=== PATIENT | male | born 1990 | race American Indian/Alaskan Native ===

== ENCOUNTER 2017-12-05 03:10 | Inpatient (IN) | payer MEDICAID ==
[2017-12-05] MEDS ORDERED: D5NS 0.2% 1,000 ML IV SCH (05:00)
[2017-12-05] MEDS ORDERED: DILAUDID IV ONE ×2 (06:25→06:47)
[2017-12-05] MEDS ORDERED: BENADRYL IV ONE (06:26)
[2017-12-05] MEDS ORDERED: ZOFRAN IV ONE (06:26)
[2017-12-05 06:31] LABS: Hemoglobin 6.6 gm/dl (11.8-15.2); Mean Corpuscular HGB Conc 37 % (32-34); Mean Corpuscular Hemoglobin 30 pg (28-32); Mean Corpuscular Volume 81 fl (84-94); Red Blood Count 2.21 M/mm3 (3.65-5.03)
[2017-12-05 06:35] LABS: Platelet Count 288 K/mm3 (140-440); Red Cell Distribution Width 29.8 % (13.2-15.2)
[2017-12-05 06:38] LABS: Hematocrit 17.9 % (35.5-45.6)
--- NOTE | 2017-12-05 07:02 | Emergency Department Report ---
ED General Adult HPI - General Chief complaint: Sickle Cell Crisis Stated complaint: SICKLE CELL CRISIS Time Seen by Provider: 12/05/17 06:45 Source: patient Mode of arrival: Ambulatory Limitations: No Limitations - History of Present Illness Initial comments: Mr. Goldman is a 27-year-old male with history of hemoglobin SS disease. He has been ill for the past 7 days. He recently left against medical advice [facility] because his pain was not being controlled. Upon admission at the outside hospital, he was receiving hydromorphone 2 mg IV every 3 hours which was managing his pain. He was informed that the hospital ran out of Dilaudid. He was then titrated to morphine 4 mg IV every 3 hours which did not control his pain. He is followed by handstitching machine armhole feller at the [facility]. He denies fever. He's had mild headache. He has mild nondescript chest pain. He has back and extremity pain. He desires hospitalization. [place] has been dependent on oxygen for several years. -: Gradual, week(s) (1) Location: chest, back, upper extremity, lower extremity Radiation: non-radiation Severity scale (0 -10): 9 Quality: aching Consistency: constant Improves with: medication Worsens with: none Associated Symptoms: chest pain. denies: confusion, fever/chills, nausea/ vomiting - Related Data Home Medications Medication Instructions Recorded Confirmed Last Taken Amitriptyline [Elavil] 25 mg PO QHS 06/16/15 08/24/17 08/23/17 Previous Rx's Medication Instructions Recorded Last Taken Type Folic Acid [Folvite] 1 mg PO QDAY #30 tablet 06/17/15 08/23/17 Rx Hydroxyurea [Droxia] 1,500 mg PO DAILY #30 capsule 06/17/15 08/23/17 Rx Oxycodone HCl/Acetaminophen 1 tab PO Q4-6H PRN #15 tablet 09/16/15 Unknown Rx [Percocet 10/325 mg] Allergies Allergy/AdvReac Type Severity Reaction Status Date / Time No Known Allergies Allergy Verified 06/16/15 12:38 ED Review of Systems ROS: Stated complaint: SICKLE CELL CRISIS Other details as noted in HPI Comment: All other systems reviewed and negative Constitutional: denies: fever, malaise Respiratory: denies: cough Gastrointestinal: denies: abdominal pain ED Past Medical Hx - Past Medical History Previous Medical History?: Yes Hx Congestive Heart Failure: No Hx Diabetes: No Hx Sickle Cell Disease: Yes Hx Asthma: Yes Hx HIV: No Additional medical history: Acute chest syndrome - Surgical History Past Surgical History?: Yes Hx Cholecystectomy: Yes Additional Surgical History: TRACHEOSTOMY. 2 PORTS AND REMOVAL. LIVER BIOPSY X2 - Social History Smoking Status: Never Smoker Substance Use Type: Alcohol - Medications Home Medications: Home Medications Medication Instructions Recorded Confirmed Last Taken Type Amitriptyline [Elavil] 25 mg PO QHS 06/16/15 08/24/17 08/23/17 History Folic Acid [Folvite] 1 mg PO QDAY #30 tablet 06/17/15 08/24/17 08/23/17 Rx Hydroxyurea [Droxia] 1,500 mg PO DAILY #30 capsule 06/17/15 08/24/17 08/23/17 Rx Oxycodone HCl/Acetaminophen 1 tab PO Q4-6H PRN #15 tablet 09/16/15 08/24/17 Unknown Rx [Percocet 10/325 mg] ED Physical Exam - General Limitations: No Limitations General appearance: alert, in no apparent distress - Head Head exam: Present: atraumatic, normocephalic - Eye Eye exam: Present: normal appearance - ENT ENT exam: Present: normal orophraynx, mucous membranes moist - Neck Neck exam: Present: normal inspection. Absent: meningismus - Respiratory Respiratory exam: Present: normal lung sounds bilaterally. Absent: respiratory distress, wheezes, rales, rhonchi - Cardiovascular Cardiovascular Exam: Present: regular rate, normal rhythm. Absent: systolic murmur, diastolic murmur, rubs, gallop - GI/Abdominal GI/Abdominal exam: Present: soft, normal bowel sounds. Absent: distended, tenderness, guarding, rebound - Rectal Rectal exam: Present: deferred - Extremities Exam Extremities exam: Present: normal inspection - Back Exam Back exam: Present: normal inspection - Neurological Exam Neurological exam: Present: alert, oriented X3 - Psychiatric Psychiatric exam: Present: normal affect, normal mood - Skin Skin exam: Present: warm, dry, intact, normal color. Absent: rash ED Course Vital Signs 12/05/17 12/05/17 12/05/17 04:15 05:16 05:20 Temperature 97.8 F 98.5 F Pulse Rate 90 76 Respiratory 20 18 Rate Blood Pressure 107/67 114/72 Blood Pressure 114/72 [Left] O2 Sat by Pulse 96 99 Oximetry 12/05/17 12/05/17 12/05/17 05:30 05:46 06:00 Temperature Pulse Rate 73 69 74 Respiratory 14 19 15 Rate Blood Pressure 109/66 109/66 97/49 Blood Pressure [Left] O2 Sat by Pulse 99 100 100 Oximetry 12/05/17 12/05/17 12/05/17 06:16 06:30 06:38 Temperature Pulse Rate 73 Respiratory 19 18 Rate Blood Pressure 114/72 124/62 Blood Pressure [Left] O2 Sat by Pulse 100 98 Oximetry 12/05/17 12/05/17 12/05/17 06:46 07:00 07:16 Temperature Pulse Rate 83 78 84 Respiratory 24 20 19 Rate Blood Pressure 124/62 116/58 124/62 Blood Pressure [Left] O2 Sat by Pulse 100 100 99 Oximetry 12/05/17 07:32 Temperature 97.6 F Pulse Rate Respiratory Rate Blood Pressure Blood Pressure [Left] O2 Sat by Pulse Oximetry ED Medical Decision Making - Lab Data Result diagrams: 12/05/17 04:47 12/05/17 06:57 Laboratory Results - last 24 hr 12/05/17 04:47 WBC 15.6 H RBC 2.21 L Hgb 6.6 L Hct 17.9 L* MCV 81 L MCH 30 MCHC 37 H RDW 29.8 H Plt Count 288 Baso % (Auto) Sprinkler Installer Lymph # Sprinkler Installer Percent Retic 10.92 H Immature Retic Fraction 0.76 Vital Signs - 24 hr 12/05/17 12/05/17 12/05/17 04:15 05:16 05:20 Temperature 97.8 F 98.5 F Pulse Rate 90 76 Respiratory 20 18 Rate Blood Pressure 107/67 114/72 Blood Pressure 114/72 [Left] O2 Sat by Pulse 96 99 Oximetry 12/05/17 12/05/17 12/05/17 05:30 05:46 06:00 Temperature Pulse Rate 73 69 74 Respiratory 14 19 15 Rate Blood Pressure 109/66 109/66 97/49 Blood Pressure [Left] O2 Sat by Pulse 99 100 100 Oximetry 12/05/17 12/05/17 12/05/17 06:16 06:30 06:38 Temperature Pulse Rate 73 Respiratory 19 18 Rate Blood Pressure 114/72 124/62 Blood Pressure [Left] O2 Sat by Pulse 100 98 Oximetry 12/05/17 06:46 Temperature Pulse Rate 83 Respiratory 24 Rate Blood Pressure 124/62 Blood Pressure [Left] O2 Sat by Pulse 100 Oximetry - Medical Decision Making Mr. Goldman presents with sickle cell disease crisis. He'll be admitted to the hospitalist service. Critical care attestation.: If time is entered above; I have spent that time in minutes in the direct care of this critically ill patient, excluding procedure time. ED Disposition Clinical Impression: Sickle cell anemia with crisis Disposition: -09 OP ADMIT IP TO THIS HOSP Is pt being admited?: Yes Does the pt Need Aspirin: No Condition: Stable Referrals: LIDIA ARTHUR MD [Other] - 3-5 Days Time of Disposition: 08:08
[2017-12-05 07:26] LABS: BUN/Creatinine Ratio 15; Blood Urea Nitrogen 15 mg/dL (9-20); Calcium 8.5 mg/dL (8.4-10.2); Hemolysis Index 30
[2017-12-05 08:01] LABS: Band Neutrophils # (Manual) 0.6 K/mm3; Basophils % (Manual) 0 % (0.0-1.8); Total Cells Counted 100; Toxic Vacuolation Few
[2017-12-05 08:02] LABS: Anisocytosis 3+; Giant Platelets Few; Ovalocytes Few; Sickle Cells 3+; Target Cells 1+
[2017-12-05] MEDS ORDERED: MILK OF MAGNESIA PO PRN (10:34)
[2017-12-05] MEDS ORDERED: ZOFRAN IV PRN (10:34)
[2017-12-05] MEDS ORDERED: DULCOLAX PR PRN (10:34)
[2017-12-05] MEDS ORDERED: DILAUDID IV PRN (10:34)
--- NOTE | 2017-12-05 10:38 | History and Physical Report ---
History of Present Illness Date of examination: 12/05/17 Date of admission: 12/05/17 08:09 Chief complaint: SSC History of present illness: Mr. Goldman is a 27-year-old male with history of hemoglobin SS disease. He has been ill for the past 7 days. He recently left against medical advice [facility] yesterday because his pain was not being controlled. Upon admission at the outside hospital, he was receiving hydromorphone 2 mg IV every 3 hours which was managing his pain. He was informed that the hospital ran out of Dilaudid. He was then titrated to morphine 4 mg IV every 3 hours which did not control his pain. He is followed by tennis professional at the [place] [facility]. He denies fever. He denies h/ a or CP. He has back and extremity pain. No F/C, cough or cold sxs. Past History Past Medical History: other (SSC) Past Surgical History: No surgical history Social history: no significant social history Family history: no significant family history Medications and Allergies Allergies Allergy/AdvReac Type Severity Reaction Status Date / Time No Known Allergies Allergy Verified 06/16/15 12:38 Home Medications Medication Instructions Recorded Confirmed Last Taken Type Amitriptyline [Elavil] 25 mg PO QHS 06/16/15 12/05/17 08/23/17 History Folic Acid [Folvite] 1 mg PO QDAY #30 tablet 06/17/15 12/05/17 08/23/17 Rx Hydroxyurea [Droxia] 1,500 mg PO DAILY #30 capsule 06/17/15 12/05/17 08/23/17 Rx Oxycodone HCl/Acetaminophen 1 tab PO Q4-6H PRN #15 tablet 09/16/15 12/05/17 Unknown Rx [Percocet 10/325 mg] Active Meds: Active Medications Dextrose/Sodium Chloride (D5ns 0.2%) 1,000 mls @ 250 mls/hr IV DIRECT SLICK Last Admin: 12/05/17 08:40 Dose: 250 mls/hr Review of Systems All systems: negative Exam - Constitutional Vitals: Temp Pulse Resp BP Pulse Ox 97.6 F 84 19 124/62 99 12/05/17 07:32 12/05/17 07:16 12/05/17 07:16 12/05/17 07:16 12/05/17 07:16 General appearance: Present: no acute distress, well-nourished - EENT Eyes: Present: PERRL ENT: hearing intact, clear oral mucosa - Neck Neck: Present: supple, normal ROM - Respiratory Respiratory effort: normal Respiratory: bilateral: CTA - Cardiovascular Heart Sounds: Present: S1 & S2. Absent: rub, click - Extremities Extremities: pulses symmetrical, No edema Peripheral Pulses: within normal limits - Abdominal General gastrointestinal: Present: soft, non-tender, non-distended, normal bowel sounds Male genitourinary: Present: normal - Integumentary Integumentary: Present: clear, warm, dry - Musculoskeletal Musculoskeletal: gait normal, strength equal bilaterally - Psychiatric Psychiatric: appropriate mood/affect, intact judgment & insight - Neurologic Neurologic: CNII-XII intact, moves all extremities Results - Labs CBC & Chem 7: 12/05/17 04:47 12/05/17 06:57 Labs: Laboratory Last Values WBC 15.6 K/mm3 (4.5-11.0) H 12/05/17 04:47 RBC 2.21 M/mm3 (3.65-5.03) L 12/05/17 04:47 Hgb 6.6 gm/dl (11.8-15.2) L 12/05/17 04:47 Hct 17.9 % (35.5-45.6) L* 12/05/17 04:47 MCV 81 fl (84-94) L 12/05/17 04:47 MCH 30 pg (28-32) 12/05/17 04:47 MCHC 37 % (32-34) H 12/05/17 04:47 RDW 29.8 % (13.2-15.2) H 12/05/17 04:47 Plt Count 288 K/mm3 (140-440) 12/05/17 04:47 Baso % (Auto) Compounder Helper 12/05/17 04:47 Lymph # Compounder Helper 12/05/17 04:47 Add Manual Diff Complete 12/05/17 04:47 Total Counted 100 12/05/17 04:47 Seg Neuts % (Manual) 57.0 % (40.0-70.0) 12/05/17 04:47 Band Neutrophils % 4.0 % 12/05/17 04:47 Lymphocytes % (Manual) 18.0 % (13.4-35.0) 12/05/17 04:47 Reactive Lymphs % (Man) 0 % 12/05/17 04:47 Monocytes % (Manual) 17.0 % (0.0-7.3) H 12/05/17 04:47 Eosinophils % (Manual) 3.0 % (0.0-4.3) 12/05/17 04:47 Basophils % (Manual) 0 % (0.0-1.8) 12/05/17 04:47 Metamyelocytes % 1.0 % 12/05/17 04:47 Myelocytes % 0 % 12/05/17 04:47 Promyelocytes % 0 % 12/05/17 04:47 Blast Cells % 0 % 12/05/17 04:47 Nucleated RBC % 17.0 % (0.0-0.9) H 12/05/17 04:47 Seg Neutrophils # Man 8.9 K/mm3 (1.8-7.7) H 12/05/17 04:47 Band Neutrophils # 0.6 K/mm3 12/05/17 04:47 Lymphocytes # (Manual) 2.8 K/mm3 (1.2-5.4) 12/05/17 04:47 Abs React Lymphs (Man) 0.0 K/mm3 12/05/17 04:47 Monocytes # (Manual) 2.7 K/mm3 (0.0-0.8) H 12/05/17 04:47 Eosinophils # (Manual) 0.5 K/mm3 (0.0-0.4) H 12/05/17 04:47 Basophils # (Manual) 0.0 K/mm3 (0.0-0.1) 12/05/17 04:47 Metamyelocytes # 0.2 K/mm3 12/05/17 04:47 Myelocytes # 0.0 K/mm3 12/05/17 04:47 Promyelocytes # 0.0 K/mm3 12/05/17 04:47 Blast Cells # 0.0 K/mm3 12/05/17 04:47 WBC Morphology Not Reportable 12/05/17 04:47 Hypersegmented Neuts Not Reportable 12/05/17 04:47 Hyposegmented Neuts Not Reportable 12/05/17 04:47 Hypogranular Neuts Not Reportable 12/05/17 04:47 Smudge Cells Not Reportable 12/05/17 04:47 Toxic Granulation Not Reportable 12/05/17 04:47 Toxic Vacuolation Few 12/05/17 04:47 Dohle Bodies Not Reportable 12/05/17 04:47 Pelger-Huet Anomaly Not Reportable 12/05/17 04:47 [place] Rods Not Reportable 12/05/17 04:47 Platelet Estimate Appears normal 12/05/17 04:47 Clumped Platelets Not Reportable 12/05/17 04:47 Plt Clumps, EDTA Not Reportable 12/05/17 04:47 Large Platelets Not Reportable 12/05/17 04:47 Giant Platelets Few 12/05/17 04:47 Platelet Satelliting Not Reportable 12/05/17 04:47 Plt Morphology Comment Not Reportable 12/05/17 04:47 RBC Morphology Not Reportable 12/05/17 04:47 Dimorphic RBCs Not Reportable 12/05/17 04:47 Polychromasia 1+ 12/05/17 04:47 Hypochromasia Not Reportable 12/05/17 04:47 Poikilocytosis Not Reportable 12/05/17 04:47 Anisocytosis 3+ 12/05/17 04:47 Microcytosis Not Reportable 12/05/17 04:47 Macrocytosis Not Reportable 12/05/17 04:47 Spherocytes Not Reportable 12/05/17 04:47 Pappenheimer Bodies Not Reportable 12/05/17 04:47 Sickle Cells 3+ 12/05/17 04:47 Target Cells 1+ 12/05/17 04:47 Tear Drop Cells Not Reportable 12/05/17 04:47 Ovalocytes Few 12/05/17 04:47 Helmet Cells Not Reportable 12/05/17 04:47 [place] Bodies Not Reportable 12/05/17 04:47 [place] Rings Not Reportable 12/05/17 04:47 Arvind Cells Not Reportable 12/05/17 04:47 Bite Cells Not Reportable 12/05/17 04:47 Crenated Cell Not Reportable 12/05/17 04:47 Elliptocytes Few 12/05/17 04:47 Acanthocytes (Spur) Not Reportable 12/05/17 04:47 Rouleaux Not Reportable 12/05/17 04:47 Hemoglobin C Crystals Not Reportable 12/05/17 04:47 Schistocytes Not Reportable 12/05/17 04:47 Malaria parasites Not Reportable 12/05/17 04:47 Percent Retic 10.92 % (0.78-2.58) H 12/05/17 04:47 Immature Retic Fraction 0.76 12/05/17 04:47 Stanton Bodies Not Reportable 12/05/17 04:47 Hem Pathologist Commnt No 12/05/17 04:47 Sodium 136 mmol/L (137-145) L 12/05/17 06:57 Potassium 5.2 mmol/L (3.6-5.0) H 12/05/17 06:57 Chloride 96.4 mmol/L (98-107) L 12/05/17 06:57 Carbon Dioxide 22 mmol/L (22-30) 12/05/17 06:57 Anion Gap 23 mmol/L 12/05/17 06:57 BUN 15 mg/dL (9-20) 12/05/17 06:57 Creatinine 1.0 mg/dL (0.8-1.5) 12/05/17 06:57 Estimated GFR > 60 ml/min 12/05/17 06:57 BUN/Creatinine Ratio 15 % 12/05/17 06:57 Glucose 94 mg/dL (75-100) 12/05/17 06:57 Calcium 8.5 mg/dL (8.4-10.2) 12/05/17 06:57 Assessment and Plan Assessment and plan: Sickle cell vasocclusive pain crisis. IVF hydration, pain control and supportive care. Heme consultation Anemia. Etiology secondary to # 1. Consider Transfusing one unit PRBC if ok with Heme Leukocytosis. Etiology leukamoid rxn from # 1
[2017-12-05] MEDS: DILAUDID IV PRN ×3 (14:08→22:39)
[2017-12-05] MEDS ORDERED: BENADRYL IV PRN (22:06)
--- NOTE | 2017-12-05 22:33 | Consultation ---
History of Present Illness - Reason for Consult Consult date: 12/05/17 SCD/Sickel pain. Requesting physician: OSWALD DIXON - History of Present Illness Thank you for this consult, patient seen/examined, record reviewed, case d/w patient He presented with sxs of SC pain crisis, and was admitted for sxs control, and management.He goes to [facility] for his routine care.He states his pain at 7-8/10, and not controlled.Please see meds adjustment, and orders / recommended. Past History Past Medical History: anemia, other (SSC) Past Surgical History: No surgical history Social history: no significant social history Family history: no significant family history Medications and Allergies Allergies Allergy/AdvReac Type Severity Reaction Status Date / Time No Known Allergies Allergy Verified 06/16/15 12:38 Home Medications Medication Instructions Recorded Confirmed Last Taken Type Amitriptyline [Elavil] 25 mg PO QHS 06/16/15 12/05/17 08/23/17 History Folic Acid [Folvite] 1 mg PO QDAY #30 tablet 06/17/15 12/05/17 08/23/17 Rx Hydroxyurea [Droxia] 1,500 mg PO DAILY #30 capsule 06/17/15 12/05/17 08/23/17 Rx Oxycodone HCl/Acetaminophen 1 tab PO Q4-6H PRN #15 tablet 09/16/15 12/05/17 Unknown Rx [Percocet 10/325 mg] Active Meds: Active Medications Bisacodyl (Dulcolax) 10 mg [place] QDAY PRN PRN Reason: Constipation unrelieved by MOM Diphenhydramine HCl (Benadryl) 12.5 mg IV Q3H PRN PRN Reason: Itching Folic Acid (Folvite) 1 mg PO QDAY SLICK Hydromorphone HCl (Dilaudid) 2 mg IV Q3H PRN PRN Reason: Pain , Severe (7-10) Dextrose/Sodium Chloride (D5ns 0.2%) 1,000 mls @ 250 mls/hr IV DIRECT SLICK Last Admin: 12/05/17 08:40 Dose: 250 mls/hr Magnesium Hydroxide (Milk Of Magnesia) 30 ml PO Q4H PRN PRN Reason: Constipation Multivitamins (Theragran Tab) 1 each PO QDAY SLICK Ondansetron HCl (Zofran) 4 mg IV Q8H PRN PRN Reason: Nausea And Vomiting Senna (Senokot) 17.2 mg PO QHS SLICK Review of Systems Constitutional: chronic pain Musculoskeletal: low back pain Exam - Constitutional Vitals: Temp Pulse Resp BP Pulse Ox 97.9 F 88 20 110/68 92 12/05/17 16:23 12/05/17 16:23 12/05/17 17:32 12/05/17 16:23 12/05/17 16:23 General appearance: Present: mild distress, well-nourished - EENT Eyes: Present: PERRL ENT: hearing intact, clear oral mucosa - Neck Neck: Present: supple, normal ROM - Respiratory Respiratory effort: normal Respiratory: bilateral: CTA - Cardiovascular Heart Sounds: Present: S1 & S2. Absent: rub, click - Extremities Extremities: pulses symmetrical, No edema Peripheral Pulses: within normal limits - Abdominal General gastrointestinal: Present: soft, non-tender, non-distended, normal bowel sounds Male genitourinary: Present: deferred - Rectal Rectal Exam: deferred - Integumentary Integumentary: Present: clear, warm, dry - Musculoskeletal Musculoskeletal: gait normal, strength equal bilaterally - Psychiatric Psychiatric: appropriate mood/affect, intact judgment & insight - Neurologic Neurologic: CNII-XII intact, moves all extremities Results - Labs CBC & Chem 7: 12/05/17 04:47 12/05/17 06:57 Labs: Abnormal lab results 12/05/17 12/05/17 Range/Units 04:47 06:57 WBC 15.6 H (4.5-11.0) K/mm3 RBC 2.21 L (3.65-5.03) M/mm3 Hgb 6.6 L (11.8-15.2) gm/dl Hct 17.9 L* (35.5-45.6) % MCV 81 L (84-94) fl MCHC 37 H (32-34) % RDW 29.8 H (13.2-15.2) % Monocytes % (Manual) 17.0 H (0.0-7.3) % Nucleated RBC % 17.0 H (0.0-0.9) % Seg Neutrophils # Man 8.9 H (1.8-7.7) K/mm3 Monocytes # (Manual) 2.7 H (0.0-0.8) K/mm3 Eosinophils # (Manual) 0.5 H (0.0-0.4) K/mm3 Percent Retic 10.92 H (0.78-2.58) % Sodium 136 L (137-145) mmol/L Potassium 5.2 H (3.6-5.0) mmol/L Chloride 96.4 L (98-107) mmol/L Assessment and Plan - Patient Problems (1) Sickle cell anemia with crisis Current Visit: Yes Status: Acute Plan to address problem: pain control. (2) Anemia, hemolytic Current Visit: No Status: Acute Qualifiers: Hemolytic anemia type: hereditary hemolytic anemia, other Qualified Code(s) : D58.8 - Other specified hereditary hemolytic anemias Plan to address problem: transfusion replacement. (3) Dehydration Current Visit: Yes Status: Acute Plan to address problem: hydration.
[2017-12-05] MEDS: SENOKOT PO SCH (22:37)
[2017-12-05] MEDS: BENADRYL IV PRN (22:40)
[2017-12-05] MEDS ORDERED: NACL 0.9% 500 ML 500 ML IV ONE (22:44)
[2017-12-05] MEDS: D5NS 0.2% 1,000 ML IV SCH (23:10)
[2017-12-06 00:19] LABS: BUN/Creatinine Ratio 20; Blood Urea Nitrogen 12 mg/dL (9-20); Calcium 8.6 mg/dL (8.4-10.2); Hemolysis Index 47
[2017-12-06] MEDS: BENADRYL IV PRN ×6 (03:22→22:31)
[2017-12-06] MEDS: DILAUDID IV PRN ×6 (03:23→22:30)
[2017-12-06 07:22] LABS: Hemoglobin 6.4 gm/dl (11.8-15.2); Mean Corpuscular HGB Conc 37 % (32-34); Mean Corpuscular Hemoglobin 31 pg (28-32); Mean Corpuscular Volume 84 fl (84-94); Red Blood Count 2.03 M/mm3 (3.65-5.03)
[2017-12-06 07:40] LABS: Hematocrit 17.1 % (35.5-45.6); Red Cell Distribution Width 31.3 % (13.2-15.2)
[2017-12-06 07:43] LABS: Iron 57 ug/dL (49-181); Total Iron Binding Capacity 249 mcg/dL (250-450)
[2017-12-06 09:03] LABS: Anisocytosis 3+; Basophils % (Manual) 0 % (0.0-1.8); Total Cells Counted 100
[2017-12-06 09:04] LABS: Ovalocytes 1+; Poikilocytosis 3+; Schistocytes Few; Sickle Cells 3+; Target Cells 1+
[2017-12-06 09:05] LABS: Large Platelets Few; Platelet Estimate Cons
[2017-12-06 09:15] LABS: Platelet Count 306 K/mm3 (140-440)
[2017-12-06] MEDS ORDERED: NACL 0.9% 500 ML 500 ML IV ONE (10:00)
--- NOTE | 2017-12-06 10:25 | Progress Note ---
Assessment and Plan Assessment and plan: Sickle cell vasocclusive pain crisis. IVF hydration, pain control and supportive care. Heme following Anemia. Etiology secondary to # 1. Transfuse 2 units PRBCs Leukocytosis. Etiology leukamoid rxn from # 1 History Interval history: No new issues overnight Hospitalist Physical - Constitutional Vitals: Temp Pulse Resp BP Pulse Ox 97.9 F 78 18 105/69 98 12/06/17 07:47 12/06/17 07:47 12/06/17 07:47 12/06/17 07:47 12/06/17 07:47 General appearance: Present: no acute distress, well-nourished - EENT Eyes: Present: PERRL, EOM intact ENT: hearing intact, clear oral mucosa, dentition normal - Neck Neck: Present: supple, normal ROM - Respiratory Respiratory effort: normal Respiratory: bilateral: CTA - Cardiovascular Rhythm: regular Heart Sounds: Present: S1 & S2. Absent: gallop, rub - Extremities Extremities: no ischemia, No edema, Full ROM - Abdominal General gastrointestinal: soft, non-tender, non-distended, normal bowel sounds - Integumentary Integumentary: Present: clear, warm, dry - Neurologic Neurologic: CNII-XII intact, moves all extremities Results - Labs CBC & Chem 7: 12/06/17 06:54 12/05/17 23:24 Labs: Laboratory Last Values WBC 9.6 K/mm3 (4.5-11.0) 12/06/17 06:54 RBC 2.03 M/mm3 (3.65-5.03) L 12/06/17 06:54 Hgb 6.4 gm/dl (11.8-15.2) L 12/06/17 06:54 Hct 17.1 % (35.5-45.6) L* 12/06/17 06:54 MCV 84 fl (84-94) 12/06/17 06:54 MCH 31 pg (28-32) 12/06/17 06:54 MCHC 37 % (32-34) H 12/06/17 06:54 RDW 31.3 % (13.2-15.2) H 12/06/17 06:54 Plt Count 306 K/mm3 (140-440) 12/06/17 06:54 [place] % (Auto) Supervisor Mold Shop 12/06/17 06:54 Baso % (Auto) Supervisor [employer] Shop 12/05/17 04:47 Lymph # Supervisor [employer] Shop 12/05/17 04:47 Add Manual Diff Complete 12/06/17 06:54 Total Counted 100 12/06/17 06:54 Seg Neuts % (Manual) 57.0 % (40.0-70.0) 12/06/17 06:54 Band Neutrophils % 0 % 12/06/17 06:54 Lymphocytes % (Manual) 31.0 % (13.4-35.0) 12/06/17 06:54 Reactive Lymphs % (Man) 0 % 12/06/17 06:54 Monocytes % (Manual) 9.0 % (0.0-7.3) H 12/06/17 06:54 Eosinophils % (Manual) 3.0 % (0.0-4.3) 12/06/17 06:54 Basophils % (Manual) 0 % (0.0-1.8) 12/06/17 06:54 Metamyelocytes % 0 % 12/06/17 06:54 Myelocytes % 0 % 12/06/17 06:54 Promyelocytes % 0 % 12/06/17 06:54 Blast Cells % 0 % 12/06/17 06:54 Nucleated RBC % 40.0 % (0.0-0.9) H 12/06/17 06:54 Seg Neutrophils # Man 6.3 K/mm3 (1.8-7.7) 12/06/17 06:54 Band Neutrophils # 0.0 K/mm3 12/06/17 06:54 Lymphocytes # (Manual) 3.4 K/mm3 (1.2-5.4) 12/06/17 06:54 Abs React Lymphs (Man) 0.0 K/mm3 12/06/17 06:54 Monocytes # (Manual) 1.0 K/mm3 (0.0-0.8) H 12/06/17 06:54 Eosinophils # (Manual) 0.3 K/mm3 (0.0-0.4) 12/06/17 06:54 Basophils # (Manual) 0.0 K/mm3 (0.0-0.1) 12/06/17 06:54 Metamyelocytes # 0.0 K/mm3 12/06/17 06:54 Myelocytes # 0.0 K/mm3 12/06/17 06:54 Promyelocytes # 0.0 K/mm3 12/06/17 06:54 Blast Cells # 0.0 K/mm3 12/06/17 06:54 WBC Morphology Not Reportable 12/06/17 06:54 Hypersegmented Neuts Not Reportable 12/06/17 06:54 Hyposegmented Neuts Not Reportable 12/06/17 06:54 Hypogranular Neuts Not Reportable 12/06/17 06:54 Smudge Cells Not Reportable 12/06/17 06:54 Toxic Granulation Not Reportable 12/06/17 06:54 Toxic Vacuolation Not Reportable 12/06/17 06:54 Dohle Bodies Not Reportable 12/06/17 06:54 Pelger-Huet Anomaly Not Reportable 12/06/17 06:54 Carolina Rods Not Reportable 12/06/17 06:54 Platelet Estimate Cons 12/06/17 06:54 Clumped Platelets Not Reportable 12/06/17 06:54 Plt Clumps, EDTA Not Reportable 12/06/17 06:54 Large Platelets Few 12/06/17 06:54 Giant Platelets Not Reportable 12/06/17 06:54 Platelet Satelliting Not Reportable 12/06/17 06:54 Plt Morphology Comment Not Reportable 12/06/17 06:54 RBC Morphology Not Reportable 12/06/17 06:54 Dimorphic RBCs Not Reportable 12/06/17 06:54 Polychromasia 1+ 12/06/17 06:54 Hypochromasia Not Reportable 12/06/17 06:54 Poikilocytosis 3+ 12/06/17 06:54 Anisocytosis 3+ 12/06/17 06:54 Microcytosis Not Reportable 12/06/17 06:54 Macrocytosis Not Reportable 12/06/17 06:54 Spherocytes Not Reportable 12/06/17 06:54 Pappenheimer Bodies Not Reportable 12/06/17 06:54 Sickle Cells 3+ 12/06/17 06:54 Target Cells 1+ 12/06/17 06:54 Tear Drop Cells Not Reportable 12/06/17 06:54 Ovalocytes 1+ 12/06/17 06:54 Helmet Cells Not Reportable 12/06/17 06:54 [place] Bodies Not Reportable 12/06/17 06:54 Leona Rings Not Reportable 12/06/17 06:54 Arvind Cells Not Reportable 12/06/17 06:54 Bite Cells Not Reportable 12/06/17 06:54 Crenated Cell Not Reportable 12/06/17 06:54 Elliptocytes 1+ 12/06/17 06:54 Acanthocytes (Spur) Not Reportable 12/06/17 06:54 Rouleaux Not Reportable 12/06/17 06:54 Hemoglobin C Crystals Not Reportable 12/06/17 06:54 Schistocytes Few 12/06/17 06:54 Malaria parasites Not Reportable 12/06/17 06:54 Percent Retic 14.73 % (0.78-2.58) H 12/06/17 06:54 Immature Retic Fraction 0.76 12/05/17 04:47 Stanton Bodies Not Reportable 12/06/17 06:54 Hem Pathologist Commnt No 12/06/17 06:54 Sodium 138 mmol/L (137-145) 12/05/17 23:24 Potassium 5.7 mmol/L (3.6-5.0) H 12/05/17 23:24 Chloride 100.6 mmol/L (98-107) 12/05/17 23:24 Carbon Dioxide 25 mmol/L (22-30) 12/05/17 23:24 Anion Gap 18 mmol/L 12/05/17 23:24 BUN 12 mg/dL (9-20) 12/05/17 23:24 Creatinine 0.6 mg/dL (0.8-1.5) L 12/05/17 23:24 Estimated GFR > 60 ml/min 12/05/17 23:24 BUN/Creatinine Ratio 20 % 12/05/17 23:24 Glucose 114 mg/dL (75-100) H 12/05/17 23:24 Calcium 8.6 mg/dL (8.4-10.2) 12/05/17 23:24 Iron 57 ug/dL (49-181) 12/06/17 06:54 TIBC 249 mcg/dL (250-450) L 12/06/17 06:54 Ferritin 149.6 ng/mL (13.0-400.0) 12/06/17 06:54 Lactate Dehydrogenase 1257 units/L (91-180) H 12/06/17 06:54 Blood Type A POSITIVE 12/05/17 23:24 Antibody Screen Negative 12/05/17 23:24 Crossmatch See Detail 12/05/17 23:24
[2017-12-06] MEDS: FOLVITE PO SCH (11:17)
[2017-12-06] MEDS: THERAGRAN Tab PO SCH (11:17)
[2017-12-06] MEDS: D5NS 0.2% 1,000 ML IV SCH (17:05)
--- NOTE | 2017-12-06 20:37 | Progress Note ---
Assessment and Plan - Patient Problems (1) Sickle cell anemia with crisis Current Visit: Yes Status: Acute Plan to address problem: pain control. (2) Anemia, hemolytic Current Visit: No Status: Acute Qualifiers: Hemolytic anemia type: hereditary hemolytic anemia, other Qualified Code(s) : D58.8 - Other specified hereditary hemolytic anemias Plan to address problem: transfusion replacement. completed. (3) Dehydration Current Visit: Yes Status: Acute Plan to address problem: hydration. Subjective Date of service: 12/06/17 Interval history: Patient seen/examined, resting in bed, records reviewed, case d/w patient. C/O feels a bit better post blood transfusion.continue to follow you . He will need labs in am. Objective - Constitutional Vitals: Vital Signs - 12hr 12/06/17 12/06/17 12/06/17 10:00 10:28 10:43 Temperature 97.9 F 97.8 F Pulse Rate 77 80 Respiratory 18 18 16 Rate Blood Pressure 108/63 112/65 O2 Sat by Pulse 93 95 Oximetry 12/06/17 12/06/17 12/06/17 11:13 11:43 12:33 Temperature 97.9 F 98.0 F 97.9 F Pulse Rate 82 69 68 Respiratory 16 16 18 Rate Blood Pressure 115/76 117/70 112/63 O2 Sat by Pulse 96 96 94 Oximetry 12/06/17 12/06/17 12/06/17 12:56 13:11 13:41 Temperature 97.8 F 97.7 F 97.9 F Pulse Rate 85 86 85 Respiratory 16 16 18 Rate Blood Pressure 116/68 115/67 108/66 O2 Sat by Pulse 97 95 93 Oximetry 12/06/17 12/06/17 15:03 16:28 Temperature 98.0 F 98.0 F Pulse Rate 84 71 Respiratory 16 18 Rate Blood Pressure 104/63 99/55 O2 Sat by Pulse 95 95 Oximetry General appearance: Present: mild distress, well-nourished - EENT Eyes: PERRL, EOM intact ENT: hearing intact, clear oral mucosa Ears: bilateral: normal - Neck Neck: supple, normal ROM - Respiratory Respiratory effort: normal Respiratory: bilateral: CTA - Breasts Breasts: deferred - Cardiovascular Rhythm: regular Heart Sounds: Present: S1 & S2. Absent: gallop, rub Extremities: pulses intact, No edema, normal color, Full ROM - Gastrointestinal General gastrointestinal: Present: soft, non-tender, non-distended, normal bowel sounds Rectal Exam: deferred - Genitourinary Male genitourinary: deferred - Integumentary Integumentary: clear, warm, dry - Musculoskeletal Musculoskeletal: 1, strength equal bilaterally - Neurologic Neurologic: moves all extremities - Psychiatric Psychiatric: memory intact, appropriate mood/affect, intact judgment & insight - Labs CBC & Chem 7: 12/06/17 06:54 12/05/17 23:24 Labs: Abnormal lab results 12/05/17 12/05/17 12/06/17 Range/Units 23:24 23:24 06:54 RBC 2.03 L (3.65-5.03) M/mm3 Hgb 6.4 L (11.8-15.2) gm/dl Hct 17.1 L* (35.5-45.6) % MCHC 37 H (32-34) % RDW 31.3 H (13.2-15.2) % Monocytes % (Manual) 9.0 H (0.0-7.3) % Nucleated RBC % 40.0 H (0.0-0.9) % Monocytes # (Manual) 1.0 H (0.0-0.8) K/mm3 Percent Retic 14.73 H (0.78-2.58) % Potassium 5.7 H (3.6-5.0) mmol/L Creatinine 0.6 L (0.8-1.5) mg/dL Glucose 114 H (75-100) mg/dL TIBC (250-450) mcg/dL Lactate Dehydrogenase (91-180) units/L Crossmatch See Detail 12/06/17 Range/Units 06:54 RBC (3.65-5.03) M/mm3 Hgb (11.8-15.2) gm/dl Hct (35.5-45.6) % MCHC (32-34) % RDW (13.2-15.2) % Monocytes % (Manual) (0.0-7.3) % Nucleated RBC % (0.0-0.9) % Monocytes # (Manual) (0.0-0.8) K/mm3 Percent Retic (0.78-2.58) % Potassium (3.6-5.0) mmol/L Creatinine (0.8-1.5) mg/dL Glucose (75-100) mg/dL TIBC 249 L (250-450) mcg/dL Lactate Dehydrogenase 1257 H (91-180) units/L Crossmatch
[2017-12-06] MEDS: SENOKOT PO SCH (22:35)
[2017-12-07] MEDS: D5NS 0.2% 1,000 ML IV SCH ×2 (00:12→06:33)
[2017-12-07] MEDS: BENADRYL IV PRN ×3 (02:06→11:10)
[2017-12-07] MEDS: DILAUDID IV PRN ×3 (02:06→11:09)
[2017-12-07 05:27] LABS: Hemoglobin 8.1 gm/dl (11.8-15.2); Mean Corpuscular HGB Conc 37 % (32-34); Mean Corpuscular Hemoglobin 32 pg (28-32); Mean Corpuscular Volume 86 fl (84-94); Red Blood Count 2.55 M/mm3 (3.65-5.03)
[2017-12-07 05:28] LABS: Platelet Count 256 K/mm3 (140-440); Red Cell Distribution Width 36.2 % (13.2-15.2)
[2017-12-07 07:41] LABS: Anisocytosis 3+; Band Neutrophils # (Manual) 0.3 K/mm3; Basophils % (Manual) 0 % (0.0-1.8); Eosinophils % (Manual) 0 % (0.0-4.3); Ovalocytes 1+; Poikilocytosis 3+; Schistocytes Few; Sickle Cells 3+; Target Cells 1+; Total Cells Counted 100
--- NOTE | 2017-12-07 07:56 | Discharge Summary ---
Providers - Providers Date of Admission: 12/05/17 08:09 Date of discharge: 12/07/17 Attending physician: OSWALD DIXON 12/05/17 10:34 Consult to Physician [CONS] Routine Consulting Provider: ZACHERY RUIZ Reason For Exam: SSC Place consult to:: DR. Bella Notified:: DR. Bella Phone number called:: [phone] Was contact made?: Yes If yes, spoke with:: DR. Bella Time called:: 11:04 Comment:: KAMALA NOTIFIED Hospitalization Reason for admission: SSC Condition: Stable Hospital course: Mr. Goldman is a 27-year-old male with history of hemoglobin SS disease. He was ill for the past 7 days [facility]. He recently left against medical advice [facility] the day [facility] because his pain was not being controlled. Upon admission at the outside hospital, he was receiving hydromorphone 2 mg IV every 3 hours which was managing his pain. He was informed that the hospital ran out of Dilaudid. He was then titrated to morphine 4 mg IV every 3 hours which did not control his pain. He is followed by md allergy immunology at the [facility]. He denied fever. He denied h/ a or CP. He has back and extremity pain. No F/C, cough or cold sxs. Pt. received IVF hydration and dialaudid for pain control after admission at our facility with good results. He also received 2 units of PRBCs with H and H stabilized. Pt. was seen by Heme. D/c time 32 min Disposition: DC-01 TO HOME OR SELFCARE Time spent for discharge: 32 Core Measure Documentation - Palliative Care Palliative Care/ Comfort Measures: Not Applicable - Core Measures Any of the following diagnoses?: none Exam - Constitutional Vitals: Temp Pulse Resp BP Pulse Ox 97.9 F 90 18 106/56 95 12/06/17 19:35 12/06/17 22:00 12/06/17 22:00 12/06/17 19:35 12/06/17 19:35 General appearance: Present: no acute distress, well-nourished - EENT Eyes: Present: PERRL ENT: hearing intact, clear oral mucosa - Neck Neck: Present: supple, normal ROM - Respiratory Respiratory effort: normal Respiratory: bilateral: CTA - Cardiovascular Heart Sounds: Present: S1 & S2. Absent: rub, click - Extremities Extremities: pulses symmetrical, No edema Peripheral Pulses: within normal limits - Abdominal General gastrointestinal: Present: soft, non-tender, non-distended, normal bowel sounds Male genitourinary: Present: normal - Integumentary Integumentary: Present: clear, warm, dry - Musculoskeletal Musculoskeletal: gait normal, strength equal bilaterally - Psychiatric Psychiatric: appropriate mood/affect, intact judgment & insight - Neurologic Neurologic: CNII-XII intact, moves all extremities Plan Activity: no restrictions Weight Bearing Status: Full Weight Bearing Diet: regular Follow up with: LIDIA ARTHUR MD [Other] - 3-5 Days Prescriptions: Amitriptyline [Elavil] 25 mg PO QHS #30 tablet Folic Acid [Folvite] 1 mg PO QDAY #30 tablet Hydroxyurea [Droxia] 1,500 mg PO DAILY #30 capsule Multivitamin Tab [Multiple Vitamin TAB (Theragran)] 1 each PO QDAY #30 tablet Oxycodone HCl/Acetaminophen [Percocet 10/325 mg] 1 tab PO Q4-6H PRN #15 tablet PRN Reason: Pain Sennosides Tab [Senokot] 17.2 mg PO QHS #30 tablet
[2017-12-07 08:19] VITALS: BP 100/46
[2017-12-07] MEDS: FOLVITE PO SCH (09:49)
[2017-12-07] MEDS: THERAGRAN Tab PO SCH (09:49)
== END 2017-12-07 15:29 | disposition home or self-care (01) | DRG 812 ==
LOC: ED 03:10 → 3A 08:09
PROVIDERS: ADMIT Internal Medicine; ATTEND Hospitalist
PROC: 30233N1 Transfusion of Nonautologous Red Blood Cells into Peripheral Vein, Percutaneous Approach (ICD-10-PCS; principal; 2017-12-06)
DX: D57.00 Hb-SS disease with crisis, unspecified (principal); D64.9 Anemia, unspecified; J45.909 Unspecified asthma, uncomplicated; D72.829 Elevated white blood cell count, unspecified; E86.0 Dehydration; Z79.899 Other long term (current) drug therapy; Z90.49 Acquired absence of other specified parts of digestive tract; Z93.0 Tracheostomy status
CPT/HCPCS: 36415; 80048; 82728; 83550; 83615; 85007; 85025; 85045; 85660; 86850; 86900; 86901; 86920; 87040; 87086; 96374; 96375; 96376; J1170; J1200; J2405; J7040; P9016

== ENCOUNTER 2018-02-03 10:30 | Emergency (ER) | payer MEDICAID | END 2018-02-03 11:23 | disposition left against medical advice (07) | LOC: ED 10:30 | DX: D57.00 Hb-SS disease with crisis, unspecified (principal); Z53.21 Procedure and treatment not carried out due to patient leaving prior to being seen by health care provider ==

== ENCOUNTER 2018-10-26 05:47 | Inpatient (IN) | payer MEDICAID ==
[2018-10-26] MEDS ORDERED: ASPIRIN PO ONE (06:07)
[2018-10-26] MEDS ORDERED: ZOFRAN IV ONE (06:54)
[2018-10-26] MEDS ORDERED: DILAUDID IV ONE (06:54)
[2018-10-26] MEDS ORDERED: BENADRYL IV ONE (06:54)
--- NOTE | 2018-10-26 07:04 | Emergency Department Report ---
HPI - General Chief Complaint: Sickle Cell Crisis Time Seen by Provider: 10/26/18 06:47 - HPI HPI: Room 5 The patient is a 19-year-old male presenting with a chief complaint sickle cell pain crisis. The patient states she awakened this morning at 04:30 pain to thighs, shoulders and back and chest. Patient states he felt short of breath when he awakened. Patient admits to cough productive of greenish sputum for the past month. Patient denies history of fever or rhinorrhea. Patient is not aware of any sick contacts. Patient gives his pain a score of 9/10 Location: [See above] Duration: [See above] Quality: Sickle cell pain crisis Severity:9/10 Modifying factors: [see above] Context: [see above] Mode of transportation: [not driving] ED Past Medical Hx - Past Medical History Hx Sickle Cell Disease: Yes Additional medical history: Acute chest syndrome - Surgical History Hx Cholecystectomy: Yes Additional Surgical History: TRACHEOSTOMY. 2 PORTS AND REMOVAL. LIVER BIOPSY X2 - Family History Family history: no significant - Social History Smoking Status: Never Smoker Substance Use Type: None (denies illicit drug use), Alcohol (occasional) - Medications Home Medications: Home Medications Medication Instructions Recorded Confirmed Last Taken Type Amitriptyline [Elavil] 25 mg PO QHS #30 tablet 12/07/17 09/17/18 Unknown Rx Hydroxyurea [Droxia] 1,500 mg PO DAILY #30 capsule 12/07/17 09/17/18 Unknown Rx Oxycodone HCl/Acetaminophen 1 tab PO Q4-6H PRN #15 tablet 12/07/17 09/17/18 Unknown Rx [Percocet 10/325 mg] Folic Acid [Folvite] 1 mg PO DAILY 04/03/18 09/17/18 Unknown History Morphine ER [Ms Contin ER] 30 mg PO BID 04/03/18 09/17/18 Unknown History ED Review of Systems ROS: Stated complaint: SICKLE CELL Other details as noted in HPI Constitutional: denies: fever Eyes: denies: eye pain ENT: denies: throat pain Respiratory: cough, shortness of breath Cardiovascular: chest pain Endocrine: no symptoms reported Gastrointestinal: denies: abdominal pain Genitourinary: denies: dysuria Musculoskeletal: arthralgia, myalgia Neurological: denies: headache Physical Exam - Physical Exam Vital Signs: Vital Signs 10/26/18 05:57 Temperature 97.7 F Pulse Rate 105 H Respiratory 22 Rate Blood Pressure 118/62 O2 Sat by Pulse 97 Oximetry Physical Exam: GENERAL: The patient is well-developed well-nourished male lying on stretcher appearing to be in mild discomfort. [] HEENT: Normocephalic. Atraumatic. Extraocular motions are intact. Patient has moist mucous membranes. NECK: Supple. Trachea midline CHEST/LUNGS: Clear to auscultation. There is no respiratory distress noted. HEART/CARDIOVASCULAR: Regular. There is no tachycardia. There is no gallop rub or murmur. ABDOMEN: Abdomen is soft, nontender. Patient has normal bowel sounds. There is no abdominal distention. SKIN: There is no rash. There is no edema. There is no diaphoresis. NEURO: The patient is awake, alert, and oriented. The patient is cooperative. The patient has normal speech MUSCULOSKELETAL: There is no evidence of acute injury. ED Course Vital Signs 10/26/18 05:57 Temperature 97.7 F Pulse Rate 105 H Respiratory 22 Rate Blood Pressure 118/62 O2 Sat by Pulse 97 Oximetry - Consultations Consultation #1: 10/26/18 10:31 [address] discussed [address] admitting Dr[address] Encinas-he requests that bridging orders be placed to admit the patient to telemetry D5 quarter normal saline at 2 50 mL an hour, heparin 5000 units subcutaneous every 8 hours, Dilaudid 2 mg IV every 3 hours as needed, Benadryl 12.5 mg every 3 hours as needed and Rocephin 1 g every 24 hours. Orders entered per Dr Encinas's request ED Medical Decision Making - Lab Data Result diagrams: 10/26/18 06:33 10/26/18 06:33 Laboratory Tests 10/26/18 10/26/18 06:33 06:33 WBC 17.1 H RBC 1.95 L Hgb 6.8 L Hct 18.0 L* MCV 92 MCH 35 H MCHC 38 H* RDW 26.6 H Plt Count 220 Lymph # Pinion Staker Add Manual Diff Complete Total Counted 100 Seg Neuts % (Manual) 65.0 Band Neutrophils % 2.0 Lymphocytes % (Manual) 20.0 Reactive Lymphs % (Man) 4.0 Monocytes % (Manual) 9.0 H Eosinophils % (Manual) 0 Basophils % (Manual) 0 Metamyelocytes % 0 Myelocytes % 0 Promyelocytes % 0 Blast Cells % 0 Nucleated RBC % Not Reportable Seg Neutrophils # Man 11.1 H Band Neutrophils # 0.3 Lymphocytes # (Manual) 3.4 Abs React Lymphs (Man) 0.7 Monocytes # (Manual) 1.5 H Eosinophils # (Manual) 0.0 Basophils # (Manual) 0.0 Metamyelocytes # 0.0 Myelocytes # 0.0 Promyelocytes # 0.0 Blast Cells # 0.0 WBC Morphology Not Reportable Hypersegmented Neuts Not Reportable Hyposegmented Neuts Not Reportable Hypogranular Neuts Not Reportable Smudge Cells Not Reportable Toxic Granulation Not Reportable Toxic Vacuolation Not Reportable Dohle Bodies Not Reportable Pelger-Huet Anomaly Not Reportable [place] Rods Not Reportable Platelet Estimate Consistent w auto Clumped Platelets Not Reportable Plt Clumps, EDTA Not Reportable Large Platelets Few Giant Platelets Few Platelet Satelliting Not Reportable Plt Morphology Comment Not Reportable RBC Morphology Not Reportable Dimorphic RBCs Not Reportable Polychromasia Not Reportable Hypochromasia 2+ Poikilocytosis 3+ Anisocytosis 2+ Microcytosis 1+ Macrocytosis 1+ Spherocytes Not Reportable Pappenheimer Bodies Not Reportable Sickle Cells 3+ Target Cells 1+ Tear Drop Cells Not Reportable Ovalocytes 1+ Helmet Cells Not Reportable Phipps-Silvana Bodies Not Reportable [place] Rings Not Reportable Arvind Cells Not Reportable Bite Cells Not Reportable Crenated Cell Not Reportable Elliptocytes 1+ Acanthocytes (Spur) Not Reportable Rouleaux Not Reportable Hemoglobin C Crystals Not Reportable Schistocytes Not Reportable Malaria parasites Not Reportable Percent Retic 16.31 H Stanton Bodies Not Reportable Hem Pathologist Commnt No Sodium 134 L Potassium 4.5 Chloride 98.8 Carbon Dioxide 22 Anion Gap 18 BUN 15 Creatinine 0.5 L Estimated GFR > 60 BUN/Creatinine Ratio 30 Glucose 149 H Calcium 8.5 Troponin T < 0.010 - EKG Data -: EKG Interpreted by Wy EKG shows normal: sinus rhythm Rate: normal - EKG Data When compared to previous EKG there are: previous EKG unavailable Interpretation: normal EKG, other (no ischemic changes seen) - Radiology Data Radiology results: report reviewed (chest x-ray, VQ scan), image reviewed (chest x-ray, VQ scan) interpreted by me: Chest [id number] new right lower lobe opacity [address] [address] XRay Report Signed Patient: KATELYNN GAVIN JR MR#: [id number] : 1990 Acct:[id number] Age/Sex: 27 / M ADM Date: 10/26/18 Loc: ED Attending Dr: Ordering Physician: SARBJIT CARLSON MD Date of Service: 10/26/18 Procedure(s): XR chest 1V ap Accession Number(s): [id number] cc: SARBJIT CARLSON MD Fluoro Time In Minutes: FINAL REPORT EXAM: XR CHEST 1V AP HISTORY: chest pain TECHNIQUE: AP portable view(s) of the chest obtained. PRIORS: 10/03/2018 FINDINGS: No mediastinal shift. Cardiac silhouette is not enlarged. SVC stent. No pneumothorax or effusion. Ill-defined right basilar opacities and interstitial prominence. IMPRESSION: Ill-defined right basilar opacity may be due to infection, edema or atelectasis. Transcribed By: MB Dictated By: TAMERA ARVIZU MD Electronically Authenticated By: TAMERA ARVIZU MD Signed Date/Time: 10/26/18726 DD/ 8 TD/TT: 10/26/[address] [address] Nuclear Medicine Report Signed Patient: KATELYNN GAVIN JR MR#: [id number] : 1990 Acct:[id number] Age/Sex: 27 / M ADM Date: 10/26/18 Loc: ED Attending Dr: Ordering Physician: SARBJIT CARLSON MD Date of Service: 10/26/18 Procedure(s): NM lung scan perf/vent Accession Number(s): [id number] cc: SARBJIT CARLSON MD FINAL REPORT EXAM: NM LUNG SCAN PERF/VENT HISTORY: chest pain, shortness of breath TECHNIQUE: Ventilation perfusion lung scan was performed. Ventilation dosage: 12 mCi Xenon 133 aerosol. Perfusion dosage: 5 mCi technetium 99 M MAA IV. Multiple perfusion views obtained. P osterior ventilation images only. PRIORS: 08/25/2017. Correlation with chest radiograph of 10/26/2018 FINDINGS: Ventilation images demonstrate some patchy retention of radiotracer bilaterally, left more than right. This suggests COPD. Perfusion images demonstrate overall heterogeneous perfusion. There is a right anterior segmental defect. This perfusion defect was likely present on the prior study but is more conspicuous on today's exam. There is also an unchanged subsegmental defect in posterior left upper lobe. Because these defects are not seen on the posterior perfusion image, they are not easily compared to the ventilation for match or mismatch. Findings are compatible with intermediate probability of pulmonary embolus. IMPRESSION: Intermediate probability of pulmonary embolus. Details above. Probable COPD. Transcribed By: JOSEP Dictated By: LASHANDA RAHMAN MD Electronically Authenticated By: LASHANDA RAHMAN MD Signed Date/Time: 10/26/18 1015 DD/ 1017 TD/TT: 10/26/18 1017 - Differential Diagnosis pneumonia, acute chest syndrome, PE, Critical care attestation.: If time is entered above; I have spent that time in minutes in the direct care of this critically ill patient, excluding procedure time. ED Disposition Clinical Impression: Acute chest syndrome due to sickle cell crisis, Sickle cell anemia, Hypoxia Disposition: OP ADMIT IP TO THIS HOSP Is pt being admited?: Yes Does the pt Need Aspirin: Yes Condition: Serious Referrals: PRIMARY CARE, [Primary Care Provider] - 3-5 Days Time of Disposition: 10:21 (Dr Encinas paged)
[2018-10-26 07:20] LABS: BUN/Creatinine Ratio 30; Blood Urea Nitrogen 15 mg/dL (9-20); Calcium 8.5 mg/dL (8.4-10.2); Hemolysis Index 66
--- NOTE | 2018-10-26 07:27 | XRay Report ---
FINAL REPORT EXAM: XR CHEST 1V AP HISTORY: chest pain TECHNIQUE: AP portable view(s) of the chest obtained. PRIORS: 10/03/2018 FINDINGS: No mediastinal shift. Cardiac silhouette is not enlarged. SVC stent. No pneumothorax or effusion. Ill -defined right basilar opacities and interstitial prominence. IMPRESSION: Ill-defined right basilar opacity may be due to infection, edema or atelectasis.
[2018-10-26 07:39] LABS: Hemoglobin 6.8 gm/dl (11.8-15.2); Mean Corpuscular Volume 92 fl (84-94); Red Blood Count 1.95 M/mm3 (3.65-5.03)
[2018-10-26 07:42] LABS: Platelet Count 220 K/mm3 (140-440); Red Cell Distribution Width 26.6 % (13.2-15.2)
[2018-10-26 07:44] LABS: Mean Corpuscular HGB Conc 38 % (32-34)
[2018-10-26 08:32] LABS: Band Neutrophils # (Manual) 0.3 K/mm3; Basophils % (Manual) 0 % (0.0-1.8); Eosinophils % (Manual) 0 % (0.0-4.3); Total Cells Counted 100
[2018-10-26 08:33] LABS: Anisocytosis 2+; Giant Platelets Few; Hypochromasia 2+; Large Platelets Few; Macrocytosis 1+; Ovalocytes 1+; Platelet Estimate Consistent w Auto; Poikilocytosis 3+; Sickle Cells 3+; Target Cells 1+
[2018-10-26] MEDS ORDERED: LEVAQUIN PO ONE (09:09)
[2018-10-26] MEDS ORDERED: DILAUDID IM ONE (10:01)
[2018-10-26] MEDS ORDERED: NACL 0.9% 500 ML 500 ML IV ONE (10:13)
--- NOTE | 2018-10-26 10:15 | Nuclear Medicine Report ---
FINAL REPORT EXAM: NM LUNG SCAN PERF/VENT HISTORY: chest pain, shortness of breath TECHNIQUE: Ventilation perfusion lung scan was performed. Ventilation dosage: 12 mCi Xenon 133 aeros ol. Perfusion dosage: 5 mCi technetium 99 M MAA IV. Multiple perfusion views obtained. Posterior vent ilation images only. PRIORS: 08/25/2017. Correlation with chest radiograph of 10/26/2018 FINDINGS: Ventilation images demonstrate some patchy retention of radiotracer bilaterally, left more than right . This suggests COPD. Perfusion images demonstrate overall heterogeneous perfusion. There is a right anterior segmental defect. This perfusion defect was likely present on the prior study but is more co nspicuous on today's exam. There is also an unchanged subsegmental defect in posterior left upper lob e. Because these defects are not seen on the posterior perfusion image, they are not easily compared to the ventilation for match or mismatch. Findings are compatible with intermediate probability of pu lmonary embolus. IMPRESSION: Intermediate probability of pulmonary embolus. Details above. Probable COPD.
[2018-10-26] MEDS ORDERED: BENADRYL IV PRN (10:27)
[2018-10-26] MEDS ORDERED: DILAUDID IV PRN ×2 (10:27→15:00)
[2018-10-26] MEDS ORDERED: XYLOCAINE 1% MPF 5 mL INFILTRATI ONE (10:27)
[2018-10-26] MEDS ORDERED: ROCEPHIN 1,000 MG in NACL 0.9% 50 ML IV SCH (11:00)
[2018-10-26] MEDS: HEPARIN SUB-Q SCH ×2 (11:00→19:13)
[2018-10-26] MEDS ORDERED: D5NS 0.2% 1,000 ML IV SCH (11:00)
[2018-10-26] MEDS ORDERED: NACL 0.9% 500 ML 500 ML IV NR (15:00)
[2018-10-26] MEDS: D5NS 0.2% 1,000 ML IV SCH ×2 (15:04→19:45)
--- NOTE | 2018-10-26 15:31 | History and Physical Report ---
History of Present Illness Date of examination: 10/26/18 Date of admission: 10/26/18 11:25 Chief complaint: SCD/pain crisis. History of present illness: Patient presented to the ED, with CC of diffuse joint pain, was not able to control his pain at home, W/up in the Ed revealed elevated WBC, low HGB, and elevated REtic count, CXR possible infiltrate VS edema. V/Q with intermediate prob.patient admitted for sxs management.I have ginven some orders to the ED doc as a bridging orders.will await cultures, while ABx continues. If no improvement in his crisis, will treat as ACS. Past History Past Medical History: anemia Social history: single, lives with family Family history: no significant family history Medications and Allergies Allergies Allergy/AdvReac Type Severity Reaction Status Date / Time No Known Allergies Allergy Verified 06/16/15 12:38 Home Medications Medication Instructions Recorded Confirmed Last Taken Type Amitriptyline [Elavil] 25 mg PO QHS #30 tablet 12/07/17 09/17/18 Unknown Rx Hydroxyurea [Droxia] 1,500 mg PO DAILY #30 capsule 12/07/17 09/17/18 Unknown Rx Oxycodone HCl/Acetaminophen 1 tab PO Q4-6H PRN #15 tablet 12/07/17 09/17/18 Unknown Rx [Percocet 10/325 mg] Folic Acid [Folvite] 1 mg PO DAILY 04/03/18 09/17/18 Unknown History Morphine ER [Ms Contin ER] 30 mg PO BID 04/03/18 09/17/18 Unknown History Active Meds: Active Medications Diphenhydramine HCl (Benadryl) 12.5 mg IV Q3H PRN PRN Reason: Itching Last Admin: 10/26/18 15:20 Dose: 12.5 mg Documented by: Heparin Sodium (Porcine) (Heparin) 5,000 unit SUB-Q Q8H SLICK Last Admin: 10/26/18 11:00 Dose: 5,000 unit Documented by: Hydromorphone HCl (Dilaudid) 2 mg IV Q3H PRN PRN Reason: Pain , Severe (7-10) Last Admin: 10/26/18 15:21 Dose: 2 mg Documented by: Dextrose/Sodium Chloride (D5ns 0.2%) 1,000 mls @ 250 mls/hr IV DIRECT SLICK Last Admin: 10/26/18 15:04 Dose: 250 mls/hr Documented by: Dextrose/Sodium Chloride (D5ns 0.2%) 1,000 mls @ 250 mls/hr IV DIRECT SLICK Ceftriaxone Sodium (Rocephin/Ns 1 Gm/50 Ml) 1 gm in 50 mls @ 100 mls/hr IV Q24HR SLICK Sodium Chloride (Nacl 0.9% 500 Ml) 500 mls @ 0 mls/hr IV ONCE NR Stop: 10/26/18 23:59 Review of Systems Constitutional: fatigue, chronic pain Respiratory: cough Musculoskeletal: low back pain Exam - Constitutional Vitals: Temp Pulse Resp BP Pulse Ox 97.7 F 89 22 104/52 96 10/26/18 05:57 10/26/18 12:09 10/26/18 05:57 10/26/18 12:00 10/26/18 12:00 General appearance: Present: mild distress, well-nourished - EENT Eyes: Present: PERRL ENT: hearing intact, clear oral mucosa - Neck Neck: Present: supple, normal ROM - Respiratory Respiratory effort: normal Respiratory: bilateral: CTA - Cardiovascular Heart Sounds: Present: S1 & S2. Absent: rub, click - Extremities Extremities: pulses symmetrical, No edema Peripheral Pulses: within normal limits - Abdominal General gastrointestinal: Present: soft, non-tender, non-distended, normal bowel sounds Male genitourinary: Present: deferred - Rectal Rectal Exam: deferred - Integumentary Integumentary: Present: clear, warm, dry - Musculoskeletal Musculoskeletal: gait normal, strength equal bilaterally - Psychiatric Psychiatric: appropriate mood/affect, intact judgment & insight - Neurologic Neurologic: CNII-XII intact, moves all extremities Results - Labs CBC & Chem 7: 10/26/18 06:33 10/26/18 06:33 Labs: Abnormal lab results 10/26/18 10/26/18 10/26/18 Range/Units 06:33 06:33 10:18 WBC 17.1 H (4.5-11.0) K/mm3 RBC 1.95 L (3.65-5.03) M/mm3 Hgb 6.8 L (11.8-15.2) gm/dl Hct 18.0 L* (35.5-45.6) % MCH 35 H (28-32) pg MCHC 38 H* (32-34) % RDW 26.6 H (13.2-15.2) % Monocytes % (Manual) 9.0 H (0.0-7.3) % Seg Neutrophils # Man 11.1 H (1.8-7.7) K/mm3 Monocytes # (Manual) 1.5 H (0.0-0.8) K/mm3 Percent Retic 16.31 H (0.78-2.58) % Sodium 134 L (137-145) mmol/L Creatinine 0.5 L (0.8-1.5) mg/dL Glucose 149 H (75-100) mg/dL Crossmatch See Detail Assessment and Plan - Patient Problems (1) Hypoxia Current Visit: Yes Status: Acute Plan to address problem: oxygen support. (2) Sickle cell anemia Current Visit: Yes Status: Acute Plan to address problem: replacement transfusion. (3) Dehydration Current Visit: No Status: Acute Plan to address problem: hydration. (4) Atelectasis of both lungs Current Visit: No Status: Acute Plan to address problem: IV ABX, (5) DVT prophylaxis Current Visit: No Status: Acute Plan to address problem: SQ heparin. (6) Sickle cell pain crisis Current Visit: Yes Status: Acute Plan to address problem: pain control
[2018-10-26] MEDS ORDERED: NACL 0.9% 500 ML 500 ML IV SCH (15:44)
[2018-10-26] MEDS ORDERED: DILAUDID IV SCH ×2 (17:00)
[2018-10-26] MEDS: BENADRYL IV PRN (20:14)
[2018-10-26] MEDS: DILAUDID IV SCH ×2 (20:14→23:04)
[2018-10-27] MEDS: D5NS 0.2% 1,000 ML IV SCH ×3 (00:20→17:41)
[2018-10-27] MEDS: DILAUDID IV SCH ×9 (02:12→21:04)
[2018-10-27] MEDS: BENADRYL IV PRN ×3 (02:15→17:06)
[2018-10-27] MEDS: HEPARIN SUB-Q SCH ×3 (05:23→21:05)
[2018-10-27 06:32] LABS: Iron 78 ug/dL (49-181); Total Iron Binding Capacity 203 mcg/dL (250-450)
[2018-10-27] MEDS: ROCEPHIN/NS 1 GM/50 ML 1 GM/50 ML BAG IV SCH (11:59)
[2018-10-27] MEDS ORDERED: NACL 0.9% 500 ML 500 ML IV ONE (12:30)
--- NOTE | 2018-10-27 20:14 | Progress Note ---
Assessment and Plan - Patient Problems (1) Hypoxia Current Visit: Yes Status: Acute Plan to address problem: oxygen support. (2) Sickle cell anemia Current Visit: Yes Status: Acute Plan to address problem: replacement transfusion. (3) Dehydration Current Visit: No Status: Acute Plan to address problem: hydration. (4) Atelectasis of both lungs Current Visit: No Status: Acute Plan to address problem: IV ABX, (5) DVT prophylaxis Current Visit: No Status: Acute Plan to address problem: SQ heparin. (6) Sickle cell pain crisis Current Visit: Yes Status: Acute Plan to address problem: pain control Subjective Date of service: 10/27/18 Interval history: Patient seen/examined, resting in bed, no new labs yet. he has received one unit of PRBC so far, awaiting one more unit. Objective - Constitutional Vitals: Vital Signs - 12hr 10/27/18 10/27/18 10/27/18 12:30 14:00 14:15 Temperature 98.3 F 98.0 F 98.4 F Pulse Rate 72 76 72 Respiratory 18 20 20 Rate Blood Pressure 110/65 110/66 108/54 O2 Sat by Pulse 100 100 100 Oximetry 10/27/18 10/27/18 10/27/18 14:45 15:15 15:45 Temperature 98.2 F 98 F 98 F Pulse Rate 72 86 80 Respiratory 18 20 20 Rate Blood Pressure 117/51 111/75 111/68 O2 Sat by Pulse 100 100 100 Oximetry 10/27/18 16:29 Temperature 97.8 F Pulse Rate Respiratory 18 Rate Blood Pressure 106/68 O2 Sat by Pulse Oximetry General appearance: Present: mild distress, well-nourished - EENT Eyes: PERRL, EOM intact ENT: hearing intact, clear oral mucosa Ears: bilateral: normal - Neck Neck: supple, normal ROM - Respiratory Respiratory effort: normal Respiratory: bilateral: CTA - Breasts Breasts: deferred - Cardiovascular Rhythm: regular Heart Sounds: Present: S1 & S2. Absent: gallop, rub Extremities: pulses intact, No edema, normal color, Full ROM - Gastrointestinal General gastrointestinal: Present: soft, non-tender, non-distended, normal bowel sounds Rectal Exam: deferred - Genitourinary Male genitourinary: deferred - Integumentary Integumentary: clear, warm, dry - Musculoskeletal Musculoskeletal: 1, strength equal bilaterally - Neurologic Neurologic: moves all extremities - Psychiatric Psychiatric: memory intact, appropriate mood/affect, intact judgment & insight - Labs CBC & Chem 7: 10/26/18 06:33 10/26/18 06:33 Labs: Abnormal lab results 10/26/18 10/27/18 10/27/18 Range/Units 10:18 05:34 05:34 Hemoglobin A1c (4-6) % TIBC 203 L (250-450) mcg/dL Ferritin 498.6 H (13.0-400.0) ng/mL Crossmatch See Detail 10/27/18 Range/Units 05:34 Hemoglobin A1c < 4.0 L (4-6) % TIBC (250-450) mcg/dL Ferritin (13.0-400.0) ng/mL Crossmatch Medications & Allergies - Medications Allergies/Adverse Reactions: Allergies No Known Allergies Allergy (Verified 06/16/15 12:38) Home Medications: Home Medications Medication Instructions Recorded Confirmed Last Taken Type Amitriptyline [Elavil] 25 mg PO QHS #30 tablet 12/07/17 09/17/18 Unknown Rx Hydroxyurea [Droxia] 1,500 mg PO DAILY #30 capsule 12/07/17 09/17/18 Unknown Rx Oxycodone HCl/Acetaminophen 1 tab PO Q4-6H PRN #15 tablet 12/07/17 09/17/18 Unknown Rx [Percocet 10/325 mg] Folic Acid [Folvite] 1 mg PO DAILY 04/03/18 09/17/18 Unknown History Morphine ER [Ms Contin ER] 30 mg PO BID 04/03/18 09/17/18 Unknown History Active Medications: Generic Name Dose Route Start Last Admin Trade Name Freq PRN Reason Stop Dose Admin Diphenhydramine HCl 25 mg 10/26/18 16:11 10/27/18 17:06 Benadryl IV 25 mg Q6H PRN Administration Itching Heparin Sodium (Porcine) 5,000 unit 10/27/18 06:00 10/27/18 12:59 Heparin SUB-Q 5,000 unit Q8HR SLICK Administration Hydromorphone HCl 2 mg 10/27/18 10:00 10/27/18 17:06 Dilaudid IV 2 mg Q3H SLICK Administration Dextrose/Sodium Chloride 1,000 mls @ 250 mls/hr 10/26/18 07:00 10/27/18 17:41 D5ns 0.2% IV 250 mls/hr DIRECT SLICK Administration Ceftriaxone Sodium 1 gm in 50 mls @ 100 mls/hr 10/27/18 11:00 10/27/18 11:59 Rocephin/Ns 1 Gm/50 Ml IV 100 mls/hr Q24HR SLICK Administration Sodium Chloride 500 mls @ 50 mls/hr 10/27/18 12:30 10/27/18 12:59 Nacl 0.9% 500 Ml IV 10/27/18 22:29 50 mls/hr ONCE ONE Administration
[2018-10-28] MEDS: BENADRYL IV PRN ×4 (01:16→20:35)
[2018-10-28] MEDS: DILAUDID IV SCH ×8 (01:17→23:52)
[2018-10-28] MEDS: D5NS 0.2% 1,000 ML IV SCH ×5 (01:18→23:05)
[2018-10-28 05:58] LABS: Hemoglobin 8.6 gm/dl (11.8-15.2); Mean Corpuscular HGB Conc 36 % (32-34); Mean Corpuscular Volume 94 fl (84-94); Red Blood Count 2.54 M/mm3 (3.65-5.03)
[2018-10-28 06:14] LABS: Platelet Count 274 K/mm3 (140-440); Red Cell Distribution Width 24.8 % (13.2-15.2)
[2018-10-28 06:21] LABS: BUN/Creatinine Ratio 23; Blood Urea Nitrogen 7 mg/dL (9-20); Calcium 8.4 mg/dL (8.4-10.2); Hemolysis Index 77
[2018-10-28] MEDS: HEPARIN SUB-Q SCH ×3 (07:00→21:47)
[2018-10-28 08:57] LABS: Band Neutrophils # (Manual) 1.9 K/mm3; Basophils % (Manual) 0 % (0.0-1.8); Total Cells Counted 100
[2018-10-28 09:00] LABS: Anisocytosis 3+; Hypochromasia 2+; Macrocytosis 1+; Ovalocytes 1+; Poikilocytosis 3+; Sickle Cells 3+; Target Cells 1+
[2018-10-28 09:01] LABS: Platelet Estimate Consistent w Auto
[2018-10-28] MEDS: ROCEPHIN/NS 1 GM/50 ML 1 GM/50 ML BAG IV SCH (10:07)
--- NOTE | 2018-10-28 20:48 | Progress Note ---
Assessment and Plan - Patient Problems (1) Hypoxia Current Visit: Yes Status: Acute Plan to address problem: oxygen support. (2) Sickle cell anemia Current Visit: Yes Status: Acute Plan to address problem: replacement transfusion. (3) Dehydration Current Visit: No Status: Acute Plan to address problem: hydration. (4) Atelectasis of both lungs Current Visit: No Status: Acute Plan to address problem: IV ABX, (5) DVT prophylaxis Current Visit: No Status: Acute Plan to address problem: SQ heparin. (6) Sickle cell pain crisis Current Visit: Yes Status: Acute Plan to address problem: pain control Subjective Date of service: 10/28/18 Interval history: Patient seen/examined, resting in bed, no new labs yet. he has received one unit of PRBC so far, awaiting one more unit. patient seen/examined, resting in bed, chart reviewed, case d/w patient. Will recheck CXY, and if infiltrates resolved, will probably d/c in the next 24- 48hrs. Objective - Constitutional Vitals: Vital Signs - 12hr 10/28/18 10/28/18 12:06 16:45 Temperature 98.7 F 98.4 F Pulse Rate 90 97 H Respiratory 18 16 Rate Blood Pressure 117/70 127/77 O2 Sat by Pulse 83 L 97 Oximetry General appearance: Present: mild distress, well-nourished - EENT Eyes: PERRL, EOM intact ENT: hearing intact, clear oral mucosa Ears: bilateral: normal - Neck Neck: supple, normal ROM - Respiratory Respiratory effort: normal Respiratory: bilateral: CTA - Breasts Breasts: deferred - Cardiovascular Rhythm: regular Heart Sounds: Present: S1 & S2. Absent: gallop, rub Extremities: pulses intact, No edema, normal color, Full ROM - Gastrointestinal General gastrointestinal: Present: soft, non-tender, non-distended, normal bowel sounds Rectal Exam: deferred - Genitourinary Male genitourinary: deferred - Integumentary Integumentary: clear, warm, dry - Musculoskeletal Musculoskeletal: 1, strength equal bilaterally - Neurologic Neurologic: moves all extremities - Psychiatric Psychiatric: memory intact, appropriate mood/affect, intact judgment & insight - Labs CBC & Chem 7: 10/28/18 05:14 10/28/18 05:14 Labs: Abnormal lab results 10/26/18 10/28/18 10/28/18 Range/Units 10:18 05:14 05:14 WBC 12.7 H (4.5-11.0) K/mm3 RBC 2.54 L (3.65-5.03) M/mm3 Hgb 8.6 L (11.8-15.2) gm/dl Hct 24.0 L D (35.5-45.6) % MCH 34 H (28-32) pg MCHC 36 H (32-34) % RDW 24.8 H (13.2-15.2) % Nucleated RBC % 7.0 H (0.0-0.9) % Potassium 5.6 H D (3.6-5.0) mmol/L BUN 7 L (9-20) mg/dL Creatinine 0.3 L (0.8-1.5) mg/dL Glucose 111 H (75-100) mg/dL Crossmatch See Detail Medications & Allergies - Medications Allergies/Adverse Reactions: Allergies No Known Allergies Allergy (Verified 06/16/15 12:38) Home Medications: Home Medications Medication Instructions Recorded Confirmed Last Taken Type Amitriptyline [Elavil] 25 mg PO QHS #30 tablet 12/07/17 09/17/18 Unknown Rx Hydroxyurea [Droxia] 1,500 mg PO DAILY #30 capsule 12/07/17 09/17/18 Unknown Rx Oxycodone HCl/Acetaminophen 1 tab PO Q4-6H PRN #15 tablet 12/07/17 09/17/18 Unknown Rx [Percocet 10/325 mg] Folic Acid [Folvite] 1 mg PO DAILY 04/03/18 09/17/18 Unknown History Morphine ER [Ms Contin ER] 30 mg PO BID 04/03/18 09/17/18 Unknown History Active Medications: Generic Name Dose Route Start Last Admin Trade Name Freq PRN Reason Stop Dose Admin Diphenhydramine HCl 25 mg 10/26/18 16:11 10/28/18 20:35 Benadryl IV 25 mg Q6H PRN Administration Itching Heparin Sodium (Porcine) 5,000 unit 10/27/18 06:00 10/28/18 14:23 Heparin SUB-Q 5,000 unit Q8HR SLICK Administration Hydromorphone HCl 2 mg 10/27/18 10:00 01/15/19 20:36 Dilaudid IV 2 mg Q3H SLICK Administration Dextrose/Sodium Chloride 1,000 mls @ 250 mls/hr 10/26/18 07:00 10/28/18 17:17 D5ns 0.2% IV 250 mls/hr DIRECT SLICK Administration Ceftriaxone Sodium 1 gm in 50 mls @ 100 mls/hr 10/27/18 11:00 10/28/18 10:07 Rocephin/Ns 1 Gm/50 Ml IV 100 mls/hr Q24HR SLICK Administration
[2018-10-29] MEDS: DILAUDID IV SCH ×8 (02:37→22:13)
[2018-10-29] MEDS: BENADRYL IV PRN ×4 (02:38→17:46)
[2018-10-29] MEDS: D5NS 0.2% 1,000 ML IV SCH ×2 (04:46→17:51)
[2018-10-29] MEDS: HEPARIN SUB-Q SCH ×3 (05:25→22:12)
--- NOTE | 2018-10-29 09:11 | XRay Report ---
CHEST 2 VIEWS INDICATION: Cough, infiltrate. COMPARISON: 10/26/2018 and multiple more remote chest imaging. FINDINGS: Frontal and lateral chest radiographs demonstrate stable cardiomediastinal silhouette/slight cardiomegaly and right distal paratracheal SVC stent. No pleural effusions or CHF. Slightly prominent perihilar and bibasilar densities, possibly chronic/scarring as also described on June [address] report. Intact bones. CONCLUSION: No significant acute chest process with few chronic changes noted, as described. Thank you for the opportunity to participate in this patient's care.
[2018-10-29] MEDS: ROCEPHIN/NS 1 GM/50 ML 1 GM/50 ML BAG IV SCH (10:34)
--- NOTE | 2018-10-29 12:32 | Query- Dyspnea ---
Kristie Wei____Rivasyegbtao Date: 10/29/18 Joshua/CDS: cl Phone#:____[phone] Exercise your independent professional judgment when responding to query. Questions asked do not imply a particular answer is desired or expected. We greatly appreciate your clarification on this issue. Clinical Documentation States: Patient presented to the ED, with CC of diffuse joint pain, was not able to control his pain at home Assessment and Plan - Patient Problems (1) Hypoxia (2) Sickle cell anemia (3) Dehydration . (4) Atelectasis of both lungs (6) Sickle cell pain crisis Clinical Findings Show: 10/26/18 RR 22 O2 Sat 74% O2 Flow 2L Please clarify if the patient had any of the following conditions based on the above clinical findings: [ ] Respiratory Failure [ ] Acute [ ] Acute on Chronic [ ] Chronic [ ] Respiratory failure due to trauma [ ] Acute Respiratory Distress Syndrome [ ] Other: [ ] Unable to determine [ ] Comment/Explanation: Present on Admission: [ ] Yes (Y) [ ] Clinically undeterminable (W) [ ] No (N) Please also document response in your Progress Notes and/or Discharge Summary and indicate if the condition was present on admission. BECKY
[2018-10-29] MEDS ORDERED: D5NS 0.2% 1,000 ML IV SCH (19:00)
--- NOTE | 2018-10-30 00:06 | Progress Note ---
Assessment and Plan - Patient Problems (1) Hypoxia Current Visit: Yes Status: Acute Plan to address problem: oxygen support. (2) Sickle cell anemia Current Visit: Yes Status: Acute Plan to address problem: replacement transfusion. (3) Dehydration Current Visit: No Status: Acute Plan to address problem: hydration. (4) Atelectasis of both lungs Current Visit: No Status: Acute Plan to address problem: IV ABX, (5) DVT prophylaxis Current Visit: No Status: Acute Plan to address problem: SQ heparin. (6) Sickle cell pain crisis Current Visit: Yes Status: Acute Plan to address problem: pain control Subjective Date of service: 10/29/18 Interval history: Patient seen/examined, resting in bed, no new labs yet. he has received one unit of PRBC so far, awaiting one more unit. patient seen/examined, resting in bed, chart reviewed, case d/w patient. Will recheck CXY, and if infiltrates resolved, will probably d/c in the next 24- 48hrs. Patient seen, resting in bed, cxr/labs reviewed, patient still with residual pain, plan remains the same . Objective - Constitutional Vitals: Vital Signs - 12hr 10/29/18 17:57 Temperature 98.4 F Pulse Rate 101 H Respiratory 16 Rate Blood Pressure 119/65 O2 Sat by Pulse 95 Oximetry General appearance: Present: mild distress, well-nourished - EENT Eyes: PERRL, EOM intact ENT: hearing intact, clear oral mucosa Ears: bilateral: normal - Neck Neck: supple, normal ROM - Respiratory Respiratory effort: normal Respiratory: bilateral: CTA - Breasts Breasts: deferred - Cardiovascular Rhythm: regular Heart Sounds: Present: S1 & S2. Absent: gallop, rub Extremities: pulses intact, No edema, normal color, Full ROM - Gastrointestinal General gastrointestinal: Present: soft, non-tender, non-distended, normal bowel sounds Rectal Exam: deferred - Genitourinary Male genitourinary: deferred - Integumentary Integumentary: clear, warm, dry - Musculoskeletal Musculoskeletal: 1, strength equal bilaterally - Neurologic Neurologic: moves all extremities - Psychiatric Psychiatric: memory intact, appropriate mood/affect, intact judgment & insight - Labs CBC & Chem 7: 10/28/18 05:14 10/28/18 05:14 Medications & Allergies - Medications Allergies/Adverse Reactions: Allergies No Known Allergies Allergy (Verified 06/16/15 12:38) Home Medications: Home Medications Medication Instructions Recorded Confirmed Last Taken Type Amitriptyline [Elavil] 25 mg PO QHS #30 tablet 12/07/17 09/17/18 Unknown Rx Hydroxyurea [Droxia] 1,500 mg PO DAILY #30 capsule 12/07/17 09/17/18 Unknown Rx Oxycodone HCl/Acetaminophen 1 tab PO Q4-6H PRN #15 tablet 12/07/17 09/17/18 Unknown Rx [Percocet 10/325 mg] Folic Acid [Folvite] 1 mg PO DAILY 04/03/18 09/17/18 Unknown History Morphine ER [Ms Contin ER] 30 mg PO BID 04/03/18 09/17/18 Unknown History Active Medications: Generic Name Dose Route Start Last Admin Trade Name Freq PRN Reason Stop Dose Admin Diphenhydramine HCl 25 mg 10/26/18 16:11 10/29/18 17:46 Benadryl IV 25 mg Q6H PRN Administration Itching Heparin Sodium (Porcine) 5,000 unit 10/27/18 06:00 10/29/18 22:12 Heparin SUB-Q 5,000 unit Q8HR SLICK Administration Hydromorphone HCl 2 mg 10/27/18 10:00 10/29/18 22:13 Dilaudid IV 2 mg Q3H SLICK Administration Dextrose/Sodium Chloride 1,000 mls @ 250 mls/hr 10/26/18 07:00 10/29/18 17:51 D5ns 0.2% IV 250 mls/hr DIRECT SLICK Administration Ceftriaxone Sodium 1 gm in 50 mls @ 100 mls/hr 10/27/18 11:00 10/29/18 10:34 Rocephin/Ns 1 Gm/50 Ml IV 100 mls/hr Q24HR SLICK Administration Dextrose/Sodium Chloride 1,000 mls @ 125 mls/hr 10/29/18 19:00 D5ns 0.2% IV DIRECT SLICK
[2018-10-30] MEDS: BENADRYL IV PRN ×3 (01:20→17:27)
[2018-10-30] MEDS: DILAUDID IV SCH ×7 (01:21→17:26)
[2018-10-30] MEDS: HEPARIN SUB-Q SCH ×2 (06:25→17:27)
[2018-10-30] MEDS: ROCEPHIN/NS 1 GM/50 ML 1 GM/50 ML BAG IV SCH (10:53)
[2018-10-30 11:57] VITALS: BP 110/64
--- NOTE | 2018-10-30 14:29 | Discharge Summary ---
Providers - Providers Date of Admission: 10/26/18 11:25 Date of discharge: 10/30/18 Attending physician: ZACHERY RUIZ Primary care physician: ZACHERY RUIZ Hospitalization Reason for admission: SICKEL CELL PAIN CRISIS/anemia Condition: Stable Hospital course: Patient presented, and admitted for sickle cell pain crisis, and treated with hydration, pain control, and blood transfusion for symptomatic anemia. Patient also admitted for acute/chronic resp failure, present on admission, and complicated by pulm infiltrate, treated with IV abx.He did well with all his treatment, tolerated them very well, without any problems. He was seen, today, NAD, exam benign ,repeat CXY, stable,and hence will d/c home today.He uses oxygen at home.Patients ride will not be ready until after 5pm. Disposition: DC- TO HOME OR SELFCARE - Discharge Diagnoses (1) Hypoxia Status: Chronic (2) Sickle cell anemia Status: Chronic (3) Dehydration Status: Resolved (4) Atelectasis of both lungs Status: Resolved (5) DVT prophylaxis Status: Resolved (6) Sickle cell pain crisis Status: Chronic Core Measure Documentation - Palliative Care Palliative Care/ Comfort Measures: Not Applicable - Core Measures Any of the following diagnoses?: none Exam - Constitutional Vitals: Temp Pulse Resp BP Pulse Ox 98.4 F 87 18 110/64 97 10/30/18 11:55 10/30/18 11:55 10/30/18 11:55 10/30/18 11:55 10/30/18 11:55 General appearance: Present: no acute distress, well-nourished - EENT Eyes: Present: PERRL ENT: hearing intact, clear oral mucosa - Neck Neck: Present: supple, normal ROM - Respiratory Respiratory effort: normal Respiratory: bilateral: CTA - Cardiovascular Heart Sounds: Present: S1 & S2. Absent: rub, click - Extremities Extremities: pulses symmetrical, No edema Peripheral Pulses: within normal limits - Abdominal General gastrointestinal: Present: soft, non-tender, non-distended, normal bowel sounds Male genitourinary: Present: deferred - Rectal Rectal Exam: deferred - Integumentary Integumentary: Present: clear, warm, dry - Musculoskeletal Musculoskeletal: gait normal, strength equal bilaterally - Psychiatric Psychiatric: appropriate mood/affect, intact judgment & insight - Neurologic Neurologic: CNII-XII intact, moves all extremities Plan Activity: no restrictions Diet: regular Follow up with: PRIMARY CARE, [Referring] - 3-5 Days
== END 2018-10-30 18:15 | disposition home or self-care (01) | DRG 811 ==
LOC: ED 05:47 → 3A 11:25
PROVIDERS: ADMIT Internal Medicine Hematology & Oncology; ATTEND Internal Medicine Hematology & Oncology
PROC: 30233N1 Transfusion of Nonautologous Red Blood Cells into Peripheral Vein, Percutaneous Approach (ICD-10-PCS; principal; 2018-10-27)
DX: D57.00 Hb-SS disease with crisis, unspecified (principal); J96.20 Acute and chronic respiratory failure, unspecified whether with hypoxia or hypercapnia; E86.0 Dehydration; J98.11 Atelectasis; Z79.899 Other long term (current) drug therapy; Z72.89 Other problems related to lifestyle
CPT/HCPCS: 36415; 71045; 71046; 78582; 80048; 82728; 83036; 83550; 84484; 85007; 85025; 85045; 85660; 86850; 86900; 86901; 86920; 87040; 87086; 87116; 93005; 93010; 96361; 96372; 96374; 96375; G0378; A9540; A9558; J0696; J1170; J1200; J1644; J2405; J7040; P9016

== ENCOUNTER 2018-11-19 15:00 | Inpatient (IN) | payer MEDICAID ==
[2018-11-19] MEDS ORDERED: SODIUM CHLORIDE FLUSH SYRINGE 10 ML IV PRN (15:31)
[2018-11-19] MEDS ORDERED: ZOFRAN IV PRN ×2 (16:05→18:07)
--- NOTE | 2018-11-19 17:30 | XRay Report ---
FINAL REPORT PROCEDURE: Chest. TECHNIQUE: PA and lateral chest radiographs were obtained. CPT 44071 HISTORY: Cough. COMPARISON: Chest 10/26/2018. FINDINGS: The heart and mediastinum appear normal. There is a vascular stent in the superior vena cava. The ana m gs are grossly clear. There may be some scarring in the right lower lobe. There are no pleural effusi ons. The soft tissues and regional skeleton are unremarkable. IMPRESSION: No definite signs of acute disease.
--- NOTE | 2018-11-19 18:12 | History and Physical Report ---
History of Present Illness Date of examination: 11/19/18 Date of admission: 11/19/18 16:35 Chief complaint: SCD/Sickle pain. Past History Past Medical History: anemia Social history: , lives with family Family history: no significant family history Medications and Allergies Allergies Allergy/AdvReac Type Severity Reaction Status Date / Time No Known Allergies Allergy Verified 06/16/15 12:38 Home Medications Medication Instructions Recorded Confirmed Last Taken Type Amitriptyline [Elavil] 25 mg PO QHS #30 tablet 12/07/17 09/17/18 Unknown Rx Hydroxyurea [Droxia] 1,500 mg PO DAILY #30 capsule 12/07/17 09/17/18 Unknown Rx Oxycodone HCl/Acetaminophen 1 tab PO Q4-6H PRN #15 tablet 12/07/17 09/17/18 Un known Rx [Percocet 10/325 mg] Folic Acid [Folvite] 1 mg PO DAILY 04/03/18 09/17/18 Unknown History Morphine ER [Ms Contin ER] 30 mg PO BID 04/03/18 09/17/18 Unknown History Active Meds: Active Medications Diphenhydramine HCl (Benadryl) 25 mg IV Q6H PRN PRN Reason: Itching Heparin Sodium (Porcine) (Heparin) 5,000 unit SUB-Q Q12HR SLICK Hydromorphone HCl (Dilaudid) 3 mg IV Q3H SLICK Stop: 11/20/18 16:59 Hydromorphone HCl (Dilaudid) 2 mg IV Q3H PRN PRN Reason: Pain, Moderate (4-6) Dextrose/Sodium Chloride (D5ns 0.2%) 1,000 mls @ 175 mls/hr IV DIRECT SLICK Ceftriaxone Sodium (Rocephin/Ns 1 Gm/50 Ml) 1 gm in 50 mls @ 100 mls/hr IV Q24HR SLICK; Protocol Ondansetron HCl (Zofran) 4 mg IV Q12H PRN PRN Reason: Nausea And Vomiting Sodium Chloride (Sodium Chloride Flush Syringe 10 Ml) 10 ml IV BID SLICK Sodium Chloride (Sodium Chloride Flush Syringe 10 Ml) 10 ml IV PRN PRN PRN Reason: LINE FLUSH Review of Systems Constitutional: chronic pain Cardiovascular: shortness of breath Respiratory: cough with sputum Musculoskeletal: low back pain Exam - Constitutional General appearance: Present: mild distress, well-nourished - EENT Eyes: Present: PERRL ENT: hearing intact, clear oral mucosa - Neck Neck: Present: supple, normal ROM - Respiratory Respiratory effort: normal Respiratory: bilateral: CTA - Cardiovascular Heart Sounds: Present: S1 & S2. Absent: rub, click - Extremities Extremities: pulses symmetrical, No edema Peripheral Pulses: within normal limits - Abdominal General gastrointestinal: Present: soft, non-tender, non-distended, normal bowel sounds Male genitourinary: Present: deferred - Rectal Rectal Exam: deferred - Integumentary Integumentary: Present: clear, warm, dry - Musculoskeletal Musculoskeletal: gait normal, strength equal bilaterally - Psychiatric Psychiatric: appropriate mood/affect, intact judgment & insight - Neurologic Neurologic: CNII-XII intact, moves all extremities Assessment and Plan - Patient Problems (1) Sickle cell anemia with pain Current Visit: Yes Status: Acute Plan to address problem: Pain control, monitor labs. (2) Dehydration Current Visit: Yes Status: Acute Plan to address problem: hydration. (3) Cough Current Visit: Yes Status: Acute Plan to address problem: CXR done.
[2018-11-19 19:18] LABS: Hemoglobin 6.8 gm/dl (11.8-15.2); Mean Corpuscular HGB Conc 37 % (32-34); Mean Corpuscular Volume 95 fl (84-94); Red Blood Count 1.94 M/mm3 (3.65-5.03)
[2018-11-19 19:25] LABS: Hematocrit 18.5 % (35.5-45.6)
[2018-11-19 19:26] LABS: Platelet Count 287 K/mm3 (140-440)
[2018-11-19 19:40] LABS: Albumin 3.9 g/dL (3.9-5); BUN/Creatinine Ratio 85; Blood Urea Nitrogen 17 mg/dL (9-20); Calcium 8.5 mg/dL (8.4-10.2); Hemolysis Index 120
[2018-11-19 20:00] LABS: Basophils % (Manual) 0 % (0.0-1.8); Eosinophils % (Manual) 0 % (0.0-4.3); Total Cells Counted 100
[2018-11-19 20:01] LABS: Large Platelets 2+; Platelet Estimate Consistent w Auto
[2018-11-19 20:02] LABS: Anisocytosis 3+; Macrocytosis 1+; Poikilocytosis 3+
[2018-11-19 20:03] LABS: Spherocytes 2+
[2018-11-19 20:04] LABS: Sickle Cells 3+; Target Cells 1+
[2018-11-19 20:11] LABS: Alanine Aminotransferase 31 units/L (7-56)
[2018-11-19] MEDS ORDERED: NACL 0.9% 500 ML 500 ML IV ONE (21:24)
[2018-11-19] MEDS: SODIUM CHLORIDE FLUSH SYRINGE 10 ML IV SCH (22:40)
[2018-11-19] MEDS: DILAUDID IV SCH (23:42)
[2018-11-19] MEDS: BENADRYL IV PRN (23:49)
[2018-11-19] MEDS: D5NS 0.2% 1,000 ML IV SCH (23:52)
[2018-11-20] MEDS: DILAUDID IV SCH ×7 (00:03→14:08)
[2018-11-20] MEDS: HEPARIN SUB-Q SCH ×3 (00:08→21:42)
[2018-11-20] MEDS: BENADRYL IV PRN ×3 (05:12→18:30)
[2018-11-20] MEDS: D5NS 0.2% 1,000 ML IV SCH ×2 (05:43→18:29)
[2018-11-20] MEDS: SODIUM CHLORIDE FLUSH SYRINGE 10 ML IV SCH ×3 (08:13→21:43)
[2018-11-20] MEDS ORDERED: LEVAQUIN 500MG/100ML 500 MG/100 ML BAG IV SCH (10:00)
[2018-11-20] MEDS: FOLVITE PO SCH (11:17)
[2018-11-20] MEDS: HYDREA PO SCH (13:15)
[2018-11-20] MEDS: DILAUDID IV PRN ×2 (18:29→21:41)
[2018-11-20] MEDS: ROCEPHIN/NS 1 GM/50 ML 1 GM/50 ML BAG IV SCH (18:29)
[2018-11-20] MEDS ORDERED: PERCOCET 5/325 PO PRN (20:16)
--- NOTE | 2018-11-20 20:16 | Progress Note ---
Assessment and Plan - Patient Problems (1) Sickle cell anemia with pain Current Visit: Yes Status: Acute Plan to address problem: Pain control, monitor labs. (2) Dehydration Current Visit: Yes Status: Acute Plan to address problem: hydration. (3) Cough Current Visit: Yes Status: Acute Plan to address problem: CXR done. Subjective Date of service: 11/20/18 Principal diagnosis: SCD/Pain crisis/anemia. Interval history: Patient seen/examined, resting in bed. completed transfusion of blood . will do labs in am. Objective - Constitutional Vitals: Vital Signs - 12hr 11/20/18 11/20/18 11/20/18 09:05 11:58 13:37 Temperature 97.5 F L 97.2 F L Pulse Rate 86 84 Respiratory 20 18 Rate Blood Pressure 122/75 119/72 O2 Sat by Pulse 89 91 94 Oximetry 11/20/18 11/20/18 11/20/18 13:46 14:01 14:31 Temperature 97.2 F L 97.2 F L 97.5 F L Pulse Rate 83 90 90 Respiratory 18 18 18 Rate Blood Pressure 127/79 119/75 117/79 O2 Sat by Pulse 96 96 94 Oximetry 11/20/18 11/20/18 11/20/18 15:01 15:31 15:55 Temperature 97.5 F L 97.6 F 97.5 F L Pulse Rate 85 72 80 Respiratory 18 18 16 Rate Blood Pressure 121/70 111/66 115/69 O2 Sat by Pulse 94 95 96 Oximetry 11/20/18 11/20/18 11/20/18 16:10 16:25 16:38 Temperature 97.5 F L 97.5 F L 97.5 F L Pulse Rate 77 77 82 Respiratory 16 16 16 Rate Blood Pressure 116/67 113/70 107/68 O2 Sat by Pulse 95 94 95 Oximetry 11/20/18 11/20/18 11/20/18 16:55 16:56 17:25 Temperature 97.5 F L 97.6 F 97.6 F Pulse Rate 82 80 80 Respiratory 18 22 16 Rate Blood Pressure 112/71 111/63 116/63 O2 Sat by Pulse 96 95 95 Oximetry 11/20/18 17:50 Temperature 97.4 F L Pulse Rate 84 Respiratory 18 Rate Blood Pressure 113/70 O2 Sat by Pulse 97 Oximetry General appearance: Present: mild distress, well-nourished - EENT Eyes: PERRL, EOM intact ENT: hearing intact, clear oral mucosa Ears: bilateral: normal - Neck Neck: supple, normal ROM - Respiratory Respiratory effort: normal Respiratory: bilateral: diminished - Breasts Breasts: deferred - Cardiovascular Rhythm: regular Heart Sounds: Present: S1 & S2. Absent: gallop, rub Extremities: pulses intact, No edema, normal color, Full ROM - Gastrointestinal General gastrointestinal: Present: soft, non-tender, non-distended, normal bowel sounds Rectal Exam: deferred - Genitourinary Male genitourinary: deferred - Integumentary Integumentary: clear, warm, dry - Musculoskeletal Musculoskeletal: 1, strength equal bilaterally - Neurologic Neurologic: moves all extremities - Psychiatric Psychiatric: memory intact, appropriate mood/affect, intact judgment & insight - Labs CBC & Chem 7: 11/19/18 18:33 11/19/18 18:33 Labs: Abnormal lab results 11/20/18 Range/Units 01:45 Crossmatch See Detail Medications & Allergies - Medications Allergies/Adverse Reactions: Allergies No Known Allergies Allergy (Verified 06/16/15 12:38) Home Medications: Home Medications Medication Instructions Recorded Confirmed Last Taken Type Amitriptyline [Elavil] 25 mg PO QHS #30 tablet 12/07/17 11/20/18 Unknown Rx Hydroxyurea [Droxia] 1,500 mg PO DAILY #30 capsule 12/07/17 11/20/18 Unknown Rx Oxycodone HCl/Acetaminophen 1 tab PO Q4-6H PRN #15 tablet 12/07/17 11/20/18 Unknown Rx [Percocet 10/325 mg] Folic Acid [Folvite] 1 mg PO DAILY 04/03/18 11/20/18 Unknown History Morphine ER [Ms Contin ER] 30 mg PO BID 04/03/18 11/20/18 Unknown History Active Medications: Generic Name Dose Route Start Last Admin Trade Name Freq PRN Reason Stop Dose Admin Amitriptyline HCl 25 mg 11/20/18 22:00 Elavil PO QHS SLICK Diphenhydramine HCl 25 mg 11/19/18 16:04 11/20/18 18:30 Benadryl IV 25 mg Q6H PRN Administration Itching Folic Acid 1 mg 11/20/18 11:00 11/20/18 11:17 Folvite PO 1 mg QDAY SLICK Administration Heparin Sodium (Porcine) 5,000 unit 11/19/18 22:00 11/20/18 11:17 Heparin SUB-Q 5,000 unit Q12HR SLICK Administration Hydromorphone HCl 2 mg 11/20/18 17:00 11/20/18 18:29 Dilaudid IV 2 mg Q3H PRN Administration Pain, Moderate (4-6) Hydroxyurea 1,500 mg 11/20/18 11:00 11/20/18 13:15 Hydrea PO 1,500 mg QDAY SLICK Administration Dextrose/Sodium Chloride 1,000 mls @ 175 mls/hr 11/19/18 17:00 11/20/18 18:29 D5ns 0.2% IV 175 mls/hr DIRECT SLICK Administration Ceftriaxone Sodium 1 gm in 50 mls @ 100 mls/hr 11/20/18 18:05 11/20/18 18:29 Rocephin/Ns 1 Gm/50 Ml IV 100 mls/hr Q24HR SLICK Administration Protocol Ondansetron HCl 4 mg 11/19/18 18:07 Zofran IV Q12H PRN Nausea And Vomiting Sodium Chloride 10 ml 11/19/18 16:00 11/20/18 11:19 Sodium Chloride Flush Syringe 10 Ml IV 10 ml BID SLICK Administration Sodium Chloride 10 ml 11/19/18 15:31 Sodium Chloride Flush Syringe 10 Ml IV PRN PRN LINE FLUSH
[2018-11-20] MEDS: ELAVIL PO SCH (21:42)
[2018-11-21] MEDS: BENADRYL IV PRN ×4 (01:06→22:07)
[2018-11-21] MEDS: DILAUDID IV PRN ×7 (01:06→21:58)
[2018-11-21] MEDS: D5NS 0.2% 1,000 ML IV SCH ×4 (01:07→20:19)
[2018-11-21 06:37] LABS: BUN/Creatinine Ratio 45; Blood Urea Nitrogen 9 mg/dL (9-20); Calcium 8.3 mg/dL (8.4-10.2); Hemolysis Index 118
[2018-11-21 06:49] LABS: Hematocrit 23.7 % (35.5-45.6); Hemoglobin 8.4 gm/dl (11.8-15.2); Mean Corpuscular HGB Conc 36 % (32-34); Mean Corpuscular Volume 96 fl (84-94); Red Blood Count 2.47 M/mm3 (3.65-5.03)
[2018-11-21 08:30] LABS: Basophils % (Manual) 0 % (0.0-1.8); Total Cells Counted 100
[2018-11-21 08:31] LABS: Anisocytosis 3+; Large Platelets Few; Macrocytosis 1+; Ovalocytes Few; Platelet Estimate Consistent w Auto; Poikilocytosis 3+; Schistocytes Rare; Sickle Cells 3+; Smudge Cells Few; Spherocytes 2+; Target Cells 1+; Tear Drop Cells Rare
[2018-11-21 08:32] LABS: Mean Platelet Volume 8.6 fl (6-12); Platelet Count 305 K/mm3 (140-440)
[2018-11-21] MEDS: HEPARIN SUB-Q SCH ×2 (09:51→21:57)
[2018-11-21] MEDS: FOLVITE PO SCH (09:51)
[2018-11-21] MEDS: HYDREA PO SCH (09:51)
[2018-11-21] MEDS: ROCEPHIN/NS 1 GM/50 ML 1 GM/50 ML BAG IV SCH (09:51)
[2018-11-21] MEDS: SODIUM CHLORIDE FLUSH SYRINGE 10 ML IV SCH ×2 (09:52→21:57)
--- NOTE | 2018-11-21 20:51 | Progress Note ---
Assessment and Plan - Patient Problems (1) Sickle cell anemia with pain Current Visit: Yes Status: Acute Plan to address problem: Pain control, monitor labs. (2) Dehydration Current Visit: Yes Status: Acute Plan to address problem: hydration. (3) Cough Current Visit: Yes Status: Acute Plan to address problem: CXR done. Subjective Date of service: 11/21/18 Principal diagnosis: SCD/Pain crisis/anemia. Interval history: Patient seen/examined, resting in bed. completed transfusion of blood . will do labs in am. Patient seen/examined, resting in bed, records reviewed, case d/w patient. retic count still elevated. Will continue to treat. Objective - Constitutional Vitals: Vital Signs - 12hr 11/21/18 11/21/18 12:23 16:38 Temperature 97.8 F 97.8 F Pulse Rate 87 86 Respiratory 16 18 Rate Blood Pressure 111/70 117/71 O2 Sat by Pulse 92 93 Oximetry General appearance: Present: mild distress, well-nourished - EENT Eyes: PERRL, EOM intact ENT: hearing intact, clear oral mucosa Ears: bilateral: normal - Neck Neck: supple, normal ROM - Respiratory Respiratory effort: normal Respiratory: bilateral: CTA - Breasts Breasts: deferred - Cardiovascular Rhythm: regular Heart Sounds: Present: S1 & S2. Absent: gallop, rub Extremities: pulses intact, No edema, normal color, Full ROM - Gastrointestinal General gastrointestinal: Present: soft, non-tender, non-distended, normal bowel sounds Rectal Exam: deferred - Genitourinary Male genitourinary: deferred - Integumentary Integumentary: clear, warm, dry - Musculoskeletal Musculoskeletal: 1, strength equal bilaterally - Neurologic Neurologic: moves all extremities - Psychiatric Psychiatric: memory intact, appropriate mood/affect, intact judgment & insight - Labs CBC & Chem 7: 11/21/18 06:28 11/21/18 05:56 Labs: Abnormal lab results 11/21/18 11/21/18 Range/Units 05:56 06:28 WBC 11.8 H (4.5-11.0) K/mm3 RBC 2.47 L (3.65-5.03) M/mm3 Hgb 8.4 L (11.8-15.2) gm/dl Hct 23.7 L (35.5-45.6) % MCV 96 H (84-94) fl MCH 34 H (28-32) pg MCHC 36 H (32-34) % RDW 29.0 H (13.2-15.2) % Monocytes % (Manual) 12.0 H (0.0-7.3) % Nucleated RBC % 46.0 H (0.0-0.9) % Seg Neutrophils # Man 0.0 L (1.8-7.7) K/mm3 Lymphocytes # (Manual) 0.0 L (1.2-5.4) K/mm3 Percent Retic 21.40 H (0.78-2.58) % Sodium 135 L (137-145) mmol/L Potassium 5.1 H (3.6-5.0) mmol/L Carbon Dioxide 20 L (22-30) mmol/L Creatinine 0.2 L (0.8-1.5) mg/dL Glucose 121 H (75-100) mg/dL Calcium 8.3 L (8.4-10.2) mg/dL Medications & Allergies - Medications Allergies/Adverse Reactions: Allergies No Known Allergies Allergy (Verified 06/16/15 12:38) Home Medications: Home Medications Medication Instructions Recorded Confirmed Last Taken Type Amitriptyline [Elavil] 25 mg PO QHS #30 tablet 12/07/17 11/20/18 Unknown Rx Hydroxyurea [Droxia] 1,500 mg PO DAILY #30 capsule 12/07/17 11/20/18 Unknown Rx Oxycodone HCl/Acetaminophen 1 tab PO Q4-6H PRN #15 tablet 12/07/17 11/20/18 Unknown Rx [Percocet 10/325 mg] Folic Acid [Folvite] 1 mg PO DAILY 04/03/18 11/20/18 Unknown History Morphine ER [Ms Contin ER] 30 mg PO BID 04/03/18 11/20/18 Unknown History Active Medications: Generic Name Dose Route Start Last Admin Trade Name Freq PRN Reason Stop Dose Admin Amitriptyline HCl 25 mg 11/20/18 22:00 11/20/18 21:42 Elavil PO 25 mg QHS SLICK Administration Diphenhydramine HCl 25 mg 11/19/18 16:04 11/21/18 15:00 Benadryl IV 25 mg Q6H PRN Administration Itching Folic Acid 1 mg 11/20/18 11:00 11/21/18 09:51 Folvite PO 1 mg QDAY SLICK Administration Heparin Sodium (Porcine) 5,000 unit 11/19/18 22:00 11/21/18 09:51 Heparin SUB-Q 5,000 unit Q12HR SLICK Administration Hydromorphone HCl 2 mg 11/20/18 17:00 11/21/18 18:41 Dilaudid IV 2 mg Q3H PRN Administration Pain, Moderate (4-6) Hydroxyurea 1,500 mg 11/20/18 11:00 11/21/18 09:51 Hydrea PO 1,500 mg QDAY SLICK Administration Dextrose/Sodium Chloride 1,000 mls @ 175 mls/hr 11/19/18 17:00 11/21/18 20:19 D5ns 0.2% IV 175 mls/hr DIRECT SLICK Administration Ceftriaxone Sodium 1 gm in 50 mls @ 100 mls/hr 11/20/18 18:05 11/21/18 09:51 Rocephin/Ns 1 Gm/50 Ml IV 100 mls/hr Q24HR SLICK Administration Protocol Ondansetron HCl 4 mg 11/19/18 18:07 Zofran IV Q12H PRN Nausea And Vomiting Oxycodone/Acetaminophen 2 tab 11/20/18 20:16 Percocet 5/325 PO Q6H PRN Pain, Moderate (4-6) Sodium Chloride 10 ml 11/19/18 16:00 11/21/18 09:52 Sodium Chloride Flush Syringe 10 Ml IV 10 ml BID SLICK Administration Sodium Chloride 10 ml 11/19/18 15:31 Sodium Chloride Flush Syringe 10 Ml IV PRN PRN LINE FLUSH
[2018-11-21] MEDS: ELAVIL PO SCH (21:56)
[2018-11-22] MEDS: D5NS 0.2% 1,000 ML IV SCH ×4 (01:48→21:07)
[2018-11-22] MEDS: DILAUDID IV PRN ×6 (01:48→20:56)
[2018-11-22] MEDS: BENADRYL IV PRN ×3 (04:48→20:37)
[2018-11-22] MEDS: HEPARIN SUB-Q SCH ×2 (09:44→21:01)
[2018-11-22] MEDS: HYDREA PO SCH (09:44)
[2018-11-22] MEDS: FOLVITE PO SCH (09:44)
[2018-11-22] MEDS: SODIUM CHLORIDE FLUSH SYRINGE 10 ML IV SCH ×2 (09:45→21:02)
[2018-11-22] MEDS: ROCEPHIN/NS 1 GM/50 ML 1 GM/50 ML BAG IV SCH (10:11)
[2018-11-22] MEDS: ELAVIL PO SCH (21:01)
--- NOTE | 2018-11-22 21:17 | Progress Note ---
Assessment and Plan - Patient Problems (1) Sickle cell anemia with pain Current Visit: Yes Status: Acute Plan to address problem: Pain control, monitor labs. (2) Dehydration Current Visit: Yes Status: Acute Plan to address problem: hydration. (3) Cough Current Visit: Yes Status: Acute Plan to address problem: CXR done. and negative. (4) Dyspnea on effort Current Visit: Yes Status: Acute Plan to address problem: will do a heart echo. Subjective Date of service: 11/22/18 (judi) Principal diagnosis: SCD/Pain crisis/anemia. Interval history: Patient seen/examined, resting in bed. completed transfusion of blood . will do labs in am. Patient seen/examined, resting in bed, records reviewed, case d/w patient. retic count still elevated. Will continue to treat. patient seen/examined, resting in bed, pain 04/22. Retic count still elevated. will recheck level in am.still with dyspnea. will do a heart echo since CXR negative. Objective - Constitutional Vitals: Vital Signs - 12hr 11/22/18 11/22/18 11/22/18 10:00 12:36 17:03 Temperature 98.1 F 98.0 F Pulse Rate 98 H 96 H Respiratory 20 16 24 Rate Blood Pressure 127/77 135/84 O2 Sat by Pulse 96 96 97 Oximetry 11/22/18 11/22/18 11/22/18 17:04 18:24 20:52 Temperature Pulse Rate 89 Respiratory 98 H 18 Rate Blood Pressure O2 Sat by Pulse 2 L 98 Oximetry 11/22/18 20:56 Temperature Pulse Rate Respiratory 18 Rate Blood Pressure O2 Sat by Pulse Oximetry General appearance: Present: mild distress, well-nourished - EENT Eyes: PERRL, EOM intact ENT: hearing intact, clear oral mucosa Ears: bilateral: normal - Neck Neck: supple, normal ROM - Respiratory Respiratory: bilateral: other (SOB on exertion.) - Breasts Breasts: deferred - Cardiovascular Rhythm: regular Heart Sounds: Present: S1 & S2. Absent: gallop, rub Extremities: pulses intact, No edema, normal color, Full ROM - Gastrointestinal General gastrointestinal: Present: soft, non-tender, non-distended, normal bowel sounds Rectal Exam: deferred - Genitourinary Male genitourinary: deferred - Integumentary Integumentary: clear, warm, dry - Musculoskeletal Musculoskeletal: 1, strength equal bilaterally - Neurologic Neurologic: moves all extremities - Psychiatric Psychiatric: memory intact, appropriate mood/affect, intact judgment & insight - Labs CBC & Chem 7: 11/21/18 06:28 11/21/18 05:56 Medications & Allergies - Medications Allergies/Adverse Reactions: Allergies No Known Allergies Allergy (Verified 06/16/15 12:38) Home Medications: Home Medications Medication Instructions Recorded Confirmed Last Taken Type Amitriptyline [Elavil] 25 mg PO QHS #30 tablet 12/07/17 11/20/18 Unknown Rx Hydroxyurea [Droxia] 1,500 mg PO DAILY #30 capsule 12/07/17 11/20/18 Unknown Rx Oxycodone HCl/Acetaminophen 1 tab PO Q4-6H PRN #15 tablet 12/07/17 11/20/18 Unknown Rx [Percocet 10/325 mg] Folic Acid [Folvite] 1 mg PO DAILY 04/03/18 11/20/18 Unknown History Morphine ER [Ms Contin ER] 30 mg PO BID 04/03/18 11/20/18 Unknown History Active Medications: Generic Name Dose Route Start Last Admin Trade Name Freq PRN Reason Stop Dose Admin Amitriptyline HCl 25 mg 11/20/18 22:00 11/22/18 21:01 Elavil PO 25 mg QHS SLICK Administration Diphenhydramine HCl 25 mg 11/19/18 16:04 11/22/18 20:37 Benadryl IV 25 mg Q6H PRN Administration Itching Folic Acid 1 mg 11/20/18 11:00 11/22/18 09:44 Folvite PO 1 mg QDAY SLICK Administration Heparin Sodium (Porcine) 5,000 unit 11/19/18 22:00 11/22/18 21:01 Heparin SUB-Q 5,000 unit Q12HR SLICK Administration Hydromorphone HCl 2 mg 11/20/18 17:00 11/22/18 20:56 Dilaudid IV 2 mg Q3H PRN Administration Pain, Moderate (4-6) Hydroxyurea 1,500 mg 11/20/18 11:00 11/22/18 09:44 Hydrea PO 1,500 mg QDAY SLICK Administration Dextrose/Sodium Chloride 1,000 mls @ 175 mls/hr 11/19/18 17:00 11/22/18 21:07 D5ns 0.2% IV 175 mls/hr DIRECT SLICK Administration Ceftriaxone Sodium 1 gm in 50 mls @ 100 mls/hr 11/20/18 18:05 11/22/18 10:11 Rocephin/Ns 1 Gm/50 Ml IV 100 mls/hr Q24HR SLICK Administration Protocol Ondansetron HCl 4 mg 11/19/18 18:07 Zofran IV Q12H PRN Nausea And Vomiting Oxycodone/Acetaminophen 2 tab 11/20/18 20:16 Percocet 5/325 PO Q6H PRN Pain, Moderate (4-6) Sodium Chloride 10 ml 11/19/18 16:00 11/22/18 21:02 Sodium Chloride Flush Syringe 10 Ml IV 10 ml BID SLICK Administration Sodium Chloride 10 ml 11/19/18 15:31 Sodium Chloride Flush Syringe 10 Ml IV PRN PRN LINE FLUSH
[2018-11-23] MEDS: DILAUDID IV PRN ×6 (00:02→21:19)
[2018-11-23] MEDS: BENADRYL IV PRN ×4 (02:57→21:20)
[2018-11-23] MEDS: D5NS 0.2% 1,000 ML IV SCH ×3 (02:57→17:16)
[2018-11-23] MEDS: FOLVITE PO SCH (09:12)
[2018-11-23] MEDS: HYDREA PO SCH (09:12)
[2018-11-23] MEDS: HEPARIN SUB-Q SCH ×2 (09:12→21:21)
[2018-11-23] MEDS: ROCEPHIN/NS 1 GM/50 ML 1 GM/50 ML BAG IV SCH (09:13)
[2018-11-23] MEDS: SODIUM CHLORIDE FLUSH SYRINGE 10 ML IV SCH (10:48)
--- NOTE | 2018-11-23 15:20 | Progress Note ---
Assessment and Plan - Patient Problems (1) Sickle cell anemia with pain Current Visit: Yes Status: Acute Plan to address problem: Pain control, monitor labs. (2) Dehydration Current Visit: Yes Status: Acute Plan to address problem: hydration. (3) Cough Current Visit: Yes Status: Acute Plan to address problem: CXR done. and negative. (4) Dyspnea on effort Current Visit: Yes Status: Acute Plan to address problem: will do a heart echo. done, and awaiting results. Subjective Date of service: 11/23/18 Principal diagnosis: SCD/Pain crisis/anemia. Interval history: Patient seen/examined, resting in bed. completed transfusion of blood . will do labs in am. Patient seen/examined, resting in bed, records reviewed, case d/w patient. retic count still elevated. Will continue to treat. patient seen/examined, resting in bed, pain 04/22. Retic count still elevated. will recheck level in am.still with dyspnea. will do a heart echo since CXR negative. patient seen/examined, resting in bed, retic count coming down ok. he is s/p 2d echo, results pending.will plan discharge in the next 24hrs. Objective - Constitutional Vitals: Vital Signs - 12hr 11/23/18 11/23/18 11/23/18 03:27 04:51 10:00 Temperature 97.5 F L Pulse Rate 82 Respiratory 18 16 20 Rate Blood Pressure 123/62 O2 Sat by Pulse 99 93 Oximetry 11/23/18 14:03 Temperature 98.5 F Pulse Rate 91 H Respiratory 20 Rate Blood Pressure 105/46 O2 Sat by Pulse 92 Oximetry General appearance: Present: mild distress, well-nourished - EENT Eyes: PERRL, EOM intact ENT: hearing intact, clear oral mucosa Ears: bilateral: normal - Neck Neck: supple, normal ROM - Respiratory Respiratory effort: normal Respiratory: bilateral: other (coarse) - Breasts Breasts: deferred - Cardiovascular Rhythm: regular Heart Sounds: Present: S1 & S2. Absent: gallop, rub Extremities: pulses intact, No edema, normal color, Full ROM - Gastrointestinal General gastrointestinal: Present: soft, non-tender, non-distended, normal bowel sounds Rectal Exam: deferred - Genitourinary Male genitourinary: deferred - Integumentary Integumentary: clear, warm, dry - Musculoskeletal Musculoskeletal: 1, strength equal bilaterally - Neurologic Neurologic: moves all extremities - Psychiatric Psychiatric: memory intact, appropriate mood/affect, intact judgment & insight - Labs CBC & Chem 7: 11/21/18 06:28 11/21/18 05:56 Labs: Abnormal lab results 11/23/18 Range/Units 05:17 Percent Retic 8.56 H (0.78-2.58) % Medications & Allergies - Medications Allergies/Adverse Reactions: Allergies No Known Allergies Allergy (Verified 06/16/15 12:38) Home Medications: Home Medications Medication Instructions Recorded Confirmed Last Taken Type Amitriptyline [Elavil] 25 mg PO QHS #30 tablet 12/07/17 11/20/18 Unknown Rx Hydroxyurea [Droxia] 1,500 mg PO DAILY #30 capsule 12/07/17 11/20/18 Unknown Rx Oxycodone HCl/Acetaminophen 1 tab PO Q4-6H PRN #15 tablet 12/07/17 11/20/18 Unknown Rx [Percocet 10/325 mg] Folic Acid [Folvite] 1 mg PO DAILY 04/03/18 11/20/18 Unknown History Morphine ER [Ms Contin ER] 30 mg PO BID 04/03/18 11/20/18 Unknown History Active Medications: Generic Name Dose Route Start Last Admin Trade Name Freq PRN Reason Stop Dose Admin Amitriptyline HCl 25 mg 11/20/18 22:00 11/22/18 21:01 Elavil PO 25 mg QHS SLICK Administration Diphenhydramine HCl 25 mg 11/19/18 16:04 11/23/18 10:33 Benadryl IV 25 mg Q6H PRN Administration Itching Folic Acid 1 mg 11/20/18 11:00 11/23/18 09:12 Folvite PO 1 mg QDAY SLICK Administration Heparin Sodium (Porcine) 5,000 unit 11/19/18 22:00 11/23/18 09:12 Heparin SUB-Q 5,000 unit Q12HR SLICK Administration Hydromorphone HCl 2 mg 11/20/18 17:00 11/23/18 13:50 Dilaudid IV 2 mg Q3H PRN Administration Pain, Moderate (4-6) Hydroxyurea 1,500 mg 11/20/18 11:00 11/23/18 09:12 Hydrea PO 1,500 mg QDAY SLICK Administration Dextrose/Sodium Chloride 1,000 mls @ 175 mls/hr 11/19/18 17:00 11/23/18 10:33 D5ns 0.2% IV 175 mls/hr DIRECT SLICK Administration Ceftriaxone Sodium 1 gm in 50 mls @ 100 mls/hr 11/20/18 18:05 11/23/18 09:13 Rocephin/Ns 1 Gm/50 Ml IV 100 mls/hr Q24HR SLICK Administration Protocol Ondansetron HCl 4 mg 11/19/18 18:07 Zofran IV Q12H PRN Nausea And Vomiting Oxycodone/Acetaminophen 2 tab 11/20/18 20:16 Percocet 5/325 PO Q6H PRN Pain, Moderate (4-6) Sodium Chloride 10 ml 11/19/18 16:00 11/23/18 10:48 Sodium Chloride Flush Syringe 10 Ml IV 10 ml BID SLICK Administration Sodium Chloride 10 ml 11/19/18 15:31 Sodium Chloride Flush Syringe 10 Ml IV PRN PRN LINE FLUSH
[2018-11-23] MEDS: ELAVIL PO SCH (21:21)
[2018-11-24] MEDS: DILAUDID IV PRN ×6 (00:28→18:28)
[2018-11-24] MEDS: SODIUM CHLORIDE FLUSH SYRINGE 10 ML IV SCH ×2 (00:34→10:48)
[2018-11-24] MEDS: BENADRYL IV PRN ×3 (03:45→20:04)
[2018-11-24] MEDS: D5NS 0.2% 1,000 ML IV SCH (04:51)
[2018-11-24] MEDS: HYDREA PO SCH (09:20)
[2018-11-24] MEDS: FOLVITE PO SCH (09:20)
[2018-11-24] MEDS: HEPARIN SUB-Q SCH (09:20)
[2018-11-24] MEDS: ROCEPHIN/NS 1 GM/50 ML 1 GM/50 ML BAG IV SCH (09:21)
[2018-11-24] MEDS: NACL 38.5 MEQ in D5W 1,000 ML IV SCH ×2 (10:54→17:38)
[2018-11-24 18:17] VITALS: BP 113/69
--- NOTE | 2018-11-24 19:33 | Discharge Summary ---
Providers - Providers Date of Admission: 11/19/18 16:35 Date of discharge: 11/24/18 Attending physician: ZACHERY RUIZ Primary care physician: ZACHERY RUIZ Hospitalization Reason for admission: sickle pain crisis. Condition: Stable Pertinent studies: 2d echo resulted as fairly nl. Hospital course: patient seen/examined, no new issues at this time. all labs/scans reviewed, and discussed with him.He had presented to the office with pain crisis, and admitted directly into the hospital, and treated accordingly with pain control, hydration, oxygen, and IV ABX. he was on home oxygen, and will resume once he gets home today.He also had blood transfusion. CXR reveals scarring due perhaps to previou PNAs. Disposition: DC- TO HOME OR SELFCARE - Discharge Diagnoses (1) Sickle cell anemia with pain Status: Chronic (2) Dehydration Status: Chronic (3) Cough Status: Resolved (4) Dyspnea on effort Status: Chronic Core Measure Documentation - Palliative Care Palliative Care/ Comfort Measures: Not Applicable - Core Measures Any of the following diagnoses?: none Exam - Constitutional Vitals: Temp Pulse Resp BP Pulse Ox 98.0 F 90 14 113/69 98 11/24/18 17:31 11/24/18 17:31 11/24/18 17:31 11/24/18 17:31 11/24/18 17:31 General appearance: Present: no acute distress, well-nourished - EENT Eyes: Present: PERRL ENT: hearing intact, clear oral mucosa - Neck Neck: Present: supple, normal ROM - Respiratory Respiratory effort: normal Respiratory: bilateral: CTA - Cardiovascular Heart Sounds: Present: S1 & S2. Absent: rub, click - Extremities Extremities: pulses symmetrical, No edema Peripheral Pulses: within normal limits - Abdominal General gastrointestinal: Present: soft, non-tender, non-distended, normal bowel sounds Male genitourinary: Present: deferred - Rectal Rectal Exam: deferred - Integumentary Integumentary: Present: clear, warm, dry - Musculoskeletal Musculoskeletal: gait normal, strength equal bilaterally - Psychiatric Psychiatric: appropriate mood/affect, intact judgment & insight - Neurologic Neurologic: CNII-XII intact, moves all extremities Plan Activity: no restrictions Diet: regular Follow up with: ZACHERY RUIZ DO [Primary Care Provider] - 7 Days
== END 2018-11-24 20:51 | disposition home or self-care (01) | DRG 811 ==
LOC: UNDOADMIN 15:00 → 3A 15:00
PROVIDERS: ADMIT Internal Medicine Hematology & Oncology; ATTEND Internal Medicine Hematology & Oncology
PROC: 30233N1 Transfusion of Nonautologous Red Blood Cells into Peripheral Vein, Percutaneous Approach (ICD-10-PCS; principal; 2018-11-20)
DX: D57.00 Hb-SS disease with crisis, unspecified (principal); J96.20 Acute and chronic respiratory failure, unspecified whether with hypoxia or hypercapnia; E86.0 Dehydration; R05 Cough
CPT/HCPCS: 36415; 71046; 80048; 80053; 83615; 85007; 85025; 85045; 85660; 86850; 86900; 86901; 86920; 87040; 87086; 87116; 93306; 94760; G0378; J0696; J1170; J1200; J1644; J7040; J7070; J7131; P9016

== ENCOUNTER 2019-03-19 03:54 | Inpatient (IN) | payer MEDICARE ==
[2019-03-19 04:22] LABS: Hemoglobin 6.9 gm/dl (11.8-15.2); Mean Corpuscular Volume 94 fl (84-94); Red Blood Count 1.89 M/mm3 (3.65-5.03)
[2019-03-19 04:35] LABS: Hematocrit 17.8 % (35.5-45.6); Mean Corpuscular HGB Conc 39 % (32-34)
[2019-03-19 04:40] LABS: Basophils # (Auto) 0.2 K/mm3 (0.0-0.1); Eosinophils # (Auto) 0.2 K/mm3 (0.0-0.4); Eosinophils % (Auto) 1.5 % (0.0-4.3); Monocytes # (Auto) 2.3 K/mm3 (0.0-0.8)
[2019-03-19 04:45] LABS: Albumin 4.2 g/dL (3.9-5); BUN/Creatinine Ratio 26; Blood Urea Nitrogen 13 mg/dL (9-20); Calcium 8.9 mg/dL (8.4-10.2); Hemolysis Index 79
[2019-03-19] MEDS ORDERED: DILAUDID IV ONE ×2 (04:52→08:44)
[2019-03-19 04:58] LABS: Alanine Aminotransferase 16 units/L (7-56)
[2019-03-19] MEDS ORDERED: D5/0.45NS 1,000 ML IV SCH (05:00)
--- NOTE | 2019-03-19 05:13 | XRay Report ---
PROCEDURE: XR CHEST 1V AP TECHNIQUE: Chest radiograph single view. HISTORY: hbss crisis COMPARISONS: 02/16/2019 . FINDINGS: Heart: The heart is mildly enlarged.. Mediastinum/Vessels: The lungs are not congested. There is a stable stent at the level of the SVC. Lungs/Pleural space: There are no infiltrates or effusions.. Bony thorax: No acute osseous abnormality. Life support devices: None. IMPRESSION: No acute cardiopulmonary abnormality. This document is electronically signed by Trevon Cummings MD., March 19 2019 05:11:46 AM ET
[2019-03-19 05:14] LABS: Total Cells Counted 100
[2019-03-19 05:15] LABS: Anisocytosis 3+; Poikilocytosis 3+; Sickle Cells 2+
[2019-03-19 05:17] LABS: Ovalocytes 1+; Target Cells Few
[2019-03-19 05:18] LABS: Giant Platelets Rare; Large Platelets 1+
[2019-03-19 05:19] LABS: Platelet Count 186 K/mm3 (140-440); Platelet Estimate Consistent w Auto
[2019-03-19] MEDS ORDERED: BENADRYL PO ONE (05:44)
--- NOTE | 2019-03-19 05:51 | Event Note ---
Date: 03/19/19 Medical screening note: 28-year-old gentleman presenting with typical sickle cell crisis, manifested by lower back pain, extremity pain, malaise, fatigue and scleral icterus. Primary care doctor/oncology: Dr Stephani Encinas Patient is sick and ill appearing. He is amenable to packed red blood cell transfusion. We will give pain medication, IV fluids, requests x-ray chest, urinalysis. Vital Signs 03/19/19 03/19/19 03/19/19 03:58 04:52 05:00 Temperature 98.0 F 98.3 F Pulse Rate 104 H 91 H 99 H Respiratory 20 21 18 Rate Blood Pressure 116/59 119/60 Blood Pressure 119/58 [Right] O2 Sat by Pulse 79 L 93 92 Oximetry 03/19/19 05:31 Temperature Pulse Rate Respiratory 34 H Rate Blood Pressure 119/58 Blood Pressure [Right] O2 Sat by Pulse 96 Oximetry Lab Results 03/19/19 03/19/19 Range/Units 04:01 04:01 WBC 12.2 H (4.5-11.0) K/mm3 RBC 1.89 L (3.65-5.03) M/mm3 Hgb 6.9 L (11.8-15.2) gm/dl Hct 17.8 L* (35.5-45.6) % MCV 94 (84-94) fl MCH 37 H (28-32) pg MCHC 39 H* (32-34) % RDW 27.0 H (13.2-15.2) % Plt Count 186 (140-440) K/mm3 [place] % (Auto) Collections Technician Eos % (Auto) 1.5 (0.0-4.3) % [place] # 2.3 H (0.0-0.8) K/mm3 Eos # 0.2 (0.0-0.4) K/mm3 Baso # 0.2 H (0.0-0.1) K/mm3 Add Manual Diff Complete Total Counted 100 Seg Neutrophils % 41.8 (40.0-70.0) % Seg Neuts % (Manual) 43.0 (40.0-70.0) % Band Neutrophils % 0 % Lymphocytes % (Manual) 37.0 H (13.4-35.0) % Reactive Lymphs % (Man) 0 % Monocytes % (Manual) 16.0 H (0.0-7.3) % Eosinophils % (Manual) 2.0 (0.0-4.3) % Basophils % (Manual) 2.0 H (0.0-1.8) % Metamyelocytes % 0 % Myelocytes % 0 % Promyelocytes % 0 % Blast Cells % 0 % Nucleated RBC % 16.0 H (0.0-0.9) % Seg Neutrophils # 5.0 (1.8-7.7) K/mm3 Seg Neutrophils # Man 5.2 (1.8-7.7) K/mm3 Band Neutrophils # 0.0 K/mm3 Lymphocytes # (Manual) 4.5 (1.2-5.4) K/mm3 Abs React Lymphs (Man) 0.0 K/mm3 Monocytes # (Manual) 2.0 H (0.0-0.8) K/mm3 Eosinophils # (Manual) 0.2 (0.0-0.4) K/mm3 Basophils # (Manual) 0.2 H (0.0-0.1) K/mm3 Metamyelocytes # 0.0 K/mm3 Myelocytes # 0.0 K/mm3 Promyelocytes # 0.0 K/mm3 Blast Cells # 0.0 K/mm3 WBC Morphology Not Reportable Hypersegmented Neuts Not Reportable Hyposegmented Neuts Not Reportable Hypogranular Neuts Not Reportable Smudge Cells Not Reportable Toxic Granulation Not Reportable Toxic Vacuolation Not Reportable Dohle Bodies Not Reportable Pelger-Huet Anomaly Not Reportable [place] Rods Not Reportable Platelet Estimate Consistent w auto Clumped Platelets Not Reportable Plt Clumps, EDTA Not Reportable Large Platelets 1+ Giant Platelets Rare Platelet Satelliting Not Reportable Plt Morphology Comment Not Reportable RBC Morphology Not Reportable Dimorphic RBCs Not Reportable Polychromasia 1+ Hypochromasia Not Reportable Poikilocytosis 3+ Anisocytosis 3+ Microcytosis Not Reportable Macrocytosis Not Reportable Spherocytes Not Reportable Pappenheimer Bodies Not Reportable Sickle Cells 2+ Target Cells Few Tear Drop Cells Not Reportable Ovalocytes 1+ Helmet Cells Not Reportable [place] Bodies Not Reportable Pierz Rings Not Reportable Arvind Cells Not Reportable Bite Cells Not Reportable Crenated Cell Not Reportable Elliptocytes 2+ Acanthocytes (Spur) Not Reportable Rouleaux Not Reportable Hemoglobin C Crystals Not Reportable Schistocytes Not Reportable Malaria parasites Not Reportable Percent Retic 19.73 H (0.78-2.58) % Stanton Bodies Not Reportable Hem Pathologist Commnt No Sodium 136 L (137-145) mmol/L Potassium 5.1 H (3.6-5.0) mmol/L Chloride 102.4 (98-107) mmol/L Carbon Dioxide 22 (22-30) mmol/L Anion Gap 17 mmol/L BUN 13 (9-20) mg/dL Creatinine 0.5 L (0.8-1.5) mg/dL Estimated GFR > 60 ml/min BUN/Creatinine Ratio 26 % Glucose 112 H (75-100) mg/dL Calcium 8.9 (8.4-10.2) mg/dL Total Bilirubin 10.10 H (0.1-1.2) mg/dL AST 76 H (5-40) units/L ALT 16 (7-56) units/L Alkaline Phosphatase 180 H (35-129) units/L Total Protein 6.8 (6.3-8.2) g/dL Albumin 4.2 (3.9-5) g/dL Albumin/Globulin Ratio 1.6 %
--- NOTE | 2019-03-19 06:28 | Emergency Department Report ---
ED General Adult HPI - General Chief complaint: Sickle Cell Crisis Stated complaint: SICKLE CELL CRISIS Time Seen by Provider: 03/19/19 06:01 Source: patient Mode of arrival: Ambulatory Limitations: No Limitations - History of Present Illness Initial comments: 28-year-old male with sickle cell disease and frequent crisis. He was here in February and was transfused. He reports the onset of typical sickle cell pain affecting his arms and legs last night. He denies fever or chills. He denies any other systemic-type symptoms. He is a regular patient of Dr. Encinas. -: hour(s) Location: upper extremity, lower extremity Radiation: non-radiation Severity scale (0 -10): 9 Quality: aching Consistency: constant Improves with: none Worsens with: none Associated Symptoms: denies other symptoms - Related Data Home Medications Medication Instructions Recorded Confirmed Last Taken Folic Acid [Folvite] 1 mg PO DAILY 04/03/18 11/20/18 Unknown Morphine ER [Ms Contin ER] 30 mg PO BID 04/03/18 11/20/18 Unknown Previous Rx's Medication Instructions Recorded Last Taken Type Amitriptyline [Elavil] 25 mg PO QHS #30 tablet 12/07/17 Unknown Rx Hydroxyurea [Droxia] 1,500 mg PO DAILY #30 capsule 12/07/17 Unknown Rx Oxycodone HCl/Acetaminophen 1 tab PO Q4-6H PRN #6 tablet 02/15/19 Unknown Rx [Percocet 10/325 mg] Allergies Allergy/AdvReac Type Severity Reaction Status Date / Time No Known Allergies Allergy Verified 06/16/15 12:38 ED Review of Systems ROS: Stated complaint: SICKLE CELL CRISIS Other details as noted in HPI Constitutional: denies: chills, fever Eyes: denies: eye pain, eye discharge, vision change ENT: denies: ear pain, throat pain Respiratory: denies: cough, shortness of breath, wheezing Cardiovascular: denies: chest pain, palpitations Endocrine: no symptoms reported Gastrointestinal: denies: abdominal pain, nausea, diarrhea Genitourinary: denies: urgency, dysuria Musculoskeletal: as per HPI, other. denies: back pain, joint swelling Skin: denies: rash, lesions Neurological: denies: headache, weakness, paresthesias Psychiatric: denies: anxiety, depression Hematological/Lymphatic: denies: easy bleeding, easy bruising ED Past Medical Hx - Past Medical History Previous Medical History?: Yes Hx Sickle Cell Disease: Yes Hx Asthma: Yes Additional medical history: Acute chest syndrome - Surgical History Past Surgical History?: Yes Hx Cholecystectomy: Yes Additional Surgical History: TRACHEOSTOMY. 2 PORTS AND REMOVAL. LIVER BIOPSY X2 - Social History Smoking Status: Never Smoker Substance Use Type: Alcohol - Medications Home Medications: Home Medications Medication Instructions Recorded Confirmed Last Taken Type Amitriptyline [Elavil] 25 mg PO QHS #30 tablet 12/07/17 11/20/18 Unknown Rx Hydroxyurea [Droxia] 1,500 mg PO DAILY #30 capsule 12/07/17 11/20/18 Unknown Rx Folic Acid [Folvite] 1 mg PO DAILY 04/03/18 11/20/18 Unknown History Morphine ER [Ms Contin ER] 30 mg PO BID 04/03/18 11/20/18 Unknown History Oxycodone HCl/Acetaminophen 1 tab PO Q4-6H PRN #6 tablet 02/15/19 Unknown Rx [Percocet 10/325 mg] ED Physical Exam - General Limitations: No Limitations General appearance: alert, in no apparent distress - Head Head exam: Present: atraumatic, normocephalic - Eye Eye exam: Present: normal appearance. Absent: scleral icterus - ENT ENT exam: Present: mucous membranes moist - Neck Neck exam: Present: normal inspection. Absent: tenderness, meningismus - Respiratory Respiratory exam: Present: normal lung sounds bilaterally. Absent: respiratory distress - Cardiovascular Cardiovascular Exam: Present: regular rate, normal rhythm. Absent: systolic murmur, diastolic murmur, rubs, gallop - GI/Abdominal GI/Abdominal exam: Present: soft, normal bowel sounds. Absent: distended, tenderness, guarding, rebound, rigid - Rectal Rectal exam: Present: deferred - Extremities Exam Extremities exam: Present: normal inspection, full ROM, normal capillary refill. Absent: tenderness, pedal edema, joint swelling, calf tenderness - Back Exam Back exam: Present: normal inspection. Absent: CVA tenderness (R), CVA tenderness (L), muscle spasm, paraspinal tenderness - Neurological Exam Neurological exam: Present: alert, oriented X3, CN II-XII intact. Absent: motor sensory deficit - Psychiatric Psychiatric exam: Present: normal affect, normal mood - Skin Skin exam: Present: warm, dry, intact, normal color. Absent: rash ED Course Vital Signs 03/19/19 03/19/19 03/19/19 03:58 04:52 05:00 Temperature 98.0 F 98.3 F Pulse Rate 104 H 91 H 99 H Respiratory 20 21 18 Rate Blood Pressure 116/59 119/60 Blood Pressure 119/58 [Right] O2 Sat by Pulse 79 L 93 92 Oximetry 03/19/19 03/19/19 03/19/19 05:31 06:00 06:31 Temperature Pulse Rate Respiratory 34 H 22 18 Rate Blood Pressure 119/58 115/61 115/61 Blood Pressure [Right] O2 Sat by Pulse 96 95 96 Oximetry 03/19/19 03/19/19 03/19/19 07:24 07:30 08:56 Temperature Pulse Rate 72 74 Respiratory 18 18 17 Rate Blood Pressure Blood Pressure 105/62 110/58 [Right] O2 Sat by Pulse 100 100 Oximetry 03/19/19 09:30 Temperature Pulse Rate 72 Respiratory 18 Rate Blood Pressure Blood Pressure 111/60 [Right] O2 Sat by Pulse 100 Oximetry - Reevaluation(s) Reevaluation #1: Given fluids and analgesia. Discussed with primary care physician and admitted. Transfusion was ordered. Dr. Encinas aware. 03/19/19 10:23 03/19/19 10:23 ED Medical Decision Making - Lab Data Result diagrams: 03/19/19 04:01 03/19/19 07:00 Laboratory Results - last 24 hr 03/19/19 03/19/19 03/19/19 04:01 04:01 05:06 WBC 12.2 H RBC 1.89 L Hgb 6.9 L Hct 17.8 L* MCV 94 MCH 37 H MCHC 39 H* RDW 27.0 H Plt Count 186 [place] % (Auto) Pattern Lease Inspector Eos % (Auto) 1.5 [place] # 2.3 H Eos # 0.2 Baso # 0.2 H Add Manual Diff Complete Total Counted 100 Seg Neutrophils % 41.8 Seg Neuts % (Manual) 43.0 Band Neutrophils % 0 Lymphocytes % (Manual) 37.0 H Reactive Lymphs % (Man) 0 Monocytes % (Manual) 16.0 H Eosinophils % (Manual) 2.0 Basophils % (Manual) 2.0 H Metamyelocytes % 0 Myelocytes % 0 Promyelocytes % 0 Blast Cells % 0 Nucleated RBC % 16.0 H Seg Neutrophils # 5.0 Seg Neutrophils # Man 5.2 Band Neutrophils # 0.0 Lymphocytes # (Manual) 4.5 Abs React Lymphs (Man) 0.0 Monocytes # (Manual) 2.0 H Eosinophils # (Manual) 0.2 Basophils # (Manual) 0.2 H Metamyelocytes # 0.0 Myelocytes # 0.0 Promyelocytes # 0.0 Blast Cells # 0.0 WBC Morphology Not Reportable Hypersegmented Neuts Not Reportable Hyposegmented Neuts Not Reportable Hypogranular Neuts Not Reportable Smudge Cells Not Reportable Toxic Granulation Not Reportable Toxic Vacuolation Not Reportable Dohle Bodies Not Reportable Pelger-Huet Anomaly Not Reportable [place] Rods Not Reportable Platelet Estimate Consistent w auto Clumped Platelets Not Reportable Plt Clumps, EDTA Not Reportable Large Platelets 1+ Giant Platelets Rare Platelet Satelliting Not Reportable Plt Morphology Comment Not Reportable RBC Morphology Not Reportable Dimorphic RBCs Not Reportable Polychromasia 1+ Hypochromasia Not Reportable Poikilocytosis 3+ Anisocytosis 3+ Microcytosis Not Reportable Macrocytosis Not Reportable Spherocytes Not Reportable Pappenheimer Bodies Not Reportable Sickle Cells 2+ Target Cells Few Tear Drop Cells Not Reportable Ovalocytes 1+ Helmet Cells Not Reportable [place] Bodies Not Reportable [place] Rings Not Reportable Arvind Cells Not Reportable Bite Cells Not Reportable Crenated Cell Not Reportable Elliptocytes 2+ Acanthocytes (Spur) Not Reportable Rouleaux Not Reportable Hemoglobin C Crystals Not Reportable Schistocytes Not Reportable Malaria parasites Not Reportable Percent Retic 19.73 H Stanton Bodies Not Reportable Hem Pathologist Commnt No PT INR APTT Sodium 136 L Potassium 5.1 H Chloride 102.4 Carbon Dioxide 22 Anion Gap 17 BUN 13 Creatinine 0.5 L Estimated GFR > 60 BUN/Creatinine Ratio 26 Glucose 112 H Calcium 8.9 Magnesium Total Bilirubin 10.10 H Direct Bilirubin Indirect Bilirubin AST 76 H ALT 16 Alkaline Phosphatase 180 H NT-Pro-B Natriuret Pep Total Protein 6.8 Albumin 4.2 Albumin/Globulin Ratio 1.6 Blood Type A POSITIVE Antibody Screen TNR JAMEL Antibody Screen Negative Crossmatch See Detail 03/19/19 03/19/19 07:00 07:00 WBC RBC Hgb Hct MCV MCH MCHC RDW Plt Count [place] % (Auto) Eos % (Auto) [place] # Eos # Baso # Add Manual Diff Total Counted Seg Neutrophils % Seg Neuts % (Manual) Band Neutrophils % Lymphocytes % (Manual) Reactive Lymphs % (Man) Monocytes % (Manual) Eosinophils % (Manual) Basophils % (Manual) Metamyelocytes % Myelocytes % Promyelocytes % Blast Cells % Nucleated RBC % Seg Neutrophils # Seg Neutrophils # Man Band Neutrophils # Lymphocytes # (Manual) Abs React Lymphs (Man) Monocytes # (Manual) Eosinophils # (Manual) Basophils # (Manual) Metamyelocytes # Myelocytes # Promyelocytes # Blast Cells # WBC Morphology Hypersegmented Neuts Hyposegmented Neuts Hypogranular Neuts Smudge Cells Toxic Granulation Toxic Vacuolation Dohle Bodies Pelger-Huet Anomaly [place] Rods Platelet Estimate Clumped Platelets Plt Clumps, EDTA Large Platelets Giant Platelets Platelet Satelliting Plt Morphology Comment RBC Morphology Dimorphic RBCs Polychromasia Hypochromasia Poikilocytosis Anisocytosis Microcytosis Macrocytosis Spherocytes Pappenheimer Bodies Sickle Cells Target Cells Tear Drop Cells Ovalocytes Helmet Cells [place] Bodies [place] Rings [place] Cells Bite Cells Crenated Cell Elliptocytes Acanthocytes (Spur) Rouleaux Hemoglobin C Crystals Schistocytes Malaria parasites Percent Retic Stanton Bodies Hem Pathologist Commnt PT 15.4 H INR 1.15 H APTT 30.8 Sodium 134 L Potassium 4.6 Chloride 101.1 Carbon Dioxide 20 L Anion Gap 18 BUN 14 Creatinine 0.4 L Estimated GFR > 60 BUN/Creatinine Ratio 35 Glucose 212 H Calcium 8.0 L Magnesium 2.10 Total Bilirubin 9.00 H Direct Bilirubin 2.2 H Indirect Bilirubin 6.8 AST 65 H ALT 19 Alkaline Phosphatase 158 H NT-Pro-B Natriuret Pep 382.8 Total Protein 6.2 L Albumin 3.7 L Albumin/Globulin Ratio 1.5 Blood Type Antibody Screen JAMEL Antibody Screen Crossmatch Critical care attestation.: If time is entered above; I have spent that time in minutes in the direct care of this critically ill patient, excluding procedure time. ED Disposition Clinical Impression: Hemolytic crisis, Sickle cell crisis, Symptomatic anemia Disposition: OP ADMIT IP TO THIS HOSP Is pt being admited?: Yes Does the pt Need Aspirin: Yes Condition: Stable Time of Disposition: :24
[2019-03-19] MEDS ORDERED: NACL 0.9% 500 ML 500 ML IV ONE (06:29)
[2019-03-19 07:18] LABS: INR 1.15 (0.87-1.13)
[2019-03-19 07:19] LABS: Partial Thromboplastin Time 30.8 Sec. (24.2-36.6)
[2019-03-19 07:26] LABS: Alanine Aminotransferase 19 units/L (7-56); Albumin 3.7 g/dL (3.9-5); BUN/Creatinine Ratio 35; Bilirubin,Direct 2.2 mg/dL (0-0.2); Blood Urea Nitrogen 14 mg/dL (9-20); Hemolysis Index 15
[2019-03-19 09:28] LABS: Bilirubin,Urine NEG (Negative); Blood,Urine NEG (Negative); Mucus,Urine FEW /HPF; Protein,Urine <15 mg/dL mg/dL (Negative)
[2019-03-19 09:30] LABS: Color,Urine Yellow (Yellow)
[2019-03-19] MEDS ORDERED: ASPIRIN PO ONE (10:25)
[2019-03-19] MEDS: BENADRYL IV PRN ×2 (13:41→20:22)
[2019-03-19] MEDS: DILAUDID IV PRN ×3 (13:42→20:22)
[2019-03-19] MEDS: HEPARIN SUB-Q SCH ×2 (13:43→21:10)
[2019-03-19] MEDS: D5NS 0.2% 1,000 ML IV SCH ×2 (13:45→20:07)
[2019-03-19] MEDS ORDERED: NACL 0.9% 500 ML 500 ML IV NR (19:06)
--- NOTE | 2019-03-19 20:11 | History and Physical Report ---
History of Present Illness Date of examination: 03/19/19 Date of admission: 03/19/19 08:48 Chief complaint: Diffuse joint pain History of present illness: Patient presented to the ED with CC as above. work up in the ED showed elevated retic count, and WBC, with hgb of 6.9, and symptomatic. His BG was high at 210, and he is not known to be diabetic.He was admitted for sxs management, and control.He will be hydrated, transfused, and pain control.Will work up with A1C. Past History Past Medical History: anemia Social history: no significant social history, single, lives with family, smoking Family history: no significant family history Medications and Allergies Allergies Allergy/AdvReac Type Severity Reaction Status Date / Time No Known Allergies Allergy Verified 06/16/15 12:38 Home Medications Medication Instructions Recorded Confirmed Last Taken Type Amitriptyline [Elavil] 25 mg PO QHS #30 tablet 12/07/17 11/20/18 Unknown Rx Hydroxyurea [Droxia] 1,500 mg PO DAILY #30 capsule 12/07/17 11/20/18 Unknown Rx Folic Acid [Folvite] 1 mg PO DAILY 04/03/18 11/20/18 Unknown History Morphine ER [Ms Contin ER] 30 mg PO BID 04/03/18 11/20/18 Unknown History Oxycodone HCl/Acetaminophen 1 tab PO Q4-6H PRN #6 tablet 02/15/19 Unknown Rx [Percocet 10/325 mg] Active Meds: Active Medications Diphenhydramine HCl (Benadryl) 25 mg IV Q6H PRN PRN Reason: Itching Last Admin: 03/19/19 13:41 Dose: 25 mg Documented by: Heparin Sodium (Porcine) (Heparin) 5,000 unit SUB-Q Q12HR SLICK Last Admin: 03/19/19 13:43 Dose: 5,000 unit Documented by: Hydromorphone HCl (Dilaudid) 2 mg IV Q3H PRN PRN Reason: Pain , Severe (7-10) Last Admin: 03/19/19 17:20 Dose: 2 mg Documented by: Dextrose/Sodium Chloride (D5ns 0.2%) 1,000 mls @ 175 mls/hr IV DIRECT SLICK Last Admin: 03/19/19 13:45 Dose: 175 mls/hr Documented by: Sodium Chloride (Nacl 0.9% 500 Ml) 500 mls @ 0 mls/hr IV ONCE NR Stop: 03/20/19 06:00 Review of Systems Constitutional: fatigue, weakness, chronic pain Musculoskeletal: low back pain Exam - Constitutional Vitals: Temp Pulse Resp BP Pulse Ox 97.9 F 73 19 108/65 98 03/19/19 17:18 03/19/19 17:18 03/19/19 17:18 03/19/19 17:18 03/19/19 17:18 General appearance: Present: mild distress, well-nourished - EENT Eyes: Present: PERRL ENT: hearing intact, clear oral mucosa - Neck Neck: Present: supple, normal ROM - Respiratory Respiratory effort: normal Respiratory: bilateral: CTA - Cardiovascular Heart Sounds: Present: S1 & S2. Absent: rub, click - Extremities Extremities: pulses symmetrical, No edema Peripheral Pulses: within normal limits - Abdominal General gastrointestinal: Present: soft, non-tender, non-distended, normal bowel sounds Male genitourinary: Present: deferred - Rectal Rectal Exam: deferred - Integumentary Integumentary: Present: clear, warm, dry - Musculoskeletal Musculoskeletal: gait normal, strength equal bilaterally - Psychiatric Psychiatric: appropriate mood/affect, intact judgment & insight - Neurologic Neurologic: CNII-XII intact, moves all extremities Results - Labs CBC & Chem 7: 03/19/19 04:01 03/19/19 07:00 Labs: Abnormal lab results 03/19/19 03/19/19 03/19/19 Range/Units 04:01 04:01 05:06 WBC 12.2 H (4.5-11.0) K/mm3 RBC 1.89 L (3.65-5.03) M/mm3 Hgb 6.9 L (11.8-15.2) gm/dl Hct 17.8 L* (35.5-45.6) % MCH 37 H (28-32) pg MCHC 39 H* (32-34) % RDW 27.0 H (13.2-15.2) % [place] # 2.3 H (0.0-0.8) K/mm3 Baso # 0.2 H (0.0-0.1) K/mm3 Lymphocytes % (Manual) 37.0 H (13.4-35.0) % Monocytes % (Manual) 16.0 H (0.0-7.3) % Basophils % (Manual) 2.0 H (0.0-1.8) % Nucleated RBC % 16.0 H (0.0-0.9) % Monocytes # (Manual) 2.0 H (0.0-0.8) K/mm3 Basophils # (Manual) 0.2 H (0.0-0.1) K/mm3 Percent Retic 19.73 H (0.78-2.58) % PT (12.2-14.9) Sec. INR (0.87-1.13) Sodium 136 L (137-145) mmol/L Potassium 5.1 H (3.6-5.0) mmol/L Carbon Dioxide (22-30) mmol/L Creatinine 0.5 L (0.8-1.5) mg/dL Glucose 112 H (75-100) mg/dL Calcium (8.4-10.2) mg/dL Total Bilirubin 10.10 H (0.1-1.2) mg/dL Direct Bilirubin (0-0.2) mg/dL AST 76 H (5-40) units/L Alkaline Phosphatase 180 H (35-129) units/L Total Protein (6.3-8.2) g/dL Albumin (3.9-5) g/dL Crossmatch See Detail 03/19/19 03/19/19 Range/Units 07:00 07:00 WBC (4.5-11.0) K/mm3 RBC (3.65-5.03) M/mm3 Hgb (11.8-15.2) gm/dl Hct (35.5-45.6) % MCH (28-32) pg MCHC (32-34) % RDW (13.2-15.2) % [place] # (0.0-0.8) K/mm3 Baso # (0.0-0.1) K/mm3 Lymphocytes % (Manual) (13.4-35.0) % Monocytes % (Manual) (0.0-7.3) % Basophils % (Manual) (0.0-1.8) % Nucleated RBC % (0.0-0.9) % Monocytes # (Manual) (0.0-0.8) K/mm3 Basophils # (Manual) (0.0-0.1) K/mm3 Percent Retic (0.78-2.58) % PT 15.4 H (12.2-14.9) Sec. INR 1.15 H (0.87-1.13) Sodium 134 L (137-145) mmol/L Potassium (3.6-5.0) mmol/L Carbon Dioxide 20 L (22-30) mmol/L Creatinine 0.4 L (0.8-1.5) mg/dL Glucose 212 H (75-100) mg/dL Calcium 8.0 L (8.4-10.2) mg/dL Total Bilirubin 9.00 H (0.1-1.2) mg/dL Direct Bilirubin 2.2 H (0-0.2) mg/dL AST 65 H (5-40) units/L Alkaline Phosphatase 158 H (35-129) units/L Total Protein 6.2 L (6.3-8.2) g/dL Albumin 3.7 L (3.9-5) g/dL Crossmatch Assessment and Plan - Patient Problems (1) Sickle cell anemia with pain Current Visit: Yes Status: Chronic Plan to address problem: Pain control. (2) Symptomatic anemia Current Visit: Yes Status: Acute Plan to address problem: Transfusion replacement. (3) Hyperbilirubinemia Current Visit: No Status: Acute Plan to address problem: This is part of SCD/ crisis. (4) Dehydration Current Visit: Yes Status: Acute Plan to address problem: hydration.
[2019-03-19] MEDS ORDERED: HYDREA PO SCH (22:00)
[2019-03-19] MEDS ORDERED: MORPHINE 30 MG PO SCH (22:00)
[2019-03-19] MEDS ORDERED: AMITRIPTYLINE 25 MG PO SCH (22:00)
[2019-03-20] MEDS: DILAUDID IV PRN ×7 (00:12→23:32)
[2019-03-20 08:07] LABS: Hematocrit 23.3 % (35.5-45.6); Hemoglobin 8.4 gm/dl (11.8-15.2)
[2019-03-20] MEDS: BENADRYL IV PRN ×3 (08:53→23:31)
[2019-03-20] MEDS ORDERED: HYDROXYUREA PO SCH (10:00)
[2019-03-20] MEDS: MS CONTIN ER PO SCH ×3 (11:25→21:53)
[2019-03-20] MEDS: FOLVITE PO SCH (11:27)
[2019-03-20] MEDS: HYDREA PO SCH (11:28)
[2019-03-20] MEDS: HEPARIN SUB-Q SCH ×2 (11:30→21:53)
[2019-03-20] MEDS: D5NS 0.2% 1,000 ML IV SCH (20:14)
--- NOTE | 2019-03-20 21:48 | Progress Note ---
Assessment and Plan - Patient Problems (1) Sickle cell anemia with pain Current Visit: Yes Status: Chronic Plan to address problem: Pain control. (2) Symptomatic anemia Current Visit: Yes Status: Acute Plan to address problem: Transfusion replacement. completed. (3) Hyperbilirubinemia Current Visit: No Status: Acute Plan to address problem: This is part of SCD/ crisis. (4) Dehydration Current Visit: Yes Status: Acute Plan to address problem: hydration. Subjective Date of service: 03/20/19 Principal diagnosis: Sickle pain crisis. Interval history: Patient seen/examined, resting in bed, labs reviewed, showing improved hgb ,post blood transfusion.will ask for port placement, if feasible. Objective - Constitutional Vitals: Vital Signs - 12hr 03/20/19 03/20/19 03/20/19 11:17 17:17 17:22 Temperature 97.9 F 98.2 F 98.2 F Pulse Rate 76 78 Respiratory 20 19 20 Rate Blood Pressure 106/62 121/63 125/88 O2 Sat by Pulse 98 100 Oximetry 03/20/19 21:27 Temperature Pulse Rate Respiratory Rate Blood Pressure O2 Sat by Pulse 97 Oximetry General appearance: Present: mild distress, well-nourished - EENT Eyes: PERRL, EOM intact ENT: hearing intact, clear oral mucosa Ears: bilateral: normal - Neck Neck: supple, normal ROM - Respiratory Respiratory effort: normal Respiratory: bilateral: CTA - Breasts Breasts: deferred - Cardiovascular Rhythm: regular Heart Sounds: Present: S1 & S2. Absent: gallop, rub Extremities: pulses intact, No edema, normal color, Full ROM - Gastrointestinal General gastrointestinal: Present: soft, non-tender, non-distended, normal bowel sounds Rectal Exam: deferred - Genitourinary Male genitourinary: deferred - Integumentary Integumentary: clear, warm, dry - Musculoskeletal Musculoskeletal: 1, strength equal bilaterally - Neurologic Neurologic: moves all extremities - Psychiatric Psychiatric: memory intact, appropriate mood/affect, intact judgment & insight - Labs CBC & Chem 7: 03/20/19 07:40 03/19/19 07:00 Labs: Abnormal lab results 03/19/19 03/20/19 Range/Units 05:06 07:40 Hgb 8.4 L (11.8-15.2) gm/dl Hct 23.3 L (35.5-45.6) % Crossmatch See Detail Medications & Allergies - Medications Allergies/Adverse Reactions: Allergies No Known Allergies Allergy (Verified 06/16/15 12:38) Home Medications: Home Medications Medication Instructions Recorded Confirmed Last Taken Type Amitriptyline [Elavil] 25 mg PO QHS #30 tablet 12/07/17 11/20/18 Unknown Rx Hydroxyurea [Droxia] 1,500 mg PO DAILY #30 capsule 12/07/17 11/20/18 Unknown Rx Folic Acid [Folvite] 1 mg PO DAILY 04/03/18 11/20/18 Unknown History Morphine ER [Ms Contin ER] 30 mg PO BID 04/03/18 11/20/18 Unknown History Oxycodone HCl/Acetaminophen 1 tab PO Q4-6H PRN #6 tablet 02/15/19 Unknown Rx [Percocet 10/325 mg] Active Medications: Generic Name Dose Route Start Last Admin Trade Name Freq PRN Reason Stop Dose Admin Amitriptyline HCl 25 mg 03/19/19 22:00 03/20/19 00:00 Elavil PO 25 mg QHS SLICK Administration Diphenhydramine HCl 25 mg 03/19/19 12:47 03/20/19 16:02 Benadryl IV 25 mg Q6H PRN Administration Itching Folic Acid 1 mg 03/20/19 10:00 03/20/19 11:27 Folvite PO 1 mg QDAY SLICK Administration Heparin Sodium (Porcine) 5,000 unit 03/19/19 13:00 03/20/19 11:30 Heparin SUB-Q 5,000 unit Q12HR SLICK Administration Hydromorphone HCl 2 mg 03/19/19 12:46 03/20/19 20:14 Dilaudid IV 2 mg Q3H PRN Administration Pain , Severe (7-10) Hydroxyurea 1,500 mg 03/20/19 10:00 03/20/19 11:28 Hydrea PO 1,500 mg DAILY SLICK Administration Dextrose/Sodium Chloride 1,000 mls @ 175 mls/hr 03/19/19 13:00 03/20/19 20:14 D5ns 0.2% IV 175 mls/hr DIRECT SLICK Administration Morphine Sulfate 30 mg 03/19/19 22:00 03/20/19 11:25 Ms Contin Er PO 30 mg BID SLICK Administration
[2019-03-20] MEDS: ELAVIL PO SCH ×2 (21:53)
[2019-03-21] MEDS: D5NS 0.2% 1,000 ML IV SCH ×3 (03:00→16:23)
[2019-03-21] MEDS: BENADRYL IV PRN ×3 (05:46→20:29)
[2019-03-21] MEDS: DILAUDID IV PRN ×5 (05:46→20:29)
[2019-03-21] MEDS: FOLVITE PO SCH (09:36)
[2019-03-21] MEDS: HEPARIN SUB-Q SCH ×2 (09:37→21:23)
[2019-03-21] MEDS: HYDREA PO SCH (10:00)
--- NOTE | 2019-03-21 11:02 | Event Note ---
Date: 03/21/19 I'll discuss vascular access options with the patient tomorrow. May place port during this admission or possibly as outpatient.
[2019-03-21] MEDS: MS CONTIN ER PO SCH ×2 (14:24→21:22)
--- NOTE | 2019-03-21 19:21 | Progress Note ---
Assessment and Plan - Patient Problems (1) Sickle cell anemia with pain Current Visit: Yes Status: Chronic Plan to address problem: Pain control. (2) Symptomatic anemia Current Visit: Yes Status: Acute Plan to address problem: Transfusion replacement. completed. (3) Hyperbilirubinemia Current Visit: No Status: Acute Plan to address problem: This is part of SCD/ crisis. (4) Dehydration Current Visit: Yes Status: Acute Plan to address problem: hydration. Subjective Date of service: 03/21/19 Principal diagnosis: Sickle pain crisis. Interval history: Patient seen/examined, resting in bed, labs reviewed, showing improved hgb ,post blood transfusion.will ask for port placement, if feasible. Patient seen/examined, resting in bed, labs reviewed. i appreciate Vac input. He will like port placed this admission. Objective - Constitutional Vitals: Vital Signs - 12hr 03/21/19 03/21/19 12:06 17:34 Temperature 98.0 F 97.9 F Pulse Rate 89 76 Respiratory 20 20 Rate Blood Pressure 111/69 108/60 O2 Sat by Pulse 95 94 Oximetry General appearance: Present: mild distress, well-nourished - EENT Eyes: PERRL, EOM intact ENT: hearing intact, clear oral mucosa Ears: bilateral: normal - Neck Neck: supple, normal ROM - Respiratory Respiratory effort: normal Respiratory: bilateral: CTA - Breasts Breasts: deferred - Cardiovascular Rhythm: regular Heart Sounds: Present: S1 & S2. Absent: gallop, rub Extremities: pulses intact, No edema, normal color, Full ROM - Gastrointestinal General gastrointestinal: Present: soft, non-tender, non-distended, normal bowel sounds Rectal Exam: deferred - Genitourinary Male genitourinary: deferred - Integumentary Integumentary: clear, warm, dry - Musculoskeletal Musculoskeletal: 1, strength equal bilaterally - Neurologic Neurologic: moves all extremities - Psychiatric Psychiatric: memory intact, appropriate mood/affect, intact judgment & insight - Labs CBC & Chem 7: 03/20/19 07:40 03/19/19 07:00 Medications & Allergies - Medications Allergies/Adverse Reactions: Allergies No Known Allergies Allergy (Verified 06/16/15 12:38) Home Medications: Home Medications Medication Instructions Recorded Confirmed Last Taken Type Amitriptyline [Elavil] 25 mg PO QHS #30 tablet 12/07/17 11/20/18 Unknown Rx Hydroxyurea [Droxia] 1,500 mg PO DAILY #30 capsule 12/07/17 11/20/18 Unknown Rx Folic Acid [Folvite] 1 mg PO DAILY 04/03/18 11/20/18 Unknown History Morphine ER [Ms Contin ER] 30 mg PO BID 04/03/18 11/20/18 Unknown History Oxycodone HCl/Acetaminophen 1 tab PO Q4-6H PRN #6 tablet 02/15/19 Unknown Rx [Percocet 10/325 mg] Active Medications: Generic Name Dose Route Start Last Admin Trade Name Freq PRN Reason Stop Dose Admin Amitriptyline HCl 25 mg 03/19/19 22:00 03/20/19 21:53 Elavil PO 25 mg QHS SLICK Administration Diphenhydramine HCl 25 mg 03/19/19 12:47 03/21/19 12:32 Benadryl IV 25 mg Q6H PRN Administration Itching Folic Acid 1 mg 03/20/19 10:00 03/21/19 09:36 Folvite PO 1 mg QDAY SLICK Administration Heparin Sodium (Porcine) 5,000 unit 03/19/19 13:00 03/21/19 09:37 Heparin SUB-Q 5,000 unit Q12HR SLICK Administration Hydromorphone HCl 2 mg 03/19/19 12:46 03/21/19 16:22 Dilaudid IV 2 mg Q3H PRN Administration Pain , Severe (7-10) Hydroxyurea 1,500 mg 03/20/19 10:00 03/20/19 11:28 Hydrea PO 1,500 mg DAILY SLICK Administration Dextrose/Sodium Chloride 1,000 mls @ 175 mls/hr 03/19/19 13:00 03/21/19 16:23 D5ns 0.2% IV 175 mls/hr DIRECT SLICK Administration Morphine Sulfate 30 mg 03/19/19 22:00 03/21/19 14:24 Ms Contin Er PO 30 mg BID SLICK Administration
[2019-03-21] MEDS: ELAVIL PO SCH (21:23)
[2019-03-22] MEDS: D5NS 0.2% 1,000 ML IV SCH ×3 (00:35→19:53)
[2019-03-22] MEDS: DILAUDID IV PRN ×8 (00:35→23:55)
[2019-03-22] MEDS: BENADRYL IV PRN ×4 (03:47→23:56)
[2019-03-22] MEDS: HYDREA PO SCH (10:32)
[2019-03-22] MEDS: MS CONTIN ER PO SCH ×2 (10:33→21:31)
[2019-03-22] MEDS: FOLVITE PO SCH (10:33)
[2019-03-22] MEDS: HEPARIN SUB-Q SCH ×2 (10:34→21:33)
--- NOTE | 2019-03-22 15:19 | Progress Note ---
Assessment and Plan - Patient Problems (1) Sickle cell anemia with pain Current Visit: Yes Status: Chronic Plan to address problem: Pain control. (2) Symptomatic anemia Current Visit: Yes Status: Acute Plan to address problem: Transfusion replacement. completed. (3) Hyperbilirubinemia Current Visit: No Status: Acute Plan to address problem: supportive care (4) Dehydration Current Visit: Yes Status: Acute Plan to address problem: hydration. Subjective Date of service: 03/22/19 Principal diagnosis: Sickle pain crisis. Interval history: Patient seen/examined, resting in bed, labs reviewed, showing improved hgb ,post blood transfusion.will ask for port placement, if feasible. Patient seen/examined, resting in bed, labs reviewed. i appreciate Vac input. He will like port placed this admission. Patient seen/resting in bed, Vascular will see today. Objective - Constitutional Vitals: Vital Signs - 12hr 03/22/19 03/22/19 03/22/19 03:47 04:22 06:51 Temperature 98.5 F Pulse Rate 98 H Respiratory 18 20 18 Rate Blood Pressure 124/62 O2 Sat by Pulse 89 Oximetry 03/22/19 11:21 Temperature 99.4 F Pulse Rate 100 H Respiratory 24 Rate Blood Pressure 114/64 O2 Sat by Pulse 94 Oximetry General appearance: Present: mild distress, well-nourished - EENT Eyes: PERRL, EOM intact ENT: hearing intact, clear oral mucosa Ears: bilateral: normal - Neck Neck: supple, normal ROM - Respiratory Respiratory effort: normal Respiratory: bilateral: CTA - Breasts Breasts: deferred - Cardiovascular Rhythm: regular Heart Sounds: Present: S1 & S2. Absent: gallop, rub Extremities: pulses intact, No edema, normal color, Full ROM - Gastrointestinal General gastrointestinal: Present: soft, non-tender, non-distended, normal bowel sounds Rectal Exam: deferred - Genitourinary Male genitourinary: deferred, normal - Integumentary Integumentary: clear, warm, dry - Musculoskeletal Musculoskeletal: 1, strength equal bilaterally - Neurologic Neurologic: moves all extremities - Psychiatric Psychiatric: memory intact, appropriate mood/affect, intact judgment & insight - Labs CBC & Chem 7: 03/20/19 07:40 03/19/19 07:00 Labs: Abnormal lab results 03/19/19 Range/Units 05:06 Crossmatch See Detail Medications & Allergies - Medications Allergies/Adverse Reactions: Allergies No Known Allergies Allergy (Verified 06/16/15 12:38) Home Medications: Home Medications Medication Instructions Recorded Confirmed Last Taken Type Amitriptyline [Elavil] 25 mg PO QHS #30 tablet 12/07/17 03/22/19 Unknown Rx Hydroxyurea [Droxia] 1,500 mg PO DAILY #30 capsule 12/07/17 03/22/19 Unknown Rx Folic Acid [Folvite] 1 mg PO DAILY 04/03/18 03/22/19 Unknown History Morphine ER [Ms Contin ER] 30 mg PO BID 04/03/18 03/22/19 Unknown History Oxycodone HCl/Acetaminophen 1 tab PO Q4-6H PRN #6 tablet 02/15/19 03/22/19 Unknown Rx [Percocet 10/325 mg] Active Medications: Generic Name Dose Route Start Last Admin Trade Name Freq PRN Reason Stop Dose Admin Amitriptyline HCl 25 mg 03/19/19 22:00 03/21/19 21:23 Elavil PO 25 mg QHS SLICK Administration Diphenhydramine HCl 25 mg 03/19/19 12:47 03/22/19 10:33 Benadryl IV 25 mg Q6H PRN Administration Itching Folic Acid 1 mg 03/20/19 10:00 03/22/19 10:33 Folvite PO 1 mg QDAY SLICK Administration Heparin Sodium (Porcine) 5,000 unit 03/19/19 13:00 03/22/19 10:34 Heparin SUB-Q 5,000 unit Q12HR SLICK Administration Hydromorphone HCl 2 mg 03/19/19 12:46 03/22/19 14:13 Dilaudid IV 2 mg Q3H PRN Administration Pain , Severe (7-10) Hydroxyurea 1,500 mg 03/20/19 10:00 03/22/19 10:32 Hydrea PO 1,500 mg DAILY SLICK Administration Dextrose/Sodium Chloride 1,000 mls @ 175 mls/hr 03/19/19 13:00 03/22/19 14:14 D5ns 0.2% IV 175 mls/hr DIRECT SLICK Administration Morphine Sulfate 30 mg 03/19/19 22:00 03/22/19 10:33 Ms Contin Er PO 30 mg BID SLICK Administration
--- NOTE | 2019-03-22 16:16 | Consultation ---
History of Present Illness - Reason for Consult Consult date: 03/22/19 Need port. 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 Reports that he has a stent placed in his SVC in 2010. Request for port placement. I discussed with the patient that he will require a CT of the chest with contrast. He may not be eligible for an upper extremity/chest port given his prior SVC syndrome. His options would be for a femoral port or no port. If he has a candidate for upper extremity/chest port, he would need to be on low dose anticoagulation. Past History Past Medical History: anemia Social history: no significant social history, single, lives with family, smoking Family history: no significant family history Medications and Allergies Allergies Allergy/AdvReac Type Severity Reaction Status Date / Time No Known Allergies Allergy Verified 06/16/15 12:38 Home Medications Medication Instructions Recorded Confirmed Last Taken Type Amitriptyline [Elavil] 25 mg PO QHS #30 tablet 12/07/17 03/22/19 Unknown Rx Hydroxyurea [Droxia] 1,500 mg PO DAILY #30 capsule 12/07/17 03/22/19 Unknown Rx Folic Acid [Folvite] 1 mg PO DAILY 04/03/18 03/22/19 Unknown History Morphine ER [Ms Contin ER] 30 mg PO BID 04/03/18 03/22/19 Unknown History Oxycodone HCl/Acetaminophen 1 tab PO Q4-6H PRN #6 tablet 02/15/19 03/22/19 Unknown Rx [Percocet 10/325 mg] Active Meds: Active Medications Amitriptyline HCl (Elavil) 25 mg PO QHS [facility] Last Admin: 03/21/19 21:23 Dose: 25 mg Documented by: Diphenhydramine HCl (Benadryl) 25 mg IV Q6H PRN PRN Reason: Itching Last Admin: 03/22/19 10:33 Dose: 25 mg Documented by: Folic Acid (Folvite) 1 mg PO QDAY [facility] Last Admin: 03/22/19 10:33 Dose: 1 mg Documented by: Heparin Sodium (Porcine) (Heparin) 5,000 unit SUB-Q Q12HR [facility] Last Admin: 03/22/19 10:34 Dose: 5,000 unit Documented by: Hydromorphone HCl (Dilaudid) 2 mg IV Q3H PRN PRN Reason: Pain , Severe (7-10) Last Admin: 03/22/19 14:13 Dose: 2 mg Documented by: Hydroxyurea (Hydrea) 1,500 mg PO DAILY [facility] Last Admin: 03/22/19 10:32 Dose: 1,500 mg Documented by: Dextrose/Sodium Chloride (D5ns 0.2%) 1,000 mls @ 175 mls/hr IV DIRECT [facility] Last Admin: 03/22/19 14:14 Dose: 175 mls/hr Documented by: Morphine Sulfate (Ms Contin Er) 30 mg PO BID [facility] Last Admin: 03/22/19 10:33 Dose: 30 mg Documented by: Review of Systems All systems: negative (see HPI) Exam - Constitutional Vitals: Temp Pulse Resp BP Pulse Ox 99.4 F 100 H 24 114/64 94 03/22/19 11:21 03/22/19 11:21 03/22/19 11:21 03/22/19 11:21 03/22/19 11:21 General appearance: Present: no acute distress - EENT Eyes: Present: EOM intact - Respiratory Respiratory effort: normal - Extremities Extremities: normal temperature, normal color, abnormal (mild facial swelling) - Abdominal General gastrointestinal: Present: soft - Psychiatric Psychiatric: appropriate mood/affect, cooperative Results - Labs CBC & Chem 7: 03/20/19 07:40 03/19/19 07:00 Labs: Abnormal lab results 03/19/19 Range/Units 05:06 Crossmatch See Detail Assessment and Plan 28-year-old patient with sickle cell disease with 2 prior port infections, SVC stent, and prior SVC syndrome. CT of the chest with contrast for further evaluation. Nothing by mouth after midnight for possible port placement. He may not be eligible for an upper extremity/chest port given his prior SVC syndrome. His options would be for a femoral port or no port. If he has a candidate for upper extremity/chest port, he would need to be on low dose anticoagulation with Eliquis 2.5 mg PO BID as long as the port is in place.
--- NOTE | 2019-03-22 18:46 | Cat Scan Report ---
PROCEDURE: CT ANGIO CHEST TECHNIQUE: Computerized tomographic angiography of the chest was performed after the IV injection of iodinated nonionic contrast including image processing. The image data was postprocessed using 2-di mensional multiplanar reformatted (MPR) and 3-dimensional (MIP and/or volume rendered) techniques. Au tomated exposure control, adjustment of mA and/or kV according to patient size, or iterative reconstr uction dose optimization techniques were utilized. CT DOSE LENGTH PRODUCT: 612 mGycm HISTORY: history of SVC thrombus. PRE-OP FOR PORT TOMORROW. WANTS TO EVAL FOR BLOOD CLOT. BEST STUDY POSSIBLE. PT NEVER WOULD BOLUS WELL. COMPARISONS: None . FINDINGS: Superior vena cava stent is noted. There are collateral vessels in the mediastinum, left axilla/subclavicular region and chest wall whic h are attributed to venous occlusion. No aortic aneurysm or dissection. There is suboptimal contrast opacification of the pulmonary arteries limiting evaluation beyond the f irst order branches. No evidence of central pulmonary embolism. Multicompartmental shotty mediastinal and bilateral hilar lymph nodes. Bilateral basilar atelectasis. The heart is enlarged. There is interstitial prominence at the lung bases which can be related to atelectasis. Vascular efrain estion not excluded. IMPRESSION: No evidence of central pulmonary embolism. Mild hilar and mediastinal lymphadenopathy. Cardiomegaly with possible mild vascular congestion. This document is electronically signed by Jayden Cheung MD., March 22 2019 06:45:18 PM ET
[2019-03-22] MEDS: ELAVIL PO SCH (21:32)
[2019-03-23] MEDS: D5NS 0.2% 1,000 ML IV SCH (02:11)
[2019-03-23] MEDS: DILAUDID IV PRN ×4 (05:15→20:50)
[2019-03-23] MEDS: BENADRYL IV PRN ×3 (05:16→20:51)
[2019-03-23] MEDS: MS CONTIN ER PO SCH ×2 (10:00→23:50)
[2019-03-23] MEDS: HEPARIN SUB-Q SCH ×2 (10:00→21:33)
[2019-03-23] MEDS ORDERED: DIPRIVAN 10 MG/ML 1,000 MG/100 ML BOTTLE IV ONE (10:58)
[2019-03-23] MEDS ORDERED: SUBLIMAZE ONE (11:00)
[2019-03-23] MEDS ORDERED: VERSED IV ONE (11:00)
[2019-03-23] MEDS ORDERED: KETALAR ONE (11:00)
[2019-03-23] MEDS ORDERED: HEPARIN/NS 5000 UNIT/500ML(CATH LAB) 1,000 ML IR ONE (11:26)
[2019-03-23] MEDS ORDERED: NACL 0.9% 1000 ML 1,000 ML ONE (11:49)
[2019-03-23] MEDS ORDERED: ANCEF/STERILE WATER 2 GM/20 ML 2 GM/20 ML SYRINGE IV ONE (11:57)
--- NOTE | 2019-03-23 12:12 | Anesthesia Day of Surgery ---
Anesthesia Day of Surgery - Day of Surgery Patient Examined: Yes Patient H&P Reviewed: Yes Patient is NPO: Yes
--- NOTE | 2019-03-23 12:12 | Anesthesia Consultation ---
Anesthesia Consult and Med Hx Date of service: 03/23/19 - Airway Anesthetic Teeth Evaluation: Good ROM Head & Neck: Adequate Mental/Hyoid Distance: Adequate Mallampati Class: Class II Intubation Access Assessment: Probably Good - Pulmonary Exam CTA: Yes - Cardiac Exam Cardiac Exam: RRR (mild tachycardia) - Pre-Operative Health Status ASA Pre-Surgery Classification: ASA3 Proposed Anesthetic Plan: MAC - Pulmonary Hx Smoking: No Hx Asthma: Yes (denies hx exacerbations) SOB: Yes (chronic since childhood; mild pHTN on TTE 11/2018.) COPD: No Home Oxygen Therapy: Yes (2L nocturnal and prn) Hx Pneumonia: Yes (hx multiple episodes acute chest syndrome; none this year) Hx Sleep Apnea: Yes - Cardiovascular System Hx Hypertension: No Hx Heart Attack/AMI: No Hx Angina: No Hx Percutaneous Transluminal Coronary Angioplasty (PTCA): No Hx Cardia Arrhythmia: No - Central Nervous System Hx Seizures: No CVA: No Hx Psychiatric Problems: No - Gastrointestinal Hx Gastroesophageal Reflux Disease: No - Endocrine Hx Renal Disease: No Hx Insulin Dependent Diabetes: No Hx Non-Insulin Dependent Diabetes: No Hx Thyroid Disease: No - Hematic Hx Anemia: Yes Hx Sickle Cell Disease: Yes - Other Systems Hx Obesity: No - Additional Comments Anesthesia Medical History Comments: Hx chronic pain home narctics MS Contin 30mg BID (continued as inpatient) and percocet 10-325 3-4x/day. Sleeps on 2-3 pillows at night for comfort but denies SOB, PND. S/p 2 units pRBCs this admission.
[2019-03-23] MEDS: XYLOCAINE 2% INFILTRATI ONE ×2 (12:25→12:58)
[2019-03-23] MEDS ORDERED: HEPARIN 10,000 UNITS/10 ML ONE (12:38)
[2019-03-23] MEDS ORDERED: XYLOCAINE 2% INFILTRATI ONE (12:59)
[2019-03-23] MEDS ORDERED: XYLOCAINE 1%/ EPI 1:100,000 INFILTRATI ONE ×2 (13:00→13:19)
--- NOTE | 2019-03-23 14:06 | Operative Report ---
Operative Report Operative Report: EXAM: 1. Ultrasound-guided access the right common femoral vein. 2. Selection of the SVC with venography. 3. Selection of the right axillary vein with venography. 4. Angioplasty of the SVC stent with a 8 mm x 2 cm cutting balloon and a 12 mm x 6 cm angioplasty balloon 5. Ultrasound-guided access of the right internal jugular vein 6. Selection of the IVC with venography 7. Fluoroscopic-guided placement of a right internal jugular tunneled 8 Fr BARD port placement. DATE: 03/23/19 HOLTER TECHNICIAN: NAVDEEP WOODALL MD INDICATION: 28-year-old male with sickle cell disease and 2 prior port placements complicated by SVC syndrome requiring SVC stent. Patient now presents with need for port and with SVC stent in place. Long discussion was had with plan for initiation of anticoagulation with port in place given history of prior SVC occlusion. I also discussed that he will require SVC intervention prior to any port placement. Patient understands. MEDICATIONS: Please see nursing report for full details. DEVICES: 8 mm x 2 cm cutting angioplasty balloon 12 mm x 6 cm angioplasty below 8 [place] Bard [id number] CONTRAST: Please see helper animal laboratory report for Full Details PROCEDURE: The risks, benefits, and alternatives were discussed the patient; written informed consent was obtained. The patient's groin and neck on the right side were prepped and draped in a sterile fashion. The right groin was evaluated with ultrasound in the right common femoral vein was patent. Under direct ultrasound guidance, the right common femoral vein was accessed with a 21-gauge micropuncture needle. 0.018 inch wire was passed into the IVC. Needle was exchanged for transitional dilator. Wires exchange for 0.035 inch wire. Transitional dilator was exchanged for a 5 [place] sheath. Angled catheter was then advanced through the IVC, right atrium, and through the SVC with the use of a Walls wire. Right innominate vein was selected and digital subtraction angiography was performed demonstrating poor flow through the SVC stent which jailed the left innominate vein. The patient was slightly heparinized and the sheath was exchanged for a 6 Fr 45 cm [place] destination. With the use of the J-wire and the angle catheter, the original wire was left as a ben wire and I passed the J-wire through the stent confirming that the wire did not pass through any of the struts. Angled catheter was advanced over the wire and then the wire and catheter were used to select the right subclavian vein and right axillary vein. Sheath was then exchanged for 6 Fr 65 cm [place] destination, and then a 7 [place] 65 cm [place] destination. Digital subtraction angiography was performed of the right axillary vein demonstrating patency of the right axillary vein. Right subclavian vein was patent. The right internal jugular vein was patent. The right innominate vein was patent. There is sluggish flow through the SVC. Wire was exchanged for V 18 and a 8 mm x 2 cm cutting angioplasty balloon was used to perform angioplasty of the SVC stent. Afterwards, 12 mm x 6 cm angioplasty balloon was used to perform angioplasty of the SVC stent. Digital subtraction angiography was performed demonstrating minimal residual narrowing of the SVC with prompt flow through the SVC stent. At this point, all wires, catheters, and she is retracted to the right common iliac vein. Attention was then turned to the chest. The patient's right internal jugular vein was assessed with ultrasound and determined to be patent The puncture site was anesthetized. Under sonographic guidance, the right internal jugular vein was punctured with a 21-gauge micropuncture needle and a 0.018 inch wire was advanced into the right innominate vein. The micropuncture needle was exchanged for a transitional dilator and then a 5 [place] sheath. Manipulation was performed in order to pass a Glidewire advantage and an angled catheter through the SVC stent. Position was confirmed by passing a pigtail over the wire and turning it demonstrating that it was through the stent. 0.035 inch wire was advanced into the inferior vena cava. Catheter was used to select the IVC. The wire was then passed further into the IVC. Catheter was removed. A suitable port pocket site was identified on the patient's chest inferior and lateral to the venotomy. The site was anesthetized with local anesthetic at the pocket and the track was anesthetized. Incision was made with a 15 blade extending approximately 2 cm. The port was created with the use of a hemostat and hemostasis was achieved with manual compression and with the use of a Bovie device. The port pocket was irrigated. The port was tested and the port was attached to the tubing. The port was the retested and attached to the tunneling device. The port was placed in the pocket and then tunneled to the venotomy. The port tubing was cut to predetermined length. Over the 0.035 inch wire, serial dilatation was performed with ultimate placement of a peel-away sheath. The catheter was advanced through the peel- away sheath after the wire was removed and positioned centrally under fluoroscopic guidance. The catheter tip is in the right atrium. The peel-away sheath was removed. Excellent flow was obtained through the port. The pocket was closed in 2 layers with multiple deep interrupted 3-0 Vicryl sutures with a running subcuticular 4-0 Vicryl suture. The venotomy was closed with a single deep interrupted 3-0 Vicryl suture. Dermabond was applied to both sites and Steri-Strips were then applied. The port was the catheter was charged with heparin 200 units/mL space. The patient was transferred from the angiography suite back to the floor in stab le condition. FINDINGS: Please see procedure note above. IMPRESSION: 1. Successful second order selection of the right axillary vein and angioplasty of the SVC with venography of the SVC. 2. Successful ultrasound and fluoroscopically guided placement of a right internal jugular tunneled 8 [place] Bard signal lumen power port. 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
[2019-03-23] MEDS ORDERED: DILAUDID IV ONE (14:34)
[2019-03-23] MEDS ORDERED: DILAUDID ONE (14:35)
[2019-03-23] MEDS ORDERED: BENADRYL ONE (14:40)
--- NOTE | 2019-03-23 15:12 | Post Anesthesia Evaluation ---
- Post Anesthesia Evaluation Patient Participated: Yes Airway Patent: Yes Stable Respiratory Function: Yes (O2 via nasal cannula) Nausea/Vomiting: No Temp > 96.8F: Yes Pain Manageable: Yes Adequeate Hydration: Yes Anesthesia Complications: No
--- NOTE | 2019-03-23 16:05 | Event Note ---
Date: 03/23/19 Discussed the situation with Dr. Encinas. SVC intervention was performed and port was placed. Patient will require anticoagulation for as long as the port is in place given his history of SVC occlusion. Placed orders to start initiation of Eliquis in 2 days to minimize risk of bleeding to the chest. Card provided to patient. Samples provided to patient. Prescription placed on the chart.
[2019-03-23] MEDS: FOLVITE PO SCH (17:28)
[2019-03-23] MEDS: HYDREA PO SCH (17:30)
[2019-03-23] MEDS: ELAVIL PO SCH (21:33)
--- NOTE | 2019-03-23 22:20 | Progress Note ---
Assessment and Plan - Patient Problems (1) Sickle cell anemia with pain Current Visit: Yes Status: Chronic Plan to address problem: Pain control. (2) Symptomatic anemia Current Visit: Yes Status: Acute Plan to address problem: Transfusion replacement. completed. (3) Hyperbilirubinemia Current Visit: No Status: Acute Plan to address problem: supportive care (4) Dehydration Current Visit: Yes Status: Acute Plan to address problem: hydration. Subjective Date of service: 03/23/19 Principal diagnosis: Sickle pain crisis. Interval history: Patient seen/examined, resting in bed, labs reviewed, showing improved hgb ,post blood transfusion.will ask for port placement, if feasible. Patient seen/examined, resting in bed, labs reviewed. i appreciate Vac input. He will like port placed this admission. Patient seen/resting in bed, Vascular will see today. Patient seen/examined, resting in bed, notes reviewed, case d/w DR WOODALL, and with the patient. Patient is s/p port placement.He will be started on Eliquis tomorrow, low dose for apparent SVC syndrome. He will be d/c home subsequently. Objective - Constitutional Vitals: Vital Signs - 12hr 03/23/19 03/23/19 03/23/19 14:15 14:30 14:45 Temperature 98.1 F Pulse Rate 99 H 109 H 102 H Respiratory 20 24 20 Rate Blood Pressure 131/80 113/62 109/62 O2 Sat by Pulse 95 89 91 Oximetry 03/23/19 03/23/19 15:39 20:50 Temperature 98.5 F Pulse Rate 100 H Respiratory 16 17 Rate Blood Pressure 110/58 O2 Sat by Pulse 95 Oximetry General appearance: Present: mild distress, well-nourished - EENT Eyes: PERRL, EOM intact ENT: hearing intact, clear oral mucosa Ears: bilateral: normal - Neck Neck: supple, normal ROM - Respiratory Respiratory effort: normal Respiratory: bilateral: CTA - Breasts Breasts: deferred - Cardiovascular Rhythm: regular Heart Sounds: Present: S1 & S2. Absent: gallop, rub Extremities: pulses intact, No edema, normal color, Full ROM - Gastrointestinal General gastrointestinal: Present: soft, non-tender, non-distended, normal bowel sounds Rectal Exam: deferred - Genitourinary Male genitourinary: deferred - Integumentary Integumentary: clear, warm, dry - Musculoskeletal Musculoskeletal: 1, strength equal bilaterally - Neurologic Neurologic: moves all extremities - Psychiatric Psychiatric: memory intact, appropriate mood/affect, intact judgment & insight - Labs CBC & Chem 7: 03/20/19 07:40 03/19/19 07:00 Medications & Allergies - Medications Allergies/Adverse Reactions: Allergies No Known Allergies Allergy (Verified 06/16/15 12:38) Home Medications: Home Medications Medication Instructions Recorded Confirmed Last Taken Type Amitriptyline [Elavil] 25 mg PO QHS #30 tablet 12/07/17 03/22/19 Unknown Rx Hydroxyurea [Droxia] 1,500 mg PO DAILY #30 capsule 12/07/17 03/22/19 Unknown Rx Folic Acid [Folvite] 1 mg PO DAILY 04/03/18 03/22/19 Unknown History Morphine ER [Ms Contin ER] 30 mg PO BID 04/03/18 03/22/19 Unknown History Oxycodone HCl/Acetaminophen 1 tab PO Q4-6H PRN #6 tablet 02/15/19 03/22/19 Unk nown Rx [Percocet 10/325 mg] Apixaban [Eliquis] 2.5 mg PO BID #60 tablet 03/23/19 Unknown Rx Active Medications: Generic Name Dose Route Start Last Admin Trade Name Freq PRN Reason Stop Dose Admin Amitriptyline HCl 25 mg 03/19/19 22:00 03/23/19 21:33 Elavil PO 25 mg QHS SLICK Administration Apixaban 2.5 mg 03/25/19 22:00 Eliquis PO Q12HR SLICK Protocol Diphenhydramine HCl 25 mg 03/19/19 12:47 03/23/19 20:51 Benadryl IV 25 mg Q6H PRN Administration Itching Folic Acid 1 mg 03/20/19 10:00 03/23/19 17:28 Folvite PO 1 mg QDAY SLICK Administration Heparin Sodium (Porcine) 5,000 unit 03/19/19 13:00 03/23/19 21:33 Heparin SUB-Q 5,000 unit Q12HR SLICK Administration Hydromorphone HCl 2 mg 03/19/19 12:46 03/23/19 20:50 Dilaudid IV 2 mg Q3H PRN Administration Pain , Severe (7-10) Hydroxyurea 1,500 mg 03/20/19 10:00 03/23/19 17:30 Hydrea PO 1,500 mg DAILY SLICK Administration Dextrose/Sodium Chloride 1,000 mls @ 175 mls/hr 03/19/19 13:00 03/23/19 02:11 D5ns 0.2% IV 175 mls/hr DIRECT SLICK Administration Morphine Sulfate 30 mg 03/19/19 22:00 03/23/19 10:00 Ms Contin Er PO Not Given BID SLICK
[2019-03-24] MEDS: D5NS 0.2% 1,000 ML IV SCH ×2 (00:02→09:45)
[2019-03-24] MEDS: DILAUDID IV PRN ×6 (00:02→18:09)
[2019-03-24] MEDS: BENADRYL IV PRN ×3 (04:26→18:08)
[2019-03-24] MEDS: FOLVITE PO SCH (09:46)
[2019-03-24] MEDS: HEPARIN SUB-Q SCH ×2 (09:46→22:00)
[2019-03-24] MEDS: HYDREA PO SCH (09:47)
[2019-03-24] MEDS: MS CONTIN ER PO SCH ×2 (09:49→22:00)
[2019-03-24] MEDS: ELIQUIS PO SCH (22:00)
[2019-03-24] MEDS: ELAVIL PO SCH (22:00)
[2019-03-25] MEDS: BENADRYL IV PRN ×3 (01:12→16:28)
[2019-03-25] MEDS: DILAUDID IV PRN ×6 (01:13→20:15)
[2019-03-25] MEDS: D5NS 0.2% 1,000 ML IV SCH ×3 (03:29→16:29)
[2019-03-25] MEDS: ELIQUIS PO SCH (09:22)
[2019-03-25] MEDS: FOLVITE PO SCH (09:22)
[2019-03-25] MEDS: MS CONTIN ER PO SCH ×2 (09:22→21:27)
[2019-03-25] MEDS: HEPARIN SUB-Q SCH (09:24)
[2019-03-25] MEDS: HYDREA PO SCH (09:24)
[2019-03-25] MEDS ORDERED: ELIQUIS PO SCH (10:00)
--- NOTE | 2019-03-25 11:07 | Progress Note ---
Assessment and Plan 28-year-old patient with sickle cell disease with 2 prior port infections, SVC stent, and prior SVC syndrome. Status post SVC stent angioplasty and subsequent right internal jugular vein port placement. 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 No left sided ports will be successful. Patient will need to keep the port dry for 7 days. Can be accessed in 2 weeks. Will need to be on Eliquis 2.5 mg PO BID for as long as he has a port in place given SVC stent and port tubing through the stent. Followup in 1 month. Subjective Date of service: 03/25/19 Principal diagnosis: Sickle pain crisis. Interval history: Doing well. Incisional pain much less. Took off tegaderm dressings. Keep dry for 7 days. Can use port after 2 weeks given prior infections. Right groin dressing with minimal heme. Objective - Constitutional Vitals: Vital Signs - 12hr 03/25/19 03/25/19 00:14 05:20 Temperature 98.6 F 98.4 F Pulse Rate 88 92 H Respiratory 16 16 Rate Blood Pressure 127/73 116/79 O2 Sat by Pulse 93 94 Oximetry General appearance: Present: no acute distress - EENT Eyes: EOM intact ENT: hearing intact - Neck Neck: other (swelling of face is less) - Respiratory Respiratory effort: normal Extremities: normal temperature, normal color - Psychiatric Psychiatric: appropriate mood/affect, cooperative - Labs CBC & Chem 7: 03/20/19 07:40 03/19/19 07:00 Medications & Allergies - Medications Allergies/Adverse Reactions: Allergies No Known Allergies Allergy (Verified 06/16/15 12:38) Home Medications: Home Medications Medication Instructions Recorded Confirmed Last Taken Type Amitriptyline [Elavil] 25 mg PO QHS #30 tablet 12/07/17 03/22/19 Unknown Rx Hydroxyurea [Droxia] 1,500 mg PO DAILY #30 capsule 12/07/17 03/22/19 Unknown Rx Folic Acid [Folvite] 1 mg PO DAILY 04/03/18 03/22/19 Unknown History Morphine ER [Ms Contin ER] 30 mg PO BID 04/03/18 03/22/19 Unknown History Oxycodone HCl/Acetaminophen 1 tab PO Q4-6H PRN #6 tablet 02/15/19 03/22/19 Unknown Rx [Percocet 10/325 mg] Apixaban [Eliquis] 2.5 mg PO BID #60 tablet 03/23/19 Unknown Rx Active Medications: Generic Name Dose Route Start Last Admin Trade Name Freq PRN Reason Stop Dose Admin Amitriptyline HCl 25 mg 03/19/19 22:00 03/24/19 22:00 Elavil PO 25 mg QHS SLICK Administration Apixaban 2.5 mg 03/24/19 22:00 03/25/19 09:22 Eliquis PO 2.5 mg Q12HR SLICK Administration Protocol Diphenhydramine HCl 25 mg 03/19/19 12:47 03/25/19 09:25 Benadryl IV 25 mg Q6H PRN Administration Itching Folic Acid 1 mg 03/20/19 10:00 03/25/19 09:22 Folvite PO 1 mg QDAY SLICK Administration Hydromorphone HCl 2 mg 03/19/19 12:46 03/25/19 09:24 Dilaudid IV 2 mg Q3H PRN Administration Pain , Severe (7-10) Hydroxyurea 1,500 mg 03/20/19 10:00 03/25/19 09:24 Hydrea PO 1,500 mg DAILY SLICK Administration Dextrose/Sodium Chloride 1,000 mls @ 175 mls/hr 03/19/19 13:00 03/25/19 09:25 D5ns 0.2% IV 175 mls/hr DIRECT SLICK Administration Morphine Sulfate 30 mg 03/19/19 22:00 03/25/19 09:22 Ms Contin Er PO 30 mg BID SLICK Administration
--- NOTE | 2019-03-25 19:32 | Discharge Summary ---
Providers - Providers Date of Admission: 03/19/19 08:48 Date of discharge: 03/25/19 Attending physician: ZACHERY RUIZ 03/20/19 22:04 Consult to Physician [CONS] Routine Comment: Consulting Provider: NAVDEEP WOODALL Physician Instructions: Reason For Exam: Left arm infusaport placement. Primary care physician: ZACHERY RUIZ Hospitalization Reason for admission: SCD/Pain crisis./Anemia. Condition: Stable Hospital course: Patient presented to the Ed with CC of diffuse joint pain. W/up in the ED , led to his admission, for sxs management/control. He was hydrated, transfused with 2Units PRBC, and tolerated it well. He was hydrated , and treated with pain control. He was seen in consultation by the vascular team for port placement,and tolerated the procedure well. Patient He was also treated with Eliquis low dose for the port.,and will remain on it.Patient is seen today, examined, reciords reviewed, case d/w him, he denies any problems , at this time, and will therefore, be d/c home. Disposition: DC-01 TO HOME OR SELFCARE - Discharge Diagnoses (1) Sickle cell anemia with pain Status: Chronic (2) Symptomatic anemia Status: Chronic (3) Hyperbilirubinemia Status: Chronic (4) Dehydration Status: Resolved Core Measure Documentation - Palliative Care Palliative Care/ Comfort Measures: Not Applicable - Core Measures Any of the following diagnoses?: history only Exam - Constitutional Vitals: Temp Pulse Resp BP Pulse Ox 98.6 F 89 19 105/61 95 03/25/19 16:57 03/25/19 16:57 03/25/19 16:57 03/25/19 16:57 03/25/19 16:57 General appearance: Present: no acute distress, well-nourished - EENT Eyes: Present: PERRL ENT: hearing intact, clear oral mucosa - Neck Neck: Present: supple, normal ROM - Respiratory Respiratory effort: normal Respiratory: bilateral: CTA - Cardiovascular Heart Sounds: Present: S1 & S2. Absent: rub, click - Extremities Extremities: pulses symmetrical, No edema Peripheral Pulses: within normal limits - Abdominal General gastrointestinal: Present: soft, non-tender, non-distended, normal bowel sounds Male genitourinary: Present: deferred - Rectal Rectal Exam: deferred - Integumentary Integumentary: Present: clear, warm, dry - Musculoskeletal Musculoskeletal: gait normal, strength equal bilaterally - Psychiatric Psychiatric: appropriate mood/affect, intact judgment & insight - Neurologic Neurologic: CNII-XII intact, moves all extremities Plan Activity: no restrictions Diet: regular Follow up with: ZACHERY RUIZ DO [Primary Care Provider] - 3-5 Days Prescriptions: Apixaban [Eliquis] 2.5 mg PO BID #60 tablet
[2019-03-25 21:26] VITALS: BP 101/55
== END 2019-03-25 21:28 | disposition home or self-care (01) | DRG 252 ==
LOC: ED 03:54 → 3A 08:48
PROVIDERS: ADMIT Internal Medicine Hematology & Oncology; ATTEND Internal Medicine Hematology & Oncology
PROC: 30233N1 Transfusion of Nonautologous Red Blood Cells into Peripheral Vein, Percutaneous Approach (ICD-10-PCS; 2019-03-19)
PROC: 027V3ZZ Dilation of Superior Vena Cava, Percutaneous Approach (ICD-10-PCS; principal; 2019-03-23)
PROC: B54BZZA Ultrasonography of Right Lower Extremity Veins, Guidance (ICD-10-PCS; 2019-03-23)
PROC: B5181ZZ Fluoroscopy of Superior Vena Cava using Low Osmolar Contrast (ICD-10-PCS; 2019-03-23)
PROC: B51V1ZZ Fluoroscopy of Other Veins using Low Osmolar Contrast (ICD-10-PCS; 2019-03-23)
PROC: B543ZZA Ultrasonography of Right Jugular Veins, Guidance (ICD-10-PCS; 2019-03-23)
PROC: B5191ZZ Fluoroscopy of Inferior Vena Cava using Low Osmolar Contrast (ICD-10-PCS; 2019-03-23)
PROC: 0JH63XZ Insertion of Tunneled Vascular Access Device into Chest Subcutaneous Tissue and Fascia, Percutaneous Approach (ICD-10-PCS; 2019-03-23)
PROC: 02H633Z Insertion of Infusion Device into Right Atrium, Percutaneous Approach (ICD-10-PCS; 2019-03-23)
PROC: B2141ZZ Fluoroscopy of Right Heart using Low Osmolar Contrast (ICD-10-PCS; 2019-03-23)
DX: I87.1 Compression of vein (principal); D57.00 Hb-SS disease with crisis, unspecified; D64.9 Anemia, unspecified; E86.0 Dehydration; J45.909 Unspecified asthma, uncomplicated; Z87.01 Personal history of pneumonia (recurrent); G47.30 Sleep apnea, unspecified; E80.6 Other disorders of bilirubin metabolism; Z79.899 Other long term (current) drug therapy; Z90.49 Acquired absence of other specified parts of digestive tract
CPT/HCPCS: 36415; 36430; 36561; 37238; 71045; 71275; 75827; 76937; 80048; 80053; 80076; 81001; 83036; 83735; 83880; 85007; 85014; 85018; 85025; 85045; 85610; 85660; 85730; 86850; 86900; 86901; 86920; G0378; C1725; C1769; C1788; C1887; J0690; J1170; J1200; J1644; J2250; J2704; J3010; J7030; J7040; P9016; Q9967

== ENCOUNTER 2019-05-25 14:22 | Inpatient (IN) | payer MEDICARE ==
[2019-05-25] MEDS ORDERED: TYLENOL PO ONE (14:45)
[2019-05-25] MEDS ORDERED: TYLENOL ONE (14:47)
[2019-05-25] MEDS ORDERED: VANCOMYCIN 1,750 MG in NACL 0.9% 500 ML 500 ML IV ONE (14:55)
[2019-05-25] MEDS ORDERED: NACL 0.9% 1000 ML IV ONE (14:55)
[2019-05-25] MEDS ORDERED: DILAUDID IV STA (14:55)
[2019-05-25] MEDS ORDERED: TYLENOL PO STA (14:55)
[2019-05-25] MEDS ORDERED: VANCOMYCIN PHARMACY TO DOSE IV SCH (15:00)
[2019-05-25] MEDS ORDERED: MAXIPIME/NS 2 GM/100 ML 2 GM/100 ML BAG IV SCH (15:00)
--- NOTE | 2019-05-25 15:04 | Emergency Department Report ---
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 Stephani Encinas Past medical history: Supposed to be a chronic long-term anticoagulation, right- sided internal jugular tunneled 8 [employer] single lumen PowerPort, history of SVC syndrome, history of multiple venous occlusions, history of sickle cell This is a 28-year-old gentleman. The patient presents to the ER with complaints of central chest wall pain. He also complains of cough, shortness of breath, weakness, fatigue, chills. He reports a history of sickle cell disease, and acute chest syndrome. He thinks that he is having acute chest syndrome. He endorses complies with his systemic anticoagulation, eliquis He reports that he was admitted to [facility] last week, for 2 days, for similar symptoms, and he reports having had a CAT scan of the chest which was negative. He denies severe headache, neck pain, abdominal pain, urinary symptoms. Pain is typically improves with fluid, rest, and hydromorphone. -: Gradual Location: chest, back, left, right, upper extremity, lower extremity Radiation: non-radiation Severity scale (0 -10): 8 Quality: other (aching, throbbing, sharp and pulsating) Consistency: other Improves with: other - Related Data Home Medications Medication Instructions Recorded Confirmed Last Taken Folic Acid [Folvite] 1 mg PO DAILY 04/03/18 05/25/19 Unknown Morphine ER [Ms Contin ER] 30 mg PO BID 04/03/18 05/25/19 Unknown Zolpidem [Ambien] 5 mg PO QHS PRN 05/25/19 05/25/19 Unknown Previous Rx's Medication Instructions Recorded Last Taken Type Hydroxyurea [Droxia] 1,500 mg PO DAILY #30 capsule 12/07/17 Unknown Rx Oxycodone HCl/Acetaminophen 1 tab PO Q4-6H PRN #6 tablet 02/15/19 Unknown Rx [Percocet 10/325 mg] Apixaban [Eliquis] 2.5 mg PO BID #60 tablet 03/23/19 Unknown Rx Allergies Allergy/AdvReac Type Severity Reaction Status Date / Time No Known Allergies Allergy Verified 05/25/19 14:45 ED Review of Systems ROS: Stated complaint: FEVER/COUGH Other details as noted in HPI Constitutional: fever, malaise, weakness Eyes: denies: vision change ENT: denies: epistaxis Respiratory: cough Cardiovascular: chest pain Gastrointestinal: denies: nausea, vomiting Genitourinary: denies: dysuria Musculoskeletal: back pain, arthralgia, myalgia Skin: denies: lesions Neurological: weakness Psychiatric: anxiety ED Past Medical Hx - Past Medical History Previous Medical History?: Yes Hx Hypertension: No Hx Heart Attack/AMI: No Hx Congestive Heart Failure: No Hx Diabetes: No Hx Renal Disease: No Hx Sickle Cell Disease: Yes Hx Seizures: No Hx Asthma: Yes (denies hx exacerbations) Hx COPD: No Hx HIV: No Additional medical history: Acute chest syndrome, - Surgical History Hx Cholecystectomy: Yes Additional Surgical History: TRACHEOSTOMY. 2 PORTS AND REMOVAL. LIVER BIOPSY X2 - Social History Smoking Status: Never Smoker Substance Use Type: None - Medications Home Medications: Home Medications Medication Instructions Recorded Confirmed Last Taken Type Hydroxyurea [Droxia] 1,500 mg PO DAILY #30 capsule 12/07/17 05/25/19 Unknown Rx Folic Acid [Folvite] 1 mg PO DAILY 04/03/18 05/25/19 Unknown History Morphine ER [Ms Contin ER] 30 mg PO BID 04/03/18 05/25/19 Unknown History Oxycodone HCl/Acetaminophen 1 tab PO Q4-6H PRN #6 tablet 02/15/19 05/25/19 Unknown Rx [Percocet 10/325 mg] Apixaban [Eliquis] 2.5 mg PO BID #60 tablet 03/23/19 05/25/19 Unknown Rx Zolpidem [Ambien] 5 mg PO QHS PRN 05/25/19 05/25/19 Unknown History ED Physical Exam - General Limitations: No Limitations General appearance: alert, in no apparent distress - Head Head exam: Present: atraumatic, normocephalic - Eye Eye exam: Present: normal appearance, EOMI, scleral icterus - ENT ENT exam: Present: mucous membranes dry, normal external ear exam - Neck Neck exam: Present: normal inspection, full ROM. Absent: tenderness, meningismus - Respiratory Respiratory exam: Present: normal lung sounds bilaterally, chest wall tenderness. Absent: respiratory distress, wheezes, rales, rhonchi, stridor - Cardiovascular Cardiovascular Exam: Present: normal rhythm, tachycardia, normal heart sounds. Absent: systolic murmur, diastolic murmur, rubs, gallop - GI/Abdominal GI/Abdominal exam: Present: soft. Absent: distended, tenderness, guarding, rebound, rigid, pulsatile mass - Rectal Rectal exam: Present: deferred - Extremities Exam Extremities exam: Present: normal inspection, other (2+ pulses noted in the bilateral upper, lower extremities. The muscular compartments are soft. There is no significant long bony tenderness.). Absent: calf tenderness - Back Exam Back exam: Present: normal inspection, full ROM, paraspinal tenderness - Neurological Exam Neurological exam: Present: alert, other (Extraocular movements intact. Tongue midline. No facial droop. Facial sensation intact to light touch in the V1, V2, V3 distribution bilaterally. 5 and 5 strength in 4 extremities.. Sensation is intact to light touch in 4 extremities.). Absent: motor sensory deficit - Psychiatric Psychiatric exam: Present: normal affect, normal mood - Skin Skin exam: Present: warm, dry, intact, normal color. Absent: rash ED Course Vital Signs 05/25/19 05/25/19 05/25/19 14:42 14:46 16:40 Temperature 103.2 F H Pulse Rate 122 H 100 H Respiratory 22 17 Rate Blood Pressure 128/67 Blood Pressure 105/63 [Right] O2 Sat by Pulse 99 99 100 Oximetry 05/25/19 05/25/19 05/25/19 17:02 17:04 17:15 Temperature 99.8 F H Pulse Rate 99 H 100 H 96 H Respiratory 17 23 22 Rate Blood Pressure 99/56 Blood Pressure 101/50 [Right] O2 Sat by Pulse 98 100 98 Oximetry 05/25/19 05/25/19 05/25/19 17:30 17:45 18:00 Temperature Pulse Rate 97 H 95 H 95 H Respiratory 17 17 20 Rate Blood Pressure 100/55 107/58 104/58 Blood Pressure [Right] O2 Sat by Pulse 98 100 100 Oximetry 05/25/19 05/25/19 05/25/19 18:15 18:30 18:46 Temperature Pulse Rate 94 H 85 95 H Respiratory 25 H 18 12 Rate Blood Pressure 98/50 109/63 109/63 Blood Pressure [Right] O2 Sat by Pulse 100 100 Oximetry 05/25/19 05/25/19 05/25/19 19:00 19:22 19:30 Temperature Pulse Rate 92 H 93 H 97 H Respiratory 20 19 14 Rate Blood Pressure 109/63 109/63 118/71 Blood Pressure [Right] O2 Sat by Pulse 94 Oximetry 05/25/19 05/25/19 05/25/19 19:45 20:00 20:15 Temperature Pulse Rate 91 H 91 H 92 H Respiratory 20 28 H 29 H Rate Blood Pressure 111/67 103/58 111/66 Blood Pressure [Right] O2 Sat by Pulse 99 Oximetry 05/25/19 20:30 Temperature Pulse Rate 92 H Respiratory 23 Rate Blood Pressure 110/56 Blood Pressure [Right] O2 Sat by Pulse 99 Oximetry - Reevaluation(s) Reevaluation #1: 05/25/19 16:36 Differential diagnosis, including not limited to: Bacteremia, viremia, line sepsis, acute chest syndrome, pulmonary embolism, septic thrombosis Assessment and plan: 28-year-old gentleman, complex past history, document the history of multiple line infections, presenting with history and physical suggestive of undifferentiated sepsis. As per review of old medical records, typically gets chest pain with sickle cell crisis. He is tachycardic but not hypoxic. We have requested his old medical records from prior hospital. He will be treated according to the sepsis pathway with fluids, antibiotics, and b lood cultures. X-ray of the chest is unremarkable. Patient has a PowerPort in his right chest as per review of old documentation, and is also supposed to be on chronic systemic anticoagulation. 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 Discussed plan admission with the patient, who verbalizes understanding, and who is currently amenable to this plan of care. Reevaluation #2: 05/25/19 17:34 Laboratory studies reviewed and appreciated. Back red blood cells ordered. We have placed a page out to the patient's private physician to arrange admission. Dr Encinas states his phone is about to , and he will calls back. Reevaluation #3: 05/25/19 18:10 Vital signs are improving. CT scan of the chest is pending. Discussed with patient's private physician, Dr. Stephani Encinas who has accepted the patient to his service Troponin is negative 2. packed blood cell transfusion has been ordered. ED Medical Decision Making - Lab Data Result diagrams: 05/26/19 22:25 05/28/19 12:50 Vital Signs 05/25/19 05/25/19 14:42 14:46 Temperature 103.2 F H Pulse Rate 122 H Respiratory 22 Rate Blood Pressure 128/67 O2 Sat by Pulse 99 99 Oximetry - EKG Data -: EKG Interpreted by Nm Rate: tachycardia - EKG Data 05/25/19 16:37 This is a sinus tachycardia, 112 beats for minute, normal axis, QTC 437 ms, AZ interval within normal limits, the EKG is abnormal, the EKG is not consistent with ST elevation myocardial infarction, EKG is unchanged from prior EKG from February 2019. - Radiology Data Radiology results: report reviewed, image reviewed Print Report Referring Physician: TAMERA SANDERS Patient Name: KATELYNN GAVIN Date of : 1990 Sex: Male Report Date: 2019-05-25 Report Status: Finalized Findings [facility] [address] [place] [address] XRay Report Signed Patient: KATELYNN GAVIN JR MR#: [id number] : 1990 Acct:[id number] Age/Sex: 28 / M ADM Date: 05/25/19 Loc: ED Attending Dr: Ordering Physician: TAMERA SANDERS MD Date of Service: 05/25/19 Procedure(s): XR chest 1V ap Accession Number(s): [id number] cc: TAMERA SANDERS MD Fluoro Time In Minutes: CHEST 1 VIEW INDICATION: Chest Pain. COMPARISON: 03/19/2019 FINDINGS: Support devices: A right Gwmful-r-Deds appears to be coiled in the right internal jugular vein with its distal tip projecting in the right subclavian vein. Please correlate with the image. Heart: Borderline to mild cardiomegaly is stable. Lungs/Pleura: No acute air space or interstitial disease. Additional findings: None. IMPRESSION: Stable borderline to mild c ardiomegaly. Lungs clear. Right Bjksul-t-Aftj as described. Signer Name: Sohail Bhat Jr, MD Signed: 05/25/2019 4:00 PM Workstation Name: [id number] Transcribed By: TTR Dictated By: SOHAIL BHAT JR, MD Electronically Authenticated By: SOHAIL BHAT JR, MD Signed Date/Time: 05/25/19 1600 DD/ 1559 Critical Care Time: Yes Critical care time in (mins) excluding proc time.: 35 Critical care attestation.: If time is entered above; I have spent that time in minutes in the direct care of this critically ill patient, excluding procedure time. ED Disposition Clinical Impression: Sickle cell pain crisis, SIRS (systemic inflammatory response syndrome) Disposition: DC OP ADMIT IP TO THIS HOSP Is pt being admited?: Yes Condition: Good
--- NOTE | 2019-05-25 16:05 | XRay Report ---
CHEST 1 VIEW INDICATION: Chest Pain. COMPARISON: 03/19/2019 FINDINGS: Support devices: A right Wvanls-l-Jman appears to be coiled in the right internal jugular vein with i ts distal tip projecting in the right subclavian vein. Please correlate with the image. Heart: Borderline to mild cardiomegaly is stable. Lungs/Pleura: No acute air space or interstitial disease. Additional findings: None. IMPRESSION: Stable borderline to mild cardiomegaly. Lungs clear. Right Rzjwry-w-Gqej as described. Signer Name: Sohail Bhat Jr, MD Signed: 05/25/2019 4:00 PM Workstation Name: [id number]
[2019-05-25 16:59] LABS: INR 1.24 (0.87-1.13)
[2019-05-25 17:00] LABS: Partial Thromboplastin Time 33.4 Sec. (24.2-36.6)
[2019-05-25 17:01] LABS: Hemoglobin 6.2 gm/dl (11.8-15.2); Mean Corpuscular HGB Conc 37 % (32-34); Mean Corpuscular Volume 97 fl (84-94); Red Blood Count 1.75 M/mm3 (3.65-5.03)
[2019-05-25 17:11] LABS: Platelet Count 246 K/mm3 (140-440); Red Cell Distribution Width 29.1 % (13.2-15.2)
[2019-05-25 17:15] LABS: Bilirubin,Urine NEG (Negative); Blood,Urine MOD (Negative); Color,Urine Amber (Yellow); Mucus,Urine FEW /HPF
[2019-05-25] MEDS ORDERED: NACL 0.9% 500 ML 500 ML IV ONE ×2 (17:28→22:40)
[2019-05-25 17:45] LABS: Anisocytosis 3+; Total Cells Counted 100
[2019-05-25 17:46] LABS: Dimorphic RBC Yes; Sickle Cells 3+; Target Cells 1+
[2019-05-25 17:47] LABS: Ovalocytes 1+; Poikilocytosis 3+
[2019-05-25] MEDS ORDERED: DILAUDID IV ONE ×2 (17:53→17:54)
[2019-05-25] MEDS ORDERED: DILAUDID ONE ×2 (17:54→23:05)
[2019-05-25 18:09] LABS: Alanine Aminotransferase 20 units/L (7-56); Albumin 4.2 g/dL (3.9-5); BUN/Creatinine Ratio 22; Blood Urea Nitrogen 11 mg/dL (9-20); Calcium 8.6 mg/dL (8.4-10.2); Hemolysis Index 55
[2019-05-25] MEDS ORDERED: MAG-OX PO STA (18:31)
--- NOTE | 2019-05-25 19:58 | Cat Scan Report ---
CT angio chest INDICATION / CLINICAL INFORMATION: cp fever svc syndrome sepsis. TECHNIQUE: Axial CT images were obtained after injection of Omnipaque 350, 100 cc IV contrast using CTA protocol . 3 plane MIP / 3D reconstructions were produced. All CT scans at this location are performed using C T dose reduction for ALARA by means of automated exposure control. COMPARISON: Chest x-ray earlier the same day. FINDINGS: Negative for aneurysm, dissection or pulmonary embolus. An SVC stent is patent. Negative for signific ant collateral formation. Evaluation of the lungs demonstrates groundglass opacity with mild interstitial disease/scarring at t he bases right greater than left. Mild mosaic perfusion is noted. Negative for localized infiltrate o r pleural fluid. Evaluation the mediastinum and axillary regions demonstrate numerous small nodes and unopacified veno us collaterals. 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 Increased bony sclerosis is seen diffuse ly typical of chronic sickle cell disease. IMPRESSION: 1. Negative for pulmonary embolus. An SVC stent is widely patent. 2. Interstitial thickening/scarring at the bases with superimposed mosaic perfusion likely due to air trapping. 3. Probable reactive adenopathy and extensive unopacified venous collaterals. 4. 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 Signer Name: Jelani Enriquez MD Signed: 05/25/2019 7:54 PM Workstation Name: [id number]
[2019-05-25] MEDS ORDERED: AMBIEN PO PRN (22:42)
[2019-05-25] MEDS ORDERED: XYLOCAINE 1% MPF 5 mL INFILTRATI ONE (23:00)
--- NOTE | 2019-05-25 23:03 | History and Physical Report ---
History of Present Illness Date of examination: 05/25/19 Date of admission: 05/25/19 18:11 Chief complaint: Diffuse joint pain. History of present illness: Patient presented to the Er with diffuse joint pain, and fever 102.5 at home, rechecked in the Er , down to 99.1, after tylenol, and loaded with Vanco. and Rocephin.He will continue sepsis w/up, and treated accordingly.He will get blood transfusion, and hydrated.. Past History Social history: single, lives with family Family history: no significant family history Medications and Allergies Allergies Allergy/AdvReac Type Severity Reaction Status Date / Time No Known Allergies Allergy Verified 05/25/19 14:45 Home Medications Medication Instructions Recorded Confirmed Last Taken Type Hydroxyurea [Droxia] 1,500 mg PO DAILY #30 capsule 12/07/17 05/25/19 Unknown Rx Folic Acid [Folvite] 1 mg PO DAILY 04/03/18 05/25/19 Unknown History Morphine ER [Ms Contin ER] 30 mg PO BID 04/03/18 05/25/19 Unknown History Oxycodone HCl/Acetaminophen 1 tab PO Q4-6H PRN #6 tablet 02/15/19 05/25/19 Unknown Rx [Percocet 10/325 mg] Apixaban [Eliquis] 2.5 mg PO BID #60 tablet 03/23/19 05/25/19 Unknown Rx Zolpidem [Ambien] 5 mg PO QHS PRN 05/25/19 05/25/19 Unknown History Active Meds: Active Medications Apixaban (Eliquis) 2.5 mg PO BID SLICK; Protocol Ceftriaxone Sodium (Rocephin) 1 gm IM Q24HR SLICK; Protocol Diphenhydramine HCl (Benadryl) 25 mg IV Q6H PRN PRN Reason: Itching Folic Acid (Folvite) 1 mg PO DAILY SLICK Hydromorphone HCl (Dilaudid) 2 mg IV Q3H PRN PRN Reason: Pain , Severe (7-10) Dextrose/Sodium Chloride (D5ns 0.2%) 1,000 mls @ 250 mls/hr IV DIRECT SLICK Lidocaine (Xylocaine 1% Mpf 5 Ml) 2 ml INFILTRATI ONCE ONE Stop: 05/25/19 23:01 Morphine Sulfate (Ms Contin Er) 30 mg PO BID [facility] Zolpidem Tartrate (Ambien) 5 mg PO QHS PRN PRN Reason: Sleep Review of Systems Constitutional: fatigue, weakness, chronic pain Respiratory: shortness of breath Musculoskeletal: low back pain Integumentary: jaundice Exam - Constitutional Vitals: Temp Pulse Resp BP Pulse Ox 99.8 F H 92 H 23 110/56 99 05/25/19 17:04 05/25/19 20:30 05/25/19 20:30 05/25/19 20:30 05/25/19 20:30 General appearance: Present: severe distress, well-nourished - EENT Eyes: Present: PERRL ENT: hearing intact, clear oral mucosa - Neck Neck: Present: supple, normal ROM - Respiratory Respiratory effort: normal Respiratory: bilateral: diminished - Cardiovascular Heart Sounds: Present: S1 & S2. Absent: rub, click - Extremities Extremities: pulses symmetrical, No edema Peripheral Pulses: within normal limits - Abdominal General gastrointestinal: Present: soft, non-tender, non-distended, normal bowel sounds Male genitourinary: Present: deferred - Rectal Rectal Exam: deferred - Integumentary Integumentary: Present: clear, warm, dry - Musculoskeletal Musculoskeletal: gait normal, strength equal bilaterally - Psychiatric Psychiatric: appropriate mood/affect, intact judgment & insight - Neurologic Neurologic: CNII-XII intact, moves all extremities Results - Labs CBC & Chem 7: 05/25/19 15:54 05/25/19 15:54 Labs: Abnormal lab results 05/25/19 05/25/19 05/25/19 Range/Units 15:54 15:54 16:00 WBC 14.1 H (4.5-11.0) K/mm3 RBC 1.75 L (3.65-5.03) M/mm3 Hgb 6.2 L (11.8-15.2) gm/dl Hct 17.0 L* (35.5-45.6) % MCV 97 H (84-94) fl MCH 35 H (28-32) pg MCHC 37 H (32-34) % RDW 29.1 H (13.2-15.2) % Monocytes % (Manual) 9.0 H (0.0-7.3) % Seg Neutrophils # Man 9.9 H (1.8-7.7) K/mm3 Monocytes # (Manual) 1.3 H (0.0-0.8) K/mm3 Percent Retic 16.61 H (0.78-2.58) % PT 15.3 H (12.2-14.9) Sec. INR 1.24 H (0.87-1.13) Sodium 130 L (137-145) mmol/L Chloride 96.8 L (98-107) mmol/L Creatinine 0.5 L (0.8-1.5) mg/dL Magnesium 1.60 L (1.7-2.3) mg/dL Total Bilirubin 11.00 H (0.1-1.2) mg/dL AST 109 H (5-40) units/L Alkaline Phosphatase 184 H (35-129) units/L Lactate Dehydrogenase 1989 H (91-180) units/L Crossmatch 05/25/19 Range/Units 16:00 WBC (4.5-11.0) K/mm3 RBC (3.65-5.03) M/mm3 Hgb (11.8-15.2) gm/dl Hct (35.5-45.6) % MCV (84-94) fl MCH (28-32) pg MCHC (32-34) % RDW (13.2-15.2) % Monocytes % (Manual) (0.0-7.3) % Seg Neutrophils # Man (1.8-7.7) K/mm3 Monocytes # (Manual) (0.0-0.8) K/mm3 Percent Retic (0.78-2.58) % PT (12.2-14.9) Sec. INR (0.87-1.13) Sodium (137-145) mmol/L Chloride (98-107) mmol/L Creatinine (0.8-1.5) mg/dL Magnesium (1.7-2.3) mg/dL Total Bilirubin (0.1-1.2) mg/dL AST (5-40) units/L Alkaline Phosphatase (35-129) units/L Lactate Dehydrogenase (91-180) units/L Crossmatch See Detail Assessment and Plan - Patient Problems (1) Sickle cell pain crisis Current Visit: Yes Status: Chronic Plan to address problem: Pain control. (2) Anemia, hemolytic Current Visit: No Status: Acute Qualifiers: Hemolytic anemia type: hereditary hemolytic anemia, other Qualified Code(s): D58.8 - Other specified hereditary hemolytic anemias Plan to address problem: Transfusion. (3) Sepsis Current Visit: Yes Status: Acute Plan to address problem: IV ABX, cultures.
[2019-05-25] MEDS ORDERED: BENADRYL ONE (23:06)
[2019-05-25] MEDS: BENADRYL IV PRN (23:13)
[2019-05-25] MEDS: DILAUDID IV PRN (23:16)
[2019-05-26] MEDS ORDERED: TYLENOL ONE (01:20)
[2019-05-26] MEDS ORDERED: NACL 0.9% 500 ML 500 ML ONE (01:22)
[2019-05-26] MEDS: TYLENOL PO PRN ×2 (01:24→10:46)
[2019-05-26] MEDS ORDERED: ZOFRAN IV PRN (02:10)
[2019-05-26] MEDS ORDERED: ZOFRAN ONE (02:16)
[2019-05-26] MEDS ORDERED: DILAUDID ONE ×3 (02:17→09:28)
[2019-05-26] MEDS ORDERED: ZOFRAN IV ONE (02:20)
[2019-05-26] MEDS: DILAUDID IV PRN ×6 (02:31→20:18)
[2019-05-26] MEDS: D5NS 0.2% 1,000 ML IV SCH ×2 (02:42→08:20)
[2019-05-26] MEDS ORDERED: BENADRYL ONE (05:35)
[2019-05-26] MEDS: BENADRYL IV PRN ×2 (06:03→16:27)
[2019-05-26 06:52] LABS: Hemoglobin 5.9 gm/dl (11.8-15.2)
[2019-05-26 06:53] LABS: Hematocrit 15.5 % (35.5-45.6)
[2019-05-26 07:02] LABS: Iron 79 ug/dL (49-181); Total Iron Binding Capacity 209 mcg/dL (250-450)
[2019-05-26] MEDS ORDERED: BENADRYL IV ONE (07:36)
[2019-05-26] MEDS ORDERED: XYLOCAINE 1% MPF 5 mL INFILTRATI ONE (10:00)
[2019-05-26] MEDS ORDERED: ROCEPHIN IM SCH (10:00)
[2019-05-26] MEDS: MS CONTIN ER PO SCH ×2 (10:01→22:37)
[2019-05-26] MEDS: FOLVITE PO SCH (10:01)
--- NOTE | 2019-05-26 10:01 | Progress Note ---
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 (2) Anemia, hemolytic Current Visit: No Status: Acute Qualifiers: Hemolytic anemia type: hereditary hemolytic anemia, other Qualified Code(s): D58.8 - Other specified hereditary hemolytic anemias Plan to address problem: Transfusion. (3) Sepsis Current Visit: Yes Status: Acute Plan to address problem: IV ABX, cultures. Subjective Date of service: 05/26/19 Interval history: Patient see/examined, resting in bed, labs still low for H/h, transfusion pending temp down.I will proceed with transfusion with low grade temp, with tylenol, and benadryl.. Patient uses oxygen at home. Objective - Constitutional Vitals: Vital Signs - 12hr 05/25/19 05/25/19 05/25/19 22:00 22:30 23:16 Temperature Pulse Rate Respiratory 24 20 Rate Respiratory 20 Rate [Chest] Respiratory 20 Rate [ generalized body pain] Blood Pressure [Right] O2 Sat by Pulse Oximetry 05/25/19 05/26/19 05/26/19 23:46 01:24 02:24 Temperature Pulse Rate Respiratory 19 22 19 Rate Respiratory Rate [Chest] Respiratory Rate [ generalized body pain] Blood Pressure [Right] O2 Sat by Pulse Oximetry 05/26/19 05/26/19 05/26/19 02:31 03:01 06:04 Temperature Pulse Rate Respiratory 22 19 20 Rate Respiratory Rate [Chest] Respiratory Rate [ generalized body pain] Blood Pressure [Right] O2 Sat by Pulse Oximetry 05/26/19 05/26/19 05/26/19 06:34 07:28 07:43 Temperature Pulse Rate Respiratory 18 20 Rate Respiratory Rate [Chest] Respiratory Rate [ generalized body pain] Blood Pressure 115/63 [Right] O2 Sat by Pulse 79 L 96 Oximetry 05/26/19 05/26/19 05/26/19 08:30 08:47 09:50 Temperature 100.5 F H Pulse Rate 100 H Respiratory 18 Rate Respiratory Rate [Chest] Respiratory Rate [ generalized body pain] Blood Pressure 108/54 [Right] O2 Sat by Pulse 81 L 92 93 Oximetry General appearance: Present: mild distress, well-nourished - EENT Eyes: PERRL, EOM intact ENT: hearing intact, clear oral mucosa Ears: bilateral: normal - Neck Neck: supple, normal ROM - Respiratory Respiratory: bilateral: diminished - Breasts Breasts: deferred - Cardiovascular Rhythm: regular Heart Sounds: Present: S1 & S2. Absent: gallop, rub Extremities: pulses intact, No edema, normal color, Full ROM - Gastrointestinal General gastrointestinal: Present: soft, non-tender, non-distended, normal bowel sounds Rectal Exam: deferred - Genitourinary Male genitourinary: deferred - Integumentary Integumentary: clear, warm, dry - Musculoskeletal Musculoskeletal: 1, strength equal bilaterally - Neurologic Neurologic: moves all extremities - Psychiatric Psychiatric: memory intact, appropriate mood/affect, intact judgment & insight - Labs CBC & Chem 7: 05/26/19 06:14 05/25/19 15:54 Labs: Abnormal lab results 05/25/19 05/25/19 05/25/19 Range/Units 15:54 15:54 16:00 WBC 14.1 H (4.5-11.0) K/mm3 RBC 1.75 L (3.65-5.03) M/mm3 Hgb 6.2 L (11.8-15.2) gm/dl Hct 17.0 L* (35.5-45.6) % MCV 97 H (84-94) fl MCH 35 H (28-32) pg MCHC 37 H (32-34) % RDW 29.1 H (13.2-15.2) % Monocytes % (Manual) 9.0 H (0.0-7.3) % Seg Neutrophils # Man 9.9 H (1.8-7.7) K/mm3 Monocytes # (Manual) 1.3 H (0.0-0.8) K/mm3 Percent Retic 16.61 H (0.78-2.58) % PT 15.3 H (12.2-14.9) Sec. INR 1.24 H (0.87-1.13) Sodium 130 L (137-145) mmol/L Chloride 96.8 L (98-107) mmol/L Creatinine 0.5 L (0.8-1.5) mg/dL Lactic Acid (0.7-2.0) mmol/L Magnesium 1.60 L (1.7-2.3) mg/dL TIBC (250-450) mcg/dL Ferritin (13.0-400.0) ng/mL Total Bilirubin 11.00 H (0.1-1.2) mg/dL AST 109 H (5-40) units/L Alkaline Phosphatase 184 H (35-129) units/L Lactate Dehydrogenase 1989 H (91-180) units/L Crossmatch 05/25/19 05/26/19 05/26/19 Range/Units 16:00 06:14 06:14 WBC (4.5-11.0) K/mm3 RBC (3.65-5.03) M/mm3 Hgb 5.9 L* (11.8-15.2) gm/dl Hct 15.5 L* (35.5-45.6) % MCV (84-94) fl MCH (28-32) pg MCHC (32-34) % RDW (13.2-15.2) % Monocytes % (Manual) (0.0-7.3) % Seg Neutrophils # Man (1.8-7.7) K/mm3 Monocytes # (Manual) (0.0-0.8) K/mm3 Percent Retic (0.78-2.58) % PT (12.2-14.9) Sec. INR (0.87-1.13) Sodium (137-145) mmol/L Chloride (98-107) mmol/L Creatinine (0.8-1.5) mg/dL Lactic Acid 0.50 L (0.7-2.0) mmol/L Magnesium (1.7-2.3) mg/dL TIBC (250-450) mcg/dL Ferritin (13.0-400.0) ng/mL Total Bilirubin (0.1-1.2) mg/dL AST (5-40) units/L Alkaline Phosphatase (35-129) units/L Lactate Dehydrogenase (91-180) units/L Crossmatch See Detail 05/26/19 05/26/19 Range/Units 06:14 06:14 WBC (4.5-11.0) K/mm3 RBC (3.65-5.03) M/mm3 Hgb (11.8-15.2) gm/dl Hct (35.5-45.6) % MCV (84-94) fl MCH (28-32) pg MCHC (32-34) % RDW (13.2-15.2) % Monocytes % (Manual) (0.0-7.3) % Seg Neutrophils # Man (1.8-7.7) K/mm3 Monocytes # (Manual) (0.0-0.8) K/mm3 Percent Retic (0.78-2.58) % PT (12.2-14.9) Sec. INR (0.87-1.13) Sodium (137-145) mmol/L Chloride (98-107) mmol/L Creatinine (0.8-1.5) mg/dL Lactic Acid (0.7-2.0) mmol/L Magnesium (1.7-2.3) mg/dL TIBC 209 L (250-450) mcg/dL Ferritin 600.7 H (13.0-400.0) ng/mL Total Bilirubin (0.1-1.2) mg/dL AST (5-40) units/L Alkaline Phosphatase (35-129) units/L Lactate Dehydrogenase (91-180) units/L Crossmatch
[2019-05-26] MEDS: ROCEPHIN/NS 1 GM/50 ML 1 GM/50 ML BAG IV SCH (10:05)
[2019-05-26] MEDS: ELIQUIS PO SCH ×2 (10:30→22:37)
--- NOTE | 2019-05-26 14:11 | Consultation ---
History of Present Illness Consult date: 05/26/19 Reason for consult: dyspnea, cough, chest pain History of present illness: PULMONARY AND CRITICAL CARE CONSULTATION Dr. Encinas, thank you for asking us to participate in the care of this patient Patient is a 28-year-old who presented to the ER with complaints of central chest wall pain. Patient complains of cough, shortness of breath, weakness, fatigue, chills. Reports a history of sickle cell disease, and acute chest syndrome. Patient thinks this is acute chest syndrome. Patient endorses compliance with systemic anticoagulation, eliquis Past medical history: Supposed to be a chronic long-term anticoagulation, right- sided internal jugular tunneled 8 [employer] single lumen PowerPort, history of SVC syndrome, history of multiple venous occlusions, history of sickle cell Patient admitted to [facility] last week, for 2 days, for similar symptoms, and reports having had a CAT scan of the chest which was negative. Denies severe headache, neck pain, abdominal pain, urinary symptoms. Pain is typically improves with fluid, rest, and hydromorphone. Patient has a history of smoking for 1 year, stopped 10 years ago. Denies alcohol or drug abuse. Patient denies allergies to medications. Patient is unmarried. Patient has 2 children with sickle cell trait. Patient resting on venturi mask FiO2 35%. O2 saturation 99%. Patient just received a blood transfusion. Past History Past Medical History: other (sickle cell anemia) Social history: single, lives with family (2 children with sickle cell trait ) Family history: no significant family history, other (sickle cell trait (2 children) ) Medications and Allergies Allergies Allergy/AdvReac Type Severity Reaction Status Date / Time No Known Allergies Allergy Verified 05/25/19 14:45 Home Medications Medication Instructions Recorded Confirmed Last Taken Type Hydroxyurea [Droxia] 1,500 mg PO DAILY #30 capsule 12/07/17 05/25/19 Unknown Rx Folic Acid [Folvite] 1 mg PO DAILY 04/03/18 05/25/19 Unknown History Morphine ER [Ms Contin ER] 30 mg PO BID 04/03/18 05/25/19 Unknown History Oxycodone HCl/Acetaminophen 1 tab PO Q4-6H PRN #6 tablet 02/15/19 05/25/19 Unknown Rx [Percocet 10/325 mg] Apixaban [Eliquis] 2.5 mg PO BID #60 tablet 03/23/19 05/25/19 Unknown Rx Zolpidem [Ambien] 5 mg PO QHS PRN 05/25/19 05/25/19 Unknown History Active Meds: Active Medications Acetaminophen (Tylenol) 650 mg PO Q6HR PRN PRN Reason: ELEVATED TEMPERATURE >99.5 Last Admin: 05/26/19 10:46 Dose: 650 mg Documented by: Apixaban (Eliquis) 2.5 mg PO BID [facility]; Protocol Last Admin: 05/26/19 10:30 Dose: 2.5 mg Documented by: Diphenhydramine HCl (Benadryl) 25 mg IV Q6H PRN PRN Reason: Itching Last Admin: 05/26/19 06:03 Dose: 25 mg Documented by: Folic Acid (Folvite) 1 mg PO DAILY [facility] Last Admin: 05/26/19 10:01 Dose: 1 mg Documented by: Hydromorphone HCl (Dilaudid) 2 mg IV Q3H PRN PRN Reason: Pain , Severe (7-10) Last Admin: 05/26/19 13:12 Dose: 2 mg Documented by: Dextrose/Sodium Chloride (D5ns 0.2%) 1,000 mls @ 250 mls/hr IV DIRECT [facility] Last Admin: 05/26/19 08:20 Dose: 250 mls/hr Documented by: Ceftriaxone Sodium (Rocephin/Ns 1 Gm/50 Ml) 1 gm in 50 mls @ 100 mls/hr IV DAILY [facility]; Protocol Last Admin: 05/26/19 10:05 Dose: 100 mls/hr Documented by: Vancomycin HCl 1,250 mg/ (Sodium Chloride) 275 mls @ 166.667 mls/hr IV Q8H [facility] Morphine Sulfate (Ms Contin Er) 30 mg PO BID [facility] Last Admin: 05/26/19 10:01 Dose: 30 mg Documented by: Ondansetron HCl (Zofran) 4 mg IV Q6H PRN PRN Reason: Nausea And Vomiting Zolpidem Tartrate (Ambien) 5 mg PO QHS PRN PRN Reason: Sleep Review of Systems All systems: negative Physical Examination Vital signs: Vital Signs Temp Pulse Resp BP Pulse Ox 103.2 F H 122 H 22 128/67 99 05/25/19 14:42 05/25/19 14:42 05/25/19 14:42 05/25/19 14:42 05/25/19 14:42 General appearance: no acute distress, alert Eyes: non-icteric ENT: oropharynx moist Neck: supple Effort: normal Ascultation: Bilateral: rales Cardiovascular: regular rate and rhythm Gastrointestinal: normoactive bowel sounds, soft Integumentary: normal Extremities: no cyanosis, no edema Musculoskeletal: no deformities normal mental status, non-focal exam, pupils equal and round, CN II-XII normal mood appropriate Results - Laboratory Findings CBC and BMP: 05/26/19 06:14 05/25/19 15:54 PT/INR, D-dimer PT 15.3 Sec. (12.2-14.9) H 05/25/19 16:00 INR 1.24 (0.87-1.13) H 05/25/19 16:00 Abnormal lab findings: Abnormal Labs 05/25/19 05/25/19 05/25/19 15:54 15:54 16:00 WBC 14.1 H RBC 1.75 L Hgb 6.2 L Hct 17.0 L* MCV 97 H MCH 35 H MCHC 37 H RDW 29.1 H Monocytes % (Manual) 9.0 H Seg Neutrophils # Man 9.9 H Monocytes # (Manual) 1.3 H Percent Retic 16.61 H PT 15.3 H INR 1.24 H Sodium 130 L Chloride 96.8 L Creatinine 0.5 L Lactic Acid Magnesium 1.60 L TIBC Ferritin Total Bilirubin 11.00 H AST 109 H Alkaline Phosphatase 184 H Lactate Dehydrogenase 1989 H Crossmatch 05/25/19 05/26/19 05/26/19 16:00 06:14 06:14 WBC RBC Hgb 5.9 L* Hct 15.5 L* MCV MCH MCHC RDW Monocytes % (Manual) Seg Neutrophils # Man Monocytes # (Manual) Percent Retic PT INR Sodium Chloride Creatinine Lactic Acid 0.50 L Magnesium TIBC Ferritin Total Bilirubin AST Alkaline Phosphatase Lactate Dehydrogenase Crossmatch See Detail 05/26/19 05/26/19 06:14 06:14 WBC RBC Hgb Hct MCV MCH MCHC RDW Monocytes % (Manual) Seg Neutrophils # Man Monocytes # (Manual) Percent Retic PT INR Sodium Chloride Creatinine Lactic Acid Magnesium TIBC 209 L Ferritin 600.7 H Total Bilirubin AST Alkaline Phosphatase Lactate Dehydrogenase Crossmatch - Diagnostic Findings CT scan - chest: report reviewed, image reviewed Additional studies: CT Chest 05/25/19: FINDINGS: Negative for aneurysm, dissection or pulmonary embolus. An SVC stent is patent. Negative for significant collateral formation. Evaluation of the lungs demonstrates groundglass opacity with mild interstitial disease/scarring at the bases right greater than left. Mild mosaic perfusion is noted. Negative for localized infiltrate or pleural fluid. Evaluation the mediastinum and axillary regions demonstrate numerous small nodes and unopacified venous collaterals. 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 Increased bony sclerosis is seen diffusely typical of chronic sickle cell disease. IMPRESSION: 1. Negative for pulmonary embolus. An SVC stent is widely patent. 2. Interstitial thickening/scarring at the bases with superimposed mosaic perfusion likely due to air trapping. 3. Probable reactive adenopathy and extensive unopacified venous collaterals. 4. 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 Assessment and Plan Patient is a 28-year-old who presented to the ER with complaints of central chest wall pain. Patient complains of cough, shortness of breath, weakness, fatigue, chills. Reports a history of sickle cell disease, and acute chest syndrome. Patient thinks this is acute chest syndrome. Patient endorses compliance with systemic anticoagulation, eliquis Past medical history: Supposed to be a chronic long-term anticoagulation, right- sided internal jugular tunneled 8 [employer] single lumen PowerPort, history of SVC syndrome, history of multiple venous occlusions, history of sickle cell Patient admitted to [facility] last week, for 2 days, for similar symptoms, and reports having had a CAT scan of the chest which was negative. Denies severe headache, neck pain, abdominal pain, urinary symptoms. Pain is typically improves with fluid, rest, and hydromorphone. Patient has a history of smoking for 1 year, stopped 10 years ago. Denies alcohol or drug abuse. Patient denies allergies to medications. Patient is unmarried. Patient has 2 children with sickle cell trait. Patient resting on venturi mask FiO2 35%. O2 saturation 99%. Patient just received a blood transfusion. - Patient Problems (1) Acute chest syndrome due to sickle cell crisis Current Visit: No Status: Acute Plan to address problem: Management as per primary care and hematology. (2) SIRS (systemic inflammatory response syndrome) Current Visit: Yes Status: Acute Plan to address problem: Patient is on Ceftriaxone and Vancomycin.
[2019-05-26] MEDS: VANCOMYCIN 1,250 MG in NACL 0.9% 250ML 250 ML IV SCH ×2 (14:21→20:19)
[2019-05-26 15:31] LABS: ABG Base Excess -3.1 mmol/L (-2.0-3.0); ABG HCO3 21.8 mmol/L (20.0-26.0); ABG Methemoglobin 1.4 % (0.0-1.5); ABG Oxygen Saturation 98.3 % (95.0-99.0); ABG PCO2 37.9 mm Hg; ABG PH 7.378 pH Units (7.350-7.450); ABG PO2 120.3 mm Hg (80.0-90.0)
[2019-05-26 23:00] LABS: Hematocrit 22.1 % (35.5-45.6)
[2019-05-27] MEDS: BENADRYL IV PRN ×4 (00:06→22:06)
[2019-05-27] MEDS: DILAUDID IV PRN ×7 (00:06→22:04)
[2019-05-27] MEDS ORDERED: NACL 0.9% 500 ML 500 ML IV SCH (02:08)
[2019-05-27] MEDS: VANCOMYCIN 1,250 MG in NACL 0.9% 250ML 250 ML IV SCH ×3 (06:54→22:07)
[2019-05-27] MEDS: D5NS 0.2% 1,000 ML IV SCH ×3 (09:08→19:08)
[2019-05-27] MEDS: FOLVITE PO SCH (11:20)
[2019-05-27] MEDS: ELIQUIS PO SCH ×2 (11:20→22:08)
[2019-05-27] MEDS: ROCEPHIN/NS 1 GM/50 ML 1 GM/50 ML BAG IV SCH (11:22)
[2019-05-27] MEDS: MS CONTIN ER PO SCH ×2 (13:12→22:08)
--- NOTE | 2019-05-27 14:36 | Progress Note ---
Assessment and Plan Patient awake. Resting on 3 litres o2. O2 saturation 97%. Patient still complaining generalized body pains. No acute respiratory distress. HGB came up to 8. Patient afebrile. - Patient Problems (1) Acute chest syndrome due to sickle cell crisis Current Visit: No Status: Acute Plan to address problem: Management as per primary care and hematology. (2) SIRS (systemic inflammatory response syndrome) Current Visit: Yes Status: Acute Plan to address problem: Patient is on Ceftriaxone and Vancomycin. Subjective Date of service: 05/27/19 Interval history: Patient awake. Resting on 3 litres o2. O2 saturation 97%. Patient still complaining generalized body pains. No acute respiratory distress. HGB came up to 8. Patient afebrile. Objective Vital Signs - 12hr 05/27/19 05/27/19 05/27/19 03:15 03:30 03:38 Temperature 98.4 F 98.1 F Pulse Rate 84 79 Respiratory 18 19 19 Rate Blood Pressure 113/65 111/68 O2 Sat by Pulse 99 99 Oximetry 05/27/19 05/27/19 05/27/19 04:00 04:01 04:05 Temperature 98.4 F 98.4 F Pulse Rate 89 89 Respiratory 20 20 Rate Blood Pressure 111/52 111/52 O2 Sat by Pulse 94 88 92 Oximetry 05/27/19 05/27/19 05/27/19 04:08 04:30 05:00 Temperature 97.7 F 97.2 F L Pulse Rate 80 74 Respiratory 17 20 20 Rate Blood Pressure 111/57 116/65 O2 Sat by Pulse 91 99 Oximetry 05/27/19 05/27/19 05/27/19 05:04 05:30 05:32 Temperature 97.2 F L 98.0 F 98.0 F Pulse Rate 74 69 69 Respiratory 20 20 20 Rate Blood Pressure 116/65 113/68 113/68 O2 Sat by Pulse 99 98 98 Oximetry 05/27/19 05/27/19 05/27/19 06:00 06:50 07:20 Temperature 97.6 F Pulse Rate 73 Respiratory 20 20 19 Rate Blood Pressure 96/50 O2 Sat by Pulse 97 Oximetry 05/27/19 05/27/19 08:53 11:41 Temperature 98.1 F Pulse Rate 73 Respiratory 20 Rate Blood Pressure 115/71 O2 Sat by Pulse 99 97 Oximetry Constitutional: no acute distress, alert Eyes: non-icteric ENT: oropharynx moist Neck: supple Effort: normal Ascultation: Bilateral: rales Cardiovascular: regular rate and rhythm Gastrointestinal: normoactive bowel sounds, soft Integumentary: normal Extremities: no cyanosis, no edema Neurologic: normal mental status, non-focal exam, pupils equal and round, CN II- XII normal Psychiatric: mood appropriate CBC and BMP: 05/26/19 22:25 05/25/19 15:54 ABG, PT/INR, D-dimer: ABG ABG pH 7.378 pH Units (7.350-7.450) 05/26/19 15:10 ABG pCO2 37.9 mm Hg 05/26/19 15:10 ABG pO2 120.3 mm Hg (80.0-90.0) H 05/26/19 15:10 ABG O2 Saturation 98.3 % (95.0-99.0) 05/26/19 15:10 PT/INR, D-dimer PT 15.3 Sec. (12.2-14.9) H 05/25/19 16:00 INR 1.24 (0.87-1.13) H 05/25/19 16:00 Abnormal lab findings: Abnormal Labs 05/25/19 05/25/19 05/25/19 15:54 15:54 16:00 WBC 14.1 H RBC 1.75 L Hgb 6.2 L Hct 17.0 L* MCV 97 H MCH 35 H MCHC 37 H RDW 29.1 H Monocytes % (Manual) 9.0 H Seg Neutrophils # Man 9.9 H Monocytes # (Manual) 1.3 H Percent Retic 16.61 H PT 15.3 H INR 1.24 H ABG pO2 ABG Base Excess ABG Hemoglobin Oxyhemoglobin Sodium 130 L Chloride 96.8 L Creatinine 0.5 L Lactic Acid Magnesium 1.60 L TIBC Ferritin Total Bilirubin 11.00 H AST 109 H Alkaline Phosphatase 184 H Lactate Dehydrogenase 1989 H Crossmatch 05/25/19 05/26/19 05/26/19 16:00 06:14 06:14 WBC RBC Hgb 5.9 L* Hct 15.5 L* MCV MCH MCHC RDW Monocytes % (Manual) Seg Neutrophils # Man Monocytes # (Manual) Percent Retic PT INR ABG pO2 ABG Base Excess ABG Hemoglobin Oxyhemoglobin Sodium Chloride Creatinine Lactic Acid 0.50 L Magnesium TIBC Ferritin Total Bilirubin AST Alkaline Phosphatase Lactate Dehydrogenase Crossmatch See Detail 05/26/19 05/26/19 05/26/19 06:14 06:14 15:10 WBC RBC Hgb Hct MCV MCH MCHC RDW Monocytes % (Manual) Seg Neutrophils # Man Monocytes # (Manual) Percent Retic PT INR ABG pO2 120.3 H ABG Base Excess -3.1 L ABG Hemoglobin 6.9 L Oxyhemoglobin 92.3 L Sodium Chloride Creatinine Lactic Acid Magnesium TIBC 209 L Ferritin 600.7 H Total Bilirubin AST Alkaline Phosphatase Lactate Dehydrogenase Crossmatch 05/26/19 22:25 WBC RBC Hgb 8.0 L Hct 22.1 L D MCV MCH MCHC RDW Monocytes % (Manual) Seg Neutrophils # Man Monocytes # (Manual) Percent Retic PT INR ABG pO2 ABG Base Excess ABG Hemoglobin Oxyhemoglobin Sodium Chloride Creatinine Lactic Acid Magnesium TIBC Ferritin Total Bilirubin AST Alkaline Phosphatase Lactate Dehydrogenase Crossmatch
--- NOTE | 2019-05-27 19:32 | Progress Note ---
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 (2) Anemia, hemolytic Current Visit: No Status: Acute Qualifiers: Hemolytic anemia type: hereditary hemolytic anemia, other Qualified Code(s): D58.8 - Other specified hereditary hemolytic anemias Plan to address problem: Transfusion. (3) Sepsis Current Visit: Yes Status: Acute Plan to address problem: IV ABX, cultures. Subjective Date of service: 05/27/19 Interval history: Patient see/examined, resting in bed, labs still low for H/h, transfusion pending temp down.I will proceed with transfusion with low grade temp, with tylenol, and benadryl.. Patient uses oxygen at home. Patient seen/examined, resting in bed, recovering slowly.Responded to blood transfusion. Objective - Constitutional Vitals: Vital Signs - 12hr 05/27/19 05/27/19 05/27/19 08:53 11:41 17:38 Temperature 98.1 F 97.9 F Pulse Rate 73 74 Respiratory 20 18 Rate Blood Pressure 115/71 107/71 O2 Sat by Pulse 99 97 95 Oximetry General appearance: Present: mild distress, well-nourished - EENT Eyes: PERRL, EOM intact ENT: hearing intact, clear oral mucosa Ears: bilateral: normal - Neck Neck: supple, normal ROM - Respiratory Respiratory effort: normal Respiratory: bilateral: CTA - Breasts Breasts: deferred - Cardiovascular Rhythm: regular Heart Sounds: Present: S1 & S2. Absent: gallop, rub Extremities: pulses intact, No edema, normal color, Full ROM - Gastrointestinal General gastrointestinal: Present: soft, non-tender, non-distended, normal bowel sounds Rectal Exam: deferred - Genitourinary Male genitourinary: deferred - Integumentary Integumentary: clear, warm, dry - Musculoskeletal Musculoskeletal: 1, strength equal bilaterally - Neurologic Neurologic: moves all extremities - Psychiatric Psychiatric: memory intact, appropriate mood/affect, intact judgment & insight - Labs CBC & Chem 7: 05/26/19 22:25 05/25/19 15:54 Labs: Abnormal lab results 05/25/19 05/26/19 Range/Units 16:00 22:25 Hgb 8.0 L (11.8-15.2) gm/dl Hct 22.1 L D (35.5-45.6) % Crossmatch See Detail
[2019-05-28] MEDS: D5NS 0.2% 1,000 ML IV SCH ×4 (01:07→22:24)
[2019-05-28] MEDS: DILAUDID IV PRN ×6 (01:07→21:24)
[2019-05-28] MEDS: BENADRYL IV PRN ×3 (04:20→21:28)
[2019-05-28] MEDS: VANCOMYCIN 1,250 MG in NACL 0.9% 250ML 250 ML IV SCH ×4 (04:20→23:07)
[2019-05-28] MEDS: MS CONTIN ER PO SCH ×2 (09:00→21:27)
[2019-05-28] MEDS: FOLVITE PO SCH (09:02)
[2019-05-28] MEDS: ELIQUIS PO SCH ×2 (09:02→21:07)
--- NOTE | 2019-05-28 09:35 | Progress Note ---
Assessment and Plan (1) Acute chest syndrome due to sickle cell crisis Current Visit: No Status: Acute Plan to address problem: Management as per primary care and hematology. (2) SIRS (systemic inflammatory response syndrome) Current Visit: Yes Status: Acute Plan to address problem: Patient is on Ceftriaxone and Vancomycin. Subjective Date of service: 05/28/19 Interval history: Patient is seen today for: Seen and examined at bedside; 24hour events reviewed; nursing and respiratory care staff consulted; no adverse overnight events reported to me; Objective Vital Signs - 12hr 05/28/19 05/28/19 05/28/19 00:29 05:14 07:35 Temperature 98.0 F 98.0 F Pulse Rate 75 69 Respiratory 16 18 Rate Blood Pressure 112/68 119/75 O2 Sat by Pulse 94 98 100 Oximetry 05/28/19 05/28/19 08:57 09:00 Temperature Pulse Rate Respiratory 20 20 Rate Blood Pressure O2 Sat by Pulse Oximetry Constitutional: no acute distress, alert Eyes: non-icteric ENT: oropharynx moist Neck: supple Effort: normal Ascultation: Bilateral: clear, rales Cardiovascular: regular rate and rhythm Gastrointestinal: normoactive bowel sounds, soft Integumentary: normal Extremities: no cyanosis, no edema Neurologic: normal mental status, non-focal exam, pupils equal and round, CN II- XII normal Psychiatric: mood appropriate CBC and BMP: 05/26/19 22:25 05/25/19 15:54 ABG, PT/INR, D-dimer: ABG ABG pH 7.378 pH Units (7.350-7.450) 05/26/19 15:10 ABG pCO2 37.9 mm Hg 05/26/19 15:10 ABG pO2 120.3 mm Hg (80.0-90.0) H 05/26/19 15:10 ABG O2 Saturation 98.3 % (95.0-99.0) 05/26/19 15:10 PT/INR, D-dimer PT 15.3 Sec. (12.2-14.9) H 05/25/19 16:00 INR 1.24 (0.87-1.13) H 05/25/19 16:00 Abnormal lab findings: Abnormal Labs 05/25/19 05/25/19 05/25/19 15:54 15:54 16:00 WBC 14.1 H RBC 1.75 L Hgb 6.2 L Hct 17.0 L* MCV 97 H MCH 35 H MCHC 37 H RDW 29.1 H Monocytes % (Manual) 9.0 H Seg Neutrophils # Man 9.9 H Monocytes # (Manual) 1.3 H Percent Retic 16.61 H PT 15.3 H INR 1.24 H ABG pO2 ABG Base Excess ABG Hemoglobin Oxyhemoglobin Sodium 130 L Chloride 96.8 L Creatinine 0.5 L Lactic Acid Magnesium 1.60 L TIBC Ferritin Total Bilirubin 11.00 H AST 109 H Alkaline Phosphatase 184 H Lactate Dehydrogenase 1989 H Crossmatch 05/25/19 05/26/19 05/26/19 16:00 06:14 06:14 WBC RBC Hgb 5.9 L* Hct 15.5 L* MCV MCH MCHC RDW Monocytes % (Manual) Seg Neutrophils # Man Monocytes # (Manual) Percent Retic PT INR ABG pO2 ABG Base Excess ABG Hemoglobin Oxyhemoglobin Sodium Chloride Creatinine Lactic Acid 0.50 L Magnesium TIBC Ferritin Total Bilirubin AST Alkaline Phosphatase Lactate Dehydrogenase Crossmatch See Detail 05/26/19 05/26/19 05/26/19 06:14 06:14 15:10 WBC RBC Hgb Hct MCV MCH MCHC RDW Monocytes % (Manual) Seg Neutrophils # Man Monocytes # (Manual) Percent Retic PT INR ABG pO2 120.3 H ABG Base Excess -3.1 L ABG Hemoglobin 6.9 L Oxyhemoglobin 92.3 L Sodium Chloride Creatinine Lactic Acid Magnesium TIBC 209 L Ferritin 600.7 H Total Bilirubin AST Alkaline Phosphatase Lactate Dehydrogenase Crossmatch 05/26/19 22:25 WBC RBC Hgb 8.0 L Hct 22.1 L D MCV MCH MCHC RDW Monocytes % (Manual) Seg Neutrophils # Man Monocytes # (Manual) Percent Retic PT INR ABG pO2 ABG Base Excess ABG Hemoglobin Oxyhemoglobin Sodium Chloride Creatinine Lactic Acid Magnesium TIBC Ferritin Total Bilirubin AST Alkaline Phosphatase Lactate Dehydrogenase Crossmatch
[2019-05-28] MEDS: ROCEPHIN/NS 1 GM/50 ML 1 GM/50 ML BAG IV SCH (10:52)
[2019-05-28 13:31] LABS: BUN/Creatinine Ratio 18; Blood Urea Nitrogen 7 mg/dL (9-20); Calcium 8.6 mg/dL (8.4-10.2); Hemolysis Index 45
--- NOTE | 2019-05-28 17:24 | Progress Note ---
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 (2) Anemia, hemolytic Current Visit: No Status: Acute Qualifiers: Hemolytic anemia type: hereditary hemolytic anemia, other Qualified Code(s): D58.8 - Other specified hereditary hemolytic anemias Plan to address problem: Transfusion. (3) Sepsis Current Visit: Yes Status: Acute Plan to address problem: IV ABX, cultures. (4) Sepsis Current Visit: Yes Status: Acute Plan to address problem: rulled out with negative cultures. (5) SIRS (systemic inflammatory response syndrome) Current Visit: Yes Status: Acute Plan to address problem: YES, but without organ damage. (6) Hyponatremia Current Visit: Yes Status: Acute Plan to address problem: hydration. Subjective Date of service: 05/28/19 Interval history: Patient see/examined, resting in bed, labs still low for H/h, transfusion pending temp down.I will proceed with transfusion with low grade temp, with tylenol, and benadryl.. Patient uses oxygen at home. Patient seen/examined, resting in bed, recovering slowly.Responded to blood transfusion. Patient seen, resting in bed, labs reviewed, still monitoring, and planning d/c for tomorrow Objective - Constitutional Vitals: Vital Signs - 12hr 05/28/19 05/28/19 05/28/19 07:35 08:57 09:00 Temperature Pulse Rate Respiratory 20 20 Rate Blood Pressure O2 Sat by Pulse 100 Oximetry 05/28/19 05/28/19 11:32 12:28 Temperature 97.8 F Pulse Rate 82 Respiratory 19 20 Rate Blood Pressure 118/73 O2 Sat by Pulse 96 Oximetry General appearance: Present: mild distress, well-nourished - EENT Eyes: PERRL, EOM intact ENT: hearing intact, clear oral mucosa Ears: bilateral: normal - Neck Neck: supple, normal ROM - Respiratory Respiratory: bilateral: CTA, diminished - Breasts Breasts: deferred - Cardiovascular Rhythm: regular Heart Sounds: Present: S1 & S2. Absent: gallop, rub Extremities: pulses intact, No edema, normal color, Full ROM - Gastrointestinal General gastrointestinal: Present: soft, non-tender, non-distended, normal bowel sounds Rectal Exam: deferred - Genitourinary Male genitourinary: deferred - Integumentary Integumentary: clear, warm, dry - Musculoskeletal Musculoskeletal: 1, strength equal bilaterally - Neurologic Neurologic: moves all extremities - Psychiatric Psychiatric: memory intact, appropriate mood/affect, intact judgment & insight - Labs CBC & Chem 7: 05/26/19 22:25 05/28/19 12:50 Labs: Abnormal lab results 05/28/19 Range/Units 12:50 BUN 7 L (9-20) mg/dL Creatinine 0.4 L (0.8-1.5) mg/dL Glucose 111 H (75-100) mg/dL Medications & Allergies - Medications Allergies/Adverse Reactions: Allergies No Known Allergies Allergy (Verified 05/25/19 14:45) Home Medications: Home Medications Medication Instructions Recorded Confirmed Last Taken Type Hydroxyurea [Droxia] 1,500 mg PO DAILY #30 capsule 12/07/17 05/25/19 Unknown Rx Folic Acid [Folvite] 1 mg PO DAILY 04/03/18 05/25/19 Unknown History Morphine ER [Ms Contin ER] 30 mg PO BID 04/03/18 05/25/19 Unknown History Oxycodone HCl/Acetaminophen 1 tab PO Q4-6H PRN #6 tablet 02/15/19 05/25/19 Unkno wn Rx [Percocet 10/325 mg] Apixaban [Eliquis] 2.5 mg PO BID #60 tablet 03/23/19 05/25/19 Unknown Rx Zolpidem [Ambien] 5 mg PO QHS PRN 05/25/19 05/25/19 Unknown History Active Medications: Generic Name Dose Route Start Last Admin Trade Name Kathleen PRN Reason Stop Dose Admin Acetaminophen 650 mg 05/26/19 00:25 05/26/19 10:46 Tylenol PO 650 mg Q6HR PRN Administration ELEVATED TEMPERATURE >99.5 Apixaban 2.5 mg 05/26/19 10:00 05/28/19 09:02 Eliquis PO 2.5 mg BID SLICK Administration Protocol Diphenhydramine HCl 25 mg 05/25/19 22:47 05/28/19 12:28 Benadryl IV 25 mg Q6H PRN Administration Itching Folic Acid 1 mg 05/26/19 10:00 05/28/19 09:02 Folvite PO 1 mg DAILY SLICK Administration Hydromorphone HCl 2 mg 05/25/19 22:47 05/28/19 12:28 Dilaudid IV 2 mg Q3H PRN Administration Pain , Severe (7-10) Dextrose/Sodium Chloride 1,000 mls @ 250 mls/hr 05/25/19 23:00 05/28/19 12:30 D5ns 0.2% IV 250 mls/hr DIRECT SLICK Administration Ceftriaxone Sodium 1 gm in 50 mls @ 100 mls/hr 05/26/19 11:00 05/28/19 10:52 Rocephin/Ns 1 Gm/50 Ml IV 100 mls/hr DAILY SLICK Administration Protocol Sodium Chloride 500 mls @ 50 mls/hr 05/27/19 02:08 05/27/19 02:32 Nacl 0.9% 500 Ml IV 50 mls/hr DIRECT SLICK Administration Vancomycin HCl 1,250 mg/ 275 mls @ 166.667 mls/hr 05/28/19 16:00 05/28/19 15:07 Sodium Chloride IV 166.667 mls/hr Q8H SLICK Administration Morphine Sulfate 30 mg 05/26/19 10:00 05/28/19 09:00 Ms Contin Er PO 30 mg BID SLICK Administration Ondansetron HCl 4 mg 05/26/19 02:10 Zofran IV Q6H PRN Nausea And Vomiting Zolpidem Tartrate 5 mg 05/25/19 22:42 Ambien PO QHS PRN Sleep
[2019-05-29] MEDS: DILAUDID IV PRN ×6 (01:01→19:04)
[2019-05-29] MEDS: VANCOMYCIN 1,250 MG in NACL 0.9% 250ML 250 ML IV SCH ×2 (02:07→08:29)
[2019-05-29] MEDS: BENADRYL IV PRN ×3 (05:17→19:04)
[2019-05-29] MEDS: MS CONTIN ER PO SCH (10:20)
[2019-05-29] MEDS: ELIQUIS PO SCH (11:30)
[2019-05-29] MEDS: FOLVITE PO SCH (11:38)
[2019-05-29] MEDS: ROCEPHIN/NS 1 GM/50 ML 1 GM/50 ML BAG IV SCH (11:38)
[2019-05-29] MEDS: D5NS 0.2% 1,000 ML IV SCH ×2 (12:09→17:36)
--- NOTE | 2019-05-29 13:43 | Progress Note ---
Assessment and Plan (1) Acute chest syndrome due to sickle cell crisis Current Visit: No Status: Acute Plan to address problem: Management as per primary care and hematology. (2) SIRS (systemic inflammatory response syndrome) Current Visit: Yes Status: Acute Plan to address problem: Patient is on Ceftriaxone and Vancomycin. Subjective Date of service: 05/29/19 Interval history: Patient is seen today for: Seen and examined at bedside; 24hour events reviewed; nursing and respiratory care staff consulted; no adverse overnight events reported to me; Objective Vital Signs - 12hr 05/29/19 05:28 Temperature 98.0 F Pulse Rate 90 Respiratory 16 Rate Blood Pressure 101/59 O2 Sat by Pulse 91 Oximetry Constitutional: no acute distress, alert Eyes: non-icteric ENT: oropharynx moist Neck: supple Effort: normal Ascultation: Bilateral: clear, rales Cardiovascular: regular rate and rhythm Gastrointestinal: normoactive bowel sounds, soft Integumentary: normal Extremities: no cyanosis, no edema Neurologic: normal mental status, non-focal exam, pupils equal and round, CN II- XII normal Psychiatric: mood appropriate CBC and BMP: 05/26/19 22:25 05/28/19 12:50 ABG, PT/INR, D-dimer: ABG ABG pH 7.378 pH Units (7.350-7.450) 05/26/19 15:10 ABG pCO2 37.9 mm Hg 05/26/19 15:10 ABG pO2 120.3 mm Hg (80.0-90.0) H 05/26/19 15:10 ABG O2 Saturation 98.3 % (95.0-99.0) 05/26/19 15:10 PT/INR, D-dimer PT 15.3 Sec. (12.2-14.9) H 05/25/19 16:00 INR 1.24 (0.87-1.13) H 05/25/19 16:00 Abnormal lab findings: Abnormal Labs 05/25/19 05/25/19 05/25/19 15:54 15:54 16:00 WBC 14.1 H RBC 1.75 L Hgb 6.2 L Hct 17.0 L* MCV 97 H MCH 35 H MCHC 37 H RDW 29.1 H Monocytes % (Manual) 9.0 H Seg Neutrophils # Man 9.9 H Monocytes # (Manual) 1.3 H Percent Retic 16.61 H PT 15.3 H INR 1.24 H ABG pO2 ABG Base Excess ABG Hemoglobin Oxyhemoglobin Sodium 130 L Chloride 96.8 L BUN Creatinine 0.5 L Glucose Lactic Acid Magnesium 1.60 L TIBC Ferritin Total Bilirubin 11.00 H AST 109 H Alkaline Phosphatase 184 H Lactate Dehydrogenase 1989 H Crossmatch 05/25/19 05/26/19 05/26/19 16:00 06:14 06:14 WBC RBC Hgb 5.9 L* Hct 15.5 L* MCV MCH MCHC RDW Monocytes % (Manual) Seg Neutrophils # Man Monocytes # (Manual) Percent Retic PT INR ABG pO2 ABG Base Excess ABG Hemoglobin Oxyhemoglobin Sodium Chloride BUN Creatinine Glucose Lactic Acid 0.50 L Magnesium TIBC Ferritin Total Bilirubin AST Alkaline Phosphatase Lactate Dehydrogenase Crossmatch See Detail 05/26/19 05/26/19 05/26/19 06:14 06:14 15:10 WBC RBC Hgb Hct MCV MCH MCHC RDW Monocytes % (Manual) Seg Neutrophils # Man Monocytes # (Manual) Percent Retic PT INR ABG pO2 120.3 H ABG Base Excess -3.1 L ABG Hemoglobin 6.9 L Oxyhemoglobin 92.3 L Sodium Chloride BUN Creatinine Glucose Lactic Acid Magnesium TIBC 209 L Ferritin 600.7 H Total Bilirubin AST Alkaline Phosphatase Lactate Dehydrogenase Crossmatch 05/26/19 05/28/19 22:25 12:50 WBC RBC Hgb 8.0 L Hct 22.1 L D MCV MCH MCHC RDW Monocytes % (Manual) Seg Neutrophils # Man Monocytes # (Manual) Percent Retic PT INR ABG pO2 ABG Base Excess ABG Hemoglobin Oxyhemoglobin Sodium Chloride BUN 7 L Creatinine 0.4 L Glucose 111 H Lactic Acid Magnesium TIBC Ferritin Total Bilirubin AST Alkaline Phosphatase Lactate Dehydrogenase Crossmatch
[2019-05-29 18:54] VITALS: BP 137/74
--- NOTE | 2019-05-29 19:59 | Discharge Summary ---
Providers - Providers Date of Admission: 05/25/19 18:11 Date of discharge: 05/29/19 Attending physician: ZACHERY RUIZ 05/25/19 14:55 Consult to Physician [CONS] Urgent Comment: Consulting Provider: ZACHERY RUIZ Physician Instructions: Reason For Exam: hbss crisis sepsis 05/26/19 10:08 Consult to Physician [CONS] Routine Comment: Consulting Provider: EDITA FRANKLIN Physician Instructions: patient uses oxygen at home. Reason For Exam: hypoxia Primary care physician: ZACHERY RUIZ Hospitalization Reason for admission: Pain crisis. Condition: Good Hospital course: Patient presented to the ER with CC of diffuse joint pain, admitted for sxs management, and control. he had blood transfusion, and IV ABX, sepsis was rulled out with negative cultures, It was detwrmined ,that he had SIRS, with organ damage. He tolerated tx well. CT angio, neg for PE, Seen by Pulm consult for acu te/chronic hypoxia. Patient seen/examined, labs reviewed, No new issues at this time,patient will be d/c home now. Disposition: DC-01 TO HOME OR SELFCARE - Discharge Diagnoses (1) Sickle cell pain crisis Status: Resolved (2) Anemia, hemolytic Status: Chronic Qualifiers: Hemolytic anemia type: hereditary hemolytic anemia, other Qualified Code(s): D58.8 - Other specified hereditary hemolytic anemias (3) Sepsis Status: Ruled-out (4) Sepsis Status: Ruled-out (5) SIRS (systemic inflammatory response syndrome) Status: Resolved (6) Hyponatremia Status: Resolved Core Measure Documentation - Palliative Care Palliative Care/ Comfort Measures: Not Applicable - Core Measures Any of the following diagnoses?: history only Exam - Constitutional Vitals: Temp Pulse Resp BP Pulse Ox 98.7 F 93 H 20 137/74 93 05/29/19 16:46 05/29/19 16:46 05/29/19 16:46 05/29/19 16:46 05/29/19 16:46 General appearance: Present: no acute distress, well-nourished - EENT Eyes: Present: PERRL ENT: hearing intact, clear oral mucosa - Neck Neck: Present: supple, normal ROM - Respiratory Respiratory effort: normal Respiratory: bilateral: CTA - Cardiovascular Heart Sounds: Present: S1 & S2. Absent: rub, click - Extremities Extremities: pulses symmetrical, No edema Peripheral Pulses: within normal limits - Abdominal General gastrointestinal: Present: soft, non-tender, non-distended, normal bowel sounds Male genitourinary: Present: deferred - Rectal Rectal Exam: deferred - Integumentary Integumentary: Present: clear, warm, dry - Musculoskeletal Musculoskeletal: gait normal, strength equal bilaterally - Psychiatric Psychiatric: appropriate mood/affect, intact judgment & insight - Neurologic Neurologic: CNII-XII intact, moves all extremities Plan Activity: no restrictions Diet: regular Follow up with: PRIMARY CARE, [Referring] - 3-5 Days
[2019-05-29] MEDS ORDERED: FLUSH HEPARIN IV ONE (21:04)
== END 2019-05-29 21:15 | disposition home or self-care (01) | DRG 812 ==
LOC: ED 14:22 → 3A 18:11
PROVIDERS: ADMIT Internal Medicine Hematology & Oncology; ATTEND Internal Medicine Hematology & Oncology
PROC: 30233N1 Transfusion of Nonautologous Red Blood Cells into Peripheral Vein, Percutaneous Approach (ICD-10-PCS; principal; 2019-05-26)
DX: D57.01 Hb-SS disease with acute chest syndrome (principal); E87.1 Hypo-osmolality and hyponatremia; E87.2 Acidosis; R65.10 Systemic inflammatory response syndrome (SIRS) of non-infectious origin without acute organ dysfunction; Z79.01 Long term (current) use of anticoagulants; Z79.899 Other long term (current) drug therapy; Z90.49 Acquired absence of other specified parts of digestive tract
CPT/HCPCS: 36415; 36430; 71045; 71275; 80048; 80053; 80202; 81001; 82140; 82550; 82728; 82803; 83550; 83615; 83735; 84484; 85007; 85014; 85018; 85025; 85045; 85610; 85660; 85730; 86850; 86900; 86901; 86920; 87040; 87086; 87116; 93005; 93010; 94760; 96365; 96375; G0378; J0692; J0696; J1170; J1200; J1642; J2405; J3370; J7030; J7040; J7050; P9016; Q9967

== ENCOUNTER 2019-06-07 07:16 | Emergency (ER) | payer MEDICARE ==
[2019-06-07] MEDS ORDERED: TORADOL IV ONE (08:33)
[2019-06-07] MEDS ORDERED: NACL 0.9% 1000 ML 1,000 ML IV ONE (08:33)
[2019-06-07] MEDS ORDERED: BENADRYL IV ONE (08:34)
[2019-06-07] MEDS ORDERED: DILAUDID IV ONE ×2 (08:34→11:11)
--- NOTE | 2019-06-07 08:40 | Emergency Department Report ---
ED Extremity Problem HPI - General Chief complaint: Extremity Injury, Upper Stated complaint: SSC/LFT SHOULDER/LFT ARM PAIN Time Seen by Provider: 06/07/19 08:25 Source: patient Mode of arrival: Ambulatory Limitations: No Limitations - History of Present Illness Initial comments: 28-year-old male who presents to ED with complaint of left arm pain. Patient has history of sickle cell anemia, HbSS type. Patient states he went out with friends last night for a birthday celebration, and he began having left arm aching pain. Patient states pain is typical of his sickle cell crisis. Normally will have the pain in the arms, legs, back. Patient currently denies any chest pain, shortness of breath, cough, fever. Leather Drier: Huang RUFF Complaint: extremity pain -: Last night Location: left, upper extremity History of Same: Yes Quality: aching Consistency: constant Improves with: nothing Worsens with: nothing Associated Symptoms: denies: chest pain, shortness of breath, fever - Related Data Home Medications Medication Instructions Recorded Confirmed Last Taken Folic Acid [Folvite] 1 mg PO DAILY 04/03/18 05/25/19 Unknown Morphine ER [Ms Contin ER] 30 mg PO BID 04/03/18 05/25/19 Unknown Zolpidem [Ambien] 5 mg PO QHS PRN 05/25/19 05/25/19 Unknown Previous Rx's Medication Instructions Recorded Last Taken Type Hydroxyurea [Droxia] 1,500 mg PO DAILY #30 capsule 12/07/17 Unknown Rx Oxycodone HCl/Acetaminophen 1 tab PO Q4-6H PRN #6 tablet 02/15/19 Unknown Rx [Percocet 10/325 mg] Apixaban [Eliquis] 2.5 mg PO BID #60 tablet 03/23/19 Unknown Rx Allergies Allergy/AdvReac Type Severity Reaction Status Date / Time No Known Allergies Allergy Verified 05/25/19 14:45 ED Review of Systems ROS: Stated complaint: SSC/LFT SHOULDER/LFT ARM PAIN Other details as noted in HPI Comment: All other systems reviewed and negative Constitutional: denies: chills, fever Respiratory: denies: shortness of breath Cardiovascular: denies: chest pain Musculoskeletal: as per HPI ED Past Medical Hx - Past Medical History Hx Hypertension: No Hx Heart Attack/AMI: No Hx Congestive Heart Failure: No Hx Diabetes: No Hx Renal Disease: No Hx Sickle Cell Disease: Yes Hx Seizures: No Hx Asthma: Yes (denies hx exacerbations) Hx COPD: No Hx HIV: No Additional medical history: Acute chest syndrome, - Surgical History Hx Cholecystectomy: Yes Additional Surgical History: TRACHEOSTOMY. 2 PORTS AND REMOVAL. LIVER BIOPSY X2 - Social History Smoking Status: Never Smoker Substance Use Type: None - Medications Home Medications: Home Medications Medication Instructions Recorded Confirmed Last Taken Type Hydroxyurea [Droxia] 1,500 mg PO DAILY #30 capsule 12/07/17 05/25/19 Unknown Rx Folic Acid [Folvite] 1 mg PO DAILY 04/03/18 05/25/19 Unknown History Morphine ER [Ms Contin ER] 30 mg PO BID 04/03/18 05/25/19 Unknown History Oxycodone HCl/Acetaminophen 1 tab PO Q4-6H PRN #6 tablet 02/15/19 05/25/19 Unknown Rx [Percocet 10/325 mg] Apixaban [Eliquis] 2.5 mg PO BID #60 tablet 03/23/19 05/25/19 Unknown Rx Zolpidem [Ambien] 5 mg PO QHS PRN 05/25/19 05/25/19 Unknown History ED Physical Exam - General Limitations: No Limitations General appearance: alert, in no apparent distress - Head Head exam: Present: atraumatic, normocephalic - Eye Eye exam: Present: normal appearance, PERRL, EOMI - ENT ENT exam: Present: mucous membranes moist - Neck Neck exam: Present: normal inspection - Respiratory Respiratory exam: Present: normal lung sounds bilaterally. Absent: respiratory distress - Cardiovascular Cardiovascular Exam: Present: regular rate, normal rhythm - GI/Abdominal GI/Abdominal exam: Present: soft. Absent: distended, tenderness - Extremities Exam Extremities exam: Present: normal inspection - Neurological Exam Neurological exam: Present: alert, oriented X3 - Psychiatric Psychiatric exam: Present: normal affect, normal mood - Skin Skin exam: Present: warm, dry, intact, normal color ED Course Vital Signs 06/07/19 06/07/19 06/07/19 07:22 09:15 11:01 Temperature 98.5 F 98.3 F Pulse Rate 93 H 92 H 100 H Respiratory 16 16 Rate Blood Pressure 124/71 115/74 115/55 [Left] O2 Sat by Pulse 90 93 98 Oximetry ED Medical Decision Making - Lab Data Result diagrams: 06/07/19 Unknown 06/07/19 Unknown - EKG Data -: EKG Interpreted by Me EKG shows normal: sinus rhythm, axis, intervals, QRS complexes, ST-T waves Rate: normal - EKG Data Interpretation: no acute changes - Medical Decision Making 28 yo M w/ hx HbSS presents w/ left arm pain since last night. States location is consistent w/ previous pain crises. EKG was performed and found to be normal. Pt denies any chest pain or shortness of breath. Did not take any of his home meds b/c he has not gone home yet since being out last night. Pt given 2 doses of dilaudid, also given toradol, benadryl and IV fluids. Pt reports improvement of pain at this time. Hb is stable at 8.1 compared to last Hb of 8.0. Retic count 12%, with 3+ sickle cells present. Vitals are stable. Pt feels comfortable for discharge home. Advised outpt f/u w/ Dr Ruiz. Return precautions given. - Differential Diagnosis sickle cell pain crisis, anemia requiring transfusion Critical care attestation.: If time is entered above; I have spent that time in minutes in the direct care of this critically ill patient, excluding procedure time. ED Disposition Clinical Impression: Sickle cell pain crisis Disposition: DC-01 TO HOME OR SELFCARE Is pt being admited?: No Condition: Stable Instructions: Sickle Cell Crisis (ED) Referrals: ZACHERY RUIZ DO [Staff Physician] - 3-5 Days Time of Disposition: 11:49
[2019-06-07 09:23] LABS: Hematocrit 22.3 % (35.5-45.6); Hemoglobin 8.1 gm/dl (11.8-15.2); Mean Corpuscular HGB Conc 36 % (32-34); Mean Corpuscular Volume 93 fl (84-94)
[2019-06-07 09:27] LABS: Platelet Count 385 K/mm3 (140-440); Red Cell Distribution Width 23.3 % (13.2-15.2)
[2019-06-07 09:31] LABS: Basophils # (Auto) 0.3 K/mm3 (0.0-0.1); Eosinophils # (Auto) 0.2 K/mm3 (0.0-0.4); Eosinophils % (Auto) 1.3 % (0.0-4.3); Monocytes # (Auto) 3.7 K/mm3 (0.0-0.8)
[2019-06-07 09:42] LABS: BUN/Creatinine Ratio 25; Blood Urea Nitrogen 15 mg/dL (9-20)
[2019-06-07 09:43] LABS: Alanine Aminotransferase 22 units/L (7-56); Albumin 4.4 g/dL (3.9-5); Hemolysis Index 46
[2019-06-07 10:52] LABS: Basophils % (Manual) 0 % (0.0-1.8); Sickle Cells 3+; Target Cells 3+; Total Cells Counted 100
[2019-06-07 10:53] LABS: Giant Platelets Few; Platelet Estimate Consistent w Auto
[2019-06-07 11:02] VITALS: BP 115/55
[2019-06-07] MEDS ORDERED: FLUSH HEPARIN IV ONE (12:18)
== END 2019-06-07 12:35 | disposition home or self-care (01) ==
LOC: ED 07:16
DX: D57.00 Hb-SS disease with crisis, unspecified (principal); J45.909 Unspecified asthma, uncomplicated; Z90.49 Acquired absence of other specified parts of digestive tract; Z79.899 Other long term (current) drug therapy
CPT/HCPCS: 36415; 80053; 85007; 85025; 85045; 93005; 93010; 96374; 96375; 96376; 99284; J1170; J1200; J1642; J1885; J7030

== ENCOUNTER 2019-06-24 11:30 | Inpatient (IN) | payer MEDICARE ==
--- NOTE | 2019-06-24 11:42 | Emergency Department Report ---
Blank Doc - Documentation Documentation: 28-year-old male that presents with lower back pain, right foot pain, jaundice, with history of sickle cell. This initial assessment/diagnostic orders/clinical plan/treatment(s) is/are subject to change based on patient's health status, clinical progression and re- assessment by fellow clinical providers in the ED. Further treatment and workup at subsequent clinical providers discretion. Patient/guardians urged not to elope from the ED as their condition may be serious if not clinically assessed and managed. Initial orders include: 1- Patient sent to MAIN for further evaluation and treatment 2- labs 3- O2 oxygen-2 L
[2019-06-24] MEDS ORDERED: DILAUDID IV ONE ×3 (12:16→18:04)
[2019-06-24] MEDS ORDERED: NACL 0.9% 1000 ML 1,000 ML IV ONE ×3 (12:16→18:06)
--- NOTE | 2019-06-24 12:20 | Emergency Department Report ---
ED General Adult HPI - General Chief complaint: Sickle Cell Crisis Stated complaint: SICKLE CELL CRISIS Time Seen by Provider: 06/24/19 11:40 Source: patient Mode of arrival: Ambulatory Limitations: No Limitations - History of Present Illness Initial comments: PCP Dr. Encinas Patient is a 20-year-old male that since emergency room with complaints of sickle cell pain. Patient states she's having back pain and right foot pain. Patient states that his right for pain feels like the last time he had a bone infarct. Patient states he's been taking all of his sickle cell medications. Patient states his pain is 10 out of 10. Patient states his pain is worse with movement and better with rest. Patient states he has a long history of sickle cell. Patient states his eyes are more yellow than usual. -: Sudden - Related Data Home Medications Medication Instructions Recorded Confirmed Last Taken Folic Acid [Folvite] 1 mg PO DAILY 04/03/18 05/25/19 Unknown Morphine ER [Ms Contin ER] 30 mg PO BID 04/03/18 05/25/19 Unknown Zolpidem [Ambien] 5 mg PO QHS PRN 05/25/19 05/25/19 Unknown Previous Rx's Medication Instructions Recorded Last Taken Type Hydroxyurea [Droxia] 1,500 mg PO DAILY #30 capsule 12/07/17 Unknown Rx Oxycodone HCl/Acetaminophen 1 tab PO Q4-6H PRN #6 tablet 02/15/19 Unknown Rx [Percocet 10/325 mg] Apixaban [Eliquis] 2.5 mg PO BID #60 tablet 03/23/19 Unknown Rx Allergies Allergy/AdvReac Type Severity Reaction Status Date / Time No Known Allergies Allergy Verified 05/25/19 14:45 ED Review of Systems ROS: Stated complaint: SICKLE CELL CRISIS Other details as noted in HPI Constitutional: denies: chills, fever Eyes: denies: eye pain, eye discharge, vision change ENT: denies: ear pain, throat pain Respiratory: denies: cough, shortness of breath, wheezing Cardiovascular: denies: chest pain, palpitations Endocrine: no symptoms reported Gastrointestinal: denies: abdominal pain, nausea, diarrhea Genitourinary: denies: urgency, dysuria Musculoskeletal: back pain. denies: joint swelling, arthralgia Skin: denies: rash, lesions Neurological: denies: headache, weakness, paresthesias Psychiatric: denies: anxiety, depression Hematological/Lymphatic: denies: easy bleeding, easy bruising ED Past Medical Hx - Past Medical History Previous Medical History?: Yes Hx Hypertension: No Hx Heart Attack/AMI: No Hx Congestive Heart Failure: No Hx Diabetes: No Hx Renal Disease: No Hx Sickle Cell Disease: Yes Hx Seizures: No Hx Asthma: Yes (denies hx exacerbations) Hx COPD: No Hx HIV: No Additional medical history: Acute chest syndrome, - Surgical History Past Surgical History?: Yes Hx Cholecystectomy: Yes Additional Surgical History: TRACHEOSTOMY. 2 PORTS AND REMOVAL. LIVER BIOPSY X2 - Family History Family history: no significant - Social History Smoking Status: Never Smoker Substance Use Type: None - Medications Home Medications: Home Medications Medication Instructions Recorded Confirmed Last Taken Type Hydroxyurea [Droxia] 1,500 mg PO DAILY #30 capsule 12/07/17 05/25/19 Unknown Rx Folic Acid [Folvite] 1 mg PO DAILY 04/03/18 05/25/19 Unknown History Morphine ER [Ms Contin ER] 30 mg PO BID 04/03/18 05/25/19 Unknown History Oxycodone HCl/Acetaminophen 1 tab PO Q4-6H PRN #6 tablet 02/15/19 05/25/19 Unknown Rx [Percocet 10/325 mg] Apixaban [Eliquis] 2.5 mg PO BID #60 tablet 03/23/19 05/25/19 Unknown Rx Zolpidem [Ambien] 5 mg PO QHS PRN 05/25/19 05/25/19 Unknown History ED Physical Exam - General Limitations: No Limitations General appearance: alert, in no apparent distress - Head Head exam: Present: atraumatic, normocephalic - Eye Eye exam: Present: normal appearance - ENT ENT exam: Present: mucous membranes moist - Neck Neck exam: Present: normal inspection - Respiratory Respiratory exam: Present: normal lung sounds bilaterally. Absent: respiratory distress - Cardiovascular Cardiovascular Exam: Present: regular rate, normal rhythm. Absent: systolic murmur, diastolic murmur, rubs, gallop - GI/Abdominal GI/Abdominal exam: Present: soft, normal bowel sounds - Rectal Rectal exam: Present: deferred - Extremities Exam Extremities exam: Present: normal inspection - Back Exam Back exam: Present: normal inspection - Neurological Exam Neurological exam: Present: alert, oriented X3 - Psychiatric Psychiatric exam: Present: normal affect, normal mood - Skin Skin exam: Present: warm, dry, intact, normal color. Absent: rash ED Course Vital Signs 06/24/19 06/24/19 06/24/19 11:40 12:19 12:31 Temperature 98.2 F Pulse Rate 113 H Respiratory 16 Rate Blood Pressure Blood Pressure 132/68 [Left] O2 Sat by Pulse 88 93 94 Oximetry 06/24/19 06/24/19 06/24/19 12:45 13:01 13:15 Temperature Pulse Rate Respiratory Rate Blood Pressure Blood Pressure [Left] O2 Sat by Pulse 96 95 95 Oximetry 06/24/19 06/24/19 06/24/19 13:20 13:31 13:45 Temperature Pulse Rate Respiratory 16 Rate Blood Pressure Blood Pressure [Left] O2 Sat by Pulse 94 94 Oximetry 06/24/19 06/24/19 06/24/19 14:01 14:10 14:15 Temperature Pulse Rate 76 Respiratory Rate Blood Pressure Blood Pressure 114/55 [Left] O2 Sat by Pulse 94 97 Oximetry 06/24/19 06/24/19 06/24/19 14:31 14:45 15:01 Temperature Pulse Rate Respiratory Rate Blood Pressure Blood Pressure [Left] O2 Sat by Pulse 87 87 87 Oximetry 06/24/19 06/24/19 15:15 15:30 Temperature Pulse Rate Respiratory Rate Blood Pressure 115/57 Blood Pressure [Left] O2 Sat by Pulse 89 92 Oximetry - Reevaluation(s) Reevaluation #1: Patient found to be hypoxic in triage. Patient placed on oxygen. 06/24/19 12:19 Reevaluation #2: Is complaining of pain. Patient will be given another dose of Dilaudid and Benadryl. 06/24/19 13:46 Reevaluation #3: Stressed all results with patient. I discussed plan of care and admission with patient. Patient agrees with admission. Patient will be admitted to his primary care service. 06/24/19 15:31 - Consultations Consultation #1: I discussed this case with Dr. Mckeon, orthopedist. He does not recommend any further evaluation of the foot pain for this patient except for an a plain film x-ray and treating with anti-inflammatories. 06/24/19 13:16 Consultation #2: Patient's primary care paged. 06/24/19 15:16 I discussed case with the patient's primary care, Dr. Encinas. Dr. Encinas agrees with admission. Patient will be admitted to his service and bridge orders placed. 06/24/19 15:30 ED Medical Decision Making - Lab Data Result diagrams: 06/24/19 14:05 06/24/19 12:55 - Radiology Data Radiology results: report reviewed RIGHT FOOT 3 VIEW(S) INDICATION / CLINICAL INFORMATION: rt foot pain,. Sickle cell. COMPARISON: None available. FINDINGS: BONES / JOINT(S): No acute fracture or subluxation. No significant arthritis. Mild diffuse osseous sclerosis in a pattern consistent with the history of sickle cell. SOFT TISSUES: Mild soft tissue swelling over the posterior heel pad. ADDITIONAL FINDINGS: None. CHEST 1 VIEW 06/24/2019 12:28 PM INDICATION / CLINICAL INFORMATION: Sickle cell crisis. hypoxia. COMPARISON: 05/25/19 FINDINGS: SUPPORT DEVICES: Right Port-A-Cath has been repositioned with the tip now projecting over the proximal superior vena cava in expected position. HEART / MEDIASTINUM: Heart is upper normal size and stable. SVC stent is unchanged. LUNGS / PLEURA: No significant pulmonary or pleural abnormality. No pneumothorax. ADDITIONAL FINDINGS: No significant additional findings. IMPRESSION: 1. No acute findings. - Medical Decision Making Patient is a 28-year-old male that presents emergency room with complaints of right foot pain and back pain. Patient's chronic to some with sickle cell crisis. Due to the fact the patient is having right foot pain and high prob ability of bone infarct I discussed the case with the pedis. Orthopedist recommended anti-inflammatories and control sickle cell crisis. Patient given multiple doses of pain medications and normal saline boluses. Patient's pain improved. Patient will be admitted to the primary care's service. Patient's reticulocyte count 11. - Differential Diagnosis cell crisis. Back pain. For pain. Bone infarct. Hypoxia Critical Care Time: Yes Critical care attestation.: If time is entered above; I have spent that time in minutes in the direct care of this critically ill patient, excluding procedure time. 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
--- NOTE | 2019-06-24 12:57 | XRay Report ---
RIGHT FOOT 3 VIEW(S) INDICATION / CLINICAL INFORMATION: rt foot pain,. Sickle cell. COMPARISON: None available. FINDINGS: BONES / JOINT(S): No acute fracture or subluxation. No significant arthritis. Mild diffuse osseous sc lerosis in a pattern consistent with the history of sickle cell. SOFT TISSUES: Mild soft tissue swelling over the posterior heel pad. ADDITIONAL FINDINGS: None. Signer Name: Sidney Franklin MD Signed: 06/24/2019 12:53 PM Workstation Name: [id number]
--- NOTE | 2019-06-24 12:59 | XRay Report ---
CHEST 1 VIEW 06/24/2019 12:28 PM INDICATION / CLINICAL INFORMATION: Sickle cell crisis. hypoxia. COMPARISON: 05/25/19 FINDINGS: SUPPORT DEVICES: Right Port-A-Cath has been repositioned with the tip now projecting over the proxima l superior vena cava in expected position. HEART / MEDIASTINUM: Heart is upper normal size and stable. SVC stent is unchanged. LUNGS / PLEURA: No significant pulmonary or pleural abnormality. No pneumothorax. ADDITIONAL FINDINGS: No significant additional findings. IMPRESSION: 1. No acute findings. Signer Name: Sidney Franklin MD Signed: 06/24/2019 12:54 PM Workstation Name: [id number]
[2019-06-24 13:45] LABS: Albumin 4.6 g/dL (3.9-5); BUN/Creatinine Ratio 20; Blood Urea Nitrogen 10 mg/dL (9-20); Calcium 8.8 mg/dL (8.4-10.2); Hemolysis Index 184
[2019-06-24] MEDS ORDERED: TORADOL IV ONE (13:45)
[2019-06-24] MEDS ORDERED: BENADRYL IV ONE (13:45)
[2019-06-24 13:54] LABS: Bacteria,Urine 2+ /HPF (Negative); Bilirubin,Urine NEG (Negative); Blood,Urine SM (Negative); Color,Urine Amber (Yellow); Mucus,Urine 2+ /HPF
[2019-06-24 14:37] LABS: Hepatitis B Surface Antigen Non-Reactive (Negative); Hepatitis C Virus Antibody Non-Reactive (NonReactive)
[2019-06-24 14:56] LABS: Alanine Aminotransferase 17 units/L (7-56)
[2019-06-24 15:19] LABS: Hematocrit 21.3 % (35.5-45.6); Hemoglobin 7.9 gm/dl (11.8-15.2); Mean Corpuscular HGB Conc 37 % (32-34); Mean Corpuscular Volume 92 fl (84-94); Red Blood Count 2.31 M/mm3 (3.65-5.03)
[2019-06-24 15:20] LABS: Red Cell Distribution Width 24.7 % (13.2-15.2)
[2019-06-24] MEDS ORDERED: DILAUDID ONE (18:06)
[2019-06-24] MEDS ORDERED: NACL 0.9% 1000 ML 1,000 ML ONE (18:06)
[2019-06-24] MEDS ORDERED: DILAUDID IV PRN (19:22)
[2019-06-24] MEDS ORDERED: PERCOCET 5/325 PO PRN (19:29)
[2019-06-24 19:33] LABS: Basophils % (Manual) 0 % (0.0-1.8); Eosinophils % (Manual) 0 % (0.0-4.3); Total Cells Counted 100
[2019-06-24 19:36] LABS: Anisocytosis 2+; Poikilocytosis 2+
[2019-06-24 19:38] LABS: Sickle Cells 3+
[2019-06-24 19:39] LABS: Platelet Estimate Consistent w Auto; Target Cells Few
--- NOTE | 2019-06-24 19:43 | History and Physical Report ---
History of Present Illness Date of examination: 06/24/19 Date of admission: 06/24/19 15:33 Chief complaint: SCD/pain crisis. History of present illness: Patient seen/examined, he presented to the ER with CC of diffuse joint pain, W/u revealed elevated Retic count,, and anemia, he is admitted for pain/sxs control, and management. Past History Past Medical History: anemia Social history: no significant social history, single, lives with family Family history: no significant family history Medications and Allergies Allergies Allergy/AdvReac Type Severity Reaction Status Date / Time No Known Allergies Allergy Verified 05/25/19 14:45 Home Medications Medication Instructions Recorded Confirmed Last Taken Type Hydroxyurea [Droxia] 1,500 mg PO DAILY #30 capsule 12/07/17 06/24/19 06/23/19 Rx Folic Acid [Folvite] 1 mg PO DAILY 04/03/18 06/24/19 06/23/19 History Morphine ER [Ms Contin ER] 30 mg PO BID 04/03/18 06/24/19 06/23/19 History Oxycodone HCl/Acetaminophen 1 tab PO Q4-6H PRN #6 tablet 02/15/19 06/24/19 06/23/19 Rx [Percocet 10/325 mg] Apixaban [Eliquis] 2.5 mg PO BID #60 tablet 03/23/19 06/24/19 06/23/19 Rx Zolpidem [Ambien] 5 mg PO QHS PRN 05/25/19 06/24/19 06/23/19 History Active Meds: Active Medications Diphenhydramine HCl (Benadryl) 25 mg IV Q6H PRN PRN Reason: Itching Hydromorphone HCl (Dilaudid) 3 mg IV Q3H SLICK Stop: 06/25/19 11:01 Hydromorphone HCl (Dilaudid) 2 mg IV Q3H PRN PRN Reason: Pain , Severe (7-10) Ketorolac Tromethamine (Toradol) 30 mg IV Q8HR SLICK Stop: 06/29/19 21:59 Oxycodone/Acetaminophen (Percocet 5/325) 2 tab PO Q6H PRN PRN Reason: Pain, Moderate (4-6) Review of Systems Constitutional: chronic pain Musculoskeletal: low back pain Exam - Constitutional Vitals: Temp Pulse Resp BP Pulse Ox 98.0 F 79 24 118/65 95 06/24/19 19:16 06/24/19 19:16 06/24/19 19:16 06/24/19 19:16 06/24/19 19:16 General appearance: Present: mild distress, well-nourished - EENT Eyes: Present: PERRL ENT: hearing intact, clear oral mucosa - Neck Neck: Present: supple, normal ROM - Respiratory Respiratory effort: normal Respiratory: bilateral: CTA - Cardiovascular Heart Sounds: Present: S1 & S2. Absent: rub, click - Extremities Extremities: pulses symmetrical, No edema Peripheral Pulses: within normal limits - Abdominal General gastrointestinal: Present: soft, non-tender, non-distended, normal bowel sounds Male genitourinary: Present: deferred - Rectal Rectal Exam: deferred - Integumentary Integumentary: Present: clear, warm, dry - Musculoskeletal Musculoskeletal: gait normal, strength equal bilaterally - Psychiatric Psychiatric: appropriate mood/affect, intact judgment & insight - Neurologic Neurologic: CNII-XII intact, moves all extremities Results - Labs CBC & Chem 7: 06/24/19 14:05 06/24/19 12:55 Labs: Abnormal lab results 06/24/19 06/24/19 06/24/19 Range/Units 12:55 13:23 14:05 WBC 13.9 H (4.5-11.0) K/mm3 RBC 2.31 L (3.65-5.03) M/mm3 Hgb 7.9 L (11.8-15.2) gm/dl Hct 21.3 L (35.5-45.6) % MCH 34 H (28-32) pg MCHC 37 H (32-34) % RDW 24.7 H (13.2-15.2) % Percent Retic 11.21 H (0.78-2.58) % Sodium 136 L (137-145) mmol/L Potassium 5.4 H (3.6-5.0) mmol/L Carbon Dioxide 19 L (22-30) mmol/L Creatinine 0.5 L (0.8-1.5) mg/dL Glucose 123 H (75-100) mg/dL Total Bilirubin 7.10 H (0.1-1.2) mg/dL AST 86 H (5-40) units/L Alkaline Phosphatase 163 H (35-129) units/L Urine WBC (Auto) 17.0 H (0.0-6.0) /HPF Assessment and Plan - Patient Problems (1) Anemia, hemolytic Current Visit: Yes Status: Chronic Qualifiers: Hemolytic anemia type: other hemoglobinopathy Qualified Code(s): 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 (2) Sickle cell anemia with pain Current Visit: Yes Status: Chronic Plan to address problem: monitor labs. (3) Nontraumatic ischemic infarction of muscle, right ankle and foot Current Visit: Yes Status: Acute Plan to address problem: Pain control.
[2019-06-24 19:46] LABS: Platelet Count 197 K/mm3 (140-440)
[2019-06-24] MEDS ORDERED: AMBIEN PO PRN (19:59)
[2019-06-24] MEDS: D5NS 0.2% 1,000 ML IV SCH (20:35)
[2019-06-24] MEDS: DILAUDID IV SCH (20:37)
[2019-06-24] MEDS: BENADRYL IV PRN (20:49)
[2019-06-24] MEDS: TORADOL IV SCH (22:28)
[2019-06-24] MEDS: ELIQUIS PO SCH (22:31)
[2019-06-25] MEDS: D5NS 0.2% 1,000 ML IV SCH ×4 (00:37→18:20)
[2019-06-25] MEDS: DILAUDID IV SCH ×5 (00:38→12:10)
[2019-06-25] MEDS: TORADOL IV SCH ×3 (06:12→22:43)
[2019-06-25 08:12] LABS: Hemoglobin 6.9 gm/dl (11.8-15.2); Mean Corpuscular HGB Conc 36 % (32-34); Mean Corpuscular Volume 93 fl (84-94); Red Blood Count 2.07 M/mm3 (3.65-5.03)
[2019-06-25 08:15] LABS: Hematocrit 19.1 % (35.5-45.6); Red Cell Distribution Width 24.4 % (13.2-15.2)
[2019-06-25 08:25] LABS: BUN/Creatinine Ratio 22; Blood Urea Nitrogen 13 mg/dL (9-20); Calcium 8.2 mg/dL (8.4-10.2); Hemolysis Index 58; Iron 103 ug/dL (49-181)
[2019-06-25 08:32] LABS: Total Iron Binding Capacity 184 mcg/dL (250-450)
[2019-06-25 09:14] LABS: Total Cells Counted 100
[2019-06-25 09:15] LABS: Anisocytosis 2+; Basophils % (Manual) 0 % (0.0-1.8); Sickle Cells 3+
[2019-06-25 09:16] LABS: Giant Platelets Few; Howell-Jolly Bodies 1+; Platelet Estimate Consistent w Auto; Target Cells 1+
[2019-06-25 09:17] LABS: Platelet Count 187 K/mm3 (140-440)
[2019-06-25] MEDS ORDERED: NACL 0.9% 500 ML 500 ML IV NR (10:00)
[2019-06-25] MEDS: ELIQUIS PO SCH ×2 (10:25→22:43)
[2019-06-25] MEDS: HYDREA PO SCH (10:27)
[2019-06-25] MEDS: FOLVITE PO SCH (10:27)
[2019-06-25] MEDS: DILAUDID IV PRN ×2 (17:23→20:44)
[2019-06-25] MEDS: BENADRYL IV PRN (18:20)
--- NOTE | 2019-06-25 20:38 | Progress Note ---
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 (2) Sickle cell anemia with pain Current Visit: Yes Status: Chronic Plan to address problem: monitor labs. (3) Nontraumatic ischemic infarction of muscle, right ankle and foot Current Visit: Yes Status: Acute Plan to address problem: Pain control. Subjective Date of service: 06/25/19 Principal diagnosis: SCD/Pain crisis/anemia. Interval history: Patient seen/examined, resting in bed, records reviewed, case d/w patient. Hgb dropped, needing blood replacement,awaiting from the [facility].Right foot soft tissue swelling, consistent with Sickle crisis, Objective - Constitutional Vitals: Vital Signs - 12hr 06/25/19 06/25/19 06/25/19 09:00 12:56 16:00 Temperature 97.2 F L Pulse Rate 71 65 Pulse Rate [ Right Radial] Respiratory 15 Rate Blood Pressure 110/61 O2 Sat by Pulse 95 94 Oximetry 06/25/19 06/25/19 17:21 20:00 Temperature 97.4 F L Pulse Rate 69 Pulse Rate [ 88 Right Radial] Respiratory 15 20 Rate Blood Pressure 121/69 O2 Sat by Pulse 98 Oximetry General appearance: Present: mild distress - EENT Eyes: PERRL, EOM intact ENT: hearing intact, clear oral mucosa Ears: bilateral: normal - Neck Neck: supple, normal ROM - Respiratory Respiratory effort: normal Respiratory: bilateral: CTA - Breasts Breasts: deferred - Cardiovascular Rhythm: regular Heart Sounds: Present: S1 & S2. Absent: gallop, rub Extremities: pulses intact, No edema, normal color, Full ROM - Gastrointestinal General gastrointestinal: Present: soft, non-tender, non-distended, normal bowel sounds Rectal Exam: deferred - Genitourinary Male genitourinary: deferred - Integumentary Integumentary: clear, warm, dry - Musculoskeletal Musculoskeletal: 1, strength equal bilaterally - Neurologic Neurologic: moves all extremities - Psychiatric Psychiatric: memory intact, appropriate mood/affect, intact judgment & insight - Labs CBC & Chem 7: 06/25/19 07:30 06/25/19 07:30 Labs: Abnormal lab results 06/25/19 06/25/19 06/25/19 Range/Units 07:30 07:30 10:50 RBC 2.07 L (3.65-5.03) M/mm3 Hgb 6.9 L (11.8-15.2) gm/dl Hct 19.1 L* (35.5-45.6) % MCH 33 H (28-32) pg MCHC 36 H (32-34) % RDW 24.4 H (13.2-15.2) % Seg Neuts % (Manual) 37.0 L (40.0-70.0) % Lymphocytes % (Manual) 45.0 H (13.4-35.0) % Monocytes % (Manual) 15.0 H (0.0-7.3) % Nucleated RBC % 9.0 H (0.0-0.9) % Monocytes # (Manual) 1.6 H (0.0-0.8) K/mm3 Percent Retic 8.58 H (0.78-2.58) % Sodium 136 L (137-145) mmol/L Potassium 5.2 H (3.6-5.0) mmol/L Carbon Dioxide 20 L (22-30) mmol/L Creatinine 0.6 L (0.8-1.5) mg/dL Glucose 121 H (75-100) mg/dL Calcium 8.2 L (8.4-10.2) mg/dL TIBC 184 L (250-450) mcg/dL Crossmatch See Detail
[2019-06-25] MEDS ORDERED: NACL 0.9% 500 ML 500 ML ONE (23:23)
[2019-06-26] MEDS: BENADRYL IV PRN ×4 (00:26→19:09)
[2019-06-26] MEDS: DILAUDID IV PRN ×7 (00:26→22:17)
[2019-06-26] MEDS: TORADOL IV SCH ×2 (06:15→13:46)
[2019-06-26] MEDS: ELIQUIS PO SCH ×2 (09:50→21:31)
[2019-06-26] MEDS: FOLVITE PO SCH (09:50)
[2019-06-26] MEDS: HYDREA PO SCH (09:51)
[2019-06-26] MEDS: D5NS 0.2% 1,000 ML IV SCH ×3 (13:47→23:40)
--- NOTE | 2019-06-26 19:03 | Progress Note ---
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 (2) Sickle cell anemia with pain Current Visit: Yes Status: Chronic Plan to address problem: monitor labs. (3) Nontraumatic ischemic infarction of muscle, right ankle and foot Current Visit: Yes Status: Acute Plan to address problem: Pain control. (4) Sickle cell pain crisis Current Visit: Yes Status: Acute Plan to address problem: Pain control. (5) Sickle cell crisis Current Visit: No Status: Acute (6) SIRS without acute organ dysfunction due to non-infectious process Current Visit: Yes Status: Acute Plan to address problem: Continue with current management. Subjective Date of service: 06/26/19 Principal diagnosis: SCD/Pain crisis/anemia. Interval history: Patient seen/examined, resting in bed, records reviewed, case d/w patient. Hgb dropped, needing blood replacement,awaiting from the [facility].Right foot soft tissue swelling, consistent with Sickle crisis, Patient seen/examined, resting in bed, labs reviewed, Will continue with pain management., hydration Objective - Constitutional Vitals: Vital Signs - 12hr 06/26/19 06/26/19 06/26/19 09:14 11:54 16:49 Temperature 98.0 F 98.2 F Pulse Rate 73 70 Respiratory 24 16 Rate Blood Pressure 107/68 92/55 O2 Sat by Pulse 100 95 97 Oximetry General appearance: Present: mild distress, well-nourished - EENT Eyes: PERRL, EOM intact ENT: hearing intact, clear oral mucosa Ears: bilateral: normal - Neck Neck: supple, normal ROM - Respiratory Respiratory effort: normal Respiratory: bilateral: CTA - Breasts Breasts: deferred - Cardiovascular Rhythm: regular Heart Sounds: Present: S1 & S2. Absent: gallop, rub Extremities: pulses intact, No edema, normal color, Full ROM - Gastrointestinal General gastrointestinal: Present: soft, non-tender, non-distended, normal bowel sounds Rectal Exam: deferred - Genitourinary Male genitourinary: deferred - Integumentary Integumentary: clear, warm, dry - Musculoskeletal Musculoskeletal: 1, strength equal bilaterally - Neurologic Neurologic: moves all extremities - Psychiatric Psychiatric: memory intact, appropriate mood/affect, intact judgment & insight - Labs CBC & Chem 7: 06/25/19 07:30 06/25/19 07:30 Labs: Abnormal lab results 06/25/19 Range/Units 10:50 Crossmatch See Detail
[2019-06-27] MEDS: BENADRYL IV PRN ×4 (01:17→20:37)
[2019-06-27] MEDS: DILAUDID IV PRN ×8 (01:17→23:50)
[2019-06-27 04:40] LABS: Hematocrit 26.3 % (35.5-45.6); Hemoglobin 9.1 gm/dl (11.8-15.2); Mean Corpuscular HGB Conc 35 % (32-34); Mean Corpuscular Volume 92 fl (84-94); Red Blood Count 2.85 M/mm3 (3.65-5.03)
[2019-06-27 04:45] LABS: Red Cell Distribution Width 22.7 % (13.2-15.2)
[2019-06-27] MEDS: D5NS 0.2% 1,000 ML IV SCH ×4 (06:00→23:51)
[2019-06-27 06:25] LABS: Platelet Count 225 K/mm3 (140-440)
[2019-06-27] MEDS: FOLVITE PO SCH (10:48)
[2019-06-27] MEDS: ELIQUIS PO SCH ×2 (10:48→21:45)
[2019-06-27] MEDS: HYDREA PO SCH (10:49)
--- NOTE | 2019-06-27 12:56 | Progress Note ---
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 (2) Sickle cell anemia with pain Current Visit: Yes Status: Chronic Plan to address problem: monitor labs. post transfusion.; (3) Nontraumatic ischemic infarction of muscle, right ankle and foot Current Visit: Yes Status: Acute Plan to address problem: Pain control. (4) Sickle cell pain crisis Current Visit: Yes Status: Acute Plan to address problem: Pain control. (5) Sickle cell crisis Current Visit: No Status: Acute (6) SIRS without acute organ dysfunction due to non-infectious process Current Visit: Yes Status: Acute Plan to address problem: Continue with current management. Subjective Date of service: 06/27/19 Principal diagnosis: SCD/Pain crisis/anemia. Interval history: Patient seen/examined, resting in bed, records reviewed, case d/w patient. Hgb dropped, needing blood replacement,awaiting from the [facility].Right foot soft tissue swelling, consistent with Sickle crisis, Patient seen/examined, resting in bed, labs reviewed, Will continue with pain management., hydration Patient seen/examined, resting in bed, c/o right leg still very painful, unable to ambulate, or put pressure on it.Feels a bit better overall, after blood transfusion.; Objective - Constitutional Vitals: Vital Signs - 12hr 06/27/19 06/27/19 06/27/19 01:17 01:47 04:17 Temperature Pulse Rate Respiratory 20 20 20 Rate Blood Pressure O2 Sat by Pulse Oximetry 06/27/19 06/27/19 06/27/19 04:47 05:47 07:27 Temperature 98.4 F Pulse Rate 76 Respiratory 20 18 22 Rate Blood Pressure 109/68 O2 Sat by Pulse 97 Oximetry General appearance: Present: mild distress, well-nourished - EENT Eyes: PERRL, EOM intact ENT: hearing intact, clear oral mucosa Ears: bilateral: normal - Neck Neck: supple, normal ROM - Respiratory Respiratory effort: normal Respiratory: bilateral: CTA - Breasts Breasts: deferred - Cardiovascular Rhythm: regular Heart Sounds: Present: S1 & S2. Absent: gallop, rub Extremities: pulses intact, No edema, normal color, Full ROM - Gastrointestinal General gastrointestinal: Present: soft, non-tender, non-distended, normal bowel sounds Rectal Exam: deferred - Genitourinary Male genitourinary: deferred - Integumentary Integumentary: clear, warm, dry - Musculoskeletal Musculoskeletal: 1, strength equal bilaterally - Neurologic Neurologic: moves all extremities - Psychiatric Psychiatric: memory intact, appropriate mood/affect, intact judgment & insight - Labs CBC & Chem 7: 06/27/19 04:30 06/25/19 07:30 Labs: Abnormal lab results 06/27/19 Range/Units 04:30 RBC 2.85 L (3.65-5.03) M/mm3 Hgb 9.1 L (11.8-15.2) gm/dl Hct 26.3 L D (35.5-45.6) % MCHC 35 H (32-34) % RDW 22.7 H (13.2-15.2) %
[2019-06-28] MEDS: BENADRYL IV PRN ×4 (02:27→22:15)
[2019-06-28] MEDS: DILAUDID IV PRN ×7 (02:28→22:15)
[2019-06-28] MEDS: D5NS 0.2% 1,000 ML IV SCH ×3 (05:28→18:55)
[2019-06-28] MEDS: ELIQUIS PO SCH ×2 (09:00→22:16)
[2019-06-28] MEDS: FOLVITE PO SCH (09:00)
[2019-06-28] MEDS: HYDREA PO SCH (09:01)
--- NOTE | 2019-06-28 15:32 | Progress Note ---
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 (2) Sickle cell anemia with pain Current Visit: Yes Status: Chronic Plan to address problem: monitor labs. post transfusion.; (3) Nontraumatic ischemic infarction of muscle, right ankle and foot Current Visit: Yes Status: Acute Plan to address problem: Pain control. (4) Sickle cell pain crisis Current Visit: Yes Status: Acute Plan to address problem: Pain control. (5) Sickle cell crisis Current Visit: No Status: Acute (6) SIRS without acute organ dysfunction due to non-infectious process Current Visit: Yes Status: Acute Plan to address problem: Continue with current management. Subjective Date of service: 06/28/19 Principal diagnosis: SCD/Pain crisis/anemia. Interval history: Patient seen/examined, resting in bed, records reviewed, case d/w patient. Hgb dropped, needing blood replacement,awaiting from the [facility].Right foot soft tissue swelling, consistent with Sickle crisis, Patient seen/examined, resting in bed, labs reviewed, Will continue with pain management., hydration Patient seen/examined, resting in bed, c/o right leg still very painful, unable to ambulate, or put pressure on it.Feels a bit better overall, after blood transfusion.; Patient seen/examined, resting in bed, labs reviewed, c/o still having leg/feet pain Objective - Constitutional Vitals: Vital Signs - 12hr 06/28/19 06/28/19 06/28/19 05:03 12:06 12:26 Temperature 98.3 F 98.3 F Pulse Rate 72 89 Respiratory 20 20 Rate Blood Pressure 109/60 117/69 O2 Sat by Pulse 99 92 95 Oximetry General appearance: Present: mild distress, well-nourished - EENT Eyes: PERRL, EOM intact ENT: hearing intact, clear oral mucosa Ears: bilateral: normal - Neck Neck: supple, normal ROM - Respiratory Respiratory effort: normal Respiratory: bilateral: CTA - Breasts Breasts: deferred - Cardiovascular Rhythm: regular Heart Sounds: Present: S1 & S2. Absent: gallop, rub Extremities: pulses intact, No edema, normal color, Full ROM - Gastrointestinal General gastrointestinal: Present: soft, non-tender, non-distended, normal bowel sounds Rectal Exam: deferred - Genitourinary Male genitourinary: deferred - Integumentary Integumentary: clear, warm, dry - Musculoskeletal Musculoskeletal: 1, strength equal bilaterally - Neurologic Neurologic: moves all extremities - Psychiatric Psychiatric: memory intact, appropriate mood/affect, intact judgment & insight - Labs CBC & Chem 7: 06/27/19 04:30 06/25/19 07:30
[2019-06-29] MEDS: DILAUDID IV PRN ×9 (00:54→23:25)
[2019-06-29] MEDS: D5NS 0.2% 1,000 ML IV SCH ×4 (00:54→20:26)
[2019-06-29] MEDS: BENADRYL IV PRN ×4 (04:02→23:25)
[2019-06-29] MEDS: HYDREA PO SCH (10:32)
[2019-06-29] MEDS: ELIQUIS PO SCH ×2 (10:33→23:26)
[2019-06-29] MEDS: FOLVITE PO SCH (10:33)
--- NOTE | 2019-06-29 18:29 | Progress Note ---
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 (2) Sickle cell anemia with pain Current Visit: Yes Status: Chronic Plan to address problem: monitor labs. post transfusion.; (3) Nontraumatic ischemic infarction of muscle, right ankle and foot Current Visit: Yes Status: Acute Plan to address problem: Pain control. (4) Sickle cell pain crisis Current Visit: Yes Status: Acute Plan to address problem: Pain control. (5) Sickle cell crisis Current Visit: No Status: Acute (6) SIRS without acute organ dysfunction due to non-infectious process Current Visit: Yes Status: Acute Subjective Date of service: 06/29/19 Principal diagnosis: SCD/Pain crisis/anemia. Interval history: Patient seen/examined, resting in bed, records reviewed, case d/w patient. Hgb dropped, needing blood replacement,awaiting from the [facility].Right foot soft tissue swelling, consistent with Sickle crisis, Patient seen/examined, resting in bed, labs reviewed, Will continue with pain management., hydration Patient seen/examined, resting in bed, c/o right leg still very painful, unable to ambulate, or put pressure on it.Feels a bit better overall, after blood transfusion.; Patient seen/examined, resting in bed, labs reviewed, c/o still having leg/feet pain Patient seen/examined, resting in bed, Sill not able to put pressure on right leg.Will D/C home ,if he can get crutches. Objective - Constitutional Vitals: Vital Signs - 12hr 06/29/19 06/29/19 06/29/19 07:29 12:11 14:22 Temperature 97.9 F Pulse Rate 76 Respiratory 16 18 Rate Blood Pressure 106/56 O2 Sat by Pulse 98 97 Oximetry 06/29/19 16:35 Temperature 98.3 F Pulse Rate 83 Respiratory 18 Rate Blood Pressure 117/69 O2 Sat by Pulse 95 Oximetry General appearance: Present: mild distress, well-nourished - EENT Eyes: PERRL, EOM intact ENT: hearing intact, clear oral mucosa Ears: bilateral: normal - Neck Neck: supple, normal ROM - Respiratory Respiratory effort: normal Respiratory: bilateral: CTA - Breasts Breasts: deferred - Cardiovascular Rhythm: regular Heart Sounds: Present: S1 & S2. Absent: gallop, rub Extremities: pulses intact, No edema, normal color, Full ROM - Gastrointestinal General gastrointestinal: Present: soft, non-tender, non-distended, normal bowel sounds Rectal Exam: deferred - Genitourinary Male genitourinary: deferred - Integumentary Integumentary: clear, warm, dry - Musculoskeletal Musculoskeletal: 1, strength equal bilaterally - Neurologic Neurologic: moves all extremities - Psychiatric Psychiatric: memory intact, appropriate mood/affect, intact judgment & insight - Labs CBC & Chem 7: 06/27/19 04:30 06/25/19 07:30
[2019-06-30] MEDS: DILAUDID IV PRN ×6 (02:30→18:52)
[2019-06-30] MEDS: D5NS 0.2% 1,000 ML IV SCH ×3 (03:36→15:44)
[2019-06-30] MEDS: BENADRYL IV PRN ×3 (05:46→18:51)
[2019-06-30] MEDS: HYDREA PO SCH (09:05)
[2019-06-30] MEDS: ELIQUIS PO SCH (09:05)
[2019-06-30] MEDS: FOLVITE PO SCH (09:05)
[2019-06-30] MEDS ORDERED: TRIPLE ANTIBIOTIC TP ONE (17:57)
[2019-06-30] MEDS ORDERED: FLUSH HEPARIN IV ONE (17:58)
--- NOTE | 2019-06-30 18:42 | Discharge Summary ---
Providers - Providers Date of Admission: 06/24/19 15:33 Date of discharge: 06/30/19 Attending physician: ZACHERY RUIZ 06/30/19 08:43 Physical Therapy Evaluation and Treat [CONS] Routine Comment: Reason For Exam: Difficulty with ambulation, crutch training Primary care physician: ZACHERY RUIZ Hospitalization Reason for admission: SCD/Pain crisis Condition: Fair Hospital course: Patient presented to the hospital, ER with CC of diffuse joint pain, admitted for sxs management/control. He received blood transfusion- 2units PRBC. He had pain crisis also in the right leg rendering him inability to ambulate, He had PT, and was given crutches ,to go home with. patient seen/examined, resting in bed, examined, denies any new problems, and will be d/c home today. 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 - Other hemoglobinopathies (2) Sickle cell anemia with pain Status: Chronic (3) Nontraumatic ischemic infarction of muscle, right ankle and foot Status: Acute (4) Sickle cell pain crisis Status: Acute (5) Sickle cell crisis Status: Acute (6) SIRS without acute organ dysfunction due to non-infectious process Status: Resolved Core Measure Documentation - Palliative Care Palliative Care/ Comfort Measures: Not Applicable - Core Measures Any of the following diagnoses?: history only Exam - Constitutional Vitals: Temp Pulse Resp BP Pulse Ox 97.4 F L 83 20 105/54 99 06/30/19 11:33 06/30/19 11:33 06/30/19 11:33 06/30/19 11:33 06/30/19 11:33 General appearance: Present: no acute distress, well-nourished - EENT Eyes: Present: PERRL ENT: hearing intact, clear oral mucosa - Neck Neck: Present: supple, normal ROM - Respiratory Respiratory effort: normal Respiratory: bilateral: CTA - Cardiovascular Heart Sounds: Present: S1 & S2. Absent: rub, click - Extremities Extremities: pulses symmetrical, No edema Peripheral Pulses: within normal limits - Abdominal General gastrointestinal: Present: soft, non-tender, non-distended, normal bowel sounds Male genitourinary: Present: deferred - Rectal Rectal Exam: deferred - Integumentary Integumentary: Present: clear, warm, dry - Musculoskeletal Musculoskeletal: gait normal, strength equal bilaterally - Psychiatric Psychiatric: appropriate mood/affect, intact judgment & insight - Neurologic Neurologic: CNII-XII intact, moves all extremities Plan Activity: other (Use the crutches, until better able to ambulate.) Weight Bearing Status: Weight Bear as Tolerated Diet: regular Durable Medical Equipment Needed Upon Discharge: Crutches Follow up with: PRIMARY CARE, [Referring] - 3-5 Days ZACHERY RUIZ DO [Primary Care Provider] - 7 Days
[2019-06-30 22:19] VITALS: BP 110/67
== END 2019-06-30 22:45 | disposition home or self-care (01) | DRG 811 ==
LOC: ED 11:30 → 4A 15:33 → 3A 16:24
PROVIDERS: ADMIT Internal Medicine Hematology & Oncology; ATTEND Internal Medicine Hematology & Oncology
PROC: 30233N1 Transfusion of Nonautologous Red Blood Cells into Peripheral Vein, Percutaneous Approach (ICD-10-PCS; principal; 2019-06-25)
DX: D57.00 Hb-SS disease with crisis, unspecified (principal); R65.11 Systemic inflammatory response syndrome (SIRS) of non-infectious origin with acute organ dysfunction; J96.21 Acute and chronic respiratory failure with hypoxia; M62.271 Nontraumatic ischemic infarction of muscle, right ankle and foot; D63.8 Anemia in other chronic diseases classified elsewhere; Z90.49 Acquired absence of other specified parts of digestive tract; K76.89 Other specified diseases of liver
CPT/HCPCS: 36415; 71045; 80048; 80053; 80074; 81001; 82728; 83550; 83690; 85007; 85025; 85027; 85045; 85660; 86850; 86900; 86901; 86920; 87040; 87086; 94760; 96361; 96374; 96375; G0378; J1170; J1200; J1642; J1885; J7030; J7040; P9016

== ENCOUNTER 2019-07-22 11:46 | Inpatient (IN) | payer MEDICARE ==
[2019-07-22] MEDS ORDERED: NACL 0.9% 1000 ML 1,000 ML IV ONE ×2 (12:39→12:40)
--- NOTE | 2019-07-22 12:42 | Event Note ---
ED Screening Note Date of service: 07/22/19 Time: 12:39 ED Screening Note: 28 y/o male comes in for SCD crisis. Having abd pain and jaundice. This initial assessment/diagnostic orders/clinical plan/treatment(s) is/are subject to change based on patients health status, clinical progression and re- assessment by fellow clinical providers in the ED. Further treatment and workup at subsequent clinical providers discretion. Patient/guardian urged not to elope from the ED as their condition may be serious if not clinically assessed and managed. Initial orders include:
[2019-07-22] MEDS ORDERED: ZOFRAN ONE (15:00)
[2019-07-22] MEDS ORDERED: MORPHINE ONE (15:00)
[2019-07-22] MEDS ORDERED: ZOFRAN IV ONE (15:12)
[2019-07-22] MEDS ORDERED: MORPHINE IV ONE (15:12)
[2019-07-22 15:38] LABS: Hematocrit 21.4 % (35.5-45.6); Hemoglobin 7.8 gm/dl (11.8-15.2); Mean Corpuscular HGB Conc 36 % (32-34); Mean Corpuscular Volume 96 fl (84-94); Red Blood Count 2.23 M/mm3 (3.65-5.03)
[2019-07-22 15:53] LABS: INR 1.11 (0.87-1.13)
[2019-07-22] MEDS ORDERED: DILAUDID IV ONE ×2 (16:44→17:47)
[2019-07-22] MEDS ORDERED: BENADRYL IV ONE (16:45)
--- NOTE | 2019-07-22 18:32 | Emergency Department Report ---
ED General Adult HPI - General Chief complaint: Sickle Cell Crisis Stated complaint: SICKLE CELL CRISIS Time Seen by Provider: 07/22/19 12:39 Source: patient Mode of arrival: Ambulatory Limitations: No Limitations - History of Present Illness Initial comments: She presents to the emergency pole with a chief complaint of sickle cell crisis. Patient states he is having sharp back and leg pain is consistent with prior crises. Patient denies chest pain, shortness breath, or headache. -: Gradual Severity scale (0 -10): 5 Quality: sharp Consistency: constant Improves with: rest Worsens with: movement Associated Symptoms: denies other symptoms Treatments Prior to Arrival: none - Related Data Home Medications Medication Instructions Recorded Confirmed Last Taken Folic Acid [Folvite] 1 mg PO DAILY 04/03/18 06/24/19 06/23/19 Morphine ER [Ms Contin ER] 30 mg PO BID 04/03/18 06/24/19 06/23/19 Zolpidem [Ambien] 5 mg PO QHS PRN 05/25/19 06/24/19 06/23/19 Previous Rx's Medication Instructions Recorded Last Taken Type Hydroxyurea [Droxia] 1,500 mg PO DAILY #30 capsule 12/07/17 06/23/19 Rx Oxycodone HCl/Acetaminophen 1 tab PO Q4-6H PRN #6 tablet 02/15/19 06/23/19 Rx [Percocet 10/325 mg] Apixaban [Eliquis] 2.5 mg PO BID #60 tablet 03/23/19 06/23/19 Rx Allergies Allergy/AdvReac Type Severity Reaction Status Date / Time No Known Allergies Allergy Verified 05/25/19 14:45 ED Review of Systems ROS: Stated complaint: SICKLE CELL CRISIS Other details as noted in HPI Comment: All other systems reviewed and negative Constitutional: denies: chills, fever Eyes: denies: eye pain, eye discharge, vision change ENT: denies: ear pain, throat pain Respiratory: denies: cough, shortness of breath, wheezing Cardiovascular: denies: chest pain, palpitations Endocrine: no symptoms reported Gastrointestinal: denies: abdominal pain, nausea, diarrhea Genitourinary: denies: urgency, dysuria Musculoskeletal: denies: back pain, joint swelling, arthralgia Skin: denies: rash, lesions Neurological: denies: headache, weakness, paresthesias Psychiatric: denies: anxiety, depression Hematological/Lymphatic: denies: easy bleeding, easy bruising ED Past Medical Hx - Past Medical History Previous Medical History?: Yes Hx Hypertension: No Hx CVA: No Hx Heart Attack/AMI: No Hx Congestive Heart Failure: No Hx Diabetes: No Hx Deep Vein Thrombosis: No Hx Pulmonary Embolism: No Hx GERD: No Hx Liver Disease: No Hx Renal Disease: No Hx of Cancer: No Hx Sickle Cell Disease: Yes Hx Arthritis: No Hx Headaches / Migraines: No Hx Seizures: No Hx Kidney Stones: No Hx Psychiatric Treatment: No Hx Asthma: Yes (denies hx exacerbations) Hx COPD: No Hx Tuberculosis: No Hx Dementia: No Hx HIV: No Additional medical history: Acute chest syndrome, - Surgical History Past Surgical History?: Yes Hx Coronary Stent: No Hx Open Heart Surgery: No Hx Pacemaker: No Hx Internal Defibrillator: No Hx Cholecystectomy: Yes Hx Appendectomy: No Hx Breast Surgery: No Additional Surgical History: TRACHEOSTOMY. 2 PORTS AND REMOVAL. LIVER BIOPSY X2 - Social History Smoking Status: Never Smoker Substance Use Type: None - Medications Home Medications: Home Medications Medication Instructions Recorded Confirmed Last Taken Type Hydroxyurea [Droxia] 1,500 mg PO DAILY #30 capsule 12/07/17 06/24/19 06/23/19 Rx Folic Acid [Folvite] 1 mg PO DAILY 04/03/18 06/24/19 06/23/19 History Morphine ER [Ms Contin ER] 30 mg PO BID 04/03/18 06/24/19 06/23/19 History Oxycodone HCl/Acetaminophen 1 tab PO Q4-6H PRN #6 tablet 02/15/19 06/24/19 06/23/19 Rx [Percocet 10/325 mg] Apixaban [Eliquis] 2.5 mg PO BID #60 tablet 03/23/19 06/24/19 06/23/19 Rx Zolpidem [Ambien] 5 mg PO QHS PRN 05/25/19 06/24/19 06/23/19 History ED Physical Exam - General Limitations: No Limitations General appearance: alert, in no apparent distress - Head Head exam: Present: atraumatic, normocephalic - Eye Eye exam: Present: PERRL, EOMI, scleral icterus - ENT ENT exam: Present: mucous membranes moist - Neck Neck exam: Present: normal inspection - Respiratory Respiratory exam: Present: normal lung sounds bilaterally. Absent: respiratory distress - Cardiovascular Cardiovascular Exam: Present: regular rate, normal rhythm. Absent: systolic murmur, diastolic murmur, rubs, gallop - GI/Abdominal GI/Abdominal exam: Present: soft, normal bowel sounds. Absent: distended, tenderness - Rectal Rectal exam: Present: deferred - Extremities Exam Extremities exam: Present: normal inspection - Back Exam Back exam: Present: normal inspection - Neurological Exam Neurological exam: Present: alert, oriented X3, CN II-XII intact. Absent: motor sensory deficit - Psychiatric Psychiatric exam: Present: normal affect, normal mood - Skin Skin exam: Present: warm, dry, intact, normal color. Absent: rash ED Course Vital Signs 07/22/19 07/22/19 07/22/19 12:22 12:52 15:59 Temperature 98.7 F Pulse Rate 102 H 96 H 89 Respiratory 16 16 16 Rate Blood Pressure 121/74 Blood Pressure 121/70 102/57 [Left] O2 Sat by Pulse 90 100 96 Oximetry 07/22/19 07/22/19 17:03 17:35 Temperature Pulse Rate 86 Respiratory 20 Rate Blood Pressure Blood Pressure 122/67 118/76 [Left] O2 Sat by Pulse 100 Oximetry ED Medical Decision Making - Lab Data Result diagrams: 07/22/19 14:48 Lab Results 07/22/19 07/22/19 07/22/19 Range/Units 14:48 14:48 14:48 RBC 2.23 L (3.65-5.03) M/mm3 Hgb 7.8 L (11.8-15.2) gm/dl Hct 21.4 L (35.5-45.6) % MCV 96 H (84-94) fl MCH 35 H (28-32) pg MCHC 36 H (32-34) % RDW 31.0 H (13.2-15.2) % Percent Retic 17.52 H (0.78-2.58) % PT 14.0 (12.2-14.9) Sec. INR 1.11 (0.87-1.13) Lactate Dehydrogenase (91-180) units/L Amylase 67 (27-131) units/L Lipase 24 (13-60) units/L Blood Type Antibody Screen 07/22/19 07/22/19 Range/Units 14:48 14:50 RBC (3.65-5.03) M/mm3 Hgb (11.8-15.2) gm/dl Hct (35.5-45.6) % MCV (84-94) fl MCH (28-32) pg MCHC (32-34) % RDW (13.2-15.2) % Percent Retic (0.78-2.58) % PT (12.2-14.9) Sec. INR (0.87-1.13) Lactate Dehydrogenase 1434 H (91-180) units/L Amylase (27-131) units/L Lipase (13-60) units/L Blood Type A POSITIVE Antibody Screen Negative - Medical Decision Making Patient received IV Dilaudid and IV fluids Critical care attestation.: If time is entered above; I have spent that time in minutes in the direct care of this critically ill patient, excluding procedure time. ED Disposition Clinical Impression: Sickle cell crisis Disposition: OP ADMIT IP TO THIS HOSP Is pt being admited?: Yes Does the pt Need Aspirin: No Condition: Fair Referrals: ZACHERY RUIZ DO [Primary Care Provider] - 3-5 Days
[2019-07-22 18:37] LABS: Basophils % (Manual) 0 % (0.0-1.8); Total Cells Counted 100
[2019-07-22 18:38] LABS: Anisocytosis 3+; Macrocytosis 1+; Platelet Estimate Consistent w Auto; Sickle Cells 3+
[2019-07-22] MEDS ORDERED: ZOFRAN IV PRN (18:44)
[2019-07-22 18:45] LABS: Platelet Count 197 K/mm3 (140-440)
[2019-07-22] MEDS ORDERED: NON-FORMULARY (Oxycodone Hcl/Acetaminophen [Percocet 10/325 Mg] 1 TAB) PO PRN (18:50)
[2019-07-22] MEDS ORDERED: AMBIEN PO PRN (18:50)
[2019-07-22] MEDS ORDERED: NACL 0.9% 1000 ML 1,000 ML IV SCH (19:00)
--- NOTE | 2019-07-22 19:02 | History and Physical Report ---
History of Present Illness Date of examination: 07/22/19 Date of admission: 07/22/19 Chief complaint: SCD/Pain crisis History of present illness: Patient presented to the Er with CC of SCD/Pain crisis, not controlled by his home meds. he was evaluated, in the ED, and admitted for sxs management/control.He will get pain . hydration, oxygen, and monitor labs. Past History Past Medical History: anemia, DVT Social history: no significant social history, single, lives with family Family history: no significant family history Medications and Allergies Allergies Allergy/AdvReac Type Severity Reaction Status Date / Time No Known Allergies Allergy Verified 05/25/19 14:45 Home Medications Medication Instructions Recorded Confirmed Last Taken Type Hydroxyurea [Droxia] 1,500 mg PO DAILY #30 capsule 12/07/17 06/24/19 06/23/19 Rx Folic Acid [Folvite] 1 mg PO DAILY 04/03/18 06/24/19 06/23/19 History Morphine ER [Ms Contin ER] 30 mg PO BID 04/03/18 06/24/19 06/23/19 History Oxycodone HCl/Acetaminophen 1 tab PO Q4-6H PRN #6 tablet 02/15/19 06/24/19 06/23/19 Rx [Percocet 10/325 mg] Apixaban [Eliquis] 2.5 mg PO BID #60 tablet 03/23/19 06/24/19 06/23/19 Rx Zolpidem [Ambien] 5 mg PO QHS PRN 05/25/19 06/24/19 06/23/19 History Active Meds: Active Medications Apixaban (Eliquis) 2.5 mg PO BID SLICK; Protocol Diphenhydramine HCl (Benadryl) 25 mg IV Q6HR ONE Stop: 07/22/19 18:42 Folic Acid (Folvite) 1 mg PO DAILY SLICK Hydromorphone HCl (Dilaudid) 2 mg IV Q3HR SLICK Sodium Chloride (Nacl 0.9% 1000 Ml) 1,000 mls @ 150 mls/hr IV DIRECT SLICK Dextrose/Sodium Chloride (D5ns 0.2%) 1,000 mls @ 150 mls/hr IV DIRECT SLICK Ketorolac Tromethamine (Toradol) 30 mg IV Q6HR ONE Stop: 07/22/19 18:44 Miscellaneous Medication (Hydroxyurea [Droxia]) 1,500 mg PO DAILY SLICK Miscellaneous Medication (Oxycodone Hcl/Acetaminophen [Percocet 10/325 Mg]) 1 tab PO Q4-6H PRN PRN Reason: PAIN Ondansetron HCl (Zofran) 4 mg IV Q8HR ONE Stop: 07/22/19 18:45 Zolpidem Tartrate (Ambien) 5 mg PO QHS PRN PRN Reason: Sleep Review of Systems Constitutional: fatigue, chronic pain Respiratory: shortness of breath, home oxygen Exam - Constitutional Vitals: Temp Pulse Resp BP Pulse Ox 98.7 F 86 20 118/76 100 07/22/19 12:22 07/22/19 17:03 07/22/19 17:03 07/22/19 17:35 07/22/19 17:03 General appearance: Present: mild distress, well-nourished - EENT Eyes: Present: PERRL ENT: hearing intact, clear oral mucosa - Neck Neck: Present: supple, normal ROM - Respiratory Respiratory: bilateral: diminished - Cardiovascular Heart Sounds: Present: S1 & S2. Absent: rub, click - Extremities Extremities: pulses symmetrical, No edema Peripheral Pulses: within normal limits - Abdominal General gastrointestinal: Present: soft, non-tender, non-distended, normal bowel sounds Male genitourinary: Present: deferred - Rectal Rectal Exam: deferred - Integumentary Integumentary: Present: clear, warm, dry - Musculoskeletal Musculoskeletal: gait normal, strength equal bilaterally - Psychiatric Psychiatric: appropriate mood/affect, intact judgment & insight - Neurologic Neurologic: CNII-XII intact, moves all extremities Results - Labs CBC & Chem 7: 07/22/19 14:48 Labs: Abnormal lab results 07/22/19 07/22/19 Range/Units 14:48 14:48 RBC 2.23 L (3.65-5.03) M/mm3 Hgb 7.8 L (11.8-15.2) gm/dl Hct 21.4 L (35.5-45.6) % MCV 96 H (84-94) fl MCH 35 H (28-32) pg MCHC 36 H (32-34) % RDW 31.0 H (13.2-15.2) % Monocytes % (Manual) 13.0 H (0.0-7.3) % Nucleated RBC % 34.0 H (0.0-0.9) % Seg Neutrophils # Man 0.0 L (1.8-7.7) K/mm3 Lymphocytes # (Manual) 0.0 L (1.2-5.4) K/mm3 Percent Retic 17.52 H (0.78-2.58) % Lactate Dehydrogenase 1434 H (91-180) units/L Assessment and Plan - Patient Problems (1) Sickle cell anemia with pain Current Visit: Yes Status: Chronic Plan to address problem: see orders. (2) Hemolytic crisis Current Visit: No Status: Acute Plan to address problem: supportive., and follow labs. (3) Anemia Current Visit: Yes Status: Acute Plan to address problem: monitor, adjust labs. (4) Dehydration Current Visit: Yes Status: Acute Plan to address problem: hydration. (5) Hypoxemia Current Visit: Yes Status: Chronic Plan to address problem: oxygen
[2019-07-22] MEDS ORDERED: PERCOCET 5/325 PO PRN (19:06)
[2019-07-22] MEDS ORDERED: ROXICODONE PO PRN (19:07)
[2019-07-22] MEDS: D5NS 0.2% 1,000 ML IV SCH (21:14)
[2019-07-22] MEDS: ELIQUIS PO SCH (21:17)
[2019-07-22] MEDS: DILAUDID IV SCH (21:18)
[2019-07-22] MEDS: TORADOL IV SCH (21:19)
[2019-07-22] MEDS: BENADRYL IV PRN (21:20)
[2019-07-23] MEDS: DILAUDID IV SCH ×8 (00:53→21:43)
[2019-07-23] MEDS: TORADOL IV SCH ×2 (00:58→06:42)
[2019-07-23] MEDS: D5NS 0.2% 1,000 ML IV SCH ×3 (03:52→17:03)
[2019-07-23] MEDS: BENADRYL IV PRN ×4 (03:55→21:44)
[2019-07-23 08:17] LABS: Hematocrit 20.6 % (35.5-45.6); Hemoglobin 7.6 gm/dl (11.8-15.2); Mean Corpuscular HGB Conc 37 % (32-34); Mean Corpuscular Volume 96 fl (84-94); Red Blood Count 2.16 M/mm3 (3.65-5.03)
[2019-07-23 08:18] LABS: Red Cell Distribution Width 28.4 % (13.2-15.2)
[2019-07-23 08:52] LABS: BUN/Creatinine Ratio 13; Blood Urea Nitrogen 9 mg/dL (9-20); Hemolysis Index 16; Iron 141 ug/dL (49-181); Total Iron Binding Capacity 167 mcg/dL (250-450)
[2019-07-23] MEDS ORDERED: HYDROXYUREA PO SCH (10:00)
[2019-07-23] MEDS: FOLVITE PO SCH (10:03)
[2019-07-23] MEDS: ELIQUIS PO SCH ×2 (10:03→21:44)
[2019-07-23] MEDS: HYDREA PO SCH (10:51)
[2019-07-23 12:30] LABS: Basophils % (Manual) 0 % (0.0-1.8); Total Cells Counted 100
[2019-07-23 12:39] LABS: Anisocytosis 3+; Macrocytosis 1+; Sickle Cells 3+
[2019-07-23 12:42] LABS: Platelet Estimate Consistent w Auto
[2019-07-23 14:22] LABS: Platelet Count 178 K/mm3 (140-440)
--- NOTE | 2019-07-23 19:20 | Progress Note ---
Assessment and Plan - Patient Problems (1) Sickle cell anemia with pain Current Visit: Yes Status: Chronic Plan to address problem: see orders. (2) Hemolytic crisis Current Visit: No Status: Acute Plan to address problem: supportive., and follow labs. (3) Anemia Current Visit: Yes Status: Acute Plan to address problem: monitor, adjust labs. (4) Dehydration Current Visit: Yes Status: Acute Plan to address problem: hydration. (5) Hypoxemia Current Visit: Yes Status: Chronic Plan to address problem: oxygen Subjective Date of service: 07/23/19 Principal diagnosis: SCD/Pain crisis, Anemia with hemolysis. Interval history: Patient seen/examined, resting in bed, labs reviewed, case d/w patient. No new issues at this time. will continue with current management. Objective - Constitutional Vitals: Vital Signs - 12hr 07/23/19 07/23/19 07/23/19 09:22 13:30 16:38 Temperature 97.8 F 97.6 F Pulse Rate 68 68 Respiratory 24 20 Rate Blood Pressure 113/61 105/66 O2 Sat by Pulse 96 95 93 Oximetry General appearance: Present: mild distress, well-nourished - EENT Eyes: PERRL, EOM intact ENT: hearing intact, clear oral mucosa Ears: bilateral: normal - Neck Neck: supple, normal ROM - Respiratory Respiratory effort: normal Respiratory: bilateral: CTA - Breasts Breasts: deferred - Cardiovascular Rhythm: regular Heart Sounds: Present: S1 & S2. Absent: gallop, rub Extremities: pulses intact, No edema, normal color, Full ROM - Gastrointestinal General gastrointestinal: Present: soft, non-tender, non-distended, normal bowel sounds Rectal Exam: deferred - Genitourinary Male genitourinary: deferred - Integumentary Integumentary: clear, warm, dry - Musculoskeletal Musculoskeletal: 1, strength equal bilaterally - Neurologic Neurologic: moves all extremities - Psychiatric Psychiatric: memory intact, appropriate mood/affect, intact judgment & insight - Labs CBC & Chem 7: 07/23/19 07:00 07/23/19 07:00 Labs: Abnormal lab results 07/22/19 07/23/19 07/23/19 Range/Units 14:42 07:00 07:00 RBC 2.16 L (3.65-5.03) M/mm3 Hgb 7.6 L (11.8-15.2) gm/dl Hct 20.6 L (35.5-45.6) % MCV 96 H (84-94) fl MCH 35 H (28-32) pg MCHC 37 H (32-34) % RDW 28.4 H (13.2-15.2) % Seg Neuts % (Manual) 37.0 L (40.0-70.0) % Lymphocytes % (Manual) 38.0 H (13.4-35.0) % Monocytes % (Manual) 21.0 H (0.0-7.3) % Nucleated RBC % 39.0 H (0.0-0.9) % Seg Neutrophils # Man 0.0 L (1.8-7.7) K/mm3 Lymphocytes # (Manual) 0.0 L (1.2-5.4) K/mm3 Percent Retic 15.92 H (0.78-2.58) % Sodium 135 L (137-145) mmol/L Carbon Dioxide 19 L (22-30) mmol/L Creatinine 0.7 L (0.8-1.5) mg/dL Glucose 145 H (75-100) mg/dL Calcium 8.0 L (8.4-10.2) mg/dL TIBC 167 L (250-450) mcg/dL Ferritin 611.7 H (13.0-400.0) ng/mL
[2019-07-24] MEDS: DILAUDID IV SCH ×8 (00:41→21:13)
[2019-07-24] MEDS: D5NS 0.2% 1,000 ML IV SCH ×4 (00:42→21:14)
[2019-07-24] MEDS: BENADRYL IV PRN ×3 (03:40→18:17)
--- NOTE | 2019-07-24 09:55 | Progress Note ---
Assessment and Plan - Patient Problems (1) Sickle cell anemia with pain Current Visit: Yes Status: Chronic Plan to address problem: see orders. (2) Hemolytic crisis Current Visit: No Status: Acute Plan to address problem: supportive., and follow labs. (3) Anemia Current Visit: Yes Status: Acute Plan to address problem: monitor, adjust labs. (4) Dehydration Current Visit: Yes Status: Acute Plan to address problem: hydration. (5) Hypoxemia Current Visit: Yes Status: Chronic Plan to address problem: oxygen Subjective Date of service: 07/24/19 Principal diagnosis: SCD/Pain crisis, Anemia with hemolysis. Interval history: Patient seen/examined, resting in bed, labs reviewed, case d/w patient. No new issues at this time. will continue with current management. Patient seen/examined, resting in bed, labs reviewed, case d/w patient. Will continue with current management. Objective - Constitutional Vitals: Vital Signs - 12hr 07/23/19 07/24/19 07/24/19 22:00 00:13 06:07 Temperature 98.3 F 97.7 F Pulse Rate 74 64 Respiratory 16 16 Rate Blood Pressure 99/68 106/57 O2 Sat by Pulse 97 95 98 Oximetry 07/24/19 09:17 Temperature Pulse Rate Respiratory Rate Blood Pressure O2 Sat by Pulse 100 Oximetry General appearance: Present: mild distress, well-nourished - EENT Eyes: PERRL, EOM intact ENT: hearing intact, clear oral mucosa Ears: bilateral: normal - Neck Neck: supple, normal ROM - Respiratory Respiratory: bilateral: diminished - Breasts Breasts: deferred - Cardiovascular Rhythm: regular Heart Sounds: Present: S1 & S2. Absent: gallop, rub Extremities: pulses intact, No edema, normal color, Full ROM - Gastrointestinal General gastrointestinal: Present: soft, non-tender, non-distended, normal bowel sounds Rectal Exam: deferred - Genitourinary Male genitourinary: deferred - Integumentary Integumentary: clear, warm, dry - Musculoskeletal Musculoskeletal: 1, strength equal bilaterally - Neurologic Neurologic: moves all extremities - Psychiatric Psychiatric: memory intact, appropriate mood/affect, intact judgment & insight - Labs CBC & Chem 7: 07/23/19 07:00 07/23/19 07:00 Labs: Abnormal lab results 07/23/19 07/24/19 Range/Units 07:00 07:00 Seg Neuts % (Manual) 37.0 L (40.0-70.0) % Lymphocytes % (Manual) 38.0 H (13.4-35.0) % Monocytes % (Manual) 21.0 H (0.0-7.3) % Nucleated RBC % 39.0 H (0.0-0.9) % Seg Neutrophils # Man 0.0 L (1.8-7.7) K/mm3 Lymphocytes # (Manual) 0.0 L (1.2-5.4) K/mm3 Ferritin 556.7 H (13.0-400.0) ng/mL
[2019-07-24] MEDS: ELIQUIS PO SCH ×2 (10:19→21:13)
[2019-07-24] MEDS: HYDREA PO SCH (10:19)
[2019-07-24] MEDS: FOLVITE PO SCH (10:20)
[2019-07-25] MEDS: DILAUDID IV SCH ×8 (00:15→21:30)
[2019-07-25] MEDS: BENADRYL IV PRN ×4 (00:19→18:47)
[2019-07-25] MEDS: D5NS 0.2% 1,000 ML IV SCH ×2 (03:05→18:52)
[2019-07-25] MEDS: FOLVITE PO SCH (09:12)
[2019-07-25] MEDS: ELIQUIS PO SCH ×2 (09:12→21:29)
[2019-07-25] MEDS: HYDREA PO SCH (09:13)
--- NOTE | 2019-07-25 16:23 | Progress Note ---
Assessment and Plan - Patient Problems (1) Sickle cell anemia with pain Current Visit: Yes Status: Chronic Plan to address problem: see orders. (2) Hemolytic crisis Current Visit: No Status: Acute Plan to address problem: supportive., and follow labs. (3) Anemia Current Visit: Yes Status: Acute Plan to address problem: monitor, adjust labs. (4) Dehydration Current Visit: Yes Status: Acute Plan to address problem: hydration. (5) Hypoxemia Current Visit: Yes Status: Chronic Plan to address problem: oxygen Subjective Date of service: 07/25/19 Principal diagnosis: SCD/Pain crisis, Anemia with hemolysis. Interval history: Patient seen/examined, resting in bed, labs reviewed, case d/w patient. No new issues at this time. will continue with current management. Patient seen/examined, resting in bed, labs reviewed, case d/w patient. Will continue with current management. Patient seen/examined, resting in bed, labs reviewed, case d/w patient.Will continue to manage pain, and start d/c plans . Objective - Constitutional Vitals: Vital Signs - 12hr 07/25/19 07/25/19 07/25/19 04:25 04:34 08:54 Temperature 97.9 F 98.2 F Pulse Rate 78 81 Respiratory 17 17 Rate Blood Pressure 105/68 113/69 O2 Sat by Pulse 94 98 98 Oximetry 07/25/19 12:06 Temperature 98.2 F Pulse Rate 75 Respiratory 18 Rate Blood Pressure 121/64 O2 Sat by Pulse 94 Oximetry General appearance: Present: mild distress, well-nourished - EENT Eyes: PERRL, EOM intact ENT: hearing intact, clear oral mucosa Ears: bilateral: normal - Neck Neck: supple, normal ROM - Respiratory Respiratory: bilateral: diminished - Breasts Breasts: deferred - Cardiovascular Rhythm: regular Heart Sounds: Present: S1 & S2. Absent: gallop, rub Extremities: pulses intact, No edema, normal color, Full ROM - Gastrointestinal General gastrointestinal: Present: soft, non-tender, non-distended, normal bowel sounds Rectal Exam: deferred - Genitourinary Male genitourinary: deferred - Integumentary Integumentary: clear, warm, dry - Musculoskeletal Musculoskeletal: 1, strength equal bilaterally - Neurologic Neurologic: moves all extremities - Psychiatric Psychiatric: memory intact, appropriate mood/affect, intact judgment & insight - Labs CBC & Chem 7: 10/10/19 07:00 07/23/19 07:00
[2019-07-26] MEDS: DILAUDID IV SCH ×8 (00:34→21:27)
[2019-07-26] MEDS: D5NS 0.2% 1,000 ML IV SCH ×2 (00:46→09:40)
[2019-07-26] MEDS: BENADRYL IV PRN ×4 (00:46→18:58)
[2019-07-26 07:01] LABS: Hemoglobin 6.9 gm/dl (11.8-15.2); Mean Corpuscular HGB Conc 37 % (32-34); Mean Corpuscular Volume 92 fl (84-94); Red Blood Count 2.05 M/mm3 (3.65-5.03)
[2019-07-26 07:18] LABS: Hematocrit 18.8 % (35.5-45.6); Red Cell Distribution Width 25.6 % (13.2-15.2)
[2019-07-26 07:23] LABS: BUN/Creatinine Ratio 25; Blood Urea Nitrogen 10 mg/dL (9-20); Calcium 8.5 mg/dL (8.4-10.2); Hemolysis Index 24
[2019-07-26] MEDS ORDERED: NACL 0.9% 500 ML 500 ML IV ONE (08:18)
[2019-07-26] MEDS: FOLVITE PO SCH (09:42)
[2019-07-26] MEDS: ELIQUIS PO SCH ×2 (09:42→21:27)
[2019-07-26] MEDS: HYDREA PO SCH (09:43)
--- NOTE | 2019-07-26 10:00 | Progress Note ---
Assessment and Plan - Patient Problems (1) Sickle cell anemia with pain Current Visit: Yes Status: Chronic Plan to address problem: see orders. (2) Hemolytic crisis Current Visit: No Status: Acute Plan to address problem: supportive., and follow labs. (3) Anemia Current Visit: Yes Status: Acute Plan to address problem: monitor, adjust labs. (4) Dehydration Current Visit: Yes Status: Acute Plan to address problem: hydration. (5) Hypoxemia Current Visit: Yes Status: Chronic Plan to address problem: oxygen Subjective Date of service: 07/26/19 Principal diagnosis: SCD/Pain crisis, Anemia with hemolysis. Interval history: Patient seen/examined, resting in bed, labs reviewed, case d/w patient. No new issues at this time. will continue with current management. Patient seen/examined, resting in bed, labs reviewed, case d/w patient. Will continue with current management. Patient seen/examined, resting in bed, labs reviewed, case d/w patient.Will continue to manage pain, and start d/c plans . Patient seen/examined, resting in bed, labs reviewed, and will need transfusion replacement. Objective - Constitutional Vitals: Vital Signs - 12hr 07/26/19 07/26/19 07/26/19 00:34 03:11 05:22 Temperature 97.3 F L Pulse Rate 72 Respiratory 22 22 20 Rate Blood Pressure 97/54 O2 Sat by Pulse 96 Oximetry 07/26/19 07/26/19 07/26/19 05:26 06:28 08:26 Temperature 97.3 F L Pulse Rate Respiratory 20 20 Rate Blood Pressure O2 Sat by Pulse 97 Oximetry General appearance: Present: mild distress, well-nourished - EENT Eyes: PERRL, EOM intact ENT: hearing intact, clear oral mucosa Ears: bilateral: normal - Neck Neck: supple, normal ROM - Respiratory Respiratory effort: normal Respiratory: bilateral: CTA - Breasts Breasts: deferred - Cardiovascular Rhythm: regular Heart Sounds: Present: S1 & S2. Absent: gallop, rub Extremities: pulses intact, No edema, normal color, Full ROM - Gastrointestinal General gastrointestinal: Present: soft, non-tender, non-distended, normal bowel sounds Rectal Exam: deferred - Genitourinary Male genitourinary: deferred - Integumentary Integumentary: clear, warm, dry - Musculoskeletal Musculoskeletal: 1, strength equal bilaterally - Neurologic Neurologic: moves all extremities - Psychiatric Psychiatric: memory intact, appropriate mood/affect, intact judgment & insight - Labs CBC & Chem 7: 07/26/19 06:15 07/26/19 06:15 Labs: Abnormal lab results 07/26/19 07/26/19 Range/Units 06:15 06:15 RBC 2.05 L (3.65-5.03) M/mm3 Hgb 6.9 L (11.8-15.2) gm/dl Hct 18.8 L* (35.5-45.6) % MCH 34 H (28-32) pg MCHC 37 H (32-34) % RDW 25.6 H (13.2-15.2) % Percent Retic 6.45 H (0.78-2.58) % Potassium 5.2 H (3.6-5.0) mmol/L Creatinine 0.4 L (0.8-1.5) mg/dL
[2019-07-26 11:01] LABS: Basophils % (Manual) 0 % (0.0-1.8); Total Cells Counted 100
[2019-07-26 11:03] LABS: Giant Platelets Few; Platelet Estimate Consistent w Auto; Sickle Cells 3+; Target Cells 2+
[2019-07-26 11:23] LABS: Platelet Count 187 K/mm3 (140-440)
[2019-07-27] MEDS: DILAUDID IV SCH ×8 (00:22→22:01)
[2019-07-27] MEDS: BENADRYL IV PRN ×4 (00:24→19:18)
[2019-07-27] MEDS: D5NS 0.2% 1,000 ML IV SCH ×2 (05:19→14:21)
--- NOTE | 2019-07-27 10:02 | Progress Note ---
Assessment and Plan - Patient Problems (1) Sickle cell anemia with pain Current Visit: Yes Status: Chronic Plan to address problem: see orders. (2) Hemolytic crisis Current Visit: No Status: Acute Plan to address problem: supportive., and follow labs. (3) Anemia Current Visit: Yes Status: Acute Plan to address problem: monitor, adjust labs. (4) Dehydration Current Visit: Yes Status: Acute Plan to address problem: hydration. (5) Hypoxemia Current Visit: Yes Status: Chronic Plan to address problem: oxygen Subjective Date of service: 07/27/19 Principal diagnosis: SCD/Pain crisis, Anemia with hemolysis. Interval history: Patient seen/examined, resting in bed, labs reviewed, case d/w patient. No new issues at this time. will continue with current management. Patient seen/examined, resting in bed, labs reviewed, case d/w patient. Will continue with current management. Patient seen/examined, resting in bed, labs reviewed, case d/w patient.Will continue to manage pain, and start d/c plans . Patient seen/examined, resting in bed, labs reviewed, and will need transfusion replacement. Patient seen/examined, resting in bed, awaiting blood transfusion.Once done, will plan for D/C. Objective - Constitutional Vitals: Vital Signs - 12hr 07/26/19 07/27/19 07/27/19 22:30 00:22 00:52 Temperature 98.5 F Pulse Rate 84 Respiratory 24 18 18 Rate Blood Pressure 117/70 O2 Sat by Pulse 95 Oximetry 07/27/19 07/27/19 07/27/19 01:37 01:52 02:22 Temperature 98.5 F 98.3 F 98.3 F Pulse Rate 84 84 76 Respiratory 18 18 18 Rate Blood Pressure 118/70 113/70 111/68 O2 Sat by Pulse 96 95 995 H Oximetry 07/27/19 07/27/19 07/27/19 02:52 03:22 03:47 Temperature 98.3 F 98.3 F Pulse Rate 78 84 Respiratory 18 18 18 Rate Blood Pressure 113/76 125/76 O2 Sat by Pulse 95 97 Oximetry 07/27/19 07/27/19 07/27/19 04:17 04:29 06:27 Temperature 98.1 F Pulse Rate 83 Respiratory 20 24 18 Rate Blood Pressure 101/59 O2 Sat by Pulse 94 Oximetry 07/27/19 06:57 Temperature Pulse Rate Respiratory 18 Rate Blood Pressure O2 Sat by Pulse Oximetry General appearance: Present: mild distress, well-nourished - EENT Eyes: PERRL, EOM intact ENT: hearing intact, clear oral mucosa Ears: bilateral: normal - Neck Neck: supple, normal ROM - Respiratory Respiratory effort: normal Respiratory: bilateral: CTA - Breasts Breasts: deferred - Cardiovascular Rhythm: regular Heart Sounds: Present: S1 & S2. Absent: gallop, rub Extremities: pulses intact, No edema, normal color, Full ROM - Gastrointestinal General gastrointestinal: Present: soft, non-tender, non-distended, normal bowel sounds Rectal Exam: deferred - Genitourinary Male genitourinary: deferred - Integumentary Integumentary: clear, warm, dry - Musculoskeletal Musculoskeletal: 1, strength equal bilaterally - Neurologic Neurologic: moves all extremities - Psychiatric Psychiatric: memory intact, appropriate mood/affect, intact judgment & insight - Labs CBC & Chem 7: 07/26/19 06:15 07/26/19 06:15 Labs: Abnormal lab results 07/26/19 07/26/19 Range/Units 06:15 11:05 Monocytes % (Manual) 9.0 H (0.0-7.3) % Eosinophils % (Manual) 7.0 H (0.0-4.3) % Nucleated RBC % 8.0 H (0.0-0.9) % Monocytes # (Manual) 0.9 H (0.0-0.8) K/mm3 Eosinophils # (Manual) 0.7 H (0.0-0.4) K/mm3 Crossmatch See Detail
[2019-07-27] MEDS: FOLVITE PO SCH (10:31)
[2019-07-27] MEDS: ELIQUIS PO SCH ×2 (10:31→22:04)
[2019-07-27] MEDS: HYDREA PO SCH (10:32)
--- NOTE | 2019-07-27 10:44 | Discharge Summary ---
Providers - Providers Date of Admission: 07/23/19 10:13 Date of discharge: 07/27/19 Attending physician: ZACHERY RUIZ Primary care physician: ZACHERY RUIZ Hospitalization Reason for admission: SCD/Pain crisis. Condition: Fair Hospital course: Patient presented to the Er with pain all over, dx with acute SCd with pain crisis , and admitted for sxs management, and control. He was treated with hydration, pain control, and blood transfusion. H/H, to be repeated, post transfusion, and D/C home. He denies any new issues at this time. Disposition: DC-01 TO HOME OR SELFCARE - Discharge Diagnoses (1) Sickle cell anemia with pain Status: Resolved (2) Hemolytic crisis Status: Chronic (3) Anemia Status: Chronic (4) Dehydration Status: Resolved (5) Hypoxemia Status: Chronic Core Measure Documentation - Palliative Care Palliative Care/ Comfort Measures: Not Applicable - Core Measures Any of the following diagnoses?: history only Exam - Constitutional Vitals: Temp Pulse Resp BP Pulse Ox 98.1 F 83 18 101/59 94 07/27/19 04:29 07/27/19 04:29 07/27/19 06:57 07/27/19 04:29 07/27/19 04:29 General appearance: Present: no acute distress, well-nourished - EENT Eyes: Present: PERRL ENT: hearing intact, clear oral mucosa - Neck Neck: Present: supple, normal ROM - Respiratory Respiratory effort: normal Respiratory: bilateral: CTA - Cardiovascular Heart Sounds: Present: S1 & S2. Absent: rub, click - Extremities Extremities: pulses symmetrical, No edema Peripheral Pulses: within normal limits - Abdominal General gastrointestinal: Present: soft, non-tender, non-distended, normal bowel sounds Male genitourinary: Present: deferred - Rectal Rectal Exam: deferred - Integumentary Integumentary: Present: clear, warm, dry - Musculoskeletal Musculoskeletal: gait normal, strength equal bilaterally - Psychiatric Psychiatric: appropriate mood/affect, intact judgment & insight - Neurologic Neurologic: CNII-XII intact, moves all extremities Plan Activity: no restrictions Diet: regular Follow up with: ZACHERY RUIZ DO [Primary Care Provider] - 3-5 Days
[2019-07-27 10:57] LABS: Hematocrit 22.8 % (35.5-45.6); Hemoglobin 8.5 gm/dl (11.8-15.2)
[2019-07-28] MEDS: D5NS 0.2% 1,000 ML IV SCH ×4 (00:05→18:15)
[2019-07-28] MEDS: DILAUDID IV SCH ×8 (01:27→21:20)
[2019-07-28] MEDS: BENADRYL IV PRN ×4 (01:27→18:14)
[2019-07-28] MEDS: ELIQUIS PO SCH ×2 (09:23→21:20)
[2019-07-28] MEDS: FOLVITE PO SCH (09:23)
[2019-07-28] MEDS: HYDREA PO SCH (09:24)
--- NOTE | 2019-07-28 19:15 | Progress Note ---
Assessment and Plan - Patient Problems (1) Sickle cell anemia with pain Current Visit: Yes Status: Resolved Plan to address problem: see orders. no new issues at this time. (2) Hemolytic crisis Current Visit: No Status: Chronic Plan to address problem: supportive., and follow labs. stable. (3) Anemia Current Visit: Yes Status: Chronic Plan to address problem: monitor, adjust labs. stable. (4) Dehydration Current Visit: Yes Status: Resolved Plan to address problem: hydration. resolved. (5) Hypoxemia Current Visit: Yes Status: Chronic Plan to address problem: oxygen chronic, stable. Subjective Date of service: 07/28/19 Principal diagnosis: SCD/Pain crisis, Anemia with hemolysis. Interval history: Patient seen/examined, resting in bed, labs reviewed, case d/w patient. No new issues at this time. will continue with current management. Patient seen/examined, resting in bed, labs reviewed, case d/w patient. Will continue with current management. Patient seen/examined, resting in bed, labs reviewed, case d/w patient.Will continue to manage pain, and start d/c plans . Patient seen/examined, resting in bed, labs reviewed, and will need transfusion replacement. Patient seen/examined, resting in bed, awaiting blood transfusion.Once done, will plan for D/C. Patient seen/examined, resting in bed, records reviewed, case d/w him. c/o pain as of yesterday. he will need to be d/c tomorrow ,according to his appeal process. Objective - Constitutional Vitals: Vital Signs - 12hr 07/28/19 07/28/19 07/28/19 09:45 10:00 11:47 Temperature 98.1 F Pulse Rate 79 Respiratory 18 Rate Blood Pressure 107/61 O2 Sat by Pulse 96 96 96 Oximetry 07/28/19 16:31 Temperature 98.5 F Pulse Rate 86 Respiratory 18 Rate Blood Pressure 111/71 O2 Sat by Pulse 94 Oximetry General appearance: Present: no acute distress, well-nourished - EENT Eyes: PERRL, EOM intact ENT: hearing intact, clear oral mucosa Ears: bilateral: normal - Neck Neck: supple, normal ROM - Respiratory Respiratory effort: normal Respiratory: bilateral: CTA - Breasts Breasts: deferred - Cardiovascular Rhythm: regular Heart Sounds: Present: S1 & S2. Absent: gallop, rub Extremities: pulses intact, No edema, normal color, Full ROM - Gastrointestinal General gastrointestinal: Present: soft, non-tender, non-distended, normal bowel sounds Rectal Exam: deferred - Genitourinary Male genitourinary: deferred - Integumentary Integumentary: clear, warm, dry - Musculoskeletal Musculoskeletal: 1, strength equal bilaterally - Neurologic Neurologic: moves all extremities - Psychiatric Psychiatric: memory intact, appropriate mood/affect, intact judgment & insight - Labs CBC & Chem 7: 07/27/19 10:44 07/26/19 06:15
[2019-07-29] MEDS: BENADRYL IV PRN ×3 (00:40→11:46)
[2019-07-29] MEDS: DILAUDID IV SCH ×4 (00:41→09:40)
[2019-07-29] MEDS: D5NS 0.2% 1,000 ML IV SCH (00:47)
[2019-07-29] MEDS ORDERED: TRIPLE ANTIBIOTIC TP ONE ×2 (07:31→10:00)
[2019-07-29] MEDS ORDERED: FLUSH HEPARIN IV ONE ×2 (07:31→10:00)
[2019-07-29] MEDS: HYDREA PO SCH (09:41)
[2019-07-29] MEDS: ELIQUIS PO SCH (09:41)
[2019-07-29 12:00] VITALS: BP 111/69
[2019-07-29] MEDS: FOLVITE PO SCH (12:38)
== END 2019-07-29 12:15 | disposition home or self-care (01) | DRG 812 ==
LOC: ED 11:46 → 3A 18:31 → OBSVTOIN 07-23 10:13
PROVIDERS: ADMIT Internal Medicine Hematology & Oncology; ATTEND Internal Medicine Hematology & Oncology
PROC: 30233N1 Transfusion of Nonautologous Red Blood Cells into Peripheral Vein, Percutaneous Approach (ICD-10-PCS; principal; 2019-07-26)
DX: D57.00 Hb-SS disease with crisis, unspecified (principal); R09.02 Hypoxemia; E86.0 Dehydration; D64.9 Anemia, unspecified; G89.29 Other chronic pain; J45.909 Unspecified asthma, uncomplicated; Z86.718 Personal history of other venous thrombosis and embolism; Z79.899 Other long term (current) drug therapy; Z90.49 Acquired absence of other specified parts of digestive tract
CPT/HCPCS: 36415; 80048; 82150; 82728; 83550; 83615; 83690; 85007; 85014; 85018; 85025; 85045; 85610; 85660; 86850; 86900; 86901; 86920; 87116; 94760; 96374; G0378; A6250; J1170; J1200; J1642; J1885; J2270; J2405; J7030; J7040; P9016

== ENCOUNTER 2019-08-23 04:05 | Inpatient (IN) | payer MEDICARE ==
[2019-08-23 06:19] LABS: Hemoglobin 7.1 gm/dl (11.8-15.2); Mean Corpuscular HGB Conc 37 % (32-34); Mean Corpuscular Volume 92 fl (84-94); Red Blood Count 2.07 M/mm3 (3.65-5.03)
[2019-08-23 06:31] LABS: Hematocrit 19.1 % (35.5-45.6); Red Cell Distribution Width 27.9 % (13.2-15.2)
[2019-08-23] MEDS ORDERED: diphenhydrAMINE 50 MG/ML VIAL IV ONE (06:36)
[2019-08-23] MEDS ORDERED: HYDROmorphone 1 MG/1 ML INJ IV ONE (06:36)
[2019-08-23] MEDS ORDERED: ONDANSETRON 4 MG/2 ML INJ IV ONE (06:36)
[2019-08-23] MEDS ORDERED: D5W/0.2% NACL 1,000 ML IV SCH (07:00)
--- NOTE | 2019-08-23 07:08 | XRay Report ---
CHEST 1 VIEW INDICATION / CLINICAL INFORMATION: sickle cell chest pain. COMPARISON: 06/24/2019 FINDINGS: SUPPORT DEVICES: Right IJ central line stable in position. Stent is present in the SVC. HEART / MEDIASTINUM: Cardiac silhouette remains mildly enlarged but stable. LUNGS / PLEURA: Mild chronic appearing interstitial lung disease. No evidence of pneumonia No pneumot horax. ADDITIONAL FINDINGS: No significant additional findings. IMPRESSION: 1. Mild cardiomegaly with mild chronic interstitial lung disease. Signer Name: Hilda Rosado MD Signed: 08/23/2019 7:03 AM Workstation Name: [id number]
[2019-08-23] MEDS ORDERED: HYDROmorphone 2 MG/1 ML INJ IV ONE (07:48)
[2019-08-23] MEDS ORDERED: HYDROmorphone 1 MG/1 ML INJ IV PRN (07:50)
[2019-08-23] MEDS ORDERED: D5W/0.9% NACL 1,000 ML IV SCH (08:00)
[2019-08-23] MEDS ORDERED: HYDROmorphone 1 MG/1 ML INJ ONE ×2 (08:06→08:09)
--- NOTE | 2019-08-23 08:44 | Emergency Department Report ---
ED General Adult HPI - General Chief complaint: Sickle Cell Crisis Stated complaint: SICKLE CELL CRISIS Time Seen by Provider: 08/23/19 06:35 Source: EMS Mode of arrival: Stretcher Limitations: No Limitations - History of Present Illness Initial comments: Cisco is a 28 yo male with hx of hgb SS disease who presents with severe chest and upper lower back pain for 2 days. Feels like he has a chest cold. No fever. No shortness of breath. 10/10 pain. Gradual onset. No radiation of the pain. Home meds did not provide any relief. Achy in nature. Constant pain. Home medications include: folic acid, hydroxyurea, Morphine 30 mg BID ER, Percocet 10/325. Hx of hypoxia on home oxygen. -: Gradual, days(s) (2) Location: chest, back Severity scale (0 -10): 10 Quality: aching Consistency: constant Improves with: none Worsens with: none Associated Symptoms: cough - Related Data Home Medications Medication Instructions Recorded Confirmed Last Taken Folic Acid [Folvite] 1 mg PO DAILY 04/03/18 07/22/19 06/23/19 Morphine ER [Ms Contin ER] 30 mg PO BID 04/03/18 07/22/19 06/23/19 Zolpidem [Ambien] 10 mg PO QHS PRN 05/25/19 07/22/19 06/23/19 Previous Rx's Medication Instructions Recorded Last Taken Type Hydroxyurea [Droxia] 1,500 mg PO DAILY #30 capsule 12/07/17 06/23/19 Rx Oxycodone HCl/Acetaminophen 1 tab PO Q4-6H PRN #6 tablet 02/15/19 06/23/19 Rx [Percocet 10/325 mg] Apixaban [Eliquis] 2.5 mg PO BID #60 tablet 03/23/19 06/23/19 Rx Allergies Allergy/AdvReac Type Severity Reaction Status Date / Time No Known Allergies Allergy Verified 05/25/19 14:45 ED Review of Systems ROS: Stated complaint: SICKLE CELL CRISIS Other details as noted in HPI Comment: All other systems reviewed and negative Constitutional: malaise. denies: fever Respiratory: cough Cardiovascular: chest pain Musculoskeletal: back pain ED Past Medical Hx - Past Medical History Previous Medical History?: Yes Hx Hypertension: No Hx CVA: No Hx Heart Attack/AMI: No Hx Congestive Heart Failure: No Hx Diabetes: No Hx Deep Vein Thrombosis: No Hx Pulmonary Embolism: No Hx GERD: No Hx Liver Disease: No Hx Renal Disease: No Hx Sickle Cell Disease: Yes Hx Arthritis: No Hx Headaches / Migraines: No Hx Seizures: No Hx Kidney Stones: No Hx Psychiatric Treatment: No Hx Asthma: Yes (denies hx exacerbations) Hx COPD: No Hx Tuberculosis: No Hx Dementia: No Hx HIV: No Additional medical history: Acute chest syndrome, - Surgical History Hx Coronary Stent: No Hx Open Heart Surgery: No Hx Pacemaker: No Hx Internal Defibrillator: No Hx Cholecystectomy: Yes Hx Appendectomy: No Hx Breast Surgery: No Additional Surgical History: TRACHEOSTOMY. 2 PORTS AND REMOVAL. LIVER BIOPSY X2 - Social History Smoking Status: Never Smoker - Medications Home Medications: Home Medications Medication Instructions Recorded Confirmed Last Taken Type Hydroxyurea [Droxia] 1,500 mg PO DAILY #30 capsule 12/07/17 07/22/19 06/23/19 Rx Folic Acid [Folvite] 1 mg PO DAILY 04/03/18 07/22/19 06/23/19 History Morphine ER [Ms Contin ER] 30 mg PO BID 04/03/18 07/22/19 06/23/19 History Oxycodone HCl/Acetaminophen 1 tab PO Q4-6H PRN #6 tablet 02/15/19 07/22/19 06/23/19 Rx [Percocet 10/325 mg] Apixaban [Eliquis] 2.5 mg PO BID #60 tablet 03/23/19 07/22/19 06/23/19 Rx Zolpidem [Ambien] 10 mg PO QHS PRN 05/25/19 07/22/19 06/23/19 History ED Physical Exam - General Limitations: No Limitations General appearance: alert, in no apparent distress, other (nontoxic but appears ill) - Head Head exam: Present: atraumatic, normocephalic - Eye Eye exam: Present: PERRL, EOMI, scleral icterus. Absent: conjunctival injection - ENT ENT exam: Present: mucous membranes moist - Neck Neck exam: Present: normal inspection - Respiratory Respiratory exam: Present: normal lung sounds bilaterally. Absent: respiratory distress, wheezes, rales, rhonchi - Cardiovascular Cardiovascular Exam: Present: regular rate, normal rhythm, normal heart sounds. Absent: systolic murmur, diastolic murmur, rubs, gallop - GI/Abdominal GI/Abdominal exam: Present: soft, normal bowel sounds. Absent: distended, tenderness, guarding, rebound - Rectal Rectal exam: Present: deferred - Extremities Exam Extremities exam: Present: normal inspection - Back Exam Back exam: Present: normal inspection - Neurological Exam Neurological exam: Present: alert, oriented X3 - Psychiatric Psychiatric exam: Present: normal affect, normal mood - Skin Skin exam: Present: warm, dry, intact, normal color. Absent: rash ED Course Vital Signs 08/23/19 08/23/19 08/23/19 04:23 06:07 07:15 Temperature 98.5 F Pulse Rate 85 80 74 Respiratory 17 17 18 Rate Blood Pressure 119/58 Blood Pressure 104/62 124/63 [Right] O2 Sat by Pulse 100 100 100 Oximetry 08/23/19 08:31 Temperature 98.0 F Pulse Rate 62 Respiratory 22 Rate Blood Pressure Blood Pressure 111/67 [Right] O2 Sat by Pulse 98 Oximetry ED Medical Decision Making - Lab Data Result diagrams: 08/23/19 Unknown - Radiology Data Radiology results: report reviewed Radiology impression of chest radiographs portable one view: Mild cardiomegaly m ild chronic interstitial lung disease - Medical Decision Making Mr. Goldman presents with sickle cell vaso-occlusive crisis. Hemoglobin and hematocrit decreased from previous values. On today's presentation, he appears ill. He is in severe uncontrollable pain. He is afebrile. Dr. Encians accepted Mr. Goldman to his service. I provided bridging orders for adm ission including pain management and IV fluid therapy. Critical care attestation.: If time is entered above; I have spent that time in minutes in the direct care of this critically ill patient, excluding procedure time. ED Disposition Clinical Impression: Sickle cell crisis, Sickle cell anemia, Symptomatic anemia Disposition: OP ADMIT IP TO THIS HOSP Is pt being admited?: Yes Does the pt Need Aspirin: No
[2019-08-23 10:05] LABS: Basophils % (Manual) 0 % (0.0-1.8); Eosinophils % (Manual) 0 % (0.0-4.3); Giant Platelets Few; Total Cells Counted 100
[2019-08-23 10:06] LABS: Sickle Cells 3+; Target Cells 2+
[2019-08-23 10:07] LABS: Platelet Estimate Consistent w Auto
[2019-08-23 10:39] LABS: Platelet Count 191 K/mm3 (140-440)
[2019-08-23] MEDS: D5W/0.2% NACL 1,000 ML IV SCH ×3 (12:43→20:15)
[2019-08-23] MEDS: diphenhydrAMINE 50 MG/ML VIAL IV PRN ×4 (12:46→23:00)
[2019-08-23] MEDS: HYDROmorphone 2 MG/1 ML INJ IV PRN ×4 (12:47→23:00)
[2019-08-23] MEDS ORDERED: ZOLPIDEM 5 MG TAB PO PRN (18:46)
[2019-08-23] MEDS ORDERED: POLYETHYLENE GLYCOL 3350 17 GM POWDER PO PRN (18:49)
--- NOTE | 2019-08-23 19:08 | History and Physical Report ---
History of Present Illness Date of examination: 08/23/19 Date of admission: 08/23/19 06:44 Chief complaint: SCD/Pain crisis/anemia. History of present illness: Patient seen/examined, resting in bed, records reviewed, case d/w patient. He had presented to the ER with CC of diffuse joint pain, and unable to control his pain , at home.He was admitted ,for pain /sxs management, and control.Patient is getting hydration, pain control, oxygen, and lab monitoring.He has hx of chronic hypoxia, now acutely exacerbated., and he will get some NEB TX.He has hx of SVC DVT, and on anti coagulation, which will be continued .He will get blood transfusion, if hgb ,less than 7.0, or sxs.Once stable, he will be D/blake home. Past History Past Medical History: anemia, DVT Social history: no significant social history, single, lives with family Family history: no significant family history Medications and Allergies Allergies Allergy/AdvReac Type Severity Reaction Status Date / Time No Known Allergies Allergy Verified 05/25/19 14:45 Home Medications Medication Instructions Recorded Confirmed Last Taken Type Hydroxyurea [Droxia] 1,500 mg PO DAILY #30 capsule 12/07/17 07/22/19 06/23/19 Rx Folic Acid [Folvite] 1 mg PO DAILY 04/03/18 07/22/19 06/23/19 History Morphine ER [Ms Contin ER] 30 mg PO BID 04/03/18 07/22/19 06/23/19 History Oxycodone HCl/Acetaminophen 1 tab PO Q4-6H PRN #6 tablet 02/15/19 07/22/19 06/23/19 Rx [Percocet 10/325 mg] Apixaban [Eliquis] 2.5 mg PO BID #60 tablet 03/23/19 07/22/19 06/23/19 Rx Zolpidem [Ambien] 10 mg PO QHS PRN 05/25/19 07/22/19 06/23/19 History Active Meds: Active Medications Albuterol (Proventil) 2.5 mg IH Q6HRT SLICK Apixaban (Eliquis) 2.5 mg PO BID SLICK; Protocol Diphenhydramine HCl (Benadryl) 12.5 mg IV Q3H PRN PRN Reason: Itching Last Admin: 08/23/19 16:12 Dose: 12.5 mg Documented by: Folic Acid (Folvite) 1 mg PO DAILY SLICK Hydromorphone HCl (Dilaudid) 3 mg IV Q3H PRN PRN Reason: Pain , Severe (7-10) Hydroxyurea (Hydroxyurea) 1,500 mg PO QDAY SLICK Dextrose/Sodium Chloride (D5ns 0.2%) 1,000 mls @ 250 mls/hr IV DIRECT SLICK Last Admin: 08/23/19 16:18 Dose: 250 mls/hr Documented by: Miscellaneous Medication (Hydroxyurea [Droxia]) 1,500 mg PO DAILY SLICK Morphine Sulfate (Ms Contin Er) 30 mg PO BID SLICK Polyethylene Glycol (Miralax 3350) 17 gm PO BID PRN PRN Reason: Constipation Zolpidem Tartrate (Ambien) 10 mg PO QHS PRN PRN Reason: Sleep Review of Systems Constitutional: fatigue, chronic pain Respiratory: congestion, home oxygen Musculoskeletal: low back pain Exam - Constitutional Vitals: Temp Pulse Resp BP Pulse Ox 98.0 F 77 16 116/58 93 08/23/19 17:26 08/23/19 17:26 08/23/19 17:26 08/23/19 17:26 08/23/19 17:26 General appearance: Present: mild distress, well-nourished - EENT Eyes: Present: PERRL ENT: hearing intact, clear oral mucosa - Neck Neck: Present: supple, normal ROM - Respiratory Respiratory: bilateral: diminished - Cardiovascular Heart Sounds: Present: S1 & S2. Absent: rub, click - Extremities Extremities: pulses symmetrical, No edema Peripheral Pulses: within normal limits - Abdominal General gastrointestinal: Present: soft, non-tender, non-distended, normal bowel sounds Male genitourinary: Present: deferred - Rectal Rectal Exam: deferred - Integumentary Integumentary: Present: clear, warm, dry - Musculoskeletal Musculoskeletal: gait normal, strength equal bilaterally - Psychiatric Psychiatric: appropriate mood/affect, intact judgment & insight - Neurologic Neurologic: CNII-XII intact, moves all extremities Results - Labs CBC & Chem 7: 08/23/19 Unknown Labs: Abnormal lab results 08/23/19 Range/Units Unknown WBC 12.3 H (4.5-11.0) K/mm3 RBC 2.07 L (3.65-5.03) M/mm3 Hgb 7.1 L (11.8-15.2) gm/dl Hct 19.1 L* (35.5-45.6) % MCH 34 H (28-32) pg MCHC 37 H (32-34) % RDW 27.9 H (13.2-15.2) % Monocytes % (Manual) 21.0 H (0.0-7.3) % Nucleated RBC % 10.0 H (0.0-0.9) % Monocytes # (Manual) 2.6 H (0.0-0.8) K/mm3 Percent Retic 14.97 H (0.78-2.58) % Assessment and Plan - Patient Problems (1) Sickle cell crisis Current Visit: Yes Status: Acute Plan to address problem: pain control/sxs management. (2) Sickle cell anemia Current Visit: Yes Status: Chronic Plan to address problem: transfusion replacement therapy, when indicated. (3) Dehydration Current Visit: Yes Status: Acute Plan to address problem: Hydration
[2019-08-23] MEDS: ALBUTEROL 2.5 MG/3 ML NEBU IH SCH (20:10)
[2019-08-23] MEDS: MORPHINE 30 MG ER TAB PO SCH (21:14)
[2019-08-23] MEDS: APIXABAN 2.5 MG TAB PO SCH (21:15)
[2019-08-24] MEDS: ALBUTEROL 2.5 MG/3 ML NEBU IH SCH ×4 (02:18→19:19)
[2019-08-24] MEDS: HYDROmorphone 2 MG/1 ML INJ IV PRN ×6 (02:20→21:23)
[2019-08-24] MEDS: D5W/0.2% NACL 1,000 ML IV SCH ×3 (02:20→19:20)
[2019-08-24] MEDS: diphenhydrAMINE 50 MG/ML VIAL IV PRN ×6 (02:21→21:22)
[2019-08-24 06:18] LABS: Hemoglobin 6.6 gm/dl (11.8-15.2); Mean Corpuscular HGB Conc 37 % (32-34); Mean Corpuscular Volume 92 fl (84-94); Red Blood Count 1.94 M/mm3 (3.65-5.03)
[2019-08-24 06:23] LABS: Hematocrit 17.9 % (35.5-45.6); Red Cell Distribution Width 25.4 % (13.2-15.2)
[2019-08-24 06:38] LABS: BUN/Creatinine Ratio 18; Blood Urea Nitrogen 9 mg/dL (9-20); Calcium 8.3 mg/dL (8.4-10.2); Hemolysis Index 24
[2019-08-24] MEDS ORDERED: SODIUM CHLORIDE 0.9% 500 ML 500 ML IV ONE (06:54)
[2019-08-24 08:11] LABS: Total Cells Counted 100
[2019-08-24 08:12] LABS: Anisocytosis 2+; Sickle Cells 3+
[2019-08-24 08:13] LABS: Giant Platelets Few; Platelet Estimate Consistent w Auto; Target Cells 1+
[2019-08-24 08:15] LABS: Platelet Count 194 K/mm3 (140-440)
[2019-08-24] MEDS ORDERED: SODIUM CHLORIDE 0.9% 500 ML 500 ML ONE (09:10)
[2019-08-24] MEDS: FOLIC ACID 1 MG TAB PO SCH (09:19)
[2019-08-24] MEDS: APIXABAN 2.5 MG TAB PO SCH ×2 (09:19→22:37)
[2019-08-24] MEDS: HYDROXYUREA 500 MG CAP PO SCH (09:20)
[2019-08-24] MEDS ORDERED: HYDROXYUREA PO SCH (10:00)
[2019-08-24] MEDS: MORPHINE 30 MG ER TAB PO SCH ×2 (11:21→22:38)
--- NOTE | 2019-08-24 21:16 | Progress Note ---
Assessment and Plan - Patient Problems (1) Sickle cell crisis Current Visit: Yes Status: Acute Plan to address problem: pain control/sxs management. (2) Sickle cell anemia Current Visit: Yes Status: Chronic Plan to address problem: transfusion replacement therapy, when indicated. continue with transfusion replacement therapy. (3) Dehydration Current Visit: Yes Status: Acute Plan to address problem: Hydration Subjective Date of service: 08/24/19 Principal diagnosis: SCD/anemia.pain crisis. Interval history: Patient seen/examined, resting in bed, just finished the 2nd unit of blood transfusion.Pain at 7/10.Will continue , with current management. Objective - Constitutional Vitals: Vital Signs - 12hr 08/24/19 08/24/19 08/24/19 09:18 10:35 10:48 Temperature 98 F 98.1 F Pulse Rate 82 78 Pulse Rate [ Bilateral] Respiratory 22 20 22 Rate Respiratory Rate [Bilateral ] Blood Pressure 108/62 119/63 O2 Sat by Pulse 97 Oximetry 08/24/19 08/24/19 08/24/19 11:20 11:45 12:15 Temperature 98.0 F 97.8 F 97.9 F Pulse Rate 78 75 78 Pulse Rate [ Bilateral] Respiratory 20 20 22 Rate Respiratory Rate [Bilateral ] Blood Pressure 118/69 107/64 110/68 O2 Sat by Pulse 91 Oximetry 08/24/19 08/24/19 08/24/19 12:45 15:00 15:15 Temperature 98 F 98.2 F 98.1 F Pulse Rate 77 78 81 Pulse Rate [ Bilateral] Respiratory 20 18 20 Rate Respiratory Rate [Bilateral ] Blood Pressure 108/65 116/65 114/59 O2 Sat by Pulse Oximetry 08/24/19 08/24/19 08/24/19 15:18 15:28 15:45 Temperature 98.1 F Pulse Rate 84 Pulse Rate [ 81 Bilateral] Respiratory 20 Rate Respiratory 20 Rate [Bilateral ] Blood Pressure 114/59 108/57 O2 Sat by Pulse Oximetry 08/24/19 08/24/19 08/24/19 16:15 16:24 16:45 Temperature 98 F 98.0 F 97.4 F L Pulse Rate 78 79 85 Pulse Rate [ Bilateral] Respiratory 20 20 18 Rate Respiratory Rate [Bilateral ] Blood Pressure 112/64 112/64 114/72 O2 Sat by Pulse 92 Oximetry 08/24/19 08/24/19 08/24/19 16:55 17:45 19:21 Temperature 98.3 F Pulse Rate 93 H Pulse Rate [ Bilateral] Respiratory 20 Rate Respiratory Rate [Bilateral ] Blood Pressure 114/72 117/68 O2 Sat by Pulse 96 Oximetry 08/24/19 19:32 Temperature Pulse Rate Pulse Rate [ 85 Bilateral] Respiratory Rate Respiratory 18 Rate [Bilateral ] Blood Pressure O2 Sat by Pulse Oximetry General appearance: Present: mild distress, well-nourished - EENT Eyes: PERRL, EOM intact ENT: hearing intact, clear oral mucosa Ears: bilateral: normal - Neck Neck: supple, normal ROM - Respiratory Respiratory effort: normal Respiratory: bilateral: CTA - Breasts Breasts: deferred - Cardiovascular Rhythm: regular Heart Sounds: Present: S1 & S2. Absent: gallop, rub Extremities: pulses intact, No edema, normal color, Full ROM - Gastrointestinal General gastrointestinal: Present: soft, non-tender, non-distended, normal bowel sounds Rectal Exam: deferred - Genitourinary Male genitourinary: deferred - Integumentary Integumentary: clear, warm, dry - Musculoskeletal Musculoskeletal: 1, strength equal bilaterally - Neurologic Neurologic: moves all extremities - Psychiatric Psychiatric: memory intact, appropriate mood/affect, intact judgment & insight - Labs CBC & Chem 7: 08/24/19 Unknown 08/24/19 Unknown Labs: Abnormal lab results 08/24/19 08/24/19 08/24/19 Range/Units 06:46 Unknown Unknown WBC 13.1 H (4.5-11.0) K/mm3 RBC 1.94 L (3.65-5.03) M/mm3 Hgb 6.6 L (11.8-15.2) gm/dl Hct 17.9 L* (35.5-45.6) % MCH 34 H (28-32) pg MCHC 37 H (32-34) % RDW 25.4 H (13.2-15.2) % Lymphocytes % (Manual) 37.0 H (13.4-35.0) % Monocytes % (Manual) 11.0 H (0.0-7.3) % Basophils % (Manual) 3.0 H (0.0-1.8) % Nucleated RBC % 5.0 H (0.0-0.9) % Monocytes # (Manual) 1.4 H (0.0-0.8) K/mm3 Eosinophils # (Manual) 0.5 H (0.0-0.4) K/mm3 Basophils # (Manual) 0.4 H (0.0-0.1) K/mm3 Percent Retic 10.93 H (0.78-2.58) % Sodium 135 L (137-145) mmol/L Carbon Dioxide 20 L (22-30) mmol/L Creatinine 0.5 L (0.8-1.5) mg/dL Glucose 131 H (75-100) mg/dL Calcium 8.3 L (8.4-10.2) mg/dL Crossmatch See Detail
[2019-08-24] MEDS ORDERED: SODIUM CHLORIDE 0.9% 250ML 250 ML IV ONE (21:37)
[2019-08-25] MEDS: ALBUTEROL 2.5 MG/3 ML NEBU IH SCH ×4 (01:23→19:46)
[2019-08-25] MEDS: diphenhydrAMINE 50 MG/ML VIAL IV PRN ×6 (01:28→21:49)
[2019-08-25] MEDS: HYDROmorphone 2 MG/1 ML INJ IV PRN ×6 (01:29→21:49)
[2019-08-25] MEDS: D5W/0.2% NACL 1,000 ML IV SCH ×5 (03:31→21:58)
[2019-08-25 06:29] LABS: Hematocrit 27.1 % (35.5-45.6); Hemoglobin 9.5 gm/dl (11.8-15.2)
[2019-08-25] MEDS: HYDROXYUREA 500 MG CAP PO SCH (09:24)
[2019-08-25] MEDS: APIXABAN 2.5 MG TAB PO SCH ×2 (09:25→21:50)
[2019-08-25] MEDS: FOLIC ACID 1 MG TAB PO SCH (09:25)
[2019-08-25] MEDS: MORPHINE 30 MG ER TAB PO SCH ×2 (12:06→23:05)
--- NOTE | 2019-08-25 20:38 | Progress Note ---
Assessment and Plan - Patient Problems (1) Sickle cell crisis Current Visit: Yes Status: Acute Plan to address problem: pain control/sxs management. (2) Sickle cell anemia Current Visit: Yes Status: Chronic Plan to address problem: transfusion replacement therapy, when indicated. continue with transfusion replacement therapy. s/p transfusion. (3) Dehydration Current Visit: Yes Status: Acute Plan to address problem: Hydration Subjective Date of service: 08/25/19 Principal diagnosis: SCD/anemia.pain crisis. Interval history: Patient seen/examined, resting in bed, just finished the 2nd unit of blood transfusion.Pain at 7/10.Will continue , with current management. patient seen/examined, resting in bed, c/o couhging up greenish sputum., and feels congested in the chest.will start on ABX. Objective - Constitutional Vitals: Vital Signs - 12hr 08/25/19 08/25/19 08/25/19 09:00 09:23 10:00 Temperature Pulse Rate Pulse Rate [ 84 Bilateral] Respiratory 18 Rate Respiratory 15 Rate [Bilateral ] Blood Pressure O2 Sat by Pulse 95 Oximetry 08/25/19 08/25/19 08/25/19 12:18 14:58 15:00 Temperature 98.2 F Pulse Rate 82 Pulse Rate [ 88 Bilateral] Respiratory 20 Rate Respiratory 18 Rate [Bilateral ] Blood Pressure 127/79 O2 Sat by Pulse 97 96 Oximetry 08/25/19 08/25/19 08/25/19 16:56 19:47 19:49 Temperature 98.3 F Pulse Rate 89 Pulse Rate [ 92 H Bilateral] Respiratory 20 Rate Respiratory 18 Rate [Bilateral ] Blood Pressure 132/71 O2 Sat by Pulse 94 96 Oximetry 08/25/19 20:13 Temperature Pulse Rate Pulse Rate [ Bilateral] Respiratory 20 Rate Respiratory Rate [Bilateral ] Blood Pressure O2 Sat by Pulse Oximetry General appearance: Present: mild distress, well-nourished - EENT Eyes: PERRL, EOM intact ENT: hearing intact, clear oral mucosa Ears: bilateral: normal - Neck Neck: supple, normal ROM - Respiratory Respiratory: bilateral: diminished, rhonchi - Breasts Breasts: deferred, normal - Cardiovascular Rhythm: regular Heart Sounds: Present: S1 & S2. Absent: gallop, rub Extremities: pulses intact, No edema, normal color, Full ROM - Gastrointestinal General gastrointestinal: Present: soft, non-tender, non-distended, normal bowel sounds - Genitourinary Male genitourinary: deferred - Integumentary Integumentary: clear, warm, dry - Musculoskeletal Musculoskeletal: 1, strength equal bilaterally - Neurologic Neurologic: moves all extremities - Psychiatric Psychiatric: memory intact, appropriate mood/affect, intact judgment & insight - Labs CBC & Chem 7: 08/25/19 Unknown 08/24/19 Unknown Labs: Abnormal lab results 08/24/19 08/25/19 Range/Units 06:46 Unknown Hgb 9.5 L (11.8-15.2) gm/dl Hct 27.1 L D (35.5-45.6) % Crossmatch See Detail
[2019-08-26] MEDS: D5W/0.2% NACL 1,000 ML IV SCH ×6 (02:49→23:01)
[2019-08-26] MEDS: diphenhydrAMINE 50 MG/ML VIAL IV PRN ×6 (03:34→21:10)
[2019-08-26] MEDS: HYDROmorphone 2 MG/1 ML INJ IV PRN ×6 (03:34→21:11)
[2019-08-26] MEDS: ALBUTEROL 2.5 MG/3 ML NEBU IH SCH ×3 (07:49→19:21)
[2019-08-26] MEDS: APIXABAN 2.5 MG TAB PO SCH ×2 (09:42→21:10)
[2019-08-26] MEDS: FOLIC ACID 1 MG TAB PO SCH (09:42)
[2019-08-26] MEDS: cefTRIAXone/NS 1 GM/50 ML 1 GM/50 ML BAG IV SCH (10:09)
[2019-08-26] MEDS: HYDROXYUREA 500 MG CAP PO SCH (10:10)
[2019-08-26] MEDS: MORPHINE 30 MG ER TAB PO SCH ×2 (13:28→21:09)
--- NOTE | 2019-08-26 20:27 | Discharge Summary ---
Providers - Providers Date of Admission: 08/23/19 06:44 Date of discharge: 08/27/19 Attending physician: ZACHERY RUIZ Primary care physician: DRAFTING DETAILER Hospitalization Condition: Stable Hospital course: Patient seen/examined, resting in bed, records reviewed, case d/w patient. C/o pain 6-04/22, at this time. Cough better since IV ABX.Will continue current yamila gement, and d/c home tomorrow.Patient had presented to the ER ,with diffuse body ache, unable to control his sxs at home. He was admitted to the hospital, hydrated, transfused with PRBC, and responded quite well. He had cough, with greenish sputum, treated with IV ABX. He will f/up with me ,in the office in 1week. 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 Absent: rub, click - Extremities Extremities: pulses symmetrical, No edema Peripheral Pulses: within normal limits - Abdominal General gastrointestinal: Present: soft, non-tender, non-distended, normal bowel sounds Male genitourinary: Present: deferred - Rectal Rectal Exam: deferred - Integumentary Integumentary: Present: clear, warm, dry - Musculoskeletal Musculoskeletal: gait normal, strength equal bilaterally - Psychiatric Psychiatric: appropriate mood/affect, intact judgment & insight - Neurologic Neurologic: CNII-XII intact, moves all extremities Plan Activity: no restrictions Diet: regular Follow up with: PRIMARY CARE, [Primary Care Provider] - 7 Days ZACHERY RUIZ DO [Staff Physician] - 7 Days
[2019-08-27] MEDS: diphenhydrAMINE 50 MG/ML VIAL IV PRN ×4 (00:33→11:26)
[2019-08-27] MEDS: HYDROmorphone 2 MG/1 ML INJ IV PRN ×4 (00:33→11:26)
[2019-08-27] MEDS: D5W/0.2% NACL 1,000 ML IV SCH ×2 (05:08→08:18)
[2019-08-27] MEDS: ALBUTEROL 2.5 MG/3 ML NEBU IH SCH (08:20)
[2019-08-27] MEDS: HYDROXYUREA 500 MG CAP PO SCH (09:05)
[2019-08-27] MEDS: cefTRIAXone/NS 1 GM/50 ML 1 GM/50 ML BAG IV SCH (09:05)
[2019-08-27] MEDS: APIXABAN 2.5 MG TAB PO SCH (09:05)
[2019-08-27] MEDS: FOLIC ACID 1 MG TAB PO SCH (09:06)
[2019-08-27] MEDS: MORPHINE 30 MG ER TAB PO SCH (09:06)
[2019-08-27 12:52] VITALS: BP 115/61
[2019-08-27] MEDS ORDERED: NEOMY 3.5 MG/BACIT 400 UNITS/POLY B 5000 UNITS/GM OINT PACKET TP ONE (13:00)
--- NOTE | 2019-08-27 13:20 | Progress Note ---
Assessment and Plan - Patient Problems (1) Sickle cell crisis Current Visit: Yes Status: Resolved Plan to address problem: pain control/sxs management. (2) Sickle cell anemia Current Visit: Yes Status: Chronic Plan to address problem: transfusion replacement therapy, when indicated. continue with transfusion replacement therapy. s/p transfusion. 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 Interval history: Patient seen/examined, resting in bed, just finished the 2nd unit of blood transfusion.Pain at 7/10.Will continue , with current management. patient seen/examined, resting in bed, c/o couhging up greenish sputum., and feels congested in the chest.will start on ABX. Patient seen, no complaints as per him, Discharge process completed he is awaiting his ride. He has all his meds. Objective - Constitutional Vitals: Vital Signs - 12hr 08/27/19 08/27/19 08/27/19 05:02 08:00 08:22 Temperature 98.3 F Pulse Rate 84 Pulse Rate [ 92 H Bilateral] Respiratory 18 Rate Respiratory 20 Rate [Bilateral ] Blood Pressure 116/64 O2 Sat by Pulse 92 92 Oximetry 08/27/19 12:00 Temperature 98.0 F Pulse Rate 87 Pulse Rate [ Bilateral] Respiratory 18 Rate Respiratory Rate [Bilateral ] Blood Pressure 115/61 O2 Sat by Pulse 96 Oximetry General appearance: Present: no acute distress, well-nourished - EENT Eyes: PERRL, EOM intact ENT: hearing intact, clear oral mucosa Ears: bilateral: normal - Neck Neck: supple, normal ROM - Respiratory Respiratory effort: normal Respiratory: bilateral: CTA - Breasts Breasts: deferred - Cardiovascular Rhythm: regular Heart Sounds: Present: S1 & S2. Absent: gallop, rub Extremities: pulses intact, No edema, normal color, Full ROM - Gastrointestinal General gastrointestinal: Present: soft, non-tender, non-distended, normal bowel sounds Rectal Exam: deferred - Genitourinary Male genitourinary: deferred - Integumentary Integumentary: clear, warm, dry - Musculoskeletal Musculoskeletal: 1, strength equal bilaterally - Neurologic Neurologic: moves all extremities - Psychiatric Psychiatric: memory intact, appropriate mood/affect, intact judgment & insight - Labs CBC & Chem 7: 08/25/19 Unknown 08/24/19 Unknown
== END 2019-08-27 14:26 | disposition home or self-care (01) | DRG 812 ==
LOC: ED 04:05 → 3A 06:44
PROVIDERS: ADMIT Internal Medicine Hematology & Oncology; ATTEND Internal Medicine Hematology & Oncology
PROC: 30233N1 Transfusion of Nonautologous Red Blood Cells into Peripheral Vein, Percutaneous Approach (ICD-10-PCS; principal; 2019-08-24)
DX: D57.00 Hb-SS disease with crisis, unspecified (principal); I82.210 Acute embolism and thrombosis of superior vena cava; E86.0 Dehydration; D64.9 Anemia, unspecified; Z86.718 Personal history of other venous thrombosis and embolism; Z79.01 Long term (current) use of anticoagulants; Z79.899 Other long term (current) drug therapy
CPT/HCPCS: 36415; 71045; 80048; 85007; 85014; 85018; 85025; 85045; 85660; 86850; 86900; 86901; 86920; 87116; 94640; 94760; 96365; 96375; G0378; A6250; J0696; J1170; J1200; J1642; J2405; J7040; J7042; J7050; P9016

== ENCOUNTER 2019-09-22 18:44 | Inpatient (IN) | payer MEDICARE ==
--- NOTE | 2019-09-22 19:54 | Event Note ---
ED Screening Note Date of service: 09/22/19 Time: 19:51 ED Screening Note: 28 y o presents with chest and back pain from sickle cell This initial assessment/diagnostic orders/clinical plan/treatment(s) is/are subject to change based on patients health status, clinical progression and re-assessment by fellow clinical providers in the ED. Further treatment and workup at subsequent clinical providers discretion. Patient/guardian urged not to elope from the ED as their condition may be serious if not clinically assessed and managed. Initial orders include: cbc,bmp,retic
--- NOTE | 2019-09-22 20:32 | XRay Report ---
CHEST 2 VIEWS INDICATION / CLINICAL INFORMATION: pain. COMPARISON: 08/23/2019 FINDINGS: SUPPORT DEVICES: Right port catheter tip is in a location consistent with the superior vena cava HEART / MEDIASTINUM: Heart size is normal. Vascular stent overlies the expected location of the super ior vena cava LUNGS / PLEURA: No significant pulmonary or pleural abnormality. No pneumothorax. ADDITIONAL FINDINGS: No significant additional findings. IMPRESSION: 1. No acute findings. Signer Name: Alexys Cheng MD Signed: 09/22/2019 8:28 PM Workstation Name: [id number]
[2019-09-22] MEDS ORDERED: ONDANSETRON 4 MG/2 ML INJ IV ONE (21:33)
[2019-09-22] MEDS ORDERED: SODIUM CHLORIDE 0.9% 1000 ML 1,000 ML IV ONE ×2 (21:33→22:42)
[2019-09-22] MEDS ORDERED: MORPHINE 4 MG/1 ML INJ IV ONE (21:33)
--- NOTE | 2019-09-22 21:38 | Emergency Department Report ---
ED General Adult HPI - General Chief complaint: Sickle Cell Crisis Stated complaint: SICKEL CELL PAIN Time Seen by Provider: 09/22/19 19:51 Source: patient Mode of arrival: Ambulatory Limitations: No Limitations - History of Present Illness Initial comments: Patient is 28 years old male with history of sickle cell disease. Patient presented to the ER complaining of generalized body pain, chest pain and back pain started this morning. Patient denied any fever or chills. Patient also denied any cough or shortness of breath. - Related Data Home Medications Medication Instructions Recorded Confirmed Last Taken Folic Acid [Folvite] 1 mg PO DAILY 04/03/18 07/22/19 06/23/19 Morphine ER [Ms Contin ER] 30 mg PO BID 04/03/18 07/22/19 06/23/19 Zolpidem [Ambien] 10 mg PO QHS PRN 05/25/19 07/22/19 06/23/19 Previous Rx's Medication Instructions Recorded Last Taken Type Hydroxyurea [Droxia] 1,500 mg PO DAILY #30 capsule 12/07/17 06/23/19 Rx Oxycodone HCl/Acetaminophen 1 tab PO Q4-6H PRN #6 tablet 02/15/19 06/23/19 Rx [Percocet 10/325 mg] Apixaban [Eliquis] 2.5 mg PO BID #60 tablet 03/23/19 06/23/19 Rx Allergies Allergy/AdvReac Type Severity Reaction Status Date / Time No Known Allergies Allergy Verified 05/25/19 14:45 ED Review of Systems ROS: Stated complaint: SICKEL CELL PAIN Other details as noted in HPI Comment: All other systems reviewed and negative Constitutional: denies: chills, fever Respiratory: denies: cough, shortness of breath, SOB with exertion Cardiovascular: chest pain Gastrointestinal: denies: abdominal pain, nausea, vomiting, diarrhea, constipation, hematemesis, melena, hematochezia Musculoskeletal: back pain, arthralgia, myalgia. denies: joint swelling Neurological: denies: headache, weakness, numbness, paresthesias, confusion ED Past Medical Hx - Past Medical History Previous Medical History?: Yes Hx Hypertension: No Hx CVA: No Hx Heart Attack/AMI: No Hx Congestive Heart Failure: No Hx Diabetes: No Hx Deep Vein Thrombosis: No Hx Pulmonary Embolism: No Hx GERD: No Hx Liver Disease: No Hx Renal Disease: No Hx Sickle Cell Disease: Yes Hx Arthritis: No Hx Headaches / Migraines: No Hx Seizures: No Hx Kidney Stones: No Hx Psychiatric Treatment: No Hx Asthma: Yes (denies hx exacerbations) Hx COPD: No Hx Tuberculosis: No Hx Dementia: No Hx HIV: No Additional medical history: Acute chest syndrome, - Surgical History Hx Coronary Stent: No Hx Open Heart Surgery: No Hx Pacemaker: No Hx Internal Defibrillator: No Hx Cholecystectomy: Yes Hx Appendectomy: No Hx Breast Surgery: No Additional Surgical History: TRACHEOSTOMY. 2 PORTS AND REMOVAL. LIVER BIOPSY X2 - Social History Smoking Status: Never Smoker Substance Use Type: None - Medications Home Medications: Home Medications Medication Instructions Recorded Confirmed Last Taken Type Hydroxyurea [Droxia] 1,500 mg PO DAILY #30 capsule 12/07/17 07/22/19 06/23/19 Rx Folic Acid [Folvite] 1 mg PO DAILY 04/03/18 07/22/19 06/23/19 History Morphine ER [Ms Contin ER] 30 mg PO BID 04/03/18 07/22/19 06/23/19 History Oxycodone HCl/Acetaminophen 1 tab PO Q4-6H PRN #6 tablet 02/15/19 07/22/19 06/23/19 Rx [Percocet 10/325 mg] Apixaban [Eliquis] 2.5 mg PO BID #60 tablet 03/23/19 07/22/19 06/23/19 Rx Zolpidem [Ambien] 10 mg PO QHS PRN 05/25/19 07/22/19 06/23/19 History ED Physical Exam - General Limitations: No Limitations General appearance: alert, in no apparent distress - Head Head exam: Present: atraumatic, normocephalic, normal inspection - Eye Eye exam: Present: normal appearance - ENT ENT exam: Present: normal exam, normal orophraynx, mucous membranes moist - Neck Neck exam: Present: normal inspection, full ROM. Absent: tenderness, meningismus, lymphadenopathy, thyromegaly - Respiratory Respiratory exam: Present: normal lung sounds bilaterally - Cardiovascular Cardiovascular Exam: Present: regular rate, normal rhythm, normal heart sounds - GI/Abdominal GI/Abdominal exam: Present: soft, normal bowel sounds. Absent: distended, tenderness, guarding, rebound, rigid, organomegaly, mass, bruit, pulsatile mass, hernia - Extremities Exam Extremities exam: Present: normal inspection, full ROM, normal capillary refill. Absent: tenderness, pedal edema, joint swelling, calf tenderness - Back Exam Back exam: Present: normal inspection, full ROM. Absent: CVA tenderness (R), CVA tenderness (L), muscle spasm, paraspinal tenderness, vertebral tenderness - Neurological Exam Neurological exam: Present: alert, oriented X3, CN II-XII intact, normal gait, reflexes normal - Skin Skin exam: Present: warm, intact, normal color ED Course Vital Signs 09/22/19 09/22/19 09/22/19 19:50 21:30 21:48 Temperature 98.4 F Pulse Rate 83 80 92 H Respiratory 20 16 24 Rate Blood Pressure 112/75 Blood Pressure 125/74 [Left] O2 Sat by Pulse 92 96 86 Oximetry 09/22/19 22:25 Temperature Pulse Rate Respiratory Rate Blood Pressure Blood Pressure [Left] O2 Sat by Pulse 88 Oximetry ED Medical Decision Making - Lab Data Result diagrams: 09/22/19 21:26 09/22/19 21:26 - Radiology Data Radiology results: report reviewed - Medical Decision Making Patient is 28 years old male with history of sickle cell disease. Patient presented to the ER complaining of generalized body pain, chest pain and back pain started this morning. Patient denied any fever or chills. Patient also denied any cough or shortness of breath. Patient received 2 L of normal saline, morphine and Zofran. Patient found to be in acute sickle cell crisis with a reticulocyte count of 22. Patient discussed with Dr. San who agreed to admit the patient to hospital for further management. Critical Care Time: Yes Critical care time in (mins) excluding proc time.: 30 Critical care attestation.: If time is entered above; I have spent that time in minutes in the direct care of this critically ill patient, excluding procedure time. ED Disposition Clinical Impression: Sickle cell pain crisis, Chest pain, Leukocytosis, Back pain Disposition: -09 OP ADMIT IP TO THIS HOSP Is pt being admited?: Yes Condition: Stable Instructions: Chest Pain (ED) Referrals: PRIMARY CARE, [Primary Care Provider] - 3-5 Days
[2019-09-22 22:13] LABS: Hematocrit 24.6 % (35.5-45.6); Hemoglobin 8.8 gm/dl (11.8-15.2); Mean Corpuscular HGB Conc 36 % (32-34); Mean Corpuscular Volume 92 fl (84-94); Red Blood Count 2.68 M/mm3 (3.65-5.03)
[2019-09-22 22:19] LABS: Platelet Count 223 K/mm3 (140-440)
[2019-09-22 22:34] LABS: BUN/Creatinine Ratio 28; Blood Urea Nitrogen 11 mg/dL (9-20); Calcium 8.6 mg/dL (8.4-10.2); Hemolysis Index 123
[2019-09-22] MEDS ORDERED: diphenhydrAMINE 50 MG/ML VIAL IV ONE (23:01)
[2019-09-22] MEDS ORDERED: HYDROmorphone 1 MG/1 ML INJ IV ONE (23:01)
[2019-09-22] MEDS: HYDROmorphone 1 MG/1 ML INJ IV SCH (23:54)
[2019-09-22] MEDS: diphenhydrAMINE 50 MG/ML VIAL IV SCH (23:54)
[2019-09-23] MEDS ORDERED: D5W/0.2% NACL 1,000 ML IV ONE (00:02)
[2019-09-23] MEDS: D5W/0.2% NACL 1,000 ML IV SCH ×5 (00:04→18:00)
[2019-09-23 02:19] LABS: Basophils % (Manual) 0 % (0.0-1.8); Total Cells Counted 100
[2019-09-23 02:20] LABS: Anisocytosis 2+; Sickle Cells 3+
[2019-09-23 02:21] LABS: Platelet Estimate Consistent w Auto; Target Cells Few
[2019-09-23] MEDS: diphenhydrAMINE 50 MG/ML VIAL IV SCH ×7 (02:46→21:20)
[2019-09-23] MEDS: HYDROmorphone 1 MG/1 ML INJ IV SCH ×7 (02:46→21:21)
[2019-09-23] MEDS ORDERED: oxyCODONE 5 MG TAB PO PRN ×2 (11:01→23:15)
[2019-09-23] MEDS ORDERED: FOLIC ACID 1 MG TAB PO SCH (12:00)
[2019-09-23] MEDS: APIXABAN 2.5 MG TAB PO SCH ×2 (12:40→21:21)
[2019-09-23] MEDS: HYDROXYUREA 500 MG CAP PO SCH (12:40)
[2019-09-23] MEDS ORDERED: ZOLPIDEM 5 MG TAB PO PRN (23:06)
[2019-09-23] MEDS ORDERED: OXYCODONE HCL PO PRN (23:06)
[2019-09-23] MEDS ORDERED: ACETAMINOPHEN PO PRN (23:06)
--- NOTE | 2019-09-23 23:12 | History and Physical Report ---
History of Present Illness Date of examination: 09/23/19 Date of admission: 09/22/19 23:11 Chief complaint: Diffuse joint pain. History of present illness: Patient presented to the Er with CC of overall body ache/SOB. He was not getting pain control at home, and hence, presented to the ER. He was seen by the ED Doc and admitted ,for sxs management, and control.Once stable, will D/c home.He will be hydrated, pain control, and hydrated. Past History Past Medical History: anemia Past Surgical History: No surgical history Social history: no significant social history, single, lives with family Family history: no significant family history Medications and Allergies Allergies Allergy/AdvReac Type Severity Reaction Status Date / Time No Known Allergies Allergy Verified 05/25/19 14:45 Home Medications Medication Instructions Recorded Confirmed Last Taken Type Hydroxyurea [Droxia] 1,500 mg PO DAILY #30 capsule 12/07/17 09/22/19 06/23/19 Rx Folic Acid [Folvite] 1 mg PO DAILY 04/03/18 09/22/19 06/23/19 History Morphine ER [Ms Contin ER] 30 mg PO BID 04/03/18 09/22/19 06/23/19 History Oxycodone HCl/Acetaminophen 1 tab PO Q4-6H PRN #6 tablet 02/15/19 09/22/19 06/23/19 Rx [Percocet 10/325 mg] Apixaban [Eliquis] 2.5 mg PO BID #60 tablet 03/23/19 09/22/19 06/23/19 Rx Zolpidem [Ambien] 10 mg PO QHS PRN 05/25/19 09/22/19 06/23/19 History Active Meds: Active Medications Apixaban (Eliquis) 2.5 mg PO BID [facility]; Protocol Last Admin: 09/23/19 21:21 Dose: 2.5 mg Documented by: Diphenhydramine HCl (Benadryl) 12.5 mg IV Q3H [facility] Last Admin: 09/23/19 21:20 Dose: 12.5 mg Documented by: Folic Acid (Folvite) 1 mg PO QDAY [facility] Last Admin: 09/23/19 12:40 Dose: 1 mg Documented by: Folic Acid (Folvite) 1 mg PO DAILY [facility] Hydromorphone HCl (Dilaudid) 3 mg IV Q3H [facility] Last Admin: 09/23/19 21:21 Dose: 3 mg Documented by: Hydroxyurea (Hydroxyurea) 1,500 mg PO QDAY [facility] Last Admin: 09/23/19 12:40 Dose: 1,500 mg Documented by: Dextrose/Sodium Chloride (D5ns 0.2%) 1,000 mls @ 250 mls/hr IV DIRECT [facility] Last Admin: 09/23/19 18:00 Dose: 250 mls/hr Documented by: Oxycodone HCl (Roxicodone) 10 mg PO Q6H PRN PRN Reason: Pain, Moderate (4-6) Review of Systems Constitutional: chronic pain Exam - Constitutional Vitals: Temp Pulse Resp BP Pulse Ox 97.5 F L 71 22 107/70 99 09/23/19 16:25 09/23/19 16:25 09/23/19 16:25 09/23/19 16:25 09/23/19 16:25 General appearance: Present: mild distress, well-nourished - EENT Eyes: Present: PERRL ENT: hearing intact, clear oral mucosa - Neck Neck: Present: supple, normal ROM - Respiratory Respiratory: bilateral: diminished - Cardiovascular Heart Sounds: Present: S1 & S2. Absent: rub, click - Extremities Extremities: pulses symmetrical, No edema Peripheral Pulses: within normal limits - Abdominal General gastrointestinal: Present: soft, non-tender, non-distended, normal bowel sounds Male genitourinary: Present: deferred - Rectal Rectal Exam: deferred - Integumentary Integumentary: Present: clear, warm, dry - Musculoskeletal Musculoskeletal: gait normal, strength equal bilaterally - Psychiatric Psychiatric: appropriate mood/affect, intact judgment & insight - Neurologic Neurologic: CNII-XII intact, moves all extremities Results - Labs CBC & Chem 7: 09/22/19 21:26 09/22/19 21:26 Labs: Abnormal lab results 09/22/19 Range/Units 21:26 Monocytes % (Manual) 8.0 H (0.0-7.3) % Nucleated RBC % 6.0 H (0.0-0.9) % Seg Neutrophils # Man 8.4 H (1.8-7.7) K/mm3 Monocytes # (Manual) 1.1 H (0.0-0.8) K/mm3 Assessment and Plan - Patient Problems (1) Chest pain Current Visit: Yes Status: Chronic Plan to address problem: Pain control, oxygen. (2) Back pain Current Visit: Yes Status: Chronic Plan to address problem: Pain control. (3) Sickle cell pain crisis Current Visit: Yes Status: Acute Plan to address problem: pain control. (4) Leukocytosis Current Visit: Yes Status: Acute Plan to address problem: recheck cbc in am. (5) Dehydration Current Visit: Yes Status: Acute Plan to address problem: Hydration.
[2019-09-23] MEDS ORDERED: oxyCODONE /ACETAMINOPHEN 5-325MG TAB PO PRN (23:14)
[2019-09-24] MEDS: HYDROmorphone 1 MG/1 ML INJ IV SCH ×7 (00:40→18:06)
[2019-09-24] MEDS: D5W/0.2% NACL 1,000 ML IV SCH ×5 (00:40→16:43)
[2019-09-24] MEDS: diphenhydrAMINE 50 MG/ML VIAL IV SCH ×7 (00:40→18:05)
[2019-09-24 07:34] LABS: Hematocrit 22.1 % (35.5-45.6); Hemoglobin 8.1 gm/dl (11.8-15.2); Mean Corpuscular HGB Conc 37 % (32-34); Mean Corpuscular Volume 91 fl (84-94); Red Blood Count 2.43 M/mm3 (3.65-5.03)
[2019-09-24 07:50] LABS: BUN/Creatinine Ratio 20; Blood Urea Nitrogen 8 mg/dL (9-20); Calcium 8.4 mg/dL (8.4-10.2); Hemolysis Index 19
[2019-09-24 09:55] LABS: Anisocytosis 2+; Basophils % (Manual) 0 % (0.0-1.8); Macrocytosis Few; Sickle Cells 2+; Target Cells 1+; Total Cells Counted 100
[2019-09-24 09:56] LABS: Giant Platelets Few; Platelet Estimate Consistent w Auto; Toxic Granulation Rare
[2019-09-24 09:57] LABS: Platelet Count 186 K/mm3 (140-440)
[2019-09-24] MEDS ORDERED: FOLIC ACID 1 MG TAB PO SCH (10:00)
[2019-09-24] MEDS ORDERED: APIXABAN 2.5 MG TAB PO SCH (10:00)
[2019-09-24] MEDS: HYDROXYUREA 500 MG CAP PO SCH (10:04)
--- NOTE | 2019-09-24 17:51 | Discharge Summary ---
Providers - Providers Date of Admission: 09/22/19 23:11 Date of discharge: 09/24/19 Attending physician: ZACHERY RUIZ Primary care physician: [employer] Hospitalization Reason for admission: SCD/Pain crisis, anemia. Condition: Stable Hospital course: Patient presented , to the ER with CC of diffuse joint pain, weakness.He was seen/examined, and admitted, for sxs management/control. He had hydration, and pain control, and seen/examined today, c/o feels better. I will d/c him home. Disposition: DC- TO HOME OR SELFCARE - Discharge Diagnoses (1) Chest pain Status: Resolved (2) Back pain Status: Resolved (3) Sickle cell pain crisis Status: Resolved (4) Leukocytosis Status: Resolved (5) Dehydration Status: Resolved Core Measure Documentation - Palliative Care Palliative Care/ Comfort Measures: Not Applicable - Core Measures Any of the following diagnoses?: history only Exam - Constitutional Vitals: Temp Pulse Resp BP Pulse Ox 97.8 F 76 24 114/68 98 09/24/19 11:21 09/24/19 14:02 09/24/19 11:21 09/24/19 14:02 09/24/19 11:21 General appearance: Present: no acute distress, well-nourished - EENT Eyes: Present: PERRL ENT: hearing intact, clear oral mucosa - Neck Neck: Present: supple, normal ROM - Respiratory Respiratory effort: normal Respiratory: bilateral: CTA - Cardiovascular Heart Sounds: Present: S1 & S2. Absent: rub, click - Extremities Extremities: pulses symmetrical, No edema Peripheral Pulses: within normal limits - Abdominal General gastrointestinal: Present: soft, non-tender, non-distended, normal bowel sounds Male genitourinary: Present: deferred - Rectal Rectal Exam: deferred - Integumentary Integumentary: Present: clear, warm, dry - Musculoskeletal Musculoskeletal: gait normal, strength equal bilaterally - Psychiatric Psychiatric: appropriate mood/affect, intact judgment & insight - Neurologic Neurologic: CNII-XII intact, moves all extremities Plan Activity: no restrictions Diet: regular Follow up with: PRIMARY CARE, [Primary Care Provider] - 3-5 Days ZACHERY RUIZ DO [Staff Physician] - 7 Days
[2019-09-24 20:46] VITALS: BP 110/68
== END 2019-09-24 20:30 | disposition home or self-care (01) | DRG 812 ==
LOC: ED 18:44 → 3A 23:11
PROVIDERS: ADMIT Internal Medicine Hematology & Oncology; ATTEND Internal Medicine Hematology & Oncology
DX: D57.00 Hb-SS disease with crisis, unspecified (principal); R07.9 Chest pain, unspecified; E87.5 Hyperkalemia; M54.9 Dorsalgia, unspecified; D72.829 Elevated white blood cell count, unspecified; E86.0 Dehydration; J45.909 Unspecified asthma, uncomplicated; Z79.899 Other long term (current) drug therapy; Z90.49 Acquired absence of other specified parts of digestive tract
CPT/HCPCS: 36415; 71046; 80048; 85007; 85025; 85045; 87116; 96374; G0378; J1170; J1200; J2270; J2405; J7030

== ENCOUNTER 2019-12-10 08:44 | Inpatient (IN) | payer MEDICARE ==
[2019-12-10] MEDS ORDERED: SODIUM CHLORIDE 0.9% 1000 ML 1,000 ML IV ONE ×2 (09:06)
[2019-12-10] MEDS ORDERED: ONDANSETRON 4 MG/2 ML INJ IV ONE (09:19)
[2019-12-10] MEDS ORDERED: MORPHINE 4 MG/1 ML INJ IV ONE (09:19)
--- NOTE | 2019-12-10 09:21 | Emergency Department Report ---
ED General Adult HPI - General Chief complaint: Sickle Cell Crisis Stated complaint: SICKLE PAIN, BACK PAIN Time Seen by Provider: 12/10/19 09:06 Source: patient Mode of arrival: Ambulatory Limitations: No Limitations - History of Present Illness Initial comments: Patient is 29 years old male with history of sickle cell disease. Patient presented to the ER complaining of a sickle cell crisis that started this morning. Patient stated that he is having pain in the lower back and lower leg on both sides. Patient denied any recent history of injury. No fever or chills. No nausea or vomiting. Patient also denied any chest pain or shortness of breath. - Related Data Home Medications Medication Instructions Recorded Confirmed Last Taken Folic Acid [Folvite] 1 mg PO DAILY 04/03/18 09/22/19 06/23/19 Morphine ER [Ms Contin ER] 30 mg PO BID 04/03/18 09/22/19 06/23/19 Zolpidem [Ambien] 10 mg PO QHS PRN 05/25/19 09/22/19 06/23/19 Previous Rx's Medication Instructions Recorded Last Taken Type Hydroxyurea [Droxia] 1,500 mg PO DAILY #30 capsule 12/07/17 06/23/19 Rx Oxycodone HCl/Acetaminophen 1 tab PO Q4-6H PRN #6 tablet 02/15/19 06/23/19 Rx [Percocet 10/325 mg] Apixaban [Eliquis] 2.5 mg PO BID #60 tablet 03/23/19 06/23/19 Rx Albuterol INH(or & Nicu Only) 2 puff IH QID PRN #1 inhalation 10/15/19 Unknown Rx [ProAir HFA Inhaler] Amoxicillin/Potassium Clav 1 each PO BID #14 tablet 10/15/19 Unknown Rx [Augmentin 875-125 Tablet] Benzonatate [Tessalon Perles] 100 mg PO Q8HR #10 capsule 10/15/19 Unknown Rx predniSONE [Deltasone] 20 mg PO QDAY #5 tab 10/15/19 Unknown Rx Allergies Allergy/AdvReac Type Severity Reaction Status Date / Time No Known Allergies Allergy Verified 12/10/19 08:49 ED Review of Systems ROS: Stated complaint: SICKLE PAIN, BACK PAIN Other details as noted in HPI Comment: All other systems reviewed and negative Constitutional: denies: chills, fever Respiratory: denies: cough, shortness of breath, SOB with exertion Cardiovascular: denies: chest pain, palpitations Gastrointestinal: denies: abdominal pain, nausea, vomiting, diarrhea, constipation, hematemesis, melena, hematochezia Musculoskeletal: back pain, arthralgia, myalgia. denies: joint swelling Neurological: denies: headache, weakness, numbness, paresthesias, confusion, abnormal gait ED Past Medical Hx - Past Medical History Hx Hypertension: No Hx CVA: No Hx Heart Attack/AMI: No Hx Congestive Heart Failure: No Hx Diabetes: No Hx Deep Vein Thrombosis: No Hx Pulmonary Embolism: No Hx GERD: No Hx Liver Disease: No Hx Renal Disease: No Hx Sickle Cell Disease: Yes Hx Arthritis: No Hx Headaches / Migraines: No Hx Seizures: No Hx Kidney Stones: No Hx Psychiatric Treatment: No Hx Asthma: Yes (denies hx exacerbations) Hx COPD: No Hx Tuberculosis: No Hx Dementia: No Hx HIV: No Additional medical history: Acute chest syndrome, - Surgical History Hx Coronary Stent: No Hx Open Heart Surgery: No Hx Pacemaker: No Hx Internal Defibrillator: No Hx Cholecystectomy: Yes Hx Appendectomy: No Hx Breast Surgery: No Additional Surgical History: TRACHEOSTOMY. 2 PORTS AND REMOVAL. LIVER BIOPSY X2 - Social History Smoking Status: Never Smoker Substance Use Type: None - Medications Home Medications: Home Medications Medication Instructions Recorded Confirmed Last Taken Type Hydroxyurea [Droxia] 1,500 mg PO DAILY #30 capsule 12/07/17 09/22/19 06/23/19 Rx Folic Acid [Folvite] 1 mg PO DAILY 04/03/18 09/22/19 06/23/19 History Morphine ER [Ms Contin ER] 30 mg PO BID 04/03/18 09/22/19 06/23/19 History Oxycodone HCl/Acetaminophen 1 tab PO Q4-6H PRN #6 tablet 02/15/19 09/22/1908/01 Rx [Percocet 10/325 mg] Apixaban [Eliquis] 2.5 mg PO BID #60 tablet 03/23/19 09/22/19 06/23/19 Rx Zolpidem [Ambien] 10 mg PO QHS PRN 05/25/19 09/22/19 06/23/19 History Albuterol INH(or & Nicu Only) 2 puff IH QID PRN #1 inhalation 10/15/19 Unknown Rx [ProAir HFA Inhaler] Amoxicillin/Potassium Clav 1 each PO BID #14 tablet 10/15/19 Unknown Rx [Augmentin 875-125 Tablet] Benzonatate [Tessalon Perles] 100 mg PO Q8HR #10 capsule 10/15/19 Unknown Rx predniSONE [Deltasone] 20 mg PO QDAY #5 tab 10/15/19 Unknown Rx ED Physical Exam - General Limitations: No Limitations General appearance: alert, in no apparent distress - Head Head exam: Present: atraumatic, normocephalic, normal inspection - Eye Eye exam: Present: normal appearance - ENT ENT exam: Present: normal exam, normal orophraynx, mucous membranes moist - Neck Neck exam: Present: normal inspection, full ROM. Absent: tenderness, meningismus, lymphadenopathy, thyromegaly - Respiratory Respiratory exam: Present: normal lung sounds bilaterally - Cardiovascular Cardiovascular Exam: Present: regular rate, normal rhythm, normal heart sounds - GI/Abdominal GI/Abdominal exam: Present: soft, normal bowel sounds. Absent: distended, tend erness, guarding, rebound, rigid, organomegaly, mass, bruit, pulsatile mass, hernia - Extremities Exam Extremities exam: Present: normal inspection, full ROM, normal capillary refill. Absent: pedal edema, calf tenderness - Back Exam Back exam: Present: normal inspection, full ROM. Absent: CVA tenderness (R), CVA tenderness (L) - Neurological Exam Neurological exam: Present: alert, oriented X3, CN II-XII intact, normal gait, reflexes normal - Psychiatric Psychiatric exam: Present: normal mood - Skin Skin exam: Present: warm, intact, normal color ED Course Vital Signs 12/10/19 12/10/19 12/10/19 08:52 09:34 09:45 Temperature 98.4 F Pulse Rate 90 90 Respiratory 22 29 H Rate Blood Pressure 119/67 109/73 O2 Sat by Pulse 94 96 94 Oximetry 12/10/19 12/10/19 12/10/19 09:49 10:00 10:30 Temperature Pulse Rate 79 77 Respiratory 29 H 26 H 20 Rate Blood Pressure 97/60 113/66 O2 Sat by Pulse 94 94 97 Oximetry ED Medical Decision Making - Lab Data Result diagrams: 12/10/19 09:12/10/19 09:30 - Medical Decision Making Patient is 29 years old male with history of sickle cell disease. Patient prese nted to the ER complaining of a sickle cell crisis that started this morning. Patient stated that he is having pain in the lower back and lower leg on both sides. Patient denied any recent history of injury. No fever or chills. No nausea or vomiting. Patient also denied any chest pain or shortness of breath. Patient received normal saline, morphine, Toradol and Zofran. Labs reviewed and showed chronic changes with a reticulocyte count of 18. I discussed the patient with Dr. Mendoza, he advised to admit the patient to his service for further management. Critical care attestation.: If time is entered above; I have spent that time in minutes in the direct care of this critically ill patient, excluding procedure time. ED Disposition Clinical Impression: Acute sickle cell crisis Disposition: OP ADMIT IP TO THIS HOSP Is pt being admited?: Yes Condition: Stable Referrals: PRIMARY CARE, [Primary Care Provider] - 3-5 Days
[2019-12-10 09:51] LABS: Hematocrit 21.3 % (35.5-45.6); Hemoglobin 7.7 gm/dl (11.8-15.2); Mean Corpuscular HGB Conc 36 % (32-34); Mean Corpuscular Volume 96 fl (84-94); Red Blood Count 2.22 M/mm3 (3.65-5.03)
[2019-12-10 10:00] LABS: Red Cell Distribution Width 26.3 % (13.2-15.2)
[2019-12-10 10:03] LABS: Alanine Aminotransferase 18 units/L (7-56); Albumin 4.2 g/dL (3.9-5); BUN/Creatinine Ratio 13; Bilirubin,Direct 2.1 mg/dL (0-0.2); Blood Urea Nitrogen 5 mg/dL (9-20); Calcium 8.6 mg/dL (8.4-10.2); Hemolysis Index 17
[2019-12-10 10:06] LABS: Bilirubin,Urine NEG (Negative); Blood,Urine MOD (Negative); Color,Urine Amber (Yellow); Mucus,Urine FEW /HPF
[2019-12-10] MEDS ORDERED: KETOROLAC 30 MG/1 ML INJ IV ONE (10:21)
[2019-12-10] MEDS ORDERED: KETOROLAC 30 MG/1 ML INJ ONE (10:22)
[2019-12-10 11:33] LABS: Total Cells Counted 100
[2019-12-10 11:34] LABS: Hgb C Crystals Few; Sickle Cells 2+; Target Cells Few
[2019-12-10 11:35] LABS: Anisocytosis 3+; Dimorphic RBC Yes; Large Platelets Few; Platelet Estimate Consistent w Auto
[2019-12-10 12:17] LABS: Platelet Count 236 K/mm3 (140-440)
[2019-12-10] MEDS: D5W/0.2% NACL 1,000 ML IV SCH ×2 (19:20→22:55)
[2019-12-10] MEDS: diphenhydrAMINE 50 MG/ML VIAL IV PRN ×2 (19:38→22:46)
[2019-12-10] MEDS: HYDROmorphone 2 MG/1 ML INJ IM PRN ×2 (19:39→22:46)
--- NOTE | 2019-12-10 20:40 | History and Physical Report ---
History of Present Illness Date of examination: 12/10/19 Date of admission: 12/10/19 11:00 Chief complaint: SCD/ acute pain crisis. History of present illness: Patient presented to the ER, with CC of diffuse joint pain, unable to control, at home.He was seen by the Er physician, and admitted for Sickle pain crisis.He will be hydrated, monitor labs, and pain control.once stabilized, will d/c home. Past History Past Medical History: anemia Social history: no significant social history, single Family history: no significant family history Medications and Allergies Allergies Allergy/AdvReac Type Severity Reaction Status Date / Time No Known Allergies Allergy Verified 12/10/19 08:49 Home Medications Medication Instructions Recorded Confirmed Last Taken Type Hydroxyurea [Droxia] 1,500 mg PO DAILY #30 capsule 12/07/17 09/22/19 06/23/19 Rx Folic Acid [Folvite] 1 mg PO DAILY 04/03/18 09/22/19 06/23/19 History Morphine ER [Ms Contin ER] 30 mg PO BID 04/03/18 09/22/19 06/23/19 History Oxycodone HCl/Acetaminophen 1 tab PO Q4-6H PRN #6 tablet 02/15/19 09/22/19 06/23/19 Rx [Percocet 10/325 mg] Apixaban [Eliquis] 2.5 mg PO BID #60 tablet 03/23/19 09/22/19 06/23/19 Rx Zolpidem [Ambien] 10 mg PO QHS PRN 05/25/19 09/22/19 06/23/19 History Albuterol INH(or & Nicu Only) 2 puff IH QID PRN #1 inhalation 10/15/19 Unknown Rx [ProAir HFA Inhaler] Amoxicillin/Potassium Clav 1 each PO BID #14 tablet 10/15/19 Unknown Rx [Augmentin 875-125 Tablet] Benzonatate [Tessalon Perles] 100 mg PO Q8HR #10 capsule 10/15/19 Unknown Rx predniSONE [Deltasone] 20 mg PO QDAY #5 tab 10/15/19 Unknown Rx Active Meds: Active Medications Diphenhydramine HCl (Benadryl) 12.5 mg IV Q3H PRN PRN Reason: Itching Last Admin: 02/27/20 19:38 Dose: 12.5 mg Documented by: Hydromorphone HCl (Dilaudid) 2 mg IM Q3H PRN PRN Reason: Pain , Severe (7-10) Last Admin: 12/10/19 19:39 Dose: 2 mg Documented by: Dextrose/Sodium Chloride (D5ns 0.2%) 1,000 mls @ 250 mls/hr IV DIRECT [facility] Last Admin: 12/10/19 19:20 Dose: 250 mls/hr Documented by: Review of Systems Constitutional: weakness, chronic pain Cardiovascular: shortness of breath Musculoskeletal: low back pain Exam - Constitutional Vitals: Temp Pulse Resp BP Pulse Ox 98.3 F 80 22 104/52 93 12/10/19 16:08 12/10/19 16:08 12/10/19 16:08 12/10/19 16:08 12/10/19 16:08 General appearance: Present: mild distress, well-nourished - EENT Eyes: Present: PERRL ENT: hearing intact, clear oral mucosa - Neck Neck: Present: supple, normal ROM - Respiratory Respiratory effort: normal Respiratory: bilateral: CTA - Cardiovascular Heart Sounds: Present: S1 & S2. Absent: rub, click - Extremities Extremities: pulses symmetrical, No edema Peripheral Pulses: within normal limits - Abdominal General gastrointestinal: Present: soft, non-tender, non-distended, normal bowel sounds Male genitourinary: Present: deferred - Rectal Rectal Exam: deferred - Integumentary Integumentary: Present: clear, warm, dry - Musculoskeletal Musculoskeletal: gait normal, strength equal bilaterally - Psychiatric Psychiatric: appropriate mood/affect, intact judgment & insight - Neurologic Neurologic: CNII-XII intact, moves all extremities Results - Labs CBC & Chem 7: 12/10/19 09:30 12/10/19 09:30 Labs: Abnormal lab results 12/10/19 12/10/19 Range/Units 09:30 09:30 RBC 2.22 L (3.65-5.03) M/mm3 Hgb 7.7 L (11.8-15.2) gm/dl Hct 21.3 L (35.5-45.6) % MCV 96 H (84-94) fl MCH 35 H (28-32) pg MCHC 36 H (32-34) % RDW 26.3 H (13.2-15.2) % Monocytes % (Manual) 10.0 H (0.0-7.3) % Nucleated RBC % 3.0 H (0.0-0.9) % Monocytes # (Manual) 0.9 H (0.0-0.8) K/mm3 Percent Retic 18.43 H (0.78-2.58) % Carbon Dioxide 17 L (22-30) mmol/L BUN 5 L (9-20) mg/dL Creatinine 0.4 L (0.8-1.5) mg/dL Glucose 140 H (75-100) mg/dL Total Bilirubin 8.70 H (0.1-1.2) mg/dL Direct Bilirubin 2.1 H (0-0.2) mg/dL AST 52 H (5-40) units/L Alkaline Phosphatase 171 H (35-129) units/L Assessment and Plan - Patient Problems (1) Acute sickle cell crisis Current Visit: Yes Status: Acute Plan to address problem: Pain control, supportive. (2) Dehydration Current Visit: Yes Status: Acute Plan to address problem: hydrate. (3) Sickle cell anemia Current Visit: Yes Status: Acute Plan to address problem: monitor, and correct.
[2019-12-10] MEDS: MORPHINE 30 MG ER TAB PO SCH (21:46)
[2019-12-10] MEDS: APIXABAN 5 MG TAB PO SCH (21:47)
[2019-12-10] MEDS: ZOLPIDEM 5 MG TAB PO PRN (22:46)
[2019-12-11] MEDS: HYDROmorphone 2 MG/1 ML INJ IV PRN ×7 (01:45→21:35)
[2019-12-11] MEDS: diphenhydrAMINE 50 MG/ML VIAL IV PRN ×7 (01:46→21:35)
[2019-12-11] MEDS: D5W/0.2% NACL 1,000 ML IV SCH ×4 (07:29→18:21)
[2019-12-11] MEDS ORDERED: HYDROXYUREA PO SCH (10:00)
[2019-12-11] MEDS: APIXABAN 5 MG TAB PO SCH ×2 (11:03→21:40)
[2019-12-11] MEDS: FOLIC ACID 1 MG TAB PO SCH (11:04)
[2019-12-11] MEDS: HYDROXYUREA 500 MG CAP PO SCH (11:04)
[2019-12-11] MEDS: MORPHINE 30 MG ER TAB PO SCH ×2 (11:04→21:36)
--- NOTE | 2019-12-11 21:36 | Progress Note ---
Assessment and Plan - Patient Problems (1) Acute sickle cell crisis Current Visit: Yes Status: Acute Plan to address problem: Pain control, supportive. (2) Dehydration Current Visit: Yes Status: Acute Plan to address problem: hydrate. (3) Sickle cell anemia Current Visit: Yes Status: Acute Plan to address problem: monitor, and correct. Subjective Date of service: 12/11/19 Principal diagnosis: SCD/Dehydration. Anemia. Interval history: Patient seen/examined, resting in bed, records reviewed, case d/w patient.Pain rated as 7/10. will continue with current management. Objective - Constitutional Vitals: Vital Signs - 12hr 12/11/19 12/11/19 12/11/19 11:32 17:00 19:20 Temperature 97.6 F 98.3 F Pulse Rate 74 82 Respiratory 22 22 Rate Blood Pressure 105/69 125/78 O2 Sat by Pulse 100 100 97 Oximetry General appearance: Present: mild distress, well-nourished - EENT Eyes: PERRL, EOM intact ENT: hearing intact, clear oral mucosa Ears: bilateral: normal - Neck Neck: supple, normal ROM - Respiratory Respiratory effort: normal Respiratory: bilateral: CTA - Breasts Breasts: deferred - Cardiovascular Rhythm: regular Heart Sounds: Present: S1 & S2. Absent: gallop, rub Extremities: pulses intact, No edema, normal color, Full ROM - Gastrointestinal General gastrointestinal: Present: soft, non-tender, non-distended, normal bowel sounds Rectal Exam: deferred - Genitourinary Male genitourinary: deferred - Integumentary Integumentary: clear, warm, dry - Musculoskeletal Musculoskeletal: 1, strength equal bilaterally - Neurologic Neurologic: moves all extremities - Psychiatric Psychiatric: memory intact, appropriate mood/affect, intact judgment & insight - Labs CBC & Chem 7: 12/10/19 09:30 12/10/19 09:30
[2019-12-12] MEDS: HYDROmorphone 2 MG/1 ML INJ IV PRN ×8 (00:40→23:07)
[2019-12-12] MEDS: diphenhydrAMINE 50 MG/ML VIAL IV PRN ×8 (00:41→23:06)
[2019-12-12] MEDS: D5W/0.2% NACL 1,000 ML IV SCH ×5 (00:43→21:01)
[2019-12-12] MEDS: FOLIC ACID 1 MG TAB PO SCH (09:27)
[2019-12-12] MEDS: HYDROXYUREA 500 MG CAP PO SCH (09:27)
[2019-12-12] MEDS: APIXABAN 5 MG TAB PO SCH ×2 (09:27→21:07)
[2019-12-12] MEDS: MORPHINE 30 MG ER TAB PO SCH ×2 (09:28→21:03)
[2019-12-12] MEDS: ZOLPIDEM 5 MG TAB PO PRN (21:03)
--- NOTE | 2019-12-12 21:47 | Progress Note ---
Assessment and Plan - Patient Problems (1) Acute sickle cell crisis Current Visit: Yes Status: Acute Plan to address problem: Pain control, supportive. (2) Dehydration Current Visit: Yes Status: Acute Plan to address problem: hydrate. (3) Sickle cell anemia Current Visit: Yes Status: Acute Plan to address problem: monitor, and correct. Subjective Date of service: 12/12/19 Principal diagnosis: SCD/Dehydration. Anemia. Interval history: Patient seen/examined, resting in bed, records reviewed, case d/w patient.Pain rated as 7/10. will continue with current management. Patient seen/examined, resting in bed, records reviewed, case d/w patient.Pain rated at 6-7/10. Objective - Constitutional Vitals: Vital Signs - 12hr 12/12/19 12/12/19 12/12/19 10:00 12:26 16:53 Temperature 97.9 F 98.5 F Pulse Rate 76 82 Pulse Rate [ Apical] Respiratory 18 18 Rate Blood Pressure 104/58 104/60 O2 Sat by Pulse 97 98 98 Oximetry 12/12/19 12/12/19 12/12/19 19:40 19:44 20:10 Temperature Pulse Rate Pulse Rate [ 86 Apical] Respiratory 18 18 18 Rate Blood Pressure O2 Sat by Pulse 98 Oximetry 12/12/19 12/12/19 12/12/19 20:36 21:03 21:04 Temperature 98.2 F Pulse Rate 77 Pulse Rate [ Apical] Respiratory 18 20 Rate Blood Pressure 118/61 O2 Sat by Pulse 96 96 Oximetry General appearance: Present: mild distress, well-nourished - EENT Eyes: PERRL, EOM intact ENT: hearing intact, clear oral mucosa Ears: bilateral: normal - Neck Neck: supple, normal ROM - Respiratory Respiratory effort: normal Respiratory: bilateral: CTA - Breasts Breasts: deferred - Cardiovascular Rhythm: regular Heart Sounds: Present: S1 & S2. Absent: gallop, rub Extremities: pulses intact, No edema, normal color, Full ROM - Gastrointestinal General gastrointestinal: Present: soft, non-tender, non-distended, normal bowel sounds Rectal Exam: deferred - Genitourinary Male genitourinary: deferred - Integumentary Integumentary: clear, warm, dry - Musculoskeletal Musculoskeletal: 1, strength equal bilaterally - Neurologic Neurologic: moves all extremities - Psychiatric Psychiatric: memory intact, appropriate mood/affect, intact judgment & insight - Labs CBC & Chem 7: 12/10/19 09:30 12/10/19 09:30
[2019-12-13] MEDS: D5W/0.2% NACL 1,000 ML IV SCH ×4 (03:05→19:08)
[2019-12-13] MEDS: diphenhydrAMINE 50 MG/ML VIAL IV PRN ×7 (03:06→21:59)
[2019-12-13] MEDS: HYDROmorphone 2 MG/1 ML INJ IV PRN ×7 (03:06→21:59)
[2019-12-13 05:07] LABS: Hematocrit 18.1 % (35.5-45.6); Hemoglobin 6.5 gm/dl (11.8-15.2)
[2019-12-13] MEDS ORDERED: SODIUM CHLORIDE 0.9% 500 ML 500 ML IV ONE (05:37)
[2019-12-13] MEDS ORDERED: SODIUM CHLORIDE 0.9% 500 ML 500 ML IV SCH (09:00)
[2019-12-13] MEDS: APIXABAN 5 MG TAB PO SCH ×2 (09:03→21:55)
[2019-12-13] MEDS: MORPHINE 30 MG ER TAB PO SCH ×2 (09:03→21:55)
[2019-12-13] MEDS: HYDROXYUREA 500 MG CAP PO SCH (09:04)
[2019-12-13] MEDS: FOLIC ACID 1 MG TAB PO SCH (09:04)
--- NOTE | 2019-12-13 15:47 | Progress Note ---
Assessment and Plan - Patient Problems (1) Acute sickle cell crisis Current Visit: Yes Status: Acute Plan to address problem: Pain control, supportive. (2) Dehydration Current Visit: Yes Status: Acute Plan to address problem: hydrate. (3) Sickle cell anemia Current Visit: Yes Status: Acute Plan to address problem: monitor, and correct. Subjective Date of service: 12/13/19 Principal diagnosis: SCD/Dehydration. Anemia. Interval history: Patient seen/examined, resting in bed, records reviewed, case d/w patient.Pain rated as 7/10. will continue with current management. Patient seen/examined, resting in bed, records reviewed, case d/w patient.Pain rated at 6-7/10. Patient seen/examined, resting in bed, no new issues at this time. He s/p 1unit of PRBC, and awaiting the second unit. Objective - Constitutional Vitals: Vital Signs - 12hr 12/13/19 12/13/19 12/13/19 05:29 08:10 10:14 Temperature 98.2 F 98.4 F Pulse Rate 82 89 Respiratory 16 20 Rate Blood Pressure 107/63 123/66 O2 Sat by Pulse 98 98 95 Oximetry 12/13/19 12/13/19 12/13/19 10:30 10:45 11:15 Temperature 98.4 F 98.1 F 98.2 F Pulse Rate 87 88 85 Respiratory 20 20 20 Rate Blood Pressure 123/66 103/55 109/61 O2 Sat by Pulse 94 95 97 Oximetry 12/13/19 12/13/19 12/13/19 11:17 11:45 12:15 Temperature 98.2 F 98.2 F 98.2 F Pulse Rate 82 89 96 H Respiratory 22 20 20 Rate Blood Pressure 108/60 110/61 117/69 O2 Sat by Pulse 95 96 97 Oximetry 12/13/19 12/13/19 12:45 13:15 Temperature 98.4 F 98.6 F Pulse Rate 95 H 89 Respiratory 20 20 Rate Blood Pressure 119/62 114/63 O2 Sat by Pulse 97 96 Oximetry General appearance: Present: mild distress, well-nourished - EENT Eyes: PERRL, EOM intact ENT: hearing intact, clear oral mucosa Ears: bilateral: normal - Neck Neck: supple, normal ROM - Respiratory Respiratory effort: normal Respiratory: bilateral: CTA - Breasts Breasts: deferred - Cardiovascular Rhythm: regular Heart Sounds: Present: S1 & S2. Absent: gallop, rub Extremities: pulses intact, No edema, normal color, Full ROM - Gastrointestinal General gastrointestinal: Present: soft, non-tender, non-distended, normal bowel sounds Rectal Exam: deferred - Genitourinary Male genitourinary: deferred - Integumentary Integumentary: clear, warm, dry - Musculoskeletal Musculoskeletal: 1, strength equal bilaterally - Neurologic Neurologic: moves all extremities - Psychiatric Psychiatric: memory intact, appropriate mood/affect, intact judgment & insight - Labs CBC & Chem 7: 12/13/19 04:50 12/10/19 09:30 Labs: Abnormal lab results 12/13/19 12/13/19 Range/Units 04:50 06:27 Hgb 6.5 L (11.8-15.2) gm/dl Hct 18.1 L* (35.5-45.6) % Percent Retic 9.65 H (0.78-2.58) % Crossmatch See Detail
[2019-12-14] MEDS: D5W/0.2% NACL 1,000 ML IV SCH ×6 (00:30→23:49)
[2019-12-14] MEDS: diphenhydrAMINE 50 MG/ML VIAL IV PRN ×7 (02:00→23:51)
[2019-12-14] MEDS: HYDROmorphone 2 MG/1 ML INJ IV PRN ×7 (02:00→23:50)
[2019-12-14] MEDS: APIXABAN 5 MG TAB PO SCH ×2 (11:24→22:08)
[2019-12-14] MEDS: MORPHINE 30 MG ER TAB PO SCH ×2 (11:24→22:08)
[2019-12-14] MEDS: FOLIC ACID 1 MG TAB PO SCH (11:24)
[2019-12-14] MEDS: HYDROXYUREA 500 MG CAP PO SCH (11:25)
--- NOTE | 2019-12-14 21:18 | Discharge Summary ---
Providers - Providers Date of Admission: 12/10/19 11:00 Date of discharge: 12/15/19 (D/c home after noon.) Attending physician: ZACHERY RUIZ Primary care physician: ZACHERY RUIZ Hospitalization Reason for admission: SCD/acute pain cisis, anemia Condition: Stable Hospital course: Patient presented to the ER on the day of admission, with CC as above, admitted, for sxs management, and control. He was treated, with hydration, pain control, and blood transfusion.Patient is seen/examined, at this HR, pain level 6/10, no other issues at this time. Will treat for one more day , and D/C home tomorrow. Disposition: - TO HOME OR SELFCARE - Discharge Diagnoses (1) Acute sickle cell crisis Status: Acute (2) Dehydration Status: Acute (3) Sickle cell anemia Status: Chronic Core Measure Documentation - Palliative Care Palliative Care/ Comfort Measures: Not Applicable - Core Measures Any of the following diagnoses?: history only Exam - Constitutional Vitals: Temp Pulse Resp BP Pulse Ox 97.6 F 79 18 109/53 96 12/14/19 12:30 12/14/19 12:30 12/14/19 12:30 12/14/19 12:30 12/14/19 04:38 General appearance: Present: mild distress, well-nourished - EENT Eyes: Present: PERRL ENT: hearing intact, clear oral mucosa - Neck Neck: Present: supple, normal ROM - Respiratory Respiratory effort: normal Respiratory: bilateral: CTA - Cardiovascular Heart Sounds: Present: S1 & S2. Absent: rub, click - Extremities Extremities: pulses symmetrical, No edema Peripheral Pulses: within normal limits - Abdominal General gastrointestinal: Present: soft, non-tender, non-distended, normal bowel sounds Male genitourinary: Present: deferred - Rectal Rectal Exam: deferred - Integumentary Integumentary: Present: clear, warm, dry - Musculoskeletal Musculoskeletal: gait normal, strength equal bilaterally - Psychiatric Psychiatric: appropriate mood/affect, intact judgment & insight - Neurologic Neurologic: CNII-XII intact, moves all extremities Plan Activity: no restrictions Diet: regular Follow up with: PRIMARY CARE, [Referring] - 3-5 Days
[2019-12-15] MEDS: D5W/0.2% NACL 1,000 ML IV SCH ×2 (04:05→08:40)
[2019-12-15] MEDS: diphenhydrAMINE 50 MG/ML VIAL IV PRN ×3 (04:06→12:44)
[2019-12-15] MEDS: HYDROmorphone 2 MG/1 ML INJ IV PRN ×3 (04:07→12:45)
[2019-12-15] MEDS: MORPHINE 30 MG ER TAB PO SCH (10:42)
[2019-12-15] MEDS: HYDROXYUREA 500 MG CAP PO SCH (10:42)
[2019-12-15] MEDS: FOLIC ACID 1 MG TAB PO SCH (10:42)
[2019-12-15] MEDS: APIXABAN 5 MG TAB PO SCH (10:43)
[2019-12-15] MEDS ORDERED: NEOMY 3.5 MG/BACIT 400 UNITS/POLY B 5000 UNITS/GM OINT PACKET TP ONE (12:53)
[2019-12-15 14:17] VITALS: BP 106/62
== END 2019-12-15 14:15 | disposition home or self-care (01) | DRG 812 ==
LOC: ED 08:44 → 3A 11:00
PROVIDERS: ADMIT Internal Medicine Hematology & Oncology; ATTEND Internal Medicine Hematology & Oncology
PROC: 30233N1 Transfusion of Nonautologous Red Blood Cells into Peripheral Vein, Percutaneous Approach (ICD-10-PCS; principal; 2019-12-13)
DX: D57.00 Hb-SS disease with crisis, unspecified (principal); E86.0 Dehydration; Z79.899 Other long term (current) drug therapy; Z90.49 Acquired absence of other specified parts of digestive tract
CPT/HCPCS: 36415; 80048; 80076; 81001; 85007; 85014; 85018; 85025; 85045; 85660; 86850; 86900; 86901; 86920; 87116; 94760; G0378; A6250; J1170; J1200; J1642; J1885; J2270; J2405; J7030; J7040; P9016

== ENCOUNTER 2020-03-26 23:58 | Inpatient (IN) | payer MEDICARE ==
[2020-03-27] MEDS ORDERED: KETOROLAC 30 MG/1 ML INJ IV ONE (01:08)
[2020-03-27] MEDS ORDERED: HYDROmorphone 2 MG/1 ML INJ IV ONE ×2 (01:08→02:40)
[2020-03-27] MEDS ORDERED: diphenhydrAMINE 50 MG/ML VIAL IV ONE (01:08)
[2020-03-27] MEDS ORDERED: SODIUM CHLORIDE 0.9% 1000 ML 1,000 ML IV ONE (01:08)
--- NOTE | 2020-03-27 01:12 | Emergency Department Report ---
ED General Adult HPI - General Chief complaint: Sickle Cell Crisis Stated complaint: SICKLE CELL PAIN Time Seen by Provider: 03/27/20 00:57 Source: patient Mode of arrival: Ambulatory Limitations: No Limitations - History of Present Illness Initial comments: 29-year-old male with history of sickle cell presents to ED with pain crisis. Patient reports chest pain, back pain x3 days. Patient states he has been taking morphine and oxycodone at home without relief. Patient reports he has experienced chest and back pain with past crises and the pain feels the same today. He reports a low-grade temperature of 100.4 earlier today. Patient is chronically on 2 L O2 at home, but states he had to increase to 3 L. Patient denies any cough, sore throat, nasal congestion, loss of smell or taste, known exposure to anyone who has tested positive for COVID-19. -: days(s) (3) Location: chest, back Radiation: distal Severity scale (0 -10): 10 Quality: aching Consistency: constant Improves with: none Worsens with: none Associated Symptoms: chest pain, fever/chills. denies: cough, nausea/vomiting - Related Data Home Medications Medication Instructions Recorded Confirmed Last Taken Folic Acid [Folvite] 1 mg PO DAILY 04/03/18 03/27/20 03/26/20 Morphine ER [Ms Contin ER] 30 mg PO BID 04/03/18 03/27/20 03/26/20 Zolpidem [Ambien] 10 mg PO QHS PRN 05/25/19 03/27/20 03/25/20 Previous Rx's Medication Instructions Recorded Last Taken Type Hydroxyurea [Droxia] 1,500 mg PO DAILY #30 capsule 12/07/17 03/26/20 Rx Oxycodone HCl/Acetaminophen 1 tab PO Q4-6H PRN #6 tablet 02/15/19 03/26/20 Rx [Percocet 10/325 mg] Apixaban [Eliquis] 2.5 mg PO BID #60 tablet 03/23/19 03/26/20 Rx Albuterol INH(or & Nicu Only) 2 puff IH QID PRN #1 inhalation 10/15/19 Unknown Rx [ProAir HFA Inhaler] Allergies Allergy/AdvReac Type Severity Reaction Status Date / Time No Known Allergies Allergy Verified 12/10/19 08:49 ED Review of Systems ROS: Stated complaint: SICKLE CELL PAIN Other details as noted in HPI Comment: All other systems reviewed and negative Constitutional: fever ENT: denies: throat pain, congestion Respiratory: denies: cough Cardiovascular: chest pain Gastrointestinal: denies: vomiting, diarrhea Musculoskeletal: back pain ED Past Medical Hx - Past Medical History Previous Medical History?: Yes Hx Hypertension: No Hx CVA: No Hx Heart Attack/AMI: No Hx Congestive Heart Failure: No Hx Diabetes: No Hx Deep Vein Thrombosis: No Hx Pulmonary Embolism: No Hx GERD: No Hx Liver Disease: No Hx Renal Disease: No Hx Sickle Cell Disease: Yes Hx Arthritis: No Hx Headaches / Migraines: No Hx Seizures: No Hx Kidney Stones: No Hx Psychiatric Treatment: No Hx Asthma: Yes (denies hx exacerbations) Hx COPD: No Hx Tuberculosis: No Hx Dementia: No Hx HIV: No Additional medical history: Acute chest syndrome, - Surgical History Past Surgical History?: Yes Hx Coronary Stent: No Hx Open Heart Surgery: No Hx Pacemaker: No Hx Internal Defibrillator: No Hx Cholecystectomy: Yes Hx Appendectomy: No Hx Breast Surgery: No Additional Surgical History: TRACHEOSTOMY. 2 PORTS AND REMOVAL. LIVER BIOPSY X2 - Social History Smoking Status: Never Smoker Substance Use Type: None - Medications Home Medications: Home Medications Medication Instructions Recorded Confirmed Last Taken Type Hydroxyurea [Droxia] 1,500 mg PO DAILY #30 capsule 12/07/17 03/27/20 03/26/20 Rx Folic Acid [Folvite] 1 mg PO DAILY 04/03/18 03/27/20 03/26/20 History Morphine ER [Ms Contin ER] 30 mg PO BID 04/03/18 03/27/20 03/26/20 History Oxycodone HCl/Acetaminophen 1 tab PO Q4-6H PRN #6 tablet 02/15/19 03/27/20 03/26/20 Rx [Percocet 10/325 mg] Apixaban [Eliquis] 2.5 mg PO BID #60 tablet 03/23/19 03/27/20 03/26/20 Rx Zolpidem [Ambien] 10 mg PO QHS PRN 05/25/19 03/27/20 03/25/20 History Albuterol INH(or & Nicu Only) 2 puff IH QID PRN #1 inhalation 10/15/19 03/27/20 Unknown Rx [ProAir HFA Inhaler] ED Physical Exam - General Limitations: No Limitations General appearance: alert, in no apparent distress - Head Head exam: Present: atraumatic, normocephalic - Eye Eye exam: Present: EOMI, scleral icterus - ENT ENT exam: Present: mucous membranes moist - Neck Neck exam: Present: normal inspection - Respiratory Respiratory exam: Present: normal lung sounds bilaterally. Absent: respiratory distress - Cardiovascular Cardiovascular Exam: Present: normal rhythm, tachycardia - GI/Abdominal GI/Abdominal exam: Present: soft. Absent: distended, tenderness - Extremities Exam Extremities exam: Present: normal inspection - Neurological Exam Neurological exam: Present: alert, oriented X3 - Psychiatric Psychiatric exam: Present: normal affect, normal mood - Skin Skin exam: Present: warm, dry, intact, normal color ED Course Vital Signs 03/27/20 03/27/20 03/27/20 00:23 00:29 01:02 Temperature 99.9 F H 99.9 F H Pulse Rate 114 H 114 H 91 H Respiratory 20 18 32 H Rate Blood Pressure 118/64 Blood Pressure 118/64 [Left] O2 Sat by Pulse 92 90 Oximetry 03/27/20 03/27/20 03/27/20 01:15 01:30 01:45 Temperature Pulse Rate 89 95 H 88 Respiratory 30 H 14 16 Rate Blood Pressure 109/60 111/62 105/55 Blood Pressure [Left] O2 Sat by Pulse 97 95 95 Oximetry 03/27/20 03/27/20 03/27/20 01:50 02:00 02:16 Temperature 98.8 F Pulse Rate 82 83 81 Respiratory 18 27 H 27 H Rate Blood Pressure 113/62 136/58 Blood Pressure 105/55 [Left] O2 Sat by Pulse 93 86 83 L Oximetry 03/27/20 03/27/20 03/27/20 02:30 02:45 03:00 Temperature Pulse Rate 81 78 76 Respiratory 19 17 24 Rate Blood Pressure 114/61 114/63 110/64 Blood Pressure [Left] O2 Sat by Pulse 93 91 Oximetry 03/27/20 03/27/20 03/27/20 03:15 03:30 03:41 Temperature Pulse Rate 75 75 Respiratory 18 14 20 Rate Blood Pressure 115/64 109/56 Blood Pressure [Left] O2 Sat by Pulse 90 90 94 Oximetry 03/27/20 03/27/20 03/27/20 03:45 04:00 04:15 Temperature Pulse Rate 77 Respiratory 14 Rate Blood Pressure 117/53 130/73 103/41 Blood Pressure [Left] O2 Sat by Pulse 90 92 92 Oximetry 03/27/20 03/27/20 03/27/20 04:30 04:46 05:00 Temperature Pulse Rate Respiratory Rate Blood Pressure 112/46 95/53 107/60 Blood Pressure [Left] O2 Sat by Pulse 97 93 96 Oximetry 03/27/20 03/27/20 03/27/20 05:15 05:30 05:45 Temperature Pulse Rate Respiratory Rate Blood Pressure 104/47 109/61 102/50 Blood Pressure [Left] O2 Sat by Pulse 98 97 95 Oximetry 03/27/20 03/27/20 03/27/20 06:00 06:15 06:30 Temperature Pulse Rate Respiratory Rate Blood Pressure 104/56 106/61 100/53 Blood Pressure [Left] O2 Sat by Pulse 98 96 99 Oximetry 03/27/20 03/27/20 03/27/20 06:40 06:50 07:00 Temperature Pulse Rate 66 Respiratory 11 L Rate Blood Pressure 100/53 95/54 104/54 Blood Pressure [Left] O2 Sat by Pulse 100 100 99 Oximetry ED Medical Decision Making - Lab Data Result diagrams: 03/28/20 05:00 03/27/20 01:32 - EKG Data -: EKG Interpreted by Ut EKG shows normal: sinus rhythm, axis, intervals, QRS complexes, ST-T waves Rate: normal - EKG Data Interpretation: no acute changes - Radiology Data Radiology results: report reviewed, image reviewed - Medical Decision Making - Hb 6.3, retic count 20 - CXR negative - EKG, troponin unremarkable - will admit to Dr Encinas for sickle cell crisis - Differential Diagnosis acute chest, sickle crisis Critical care attestation.: If time is entered above; I have spent that time in minutes in the direct care of this critically ill patient, excluding procedure time. ED Disposition Clinical Impression: Acute sickle cell crisis Disposition: OP ADMIT IP TO THIS HOSP Is pt being admited?: Yes Condition: Stable Time of Disposition: 03:39
--- NOTE | 2020-03-27 01:43 | XRay Report ---
CHEST 1 VIEW 03/27/2020 12:37 AM INDICATION / CLINICAL INFORMATION: chest pain. COMPARISON: Chest x-ray 10/15/2019 FINDINGS: SUPPORT DEVICES: Right internal jugular Port-A-Cath has tip in SVC. HEART / MEDIASTINUM: Cardiac silhouette remains enlarged. LUNGS / PLEURA: No significant pulmonary or pleural abnormality. No pneumothorax. ADDITIONAL FINDINGS: SVC stent again noted. IMPRESSION: 1. Cardiomegaly without CHF. Signer Name: Troy Jamison MD Signed: 03/27/2020 1:39 AM Workstation Name: [id number]
[2020-03-27 02:10] LABS: Hemoglobin 6.3 gm/dl (11.8-15.2); Mean Corpuscular Volume 95 fl (84-94); Red Blood Count 1.72 M/mm3 (3.65-5.03)
[2020-03-27 02:16] LABS: BUN/Creatinine Ratio 35; Blood Urea Nitrogen 21 mg/dL (9-20); Calcium 8.8 mg/dL (8.4-10.2); Hemolysis Index 71
[2020-03-27 03:24] LABS: Hematocrit 16.3 % (35.5-45.6)
[2020-03-27 03:29] LABS: Mean Corpuscular HGB Conc 39 % (32-34); Platelet Count 208 K/mm3 (140-440); Red Cell Distribution Width 29.4 % (13.2-15.2)
[2020-03-27 04:07] LABS: Anisocytosis 3+; Basophils % (Manual) 0 % (0.0-1.8); Eosinophils % (Manual) 0 % (0.0-4.3); Poikilocytosis 2+; Total Cells Counted 100
[2020-03-27 04:08] LABS: Platelet Estimate Consistent w Auto; Sickle Cells 3+; Target Cells 1+
[2020-03-27] MEDS ORDERED: SODIUM CHLORIDE 0.9% 500 ML 500 ML IV NR (11:38)
[2020-03-27] MEDS: diphenhydrAMINE 50 MG/ML VIAL IV PRN ×4 (12:14→21:42)
[2020-03-27] MEDS: HYDROmorphone 2 MG/1 ML INJ IV PRN ×4 (12:16→21:42)
[2020-03-27] MEDS: D5W/0.2% NACL 1,000 ML IV SCH ×2 (12:18→19:46)
--- NOTE | 2020-03-27 19:44 | History and Physical Report ---
History of Present Illness Date of examination: 03/27/20 Date of admission: 03/27/20 05:04 Chief complaint: Sickle pain crisis/anemia./dehydration. History of present illness: Patient presented to the ED , with CC of diffuse joint pain.He was not able to control it at home. He was admitted, for sxs management /control. His hgb very low , with hypoxia. He uses 2l nc oxygen at home. He will need transfusion. of PRBCs. He came in with elevated WBC, which may be reactive process, vs infection.Once stable, he will be d/c home. Past History Past Medical History: anemia Social history: no significant social history Family history: no significant family history Medications and Allergies Allergies Allergy/AdvReac Type Severity Reaction Status Date / Time No Known Allergies Allergy Verified 12/10/19 08:49 Home Medications Medication Instructions Recorded Confirmed Last Taken Type Hydroxyurea [Droxia] 1,500 mg PO DAILY #30 capsule 12/07/17 03/27/20 03/26/20 Rx Folic Acid [Folvite] 1 mg PO DAILY 04/03/18 03/27/20 03/26/20 History Morphine ER [Ms Contin ER] 30 mg PO BID 04/03/18 03/27/20 03/26/20 History Oxycodone HCl/Acetaminophen 1 tab PO Q4-6H PRN #6 tablet 02/15/19 03/27/20 03/26/20 Rx [Percocet 10/325 mg] Apixaban [Eliquis] 2.5 mg PO BID #60 tablet 03/23/19 03/27/20 03/26/20 Rx Zolpidem [Ambien] 10 mg PO QHS PRN 05/25/19 03/27/20 03/25/20 History Albuterol INH(or & Nicu Only) 2 puff IH QID PRN #1 inhalation 10/15/19 03/27/20 Unknown Rx [ProAir HFA Inhaler] Active Meds: Active Medications Apixaban (Eliquis) 5 mg PO Q12HR SLICK; Protocol Diphenhydramine HCl (Benadryl) 12.5 mg IV Q3H PRN PRN Reason: puritis Last Admin: 03/27/20 18:31 Dose: 12.5 mg Documented by: Hydromorphone HCl (Dilaudid) 3 mg IV Q3H PRN PRN Reason: Pain , Severe (7-10) Last Admin: 03/27/20 18:31 Dose: 3 mg Documented by: Dextrose/Sodium Chloride (D5ns 0.2%) 1,000 mls @ 250 mls/hr IV DIRECT SLICK Last Admin: 03/27/20 12:18 Dose: 250 mls/hr Documented by: Sodium Chloride (Nacl 0.9% 500 Ml) 500 mls @ 0 mls/hr IV ONCE NR Stop: 03/28/20 11:37 Review of Systems Constitutional: fatigue, chronic pain Respiratory: shortness of breath Musculoskeletal: low back pain Exam - Constitutional Vitals: Temp Pulse Resp BP Pulse Ox 97.4 F L 76 18 107/64 98 03/27/20 18:13 03/27/20 18:13 03/27/20 18:13 03/27/20 18:13 03/27/20 18:13 General appearance: Present: mild distress, well-nourished - EENT Eyes: Present: PERRL ENT: hearing intact, clear oral mucosa - Neck Neck: Present: supple, normal ROM - Respiratory Respiratory effort: normal Respiratory: bilateral: CTA - Cardiovascular Heart Sounds: Present: S1 & S2. Absent: rub, click - Extremities Extremities: pulses symmetrical, No edema Peripheral Pulses: within normal limits - Abdominal General gastrointestinal: Present: soft, non-tender, non-distended, normal bowel sounds Male genitourinary: Present: deferred - Rectal Rectal Exam: deferred - Integumentary Integumentary: Present: clear, warm, dry - Musculoskeletal Musculoskeletal: gait normal, strength equal bilaterally - Psychiatric Psychiatric: appropriate mood/affect, intact judgment & insight - Neurologic Neurologic: CNII-XII intact, moves all extremities HEART Score - HEART Score EKG: Normal Troponin: Troponin T < 0.010 ng/mL (0.00-0.029) 03/27/20 01:32 Results - Labs CBC & Chem 7: 03/27/20 01:32 03/27/20 01:32 Labs: Abnormal lab results 03/27/20 03/27/20 03/27/20 Range/Units 01:32 01:32 01:32 WBC 17.3 H (4.5-11.0) K/mm3 RBC 1.72 L (3.65-5.03) M/mm3 Hgb 6.3 L (11.8-15.2) gm/dl Hct 16.3 L* (35.5-45.6) % MCV 95 H (84-94) fl MCH 37 H (28-32) pg MCHC 39 H* (32-34) % RDW 29.4 H (13.2-15.2) % Monocytes % (Manual) 16.0 H (0.0-7.3) % Nucleated RBC % 6.0 H (0.0-0.9) % Seg Neutrophils # Man 10.4 H (1.8-7.7) K/mm3 Monocytes # (Manual) 2.8 H (0.0-0.8) K/mm3 Percent Retic 20.44 H (0.78-2.58) % Sodium 133 L (137-145) mmol/L Potassium 5.1 H (3.6-5.0) mmol/L Carbon Dioxide 19 L (22-30) mmol/L BUN 21 H (9-20) mg/dL Creatinine 0.6 L (0.8-1.5) mg/dL Glucose 126 H (75-100) mg/dL Crossmatch 03/27/20 Range/Units 04:00 WBC (4.5-11.0) K/mm3 RBC (3.65-5.03) M/mm3 Hgb (11.8-15.2) gm/dl Hct (35.5-45.6) % MCV (84-94) fl MCH (28-32) pg MCHC (32-34) % RDW (13.2-15.2) % Monocytes % (Manual) (0.0-7.3) % Nucleated RBC % (0.0-0.9) % Seg Neutrophils # Man (1.8-7.7) K/mm3 Monocytes # (Manual) (0.0-0.8) K/mm3 Percent Retic (0.78-2.58) % Sodium (137-145) mmol/L Potassium (3.6-5.0) mmol/L Carbon Dioxide (22-30) mmol/L BUN (9-20) mg/dL Creatinine (0.8-1.5) mg/dL Glucose (75-100) mg/dL Crossmatch See Detail Assessment and Plan - Patient Problems (1) Acute sickle cell crisis Current Visit: Yes Status: Acute Plan to address problem: pain control. (2) Dehydration Current Visit: No Status: Acute Plan to address problem: hydration. (3) Leukocytosis Current Visit: No Status: Acute Qualifiers: Leukocytosis type: unspecified Qualified Code(s): D72.829 - Elevated white blood cell count, unspecified Plan to address problem: monitor. (4) Anemia Current Visit: Yes Status: Acute Plan to address problem: blood transfusion. (5) Hypoxia Current Visit: Yes Status: Acute Plan to address problem: this is chronic. continue with oxygen.
--- NOTE | 2020-03-27 20:40 | Discharge Summary ---
Providers - Providers Date of Admission: 03/27/20 05:04 Date of discharge: 03/28/20 (D/C home in am at 7am.) Attending physician: ZACHERY RUIZ Primary care physician: [employer] Hospitalization Reason for admission: SCD/anemia/pain crisis. Condition: Stable Hospital course: Patient admitted , for sxs of anemia, and sickle pain crisis.He is getting blood now, and states , have to be in the court house in am ,or arrested. Disposition: DC- TO HOME OR SELFCARE - Discharge Diagnoses (1) Acute sickle cell crisis Status: Acute (2) Dehydration Status: Acute (3) Leukocytosis Status: Acute Qualifiers: Leukocytosis type: unspecified Qualified Code(s): D72.829 - Elevated white blood cell count, unspecified (4) Anemia Status: Chronic (5) Hypoxia Status: Chronic Core Measure Documentation - Palliative Care Palliative Care/ Comfort Measures: Not Applicable - Core Measures Any of the following diagnoses?: history only Exam - Constitutional Vitals: Temp Pulse Resp BP Pulse Ox 97.4 F L 76 18 107/64 98 03/27/20 18:13 03/27/20 18:13 03/27/20 18:13 03/27/20 18:13 03/27/20 18:13 General appearance: Present: mild distress, well-nourished - EENT Eyes: Present: PERRL ENT: hearing intact, clear oral mucosa - Neck Neck: Present: supple, normal ROM - Respiratory Respiratory effort: normal Respiratory: bilateral: CTA - Cardiovascular Heart Sounds: Present: S1 & S2. Absent: rub, click - Extremities Extremities: pulses symmetrical, No edema Peripheral Pulses: within normal limits - Abdominal General gastrointestinal: Present: soft, non-tender, non-distended, normal bowel sounds Male genitourinary: Present: normal - Integumentary Integumentary: Present: clear, warm, dry - Musculoskeletal Musculoskeletal: gait normal, strength equal bilaterally - Psychiatric Psychiatric: appropriate mood/affect, intact judgment & insight - Neurologic Neurologic: CNII-XII intact, moves all extremities Plan Activity: no restrictions Diet: regular Follow up with: PRIMARY CARE, [Primary Care Provider] - 3-5 Days
[2020-03-27] MEDS: MORPHINE 30 MG ER TAB PO SCH (21:14)
[2020-03-27] MEDS: APIXABAN 5 MG TAB PO SCH (21:14)
[2020-03-28] MEDS: diphenhydrAMINE 50 MG/ML VIAL IV PRN ×7 (00:42→21:08)
[2020-03-28] MEDS: HYDROmorphone 2 MG/1 ML INJ IV PRN ×7 (00:42→21:08)
[2020-03-28] MEDS: D5W/0.2% NACL 1,000 ML IV SCH ×5 (03:00→21:06)
[2020-03-28 05:44] LABS: Hematocrit 22.7 % (35.5-45.6); Hemoglobin 8.5 gm/dl (11.8-15.2)
[2020-03-28] MEDS: APIXABAN 5 MG TAB PO SCH ×2 (09:19→21:06)
[2020-03-28] MEDS: MORPHINE 30 MG ER TAB PO SCH ×2 (09:19→21:06)
--- NOTE | 2020-03-28 21:47 | Progress Note ---
Assessment and Plan - Patient Problems (1) Acute sickle cell crisis Current Visit: Yes Status: Acute Plan to address problem: pain control. (2) Dehydration Current Visit: No Status: Acute Plan to address problem: hydration. (3) Leukocytosis Current Visit: No Status: Acute Qualifiers: Leukocytosis type: unspecified Qualified Code(s): D72.829 - Elevated white blood cell count, unspecified Plan to address problem: monitor. (4) Anemia Current Visit: Yes Status: Chronic Plan to address problem: blood transfusion. (5) Hypoxia Current Visit: Yes Status: Chronic Plan to address problem: this is chronic. continue with oxygen. Subjective Date of service: 03/28/20 Interval history: Patient seen/examined, resting in bed, he was notified this am, by the court, he did not have to go in. Pain -04/22. Case d/w him. will be planning a final d/c home in 1-2 days. Objective - Constitutional Vitals: Vital Signs - 12hr 03/28/20 03/28/20 03/28/20 13:36 17:41 21:06 Temperature 97.8 F 97.4 F L Pulse Rate 75 76 Respiratory 18 18 18 Rate Blood Pressure 113/65 105/55 O2 Sat by Pulse 97 99 Oximetry 03/28/20 21:08 Temperature Pulse Rate Respiratory 18 Rate Blood Pressure O2 Sat by Pulse Oximetry General appearance: Present: mild distress, well-nourished - EENT Eyes: PERRL, EOM intact ENT: hearing intact, clear oral mucosa Ears: bilateral: normal - Neck Neck: supple, normal ROM - Respiratory Respiratory effort: normal Respiratory: bilateral: CTA - Breasts Breasts: deferred - Cardiovascular Rhythm: regular Heart Sounds: Present: S1 & S2. Absent: gallop, rub Extremities: pulses intact, No edema, normal color, Full ROM - Gastrointestinal General gastrointestinal: Present: soft, non-tender, non-distended, normal bowel sounds Rectal Exam: deferred - Genitourinary Male genitourinary: deferred - Integumentary Integumentary: clear, warm, dry - Musculoskeletal Musculoskeletal: 1, strength equal bilaterally - Neurologic Neurologic: moves all extremities - Psychiatric Psychiatric: memory intact, appropriate mood/affect, intact judgment & insight - Labs CBC & Chem 7: 03/28/20 05:00 03/27/20 01:32 Labs: Abnormal lab results 03/27/20 03/28/20 Range/Units 04:00 05:00 Hgb 8.5 L (11.8-15.2) gm/dl Hct 22.7 L D (35.5-45.6) % Crossmatch See Detail HEART Score - HEART Score EKG: Normal Troponin: Troponin T < 0.010 ng/mL (0.00-0.029) 03/27/20 01:32
[2020-03-29] MEDS: HYDROmorphone 2 MG/1 ML INJ IV PRN ×6 (01:13→20:11)
[2020-03-29] MEDS: D5W/0.2% NACL 1,000 ML IV SCH ×6 (01:14→20:11)
[2020-03-29] MEDS: diphenhydrAMINE 50 MG/ML VIAL IV PRN ×6 (01:14→20:11)
[2020-03-29] MEDS: MORPHINE 30 MG ER TAB PO SCH ×2 (10:00→22:03)
[2020-03-29] MEDS: APIXABAN 5 MG TAB PO SCH ×2 (10:00→22:02)
--- NOTE | 2020-03-29 20:41 | Progress Note ---
Assessment and Plan - Patient Problems (1) Acute sickle cell crisis Current Visit: Yes Status: Acute Plan to address problem: pain control. (2) Dehydration Current Visit: No Status: Acute Plan to address problem: hydration. (3) Leukocytosis Current Visit: No Status: Acute Qualifiers: Leukocytosis type: unspecified Qualified Code(s): D72.829 - Elevated white blood cell count, unspecified Plan to address problem: monitor. (4) Anemia Current Visit: Yes Status: Chronic Plan to address problem: blood transfusion. completed. (5) Hypoxia Current Visit: Yes Status: Chronic Plan to address problem: this is chronic. continue with oxygen. This is chronic hypoxia, present on admission., will continue on oxygen. Subjective Date of service: 03/29/20 Interval history: Patient seen/examined, resting in bed, he was notified this am, by the court, he did not have to go in. Pain 6-7/10. Case d/w him. will be planning a final d/c home in 1-2 days. Patient seen/examined, resting in bed, records reviewed, case d/w him. pain 6/10. I will decrease fluid to 150, and d/c him home tomorrow. Objective - Constitutional Vitals: Vital Signs - 12hr 03/29/20 03/29/20 03/29/20 09:35 10:59 16:28 Temperature 98.4 F 97.8 F Pulse Rate 72 79 Respiratory 16 18 Rate Blood Pressure 122/79 95/48 O2 Sat by Pulse 98 96 93 Oximetry 03/29/20 20:11 Temperature Pulse Rate Respiratory 18 Rate Blood Pressure O2 Sat by Pulse Oximetry General appearance: Present: mild distress, well-nourished - EENT Eyes: PERRL, EOM intact ENT: hearing intact, clear oral mucosa Ears: bilateral: normal - Neck Neck: supple, normal ROM - Respiratory Respiratory effort: normal Respiratory: bilateral: CTA - Breasts Breasts: deferred - Cardiovascular Rhythm: regular Heart Sounds: Present: S1 & S2. Absent: gallop, rub Extremities: pulses intact, No edema, normal color, Full ROM - Gastrointestinal General gastrointestinal: Present: soft, non-tender, non-distended, normal bowel sounds Rectal Exam: deferred - Genitourinary Male genitourinary: deferred - Integumentary Integumentary: clear, warm, dry - Musculoskeletal Musculoskeletal: 1, strength equal bilaterally - Neurologic Neurologic: moves all extremities - Psychiatric Psychiatric: memory intact, appropriate mood/affect, intact judgment & insight - Labs CBC & Chem 7: 03/28/20 05:00 03/27/20 01:32 HEART Score - HEART Score EKG: Normal Troponin: Troponin T < 0.010 ng/mL (0.00-0.029) 03/27/20 01:32
[2020-03-30] MEDS: HYDROmorphone 2 MG/1 ML INJ IV PRN ×3 (00:03→07:01)
[2020-03-30] MEDS: diphenhydrAMINE 50 MG/ML VIAL IV PRN ×3 (00:04→07:00)
[2020-03-30] MEDS: D5W/0.2% NACL 1,000 ML IV SCH (03:41)
[2020-03-30 05:55] VITALS: BP 104/58
[2020-03-30] MEDS ORDERED: NEOMY 3.5 MG/BACIT 400 UNITS/POLY B 5000 UNITS/GM OINT PACKET TP ONE (08:00)
[2020-03-30] MEDS: MORPHINE 30 MG ER TAB PO SCH (09:14)
[2020-03-30] MEDS: APIXABAN 5 MG TAB PO SCH (09:16)
== END 2020-03-30 10:22 | disposition home or self-care (01) | DRG 812 ==
LOC: ED 23:58 → 3A 03-27 05:04
PROVIDERS: ADMIT Internal Medicine Hematology & Oncology; ATTEND Internal Medicine Hematology & Oncology
PROC: 30233N1 Transfusion of Nonautologous Red Blood Cells into Peripheral Vein, Percutaneous Approach (ICD-10-PCS; principal; 2020-03-27)
DX: D57.00 Hb-SS disease with crisis, unspecified (principal); R09.02 Hypoxemia; E86.0 Dehydration; D72.829 Elevated white blood cell count, unspecified; R68.0 Hypothermia, not associated with low environmental temperature; D64.9 Anemia, unspecified; Z90.49 Acquired absence of other specified parts of digestive tract; J45.909 Unspecified asthma, uncomplicated; Z93.0 Tracheostomy status; Z99.81 Dependence on supplemental oxygen
CPT/HCPCS: 36415; 71045; 80048; 84484; 85007; 85014; 85018; 85025; 85045; 85660; 86850; 86900; 86901; 86920; 93005; 94760; 96361; 96374; 96375; 96376; G0378; A6250; J1170; J1200; J1642; J1885; J7030; J7040; P9016